=== PATIENT | female | born 1960 | race Caucasian/White ===

== ENCOUNTER 2024-09-14 18:49 | Inpatient (IN) ==
--- NOTE | 2024-09-14 19:40 | XRay Report ---
Exam(s): XR CXR 2 VIEWS EXAM: XR Chest, 2 Views CLINICAL HISTORY: Reason for exam: Chest pain, nonspecific. TECHNIQUE: Frontal and lateral views of the chest. COMPARISON: No relevant prior studies available. FINDINGS: Lungs: Unremarkable. No consolidation. Pleural space: Unremarkable. No pleural effusion or pneumothorax. Heart: Unremarkable. No cardiomegaly or pulmonary vascular congestion. Bones/joints: No acute fracture. No dislocation. IMPRESSION: No evidence of acute cardiopulmonary disease. Electronically signed by: Mike Boone M.D. 09/14/24 19:39 PM
[2024-09-14 19:44] LABS: Basophils # (auto) 0.03 K/uL (0.00-0.20); Basophils % (auto) 0.4 %; Eosinophils # (auto) 0.18 K/uL (0.00-0.50); Eosinophils % (auto) 2.1 %; Hematocrit (blood only) 43.1 % (37.0-47.0); Hemoglobin 14.4 g/dl (12.0-16.0); Immature Granulocytes # (auto) 0.02 K/uL (0.01-0.20); Immature Granulocytes % (auto) 0.2 %; Lymphocytes # (auto) 1.55 K/uL (1.20-3.40); Lymphocytes % (auto) 18.3 %; Mean Corpuscular Hemoglobin 29.3 pg (25.0-34.0); Mean Corpuscular Hgb Conc 33.4 g/dL (32.0-36.0); Mean Corpuscular Volume 87.8 fL (80.0-100.0); Mean Platelet Volume 9.6 fL (9.4-12.4); Monocytes # (auto) 0.61 K/uL (0.11-0.59); Monocytes % (auto) 7.2 %; Neutrophils % (auto) 71.8 %; Platelet Count 206 K/uL (130-400); RDW Coefficient of Variation 12.1 % (11.5-14.5); Red Blood Count 4.91 M/uL (4.20-5.40); White Blood Count 8.49 K/ul (4.8-10.8)
[2024-09-14 20:02] LABS: Albumin Globulin Ratio 1.7 (0.9-2); Albumin Level 4.2 gm/dl (3.4-5.0); BUN Creatinine Ratio 14.6 (10-20); Bilirubin,Total 0.3 mg/dl (0.2-1.0); Calcium 9.7 mg/dl (8.6-10.3); Creatinine Clr Calc Pharmacy 41.5 ml/min; Globulin 2.5 gm/dl (2.5-4.0); Potassium 4.1 mmol/L (3.5-5.1); Total Protein 6.7 gm/dl (6.0-8.3)
[2024-09-14 20:08] LABS: Troponin I High Sensitivity 11.2 pg/ml (0-14)
[2024-09-14 20:13] LABS: Partial Thromboplastin Ratio 0.9; Partial Thromboplastin Time 24 Seconds (21-31); Prothrombin Time 10.5 Seconds (9.0-12.0)
--- NOTE | 2024-09-14 21:41 | Emergency Department Note ---
Impression & Plan Pulmonary embolism, Bladder cancer ED Provider Note NAME: LISA LORENZ AGE: 63 SEX: F : 1960 ARRIVES VIA: Walk-In INFORMANT: Patient ED PROVIDER(S): Rachid Husain MD CHIEF COMPLAINT: Abnormal CT scan, pulmonary embolism, referred. PLAN: Disposition: Admit MEDICAL DECISION MAKING: The patient is a pleasant 63-year-old woman with a past medical history of hypothyroidism, hypertension, bladder cancer who presents to the emergency department via walk-in accompanied by her for evaluation of pulmonary embolism on CT of her chest performed today which was done as surveillance for her bladder cancer prior to her upcoming surgery this Saturday. The patient reports she is on a baby aspirin but stopped this 2 weeks ago for her surgery. She denies being on a blood thinner. Patient reports she has not had any chest pain or shortness of breath. She was surprised that she was called about these results today. We were able to obtain the patient's CT report from [facility] and are in the process of attempting to obtain the images through [facility] for review. However the patient's CT report is convincing where "multiple filling defects are visualized in the right upper, middle and lower lobar/segmental branches, consistent with acute pulmonary embolism. Small PE in the left lower lobe segmental branch. No evidence of right heart strain. " The caveat is noted that the study "was not optimized to evaluate for pulmonary embolism." This was a CT chest with contrast study. Of note, the patient did arrive to emergency department during time of high volume, acuity and prolonged emergency department waiting times. Critical pathways initiated from triage. On evaluation the patient is no distress, afebrile with stable vital signs. O2 saturation is 96% on room air. EKG without overt acute ischemia. CXR negative for acute cardiopulmonary process per my personal preliminary review/interpretation. WBC, H/H and platelets within normal limits. Chemistry without metabolic acidosis. Creatinine 1.4 without prior for comparison. LFTs unremarkable. HS troponin 11.2, within normal limits. Case was discussed with Dr. Reaves, [facility] hospitalist who will evaluate the patient for admission. Further management per admitting team including initiation of anticoagulation. Triage Nursing notes reviewed and agree them. Prior/external medical records reviewed Vital Signs: reviewed Differential diagnosis: Reactive airway disease, pneumonia, pneumothorax, COPD, CHF, infections, cardiac ischemia, pulmonary embolism, musculoskeletal, gastrointestinal, as well as other pathologies. ER treatment provided: See below. Diagnostics interpreted by me: ECG: Normal sinus rhythm, 67 bpm, no ectopy, no overt ST ovation or depression, QTc 416, QRS 70 Cardiac Monitoring: An order for continuous cardiac monitoring was placed and demonstrated Normal sinus rhythm, 67 bpm, no ectopy Laboratory studies: See below Imaging studies: See below Consultation(s): Case was discussed with Dr. Reaves, [facility] hospitalist who will evaluate the patient for admission. HPI: The patient is a pleasant 63-year-old woman with a past medical history of hypothyroidism, hypertension, bladder cancer who presents to the emergency department via walk-in accompanied by her for evaluation of pulmonary embolism on CT of her chest performed today which was done as surveillance for her bladder cancer prior to her upcoming surgery this Saturday. The patient reports she is on a baby aspirin but stopped this 2 weeks ago for her surgery. She denies being on a blood thinner. Patient reports she has not had any chest pain or shortness of breath. She was surprised that she was called about these results today. ROS: See above HPI for pertinent positives & negatives. A total of 10 systems reviewed and were otherwise negative. VITALS:See Below PHYSICAL EXAMINATION: GENERAL: Awake, alert, well-appearing, in no distress HENT: Normocephalic, atraumatic. Oropharynx unremarkable. EYES: Normal conjunctiva. Sclera non-icteric. NECK: Supple. No nuchal rigidity. FROM. No JVD. RESPIRATORY: Clear to auscultation. CARDIAC: Regular rate, normal rhythm. Extremities warm and well perfused. Pulses equal. ABDOMEN: Soft, non-distended. No tenderness to palpation. No rebound or guarding. No masses. RECTAL: Deferred. MUSCULOSKELETAL: Chest examination reveals no tenderness. The back is symmetrical on inspection without obvious abnormality. There is no CVA tenderness to palpation. No joint edema. LOWER EXTREMITIES: Calves are equal size bilaterally and non-tender. No edema. No discoloration. NEURO: Normal sensorium. No sensory or motor deficits noted. SKIN: No rash or jaundice noted. 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: No Beliefs That Will Affect Care: None Current Living Situation: Spouse Other Information That Helps Us Care for You: Yes Feels Safe at Home: Yes Safety Concerns: Feels Safe At This Time Assistive Devices: None Allergies Allergies Allergy/AdvReac Type Severity Reaction Status Date / Time latex Allergy Unknown RASH AND Verified 06/17/13 16:18 HIVES Home Meds Home Medications Medication Instructions Recorded Confirmed MULTIPLE VITAMINS W/ MINERALS 1 tab PO DAILY ##0 06/08/13 09/14/24 (WOMENS MULTI) LOSARTAN POTASSIUM (COZAAR) 100 mg PO DAILY #0 tabs 06/17/13 09/14/24 ACETAMINOPHEN (TYLENOL) 500 mg PO prn PRN Pain #0 tabs 06/30/13 09/14/24 levothyroxine 200 mcg tablet 200 mcg PO QAM 09/14/24 09/14/24 (Synthroid) sertraline 50 mg tablet 50 mg PO QAM 09/14/24 09/14/24 Results & Data (ED) Vital Signs Vital Signs - 24 hr 09/14/24 18:55 09/14/24 19:37 09/14/24 20:00 Temperature 36.8 C Temperature Source Temporal Artery Scan Pulse Rate 84 63 Pulse Rate [Apical] 61 Pulse Rhythm Regular Pulse Strength Normal Respiratory Rate 20 16 Respiratory Effort / Characteristics Non-Labored Spontaneous Non-Labored Spontaneous Respiratory Depth Normal Blood Pressure 163/102 H Blood Pressure [Right Arm] 113/73 Blood Pressure Mean 122 Blood Pressure Mean [Right Arm] 86 Blood Pressure Position [Right Arm] Lying Pulse Oximetry 97 96 Oxygen Delivery Method Room Air Room Air Sepsis Recent Fever Within 48 Hours No Sepsis New/Unexplained Change in Mental Status N/A Sepsis Action Taken by Nursing No Action Required 09/14/24 20:00 09/14/24 20:00 09/14/24 22:00 Temperature Temperature Source Pulse Rate 61 Pulse Rate [Apical] 62 Pulse Rhythm Pulse Strength Respiratory Rate 16 18 Respiratory Effort / Characteristics Non-Labored Spontaneous Respiratory Depth Blood Pressure Blood Pressure [Right Arm] 149/107 H Blood Pressure Mean Blood Pressure Mean [Right Arm] 121 Blood Pressure Position [Right Arm] Lying Pulse Oximetry 96 96 93 Oxygen Delivery Method Room Air Room Air Room Air Sepsis Recent Fever Within 48 Hours Sepsis New/Unexplained Change in Mental Status Sepsis Action Taken by Nursing Laboratory Data Attestation: I reviewed the patient's lab results. 09/15/24 06:03 09/15/24 06:03 Lab Results 09/14/24 Range/Units 19:29 WBC 8.49 (4.8-10.8) K/ul RBC 4.91 (4.20-5.40) M/uL Hgb 14.4 (12.0-16.0) g/dl Hct 43.1 (37.0-47.0) % MCV 87.8 (80.0-100.0) fL MCH 29.3 (25.0-34.0) pg MCHC 33.4 (32.0-36.0) g/dL RDW Std Deviation 39.0 (36.4-46.3) fL RDW Coeff of Louise 12.1 (11.5-14.5) % Plt Count 206 (130-400) K/uL MPV 9.6 (9.4-12.4) fL Immature Gran % (Auto) 0.2 % Neut % (Auto) 71.8 % Lymph % (Auto) 18.3 % [place]imble % (Auto) 7.2 % Eos % (Auto) 2.1 % Baso % (Auto) 0.4 % Neut # (Auto) 6.10 (1.40-6.50) K/uL Lymph # (Auto) 1.55 (1.20-3.40) K/uL [place]ble # (Auto) 0.61 H (0.11-0.59) K/uL Eos # (Auto) 0.18 (0.00-0.50) K/uL Baso # (Auto) 0.03 (0.00-0.20) K/uL Immature Gran # (Auto) 0.02 (0.01-0.20) K/uL PT 10.5 (9.0-12.0) Seconds INR 1.0 (0.9-1.1) APTT 24 (21-31) Seconds PTT Ratio 0.9 Sodium 138 (136-145) mmol/L Potassium 4.1 (3.5-5.1) mmol/L Chloride 105 (98-107) mmol/L Carbon Dioxide 26 (21-32) mmol/L Anion Gap 7 (3-11) BUN 21 (6-23) mg/dl Creatinine 1.44 H (0.6-1.2) mg/dl Est Cr Clr Drug Dosing 41.5 ml/min eGFR 41.12 BUN/Creatinine Ratio 14.6 (10-20) Glucose 103 H (70-99(Fasting)) mg/dl Calcium 9.7 (8.6-10.3) mg/dl Magnesium 2.0 (1.7-2.4) mg/dl Total Bilirubin 0.3 (0.2-1.0) mg/dl AST 16 (13-39) U/L ALT 8 (7-52) U/L Alkaline Phosphatase 63 (34-104) U/L Troponin I High Sens 11.2 (0-14) pg/ml Total Protein 6.7 (6.0-8.3) gm/dl Albumin 4.2 (3.4-5.0) gm/dl Globulin 2.5 (2.5-4.0) gm/dl Albumin/Globulin Ratio 1.7 (0.9-2) TSH 0.484 (0.300-4.500) uIu/ml Administered Medications Sodium Chloride (Nss) 1,000 mls @ 80 mls/hr IV .[id number] STA Stop: 09/15/24 10:28 Last Admin: 09/14/24 23:57 Dose: 80 mls/hr Documented By: EMB Heparin Sodium/Dextrose (Heparin Sodium/Dextrose) 25,000 units in 500 mls @ 23 mls/hr IV .[id number] [facility]; Protocol Stop: 10/14/24 23:14 Last Admin: 09/14/24 23:56 Dose: 1,150 units/hr, 23 mls/hr Documented By: EMB Co-signed By: LARISA Lorazepam (Lorazepam 0.5 Mg Tab) 0.5 mg PO TID PRN PRN Reason: Anxiety Stop: 10/14/24 22:55 Last Admin: 09/15/24 00:48 Dose: 0.5 mg Documented By: EMB Imaging Data Radiologist's Impression: Chest X-Ray 09/14/24 19:01 Exam(s): XR CXR 2 VIEWS EXAM: XR Chest, 2 Views CLINICAL HISTORY: Reason for exam: Chest pain, nonspecific. TECHNIQUE: Frontal and lateral views of the chest. COMPARISON: No relevant prior studies available. FINDINGS: Lungs: Unremarkable. No consolidation. Pleural space: Unremarkable. No pleural effusion or pneumothorax. Heart: Unremarkable. No cardiomegaly or pulmonary vascular congestion. Bones/joints: No acute fracture. No dislocation. IMPRESSION: No evidence of acute cardiopulmonary disease. Electronically signed by: Mike Boone M.D. 09/14/24 19:39 PM Discharge Plan Visit Data Chief Complaint: Abnormal Labs/Diagnostic Testing Stated Complaint: ABN SCAN ED Provider: Rachid Husain Discharge Problem: Pulmonary embolism, Bladder cancer Patient Disposition: Admitted As Inpatient Discharge Instructions Interventions: ED Discharge Assessment Last Done: 09/15/24 00:54 Discharge Problem: Pulmonary embolism Qualifiers: Pulmonary embolism type: unspecified Chronicity: acute Acute cor pulmonale presence: without acute cor pulmonale Qualified Code(s): I26.99 - Other pulmonary embolism without acute cor pulmonale Bladder cancer Qualifiers: Bladder location: unspecified site Qualified Code(s): C67.9 - Malignant neoplasm of bladder, unspecified
--- NOTE | 2024-09-14 22:32 | History & Physical Report ---
Date of Service September 14, 2024 Assessment & Plan (1) Pulmonary embolism: Plan: History of bladder cancer History RLE DVT in the setting of breast cancer surgery 2012 Rule out lower extremity clot as source hypertension, stable hyperlipidemia, on statin Rx hx TIA CRI, creatinine at baseline left breast cancer status post surgery/radiation status post tamoxifen Rx cervical cancer status post surgery/chemoradiation thyroid cancer status post ablation hypothyroidism, euthyroid as of today's TSH anxiety/mood disorder, patient slightly anxious and tearful during exam due to possible cancellation of contemplated elective cancer surgery at [facility] on 09/16 with discovery of blood clot past tobacco abuse Admit to medical telemetry IV heparin LE venous Dopplers rule out DVT Will request a.m. provider to contact patient's urologist (Dr. Guerrero) in a.m. to inquire about possibility of transferring patient to [facility] to facilitate surgery 09/16 with perioperative anticoagulation. Patient and have intense desire to proceed with contemplated procedure despite new blood clot diagnosis. DVT prophylaxis. IV heparin Full code Text document was generated using [employer] voice recognition software. It may contain grammatical or spelling errors. Kindly contact undersigned for clarification of any documentation item in question. History of Present Illness Chief Complaint: Abnormal CAT scan Primary Care Provider: Allyson Vickers DO History obtained from patient and records. Medical history significant for hypertension, hyperlipidemia, TIA, CRI (baseline creatinine 1.4), bladder cancer, left breast cancer status post surgery/radiation, status post tamoxifen Rx, cervical cancer status post surgery/chemoradiation, thyroid cancer status post ablation, postop DVT status post anticoagulation, hypothyroidism, anxiety/mood disorder, past tobacco abuse. Last confinement 2010 for TIA symptoms. Patient diagnosed to have bladder cancer last month presenting as hematuria symptoms. Robot-assisted laparoscopic partial cystectomy with possible pelvic lymph node dissection contemplated by urologist at [facility] contemplated September 16, 2024. Outpatient PET scan and CT chest abdomen pelvis to rule out occult mets requested by specialist following office visit last week. Outpatient CT chest abdomen pelvis done at [facility] facility done today with results noted below. A 1.8 x 1.2 cm hypoattenuating collection/structure at the urachal remanent near the anterior bladder dome, grossly unchanged from prior CT. Findings suspicious for residual tumor rather than a postoperative collection. Recent PET-CT would be limited to detect uptake given mucinous subtype. No evidence of metastatic disease. Please note that this study was not optimized to evaluate for pulmonary embolism. However, multiple filling defects are visualized in the right upper, middle and lower lobar/segmental branches, consistent with acute pulmonary embolism. Small PE in the left lower lobe segmental branch. No evidence of right heart strain. Patient denies chest pain, SOB, leg swelling, hematuria symptoms. History RLE DVT in 2012 during confinement for breast surgery. Patient directed to ER by urologist office for further evaluation. 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 Allergies Allergy/AdvReac Type Severity Reaction Status Date / Time latex Allergy Unknown RASH AND Verified 06/17/13 16:18 HIVES Home Medications Medication Instructions Recorded Confirmed Type MULTIPLE VITAMINS W/ MINERALS 1 tab PO DAILY ##0 06/08/13 09/14/24 History (WOMENS MULTI) LOSARTAN POTASSIUM (COZAAR) 100 mg PO DAILY #0 tabs 06/17/13 09/14/24 History ACETAMINOPHEN (TYLENOL) 500 mg PO prn PRN Pain #0 tabs 06/30/13 09/14/24 History levothyroxine 200 mcg tablet 200 mcg PO QAM 09/14/24 09/14/24 History (Synthroid) sertraline 50 mg tablet 50 mg PO QAM 09/14/24 09/14/24 History Past Med/Surg History Problem List (Updated 09/15/24 @ 06:54 by Rachid Husain MD) Bladder cancer (Acute) Pulmonary embolism (Acute) Social History Smoking Status: Never smoker Hx Alcohol Use: Yes Alcohol type: beer, wine and hard liquor Hx Substance Use: No (Has medical marijuana card, has not used in 3-4 months) Preferred Language: German Communication Ability: Effective 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 Costume 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 Required: No Beliefs That Will Affect Care: None Current Living Situation: Spouse Other Information That Helps Us Care for You: Yes Feels Safe at Home: Yes Safety Concerns: Feels Safe At This Time Assistive Devices: None Review of Systems Review of Systems: As per HPI, all other systems reviewed and negative Physical Exam Physical Exam: GENERAL: Comfortable, pleasant, tearful, no respiratory distress SKIN: Normal color, warm HEENT: Morea palpebral conjunctivae, no ptosis, dry buccal mucosa NECK : Supple, no tenderness CHEST : CTA, no tenderness HEART : RRR, no obvious murmurs ABDOMEN: Some distention, nontender EXTREMITIES : Minimal LE swelling without tenderness, no other conspicuous deformities noted NEUROLOGIC : Coherent, no facial asymmetry, no other gross focality Results & Data Results & Data Vital Signs (Past 12 Hours) Vital Signs Temp Pulse Pulse Resp BP BP Pulse Ox 09/14/24 20:00 61 16 96 09/14/24 20:00 96 09/14/24 20:00 61 16 113/73 96 09/14/24 19:37 63 09/14/24 18:55 36.8 C 84 20 163/102 H 97 O2 Del Method 09/14/24 20:00 Room Air 09/14/24 20:00 Room Air 09/14/24 20:00 Room Air 09/14/24 19:37 09/14/24 18:55 Room Air Laboratory Results Laboratory Results WBC 8.49 K/ul (4.8-10.8) 09/14/24 19: RBC 4.91 M/uL (4.20-5.40) 09/14/24 19:29 Hgb 14.4 g/dl (12.0-16.0) 09/14/24 19: Hct 43.1 % (37.0-47.0) 09/14/24 19: MCV 87.8 fL (80.0-100.0) 09/14/24 19: MCH 29.3 pg (25.0-34.0) 09/14/24 19: MCHC 33.4 g/dL (32.0-36.0) 09/14/24 19:29 RDW Std Deviation 39.0 fL (36.4-46.3) 09/14/24: RDW Coeff of Louise 12.1 % (11.5-14.5) 09/14/24 19: Plt Count 206 K/uL (130-400) 09/14/24 19: MPV 9.6 fL (9.4-12.4) 09/14/24 19: Immature Gran % (Auto) 0.2 % 09/14/24: Neut % (Auto) 71.8 % 09/14/24 19: Lymph % (Auto) 18.3 % 09/14/24 19: [place]rentiss % (Auto) 7.2 % 09/14/24 19: Eos % (Auto) 2.1 % 09/14/24 19: Baso % (Auto) 0.4 % 09/14/24: Neut # (Auto) 6.10 K/uL (1.40-6.50) 09/14/24: Lymph # (Auto) 1.55 K/uL (1.20-3.40) 09/14/24 19: [place]rentiss # (Auto) 0.61 K/uL (0.11-0.59) H 09/14/24: Eos # (Auto) 0.18 K/uL (0.00-0.50) 09/14/24: Baso # (Auto) 0.03 K/uL (0.00-0.20) 09/14/24: Immature Gran # (Auto) 0.02 K/uL (0.01-0.20) 09/14/24: PT 10.5 Seconds (9.0-12.0) 09/14/24: INR 1.0 (0.9-1.1) 09/14/24: APTT 24 Seconds (21-31) 09/14/24: PTT Ratio 0.9 09/14/24: Sodium 138 mmol/L (136-145) 09/14/24: Potassium 4.1 mmol/L (3.5-5.1) 09/14/24: Chloride 105 mmol/L (98-107) 09/14/24: Carbon Dioxide 26 mmol/L (21-32) 09/14/24:29 Anion Gap 7 (3-11) 09/14/24:29 BUN 21 mg/dl (6-23) 09/14/24: Creatinine 1.44 mg/dl (0.6-1.2) H 09/14/24: Est Cr Clr Drug Dosing 41.5 ml/min 09/14/24:29 eGFR 41.12 09/14/24:29 BUN/Creatinine Ratio 14.6 (10-20) 09/14/24 19:29 Glucose 103 mg/dl (70-99(Fasting)) H 09/14/24 19:29 Calcium 9.7 mg/dl (8.6-10.3) 09/14/24 19:29 Magnesium 2.0 mg/dl (1.7-2.4) 09/14/24 19:29 Total Bilirubin 0.3 mg/dl (0.2-1.0) 09/14/24 19:29 AST 16 U/L (13-39) 09/14/24 19:29 ALT 8 U/L (7-52) 09/14/24 19:29 Alkaline Phosphatase 63 U/L (34-104) 09/14/24 19:29 Troponin I High Sens 11.2 pg/ml (0-14) 09/14/24 19:29 Total Protein 6.7 gm/dl (6.0-8.3) 09/14/24 19:29 Albumin 4.2 gm/dl (3.4-5.0) 09/14/24 19:29 Globulin 2.5 gm/dl (2.5-4.0) 09/14/24 19:29 Albumin/Globulin Ratio 1.7 (0.9-2) 09/14/24 19:29 Impressions Chest X-Ray 09/14/24 19:01 Exam(s): XR CXR 2 VIEWS EXAM: XR Chest, 2 Views CLINICAL HISTORY: Reason for exam: Chest pain, nonspecific. TECHNIQUE: Frontal and lateral views of the chest. COMPARISON: No relevant prior studies available. FINDINGS: Lungs: Unremarkable. No consolidation. Pleural space: Unremarkable. No pleural effusion or pneumothorax. Heart: Unremarkable. No cardiomegaly or pulmonary vascular congestion. Bones/joints: No acute fracture. No dislocation. IMPRESSION: No evidence of acute cardiopulmonary disease. Electronically signed by: Mike Boone M.D. 09/14/24 19:39 PM Diagnostic Findings EKG as per my interpretation : Rate 65, NSR, LAD, LAFB, T wave abnormalities septal leads
[2024-09-14] MEDS ORDERED: ACETAMINOPHEN 325 MG TAB PO PRN (22:56)
[2024-09-14] MEDS ORDERED: Heparin IV Adult Wt-Based Standard *NO* INITIAL Bolus Protocol IV STA (22:56)
[2024-09-14] MEDS ORDERED: oxyCODONE HCL IR 5 MG TAB (IMMEDIATE RELEASE) PO PRN (22:56)
[2024-09-14] MEDS ORDERED: PROMETHAZINE 6.25 MG/50.25 ML BAG IV PRN (22:56)
[2024-09-14] MEDS: HEPARIN SODIUM/DEXTROSE 25,000 UNITS/500 ML BAG IV SCH (23:56)
[2024-09-14] MEDS: SODIUM CHLORIDE 0.9% 1,000 ML IV STA (23:57)
[2024-09-15] MEDS: LORazepam 0.5 MG TAB PO PRN (00:48)
[2024-09-15 02:43] LABS: Thyroid Stimulating Hormone 0.484 uIu/ml (0.300-4.500)
--- NOTE | 2024-09-15 03:55 | Ultrasound Report ---
EXAM: US venous doppler LE BI CLINICAL HISTORY: PE, R/o DVT RLE: 1 of 2 fouzia v noncompressible w/no flow. all other vessels appear patent LLE: no definite DVT detected TECHNIQUE: Bilateral lower extremity venous Doppler was performed. One or more of the following were performed- spectral analysis, resistive index, waveform analysis, and pulsed Doppler. COMPARISON: None. FINDINGS: The bilateral lower limb venous system was examined. Right lower extremity: The veins scanned included the following: Common femoral, superficial femoral, popliteal, peroneal, and tibial veins. Right peroneal vein is noncompressible and shows no flow, raising the possibility of thrombosis. On the B mode examination, the rest of the veins are compressible. On the color and spectral Doppler mode, there is phasic and spontaneous flow in the remaining vessels. Left lower extremity: The veins scanned included the following: Common femoral, superficial femoral, popliteal, peroneal, and tibial veins. On the B mode examination, the veins are compressible. No evidence of an intraluminal thrombus. On the color and spectral Doppler mode, there is phasic and spontaneous flow in the vessels. IMPRESSION: 1. Right peroneal vein is noncompressible and shows no flow, consistent with thrombosis. Follow up is recommended. 2. No evidence of deep vein thrombosis in left lower extremity. RECOMMENDATIONS: Clinical correlation with symptoms and further evaluation as indicated. Follow-up imaging may be recommended based on clinical scenario or if significant abnormalities are identified. DISCLAIMER:DVT could be missed early in the disease when clot burden is minimal. For patients with moderate and high pretest probability of DVT and negative ultrasound, the [employer] clinical guidelines recommend testing with a D-dimer assay or repeat ultrasound in 5-7 days. If symptoms worsen, the Society of radiologists in ultrasound recommends repeating ultrasound even earlier. Electronically signed by Sav Pulido 09-15-2024 03:55 AM
[2024-09-15 06:26] LABS: Basophils # (auto) 0.02 K/uL (0.00-0.20); Basophils % (auto) 0.4 %; Eosinophils # (auto) 0.27 K/uL (0.00-0.50); Eosinophils % (auto) 4.9 %; Hematocrit (blood only) 40.8 % (37.0-47.0); Hemoglobin 13.5 g/dl (12.0-16.0); Immature Granulocytes # (auto) 0.01 K/uL (0.01-0.20); Immature Granulocytes % (auto) 0.2 %; Lymphocytes # (auto) 1.46 K/uL (1.20-3.40); Lymphocytes % (auto) 26.6 %; Mean Corpuscular Hgb Conc 33.1 g/dL (32.0-36.0); Mean Corpuscular Volume 87.7 fL (80.0-100.0); Mean Platelet Volume 9.7 fL (9.4-12.4); Monocytes # (auto) 0.56 K/uL (0.11-0.59); Monocytes % (auto) 10.2 %; Neutrophils # (auto) 3.16 K/uL (1.40-6.50); Neutrophils % (auto) 57.7 %; Platelet Count 182 K/uL (130-400); RDW Coefficient of Variation 12.2 % (11.5-14.5); RDW Standard Deviation 39.5 fL (36.4-46.3); Red Blood Count 4.65 M/uL (4.20-5.40); White Blood Count 5.48 K/ul (4.8-10.8)
[2024-09-15 06:36] LABS: BUN Creatinine Ratio 19.5 (10-20); Calcium 8.8 mg/dl (8.6-10.3); Creatinine Clr Calc Pharmacy 52.9 ml/min; Potassium 3.9 mmol/L (3.5-5.1)
[2024-09-15 07:07] LABS: ANTI-Xa, UFH(UnfractionatedHep 0.61 IU/ml (0.3-0.7)
--- NOTE | 2024-09-15 07:56 | Hospitalist Progress Note ---
Date of Service September 15, 2024 Assessment & Plan (1) Pulmonary embolism: Plan: Ms. Tobar is a 64 year old woman with medical history significant for hypertension, hyperlipidemia, TIA, CRI (baseline creatinine 1.4), bladder cancer, left breast cancer status post surgery/radiation, status post tamoxifen Rx, cervical cancer status post surgery/chemoradiation, thyroid cancer status post ablation, postop DVT status post anticoagulation, hypothyroidism, anxiet y/mood disorder, past tobacco abuse who was admitted for acute pulmonary emboli noted on CTA as an OP. Repeat CT chest revealed large amount of pulmonary emboli ECHO without right heart strain. Patient on room air and asymptomatic # Pulmonary Embolism, likely provoked Pt presents with asymptomatic and hemodynamically stable PE without biomarker or imaging findings of right ventricular strain. Patient with bladder cancer pending removal as likely precipitant - Anticoagulation: heparin drip for now, will maintain for 48 hours - continue to monitor on tele - Trop negative - ECHO 60-65%, no PHTN no strain noted Plan to send TappIn to pharmacy for co pay #Urachal malignancy, mucinous adenocarcinoma #History of gross hematuria scheduled robot assisted laparoscopic partial cystectomy, possible pelvic lymph node dissection planned for 09/16, now cancelled 2/[address] Guerrero--patient will keep original post op appt 09/21 to discuss next steps No hematuria at this time, though significant risk for return Patient with rojas initially for upcoming procedure; however, Dr. Guerrero notes can be removed given no sign of hematuria at this time Low threshold to replace if hematuria returns #hypertension, stable continue home losartan monitor hemodynamics #hyperlipidemia, continue on statin Rx #CRI, creatinine at baseline will continue IVF iso multiple contrast loads #left breast cancer status post surgery/radiation status post tamoxifen Rx #cervical cancer status post surgery/chemoradiation seemingly followed Dr Ferrer and will need to resestablish iso above #hypothyroidism #thyroid cancer status post ablation continue synthroid #anxiety/mood disorder, patient slightly anxious and tearful during exam due to possible cancellation of contemplated elective cancer surgery at [facility] on 09/16 with discovery of blood clot -Ativan prn -sertraline qam Full code DVT heparin ggt Admission and Anticipated Discharge Date Admission Date: September 14, 2024 Subjective evaluated at bedside, reports feeling upset over procedure tomorrow discussed in depth that based on acuity and location that the procedure presents a huge risk that may outweigh outcome Patient verbalized understanding, though still understandably upset over change in plan She denies any shortness of breath or TOURE at this time, no chest pain or other concerns Rojas without hematuria Physical Exam Constitutional: WD/WN, vitals as above Respiratory: normal respiratory effort, lungs clear to auscultation Cardiovascular: RRR, no murmur, no edema Gastrointestinal (Abdomen): normal bowel sounds, soft, nontender, no hepatosplenomegaly Results & Data Results & Data Vital Signs (Past 12 Hours) Vital Signs Temp Pulse Pulse Resp BP BP BP 09/15/24 06:41 52 L 12 133/87 09/15/24 04:42 52 L 12 124/79 09/15/24 02:26 09/15/24 01:42 53 L 14 132/57 L 09/15/24 01:29 36.8 C 52 L 16 132/57 L 09/15/24 00:55 53 L 16 123/82 09/15/24 00:55 09/15/24 00:06 52 L 16 114/76 09/14/24 23:28 60 09/14/24 23:00 61 15 126/86 09/14/24 22:00 62 18 149/107 H 09/14/24 20:00 61 16 09/14/24 20:00 09/14/24 20:00 61 16 113/73 Pulse Ox Pulse Ox O2 Del Method O2 Del Method O2 Flow Rate 09/15/24 06:41 95 Nasal Cannula 2 09/15/24 04:42 95 Nasal Cannula 3 09/15/24 02:26 88 L Room Air 0 09/15/24 01:42 95 Room Air 09/15/24 01:29 96 Room Air 09/15/24 00:55 96 Room Air 09/15/24 00:55 96 Room Air 09/15/24 00:06 94 Room Air 09/14/24 23:28 09/14/24 23:00 95 09/14/24 22:00 93 Room Air 09/14/24 20:00 96 Room Air 09/14/24 20:00 96 Room Air 09/14/24 20:00 96 Room Air Laboratory Results Short CBC 09/14/24 09/15/24 Range/Units 19:29 06:03 WBC 8.49 5.48 (4.8-10.8) K/ul Hgb 14.4 13.5 (12.0-16.0) g/dl Hct 43.1 40.8 (37.0-47.0) % Plt Count 206 182 (130-400) K/uL BMP 09/14/24 09/15/24 19:29 06:03 Sodium 138 142 Potassium 4.1 3.9 Chloride 105 112 H Carbon Dioxide 26 23 BUN 21 22 Creatinine 1.44 H 1.13 D Glucose 103 H 102 H Calcium 9.7 8.8 Liver Function 09/14/24 Range/Units 19:29 Total Bilirubin 0.3 (0.2-1.0) mg/dl AST 16 (13-39) U/L ALT 8 (7-52) U/L Alkaline Phosphatase 63 (34-104) U/L Albumin 4.2 (3.4-5.0) gm/dl Diagnostic Findings Venous Doppler Study 09/15/24 00:00 EXAM: US venous doppler LE BI CLINICAL HISTORY: PE, R/o DVT RLE: 1 of 2 fouzia v noncompressible w/no flow. all other vessels appear patent LLE: no definite DVT detected TECHNIQUE: Bilateral lower extremity venous Doppler was performed. One or more of the following were performed- spectral analysis, resistive index, waveform analysis, and pulsed Doppler. COMPARISON: None. FINDINGS: The bilateral lower limb venous system was examined. Right lower extremity: The veins scanned included the following: Common femoral, superficial femoral, popliteal, peroneal, and tibial veins. Right peroneal vein is noncompressible and shows no flow, raising the possibility of thrombosis. On the B mode examination, the rest of the veins are compressible. On the color and spectral Doppler mode, there is phasic and spontaneous flow in the remaining vessels. Left lower extremity: The veins scanned included the following: Common femoral, superficial femoral, popliteal, peroneal, and tibial veins. On the B mode examination, the veins are compressible. No evidence of an intraluminal thrombus. On the color and spectral Doppler mode, there is phasic and spontaneous flow in the vessels. IMPRESSION: 1. Right peroneal vein is noncompressible and shows no flow, consistent with thrombosis. Follow up is recommended. 2. No evidence of deep vein thrombosis in left lower extremity. RECOMMENDATIONS: Clinical correlation with symptoms and further evaluation as indicated. Follow-up imaging may be recommended based on clinical scenario or if significant abnormalities are identified. DISCLAIMER:DVT could be missed early in the disease when clot burden is minimal. For patients with moderate and high pretest probability of DVT and negative ultrasound, the [employer] clinical guidelines recommend testing with a D-dimer assay or repeat ultrasound in 5-7 days. If symptoms worsen, the Society of radiologists in ultrasound recommends repeating ultrasound even earlier. Electronically signed by Sav Pulido 09-15-2024 03:55 AM Chest CTA 09/15/24 07:59 CT angio chest PE protocol CT DOSE: 772.67 mGy.cm HISTORY: 63 years-old Female with imaging not optimized for PE as OP, confirm. Acute shortness of breath TECHNIQUE: Multiple CTA images of the chest were obtained after the intravenous administration of 112 ml Optiray. Coronal and sagittal MIPS were obtained from the axial data set and were submitted for review. All measurements were obtained according to NASCET criteria. A dose lowering technique was utilized adhering to the principles of ALARA. COMPARISON: Chest radiograph September 14, 2024 FINDINGS: CTA: Heart is mildly enlarged. No pericardial effusion. No thoracic aortic aneurysm. There is a large amount of pulmonary emboli noted within the distal right main pulmonary artery extending into the lobar, segmental and subsegmental branches of the right lung. Segmental and subsegmental pulmonary emboli also noted within the lingula and left lower lobe. There is mild straightening of the intraventricular septum. No saddle pulmonary emboli identified. CT CHEST: No thyroid nodule or pathologically enlarged lymph nodes. No pleural effusion, pneumothorax or large pulmonary infarct. Subsegmental bibasilar opacities suggest atelectasis. There are no suspicious pulmonary nodules or masses identified. Mild bronchial wall thickening with areas of bibasilar mucous plugging. Small hiatal hernia. No acute upper abdominal abnormality. Hyperdense material w ithin the gallbladder suggests vicarious excretion of contrast. Enteric contrast noted within the large bowel. No acute fracture. IMPRESSION: 1. Large amount of pulmonary emboli as above with evidence of right heart strain. No saddle pulmonary embolus identified. 2. No pleural effusion or airspace consolidation to suggest pneumonia or pulmonary infarct. 3. Mild subsegmental bibasilar atelectasis. 4. No lymphadenopathy. ACT 112: Negative or not required by law. The above report was generated using voice recognition software. It may contain grammatical, syntax or spelling errors. Electronically signed by: Rigoberto Carias M.D. 09/15/2024 8:45 AM Medications Administered Home Medications Medication Instructions Recorded Confirmed Last Taken MULTIPLE VITAMINS W/ MINERALS 1 tab PO DAILY ##0 06/08/13 09/14/24 Unknown (WOMENS MULTI) LOSARTAN POTASSIUM (COZAAR) 100 mg PO DAILY #0 tabs 06/17/13 09/14/24 Unknown ACETAMINOPHEN (TYLENOL) 500 mg PO prn PRN Pain #0 tabs 06/30/13 09/14/24 Unknown levothyroxine 200 mcg tablet 200 mcg PO QAM 09/14/24 09/14/24 Unknown (Synthroid) sertraline 50 mg tablet 50 mg PO QAM 09/14/24 09/14/24 Unknown Active Medications Generic Name Dose Route Start Last Admin Trade Name Freq PRN Reason Stop Dose Admin Heparin Sodium/Dextrose 25,000 units in 500 mls @ 23 mls/hr 09/14/24 23:15 09/15/24 09:18 Heparin Sodium/Dextrose IV 10/14/24 23:14 1,150 units/hr .[id number] BETTY 23 mls/hr Titration Protocol 1,150 UNITS/HR Levothyroxine Sodium 200 mcg 09/15/24 06:30 09/15/24 07:59 Levothyroxine Sodium 200 Mcg Tablet PO 10/15/24 06:29 200 mcg DAILYBB BETTY Administration Lorazepam 0.5 mg 09/14/24 22:56 09/15/24 00:48 Lorazepam 0.5 Mg Tab PO 10/14/24 22:55 0.5 mg TID PRN Administration Anxiety Losartan Potassium 100 mg 09/15/24 09:00 09/15/24 07:59 Losartan Potassium 50 Mg Tab PO 10/15/24 08:59 100 mg DAILY BETTY Administration Multivitamins/Minerals 1 tab 09/15/24 09:00 09/15/24 08:00 Cerovite Adv Formula Tab PO 10/15/24 08:59 Not Given DAILY BETTY Sertraline HCl 50 mg 09/15/24 09:00 09/15/24 07:59 Sertraline Hcl 50 Mg Tablet PO 10/15/24 08:59 50 mg QAM BETTY Administration (1) Pulmonary embolism Acute cor pulmonale presence: without acute cor pulmonale Chronicity: acute Pulmonary embolism type: unspecified Qualified Code(s): I26.99 - Other pulmonary embolism without acute cor pulmonale
[2024-09-15] MEDS: SERTRALINE HCL 50 MG TABLET PO SCH (07:59)
[2024-09-15] MEDS: LOSARTAN POTASSIUM 50 MG TAB PO SCH (07:59)
[2024-09-15] MEDS: LEVOTHYROXINE SODIUM 200 MCG TABLET PO SCH (07:59)
[2024-09-15] MEDS: CEROVITE ADV FORMULA TAB PO SCH (08:00)
[2024-09-15] MEDS: OPTIRAY 320 125ml IV ONE (08:35)
--- NOTE | 2024-09-15 08:47 | CT Scan Report ---
CT angio chest PE protocol CT DOSE: 772.67 mGy.cm HISTORY: 63 years-old Female with imaging not optimized for PE as OP, confirm. Acute shortness of b reath TECHNIQUE: Multiple CTA images of the chest were obtained after the intravenous administration of 112 ml Optiray. Coronal and sagittal MIPS were obtained from the axial data set and were submitted for review. All measurements were obtained according to NASCET criteria. A dose lowering technique was u tilized adhering to the principles of ALARA. COMPARISON: Chest radiograph September 14, 2024 FINDINGS: CTA: Heart is mildly enlarged. No pericardial effusion. No thoracic aortic aneurysm. There is a large amou nt of pulmonary emboli noted within the distal right main pulmonary artery extending into the lobar, segmental and subsegmental branches of the right lung. Segmental and subsegmental pulmonary emboli al so noted within the lingula and left lower lobe. There is mild straightening of the intraventricular septum. No saddle pulmonary emboli identified. CT CHEST: No thyroid nodule or pathologically enlarged lymph nodes. No pleural effusion, pneumothorax or large pulmonary infarct. Subsegmental bibasilar opacities suggest atelectasis. There are no suspicious pulm onary nodules or masses identified. Mild bronchial wall thickening with areas of bibasilar mucous plu gging. Small hiatal hernia. No acute upper abdominal abnormality. Hyperdense material within the gallbladder suggests vicarious excretion of contrast. Enteric contrast noted within the large bowel. No acute fr acture. IMPRESSION: 1. Large amount of pulmonary emboli as above with evidence of right heart strain. No saddle pulmonary embolus identified. 2. No pleural effusion or airspace consolidation to suggest pneumonia or pulmonary infarct. 3. Mild subsegmental bibasilar atelectasis. 4. No lymphadenopathy. ACT 112: Negative or not required by law. The above report was generated using voice recognition software. It may contain grammatical, syntax o r spelling errors. Electronically signed by: Rigoberto Carias M.D. 09/15/2024 8:45 AM
--- OUTSIDE RECORDS SUMMARY | 2024-09-15 08:47 | External Medical Summary | Summary of Care ---
Author Name Unknown Organization [facility] Address [address] [place] [address] Phone [phone] Care Team Providers Care Beekeeper Name Role Phone Sohail Vickersa Kit JULIO Primary Care Provider [phone] Reason for Visit * Reason Comments Outpatient Testing Encounter Details Date Type Department Care Team (Late st Contact Info) Description 09/09/2024 12:50 PM EST Laboratory Laboratory, [facility] [address] [place] [address] [facility], Lab [address] [place] [address] Pre-op testing; Malignant neoplasm of urachus (HCC) Allergies Active Allergy Reactions Criticality Noted Date Comments Latex Hives,Rash Medium 05/20/2014 documented as of this encounter (statuses as of 09/09/2024) Medications Medication Sig Dispensed Refills Start Date End Date Status ASPIRIN EC 81 MG PO TBECIndications:TIA (transient ischemic attack) Take by mouth daily. 04/03/2012 Active CYANOCOBALAMIN 1000 MCG PO TABS one daily Active Acetaminophen 500 MG Oral Tablet Take 1 Tablet by mouth every 6 hours as needed for Pain. Active Melatonin 3 MG Capsule Take 1 Capsule by mouth at bedtime. As needed Active multivitamin w/ minerals (CENTRUM, CERTA-BREANN,) liquid Take 5 mL by mouth in the morning. Active Albuterol Sulfate HFA 108 (90 Base) MCG/ACT Inhalation Aerosol Solution Inhale 2 Puffs by mouth every 6 hours as needed for Shortness of Breath or Wheezing. 18 g 2 04/13/2021 Active Additional Information Patient not taking.Reported on 09/03/2024 Turmeric 500 MG Oral Tablet Take by mouth daily. Active Zinc 220 (50 Zn) MG Oral Capsule Take by mouth . Active Vitamin D (Cholecalciferol) 25 MCG (1000 UT) Oral Tablet Take by mouth . Active Biotin 1000 MCG Oral Tablet Take 1 Tablet by mouth in the morning and 1 Tablet at noon and 1 Tablet before bedtime. Pt takes biotin 3000mcg once daily . Active Losartan Potassium 50 MG Oral Tablet (Cozaar)Indications: HTN, goal below 140/90 Take 1 Tablet by mouth in the morning. 90 Tablet 3 06/24/2024 Active Sertraline HCl 50 MG Oral Tablet (Zoloft)Indications: Recurrent major depressive disorder, in remission (HCC) Take 1 Tablet by mouth in the morning. 90 Tablet 3 06/24/2024 Active Synthroid 200 MCG Oral TabletIndications:Ac quired hypothyroidism (at least 30 min prior to breakfast or other meds)TAKE 1 TABLET BY MOUTH DAILY IN THE MORNING AT LEAST 30 MINS PRIOR TO BREAKFAST OR OTHER MEDS. TAKE 2 TABLETS ON SUNDAYS 96 Tablet 1 06/24/2024 Active Acetaminophen 325 MG Oral Tablet (Tylenol) Take 2 Tablets by mouth every 6 hours as needed for Pain, Breakthrough. 100 Tablet 3 07/16/2024 Active Sulfamethoxazole-Tri methoprim 800-160 MG Oral Tablet (Bactrim DS) Take 1 Tablet by mouth in the morning and 1 Tablet before bedtime. 6 Tablet 08/31/2024 Active traMADol HCl 50 MG Oral Tablet (Ultram) Take 1 Tablet by mouth every 6 hours as needed for Pain, Severe. 14 Tablet 08/31/2024 Active oxyBUTYnin Chloride ER 5 MG Oral Tablet Extended Release 24 Hour (Ditropan XL) Take 1 Tablet by mouth in the morning. For duration of ureteral stent. 20 Tablet 08/31/2024 Active Solifenacin Succinate 10 MG Oral Tablet (VESIcare) Take 1 Tablet by mouth in the morning. 30 Tablet 6 09/07/2024 Active documented as of this encounter (statuses as of 09/09/2024) Active Problems Problem Noted Date Diagnosed Date Malignant neoplasm of urachus 07/30/2024 Hematuria, gross 07/29/2024 Lesion of bladder 07/29/2024 Depression with anxiety 12/21/2022 Chronic kidney disease, stage 3a 03/14/2021 Overview: Per CKD protocol History of thyroid cancer 03/02/2018 History of cervical cancer 03/02/2018 Acquired hypothyroidism 06/04/2017 Dyslipidemia 08/14/2007 Overview: Per Lipid Taxonomy. HTN, goal below 130/80 documented as of this encounter (statuses as of 09/09/2024) Resolved Problems Problem Noted Date Diagnosed Date Resolved Date Recurrent major depressive d isorder, in remission 07/13/2020 12/21/2022 HTN, goal below 140/90 08/15/201512/21 Breast cancer, female 07/12/20152018 DVT of lower limb, acute 06/17/2013 Overview: right posterior tibial vein Invasive ductal carcinoma of breast 05/29/2013 07/12/2015 TIA (transient ischemic attack) 04/03/2012 12/21/2022 HTN, goal below 140/90 02/22/201006/22 Dyslipidemia, goal LDL below 100 10/11/2009 12/21/2022 Overview: Per Lipid Taxonomy. HTN, goal to be determined 04/05/2008 1 11/27/2008 Overview: Modified per HTN protocol #16. KIDNEY DZ,CHRONIC (GFR>30-59) STAGE III 01/06/2008 03/16/2021 Overview: Added per CKD clinical protocol 1 Varicose vein of leg 02/10/2007 023 POSTABLAT HYPOTHYR NEC 03/15/200312/21 Uterine leiomyoma 03/15/2003 12/21/2022 Major depressive disorder 03/15/2003 Overview: ICD-10 update of inactive term BACKACHE NOS 03/15/2003 06/22/2013 Organic sleep disorder 03/15/200312/21 GENERALIZED ANXIETY DIS 03/15/200312/05 CKD (chronic kidney disease) stage 3, GFR 30-59 ml/min 06/22/2013 Hyperlipidemia with target LDL less than 100 06/22/2013 Overview: ICD-10 update of inactive term BMI 32.0-32.9,adult 06/22/20 13 BMI 31.0-31.9,adult 10/15/20 19 documented as of this encounter (statuses as of 09/09/2024) Immunizations Name Administration Dates Next Due COVID-19 mRNA, LNP-s, No Pre serve, 2-Dose Series (Pfizer) 01/21/2021,12/31/2020 Influenza, Whole Virus 09/18/2000 Pneumococcal Polysaccharide PPV23 (Pneumovax) 02/14/2017 Seasonal Influenza Vac., MDV , IM, 0.5 mL (Fluzone) 08/04/2013,08/13/2012,07/30/2011,08/04,07/20/2009,08/17/2008,08/14/2007 ,08/08/2006,10/11/2003,09/02/2002 Seasonal Influenza, PF, 6 M & above, IM , (FluLaval or Fluzone) 07/13/2020,08/13/2019,08/22/2017 Seasonal Influenza, Quadriva lent, No Preserve, IM 08/20/2018,08/16/2016,08/15/2015 TD - Tetanus/Diptheria (ADULT) 07/05/2005 TDAP (age 10 and older)(Boostrix) 05/17/2021 TDAP, Age 7 and older, IM (Adacel) 06/27/2011 Zoster Vaccine Recombinant (Shingrix) 07/03/2022 ,04/17/2022 documented as of this encounter Social History Tobacco Use Types Packs/Day Years Used Date Smoking Tobacco: Never Smokeless Tobacco: Never Alcohol Use Standard Drinks/Week Comments Yes 0 (1 standard drink = 0.6 oz pur e alcohol) once or twice a year PHQ-2 Answer Date Recorded PHQ Adult Total Score 0 04/17/2022 Hunger Vital Sign Answer Date Recorded Worried About Running Out of Food in the Last Ye ar Never true 07/13/2020 Ran Out of Food in the Last Year Never true 07/13/2020 Sex and Gender Information Value Date Recorded Sex Assigned at Not on file Gender Identity Not on file Sexual Orientation Not on file Job Start Date Occupation Industry Not on file Not on file Not on file documented as of this encounter Miscellaneous Notes * Addendum Note - Wenceslao Matute TECH - 09/09/2024 1:06 PM ESTAddended by: WENCESLAO MATUTE on: 09/09/2024 01:06 PM Modules accepted: Orders documented in this encounter Plan of Treatment Upcoming Encounters Date Type Department Care Team (Latest Contact Info) Description 09/14/2024 1:30 PM EST Imaging Radiology [facility] [address] [facility] [place] [address] 09/16/2024 8:10 AM EST Hospital Encounter OR [facility], Operating Room, [facility] [address] [place] [phone] Poncho Guerrero MD [address] [place] [address] 09/16/2024 8:10 AM EST - 09/16/2024 12:24 PM EST Surgery OR [facility], Operating Room, [place] [facility] Floor [address] [place] [phone] Poncho Guerrero MD [address] [place] [address] ROBOTIC CYSTECTOMY PARTIAL SIMPLE 09/21/2024 3:30 PM EST Office Visit Urology, [facility] [address] [facility] [place] [address] Poncho Guerrero MD [address] [place] [address] 10/07/2024 5:40 PM EST Office Visit Family Practice [facility] [address] [facility] [place] [address] Allyson Vickers, DO [address] [place] [address] 12/18/2024 11:20 AM EST Office Visit Nephrology, [facility] [address] [place] [address] Delonte Kirby MD [address] [place] [address] 05/17/2025 1:30 PM EDT Imaging Radiology [address] [place] [address] Pending Results Name Type Priority Associated Diagnoses Date /Time ABO/RH Lab Routine Pre-op testing Malignant neoplasm of urachus (HCC) 09/09/2024 12:43 PM EST TYPE AND SCREEN Lab Routine Pre-op testing Malignant neoplasm of urachus (HCC) 09/09/2024 12:50 PM EST EXTRA TUBES Lab Routine 09/09/2024 12 :43 PM EST EXTRA LAVENDER TOP Lab Routine 2023 12:43 PM EST Scheduled Procedures Name Priority Associated Diagnoses Date/Ti pr ROBOTIC CYSTECTOMY PARTIAL SIMPLE Malignant neoplasm of urachus (HCC) 09/16/2024 8:10 AM EST COLONOSCOPY FLEXIBLE PROXIMAL DIAGNOSTIC Recall History of colonic polyps Health Maintenance Due Date Last Done Comments HPV/Co-Test 1991 Cologuard 2006 Fecal Occult Blood Test 2006 Sigmoidoscopy 2006 Depression Monitoring 04/17/2023 04/17/2022 Cervical Cancer Screening 04/12/2024 Pap Smear 04/12/2024 04/12/2021, 05/04, 03/04/2014 (Done elsewhere), Additional history exists COVID-19 Vaccine ( season) 2024 01/21/2021, 12/31/2020 Influenza Vaccine (FLU shot) (#1) 2024 07/13/2020, 08/13/2019, 08/20/2018, Additional history exists TSH 12/31/2024 12/31/2023, 08/04/2022, 04/10/2022, Additional history exists GFR 03/07/2025 09/07/2024, 07/06, 04/10/2024, Additional history exists Albumin/Creatinine Ratio 03/11/2025 024, 12/11/2016, 08/15/2015, Additional history exists CKD HGB USE SMARTSET 59908 04/10/202504/10, 04/10/2024, 04/04/2023, Additional history exists CKD PHOS USE SMARTSET 42661 04/10/2025 06/0 05/2024, 04/04/2023, 04/10/2022, Additional history exists Mammogram 05/11/2025 05/11/2024, 04/05, 04/27/2022, Additional history exists Lipid Panel 04/14/2026 04/14/2021, 07/05, 08/13/2019, Additional history exists Diabetes Screening 04/10/2027 04/10/2024, 0 04/04/2023, 07/03/2022, Additional history exists Colonoscopy 08/16/2028 08/16/2023, 08/04, 02/12/2018, Additional history exists Colorectal Cancer Screening 08/16/2028 DTap/Tdap Vaccines (3 - Td or Tdap) 05/17/2031 05/17/2021, 06/27/2011, 07/05/2005 Pneumococcal Vaccine: Pediatrics (0 to 5 Years) and At-Risk Patients (6 to 64 Years) Aged Out 02/14/2017 No longer eligible based on patient's age to complete this topic Zoster Vaccines Completed 07/03/2022, 04/17/2022 RETIRED - COLONOSCOPY-EVERY 5 YRS AGES 18-100 Discontinued 08/16/2023, 08/16/2023, 02/12/2018, Additional history exists HPV (Gardasil) Vaccine Aged Out No lo nger eligible based on patient's age to complete this topic Hepatitis B Vaccine Aged Out No longe r eligible based on patient's age to complete this topic MENINGOCOCCAL (MENACTRA/MENVEO) Aged Out No longer eligible based on patient's age to complete this topic documented as of this encounter Medical Devices Not on filedocumented as of this encounter Visit Diagnoses Diagnosis Malignant neoplasm of urachus (HCC)- Primary Malignant neoplasm of urachus Pre-op testing Preoperative examination, unspecified 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 Question Answer Comments Discussion of Advance Directives occurred with: Patient * Full Code Date Activated Date Inactivated Comments 08/31/2024 7:53 AM 08/31/2024 10:02 AM This orde r reflects the patients wishes and were consensually agreed upon. Question Answer Comments Discussion of Advance Directives occurred with: Patient Care Teams Beekeeper Relationship Specialty Start Date End Date Allyson Vickers DO [address] [facility] [place] [address] PCP - General Family Medicine 04/02/19 documented as of this encounter
--- OUTSIDE RECORDS SUMMARY | 2024-09-15 08:47 | External Medical Summary | Summary of Care ---
Author Name Unknown Organization [facility] Address [address] [place] [address] Phone [phone] Care Team Providers Care Laborer Syrup Machine Name Role Phone Allyson Vickers DO Primary Care Provider [phone] Encounter Details Date Type Department Care Team (Late st Contact Info) Description 09/09/2024 Telephone Urology, [facility] 132 [facility] [place] [address] Poncho Guerrero MD [address] [facility] [place] [address] Allergies Active Allergy Reactions Criticality Noted Date [...] No Pre serve, 2-Dose Series (Pfizer) 01/21/2021,12/31/2020 Pneumococcal Polysaccharide PPV23 (Pneumovax) 02/14/2017 Seasonal Influenza Vac., MDV , IM, 0.5 mL (Fluzone) 08/04/2013,08/13/2012,07/30/2011,08/04,07/20/2009,08/17/2008,08/14/2007 ,08/08/2006 Seasonal Influenza, PF, 6 M & above, [...] as of this encounter Miscellaneous Notes * Telephone Encounter - Claudette Dozier LPN - 09/09/2024 4:02 PM EST Left detailed message on cell * Telephone Encounter - Claudette Dozier LPN - 09/09/2024 4:02 PM EST ----- Message from Poncho Guerrero MD sent at 09/09/2024 3:26 PM EST ----- Okay to notify patient her PET scan is negative for any worrisome abnormalities or spread of the disease. Follow-up as scheduled. Thanks, HM documented in this encounter Plan of Treatment Upcoming Encounters Date Type Department Care Team (Latest Contact Info) Description 09/14/2024 1:30 PM EST Imaging Radiology [address] [place] [address] 09/16/2024 8:10 AM EST Hospital Encounter OR [facility], Operating Room, [facility] [address] [place] [address] [address] [place] [phone] Poncho Guerrero MD [address] [place] [address] 09/16/2024 8:10 AM EST - 09/16/2024 12:24 PM EST Surgery OR [facility], Operating Room, [facility] - [address] [place] [address] [address] [place] [phone] Poncho Guerrero MD [address] [place] [address] ROBOTIC CYSTECTOMY PARTIAL SIMPLE 09/21/2024 3:30 PM EST Office Visit Urology, [facility] [address] [place] [address] Poncho Guerrero MD [address] [place] [address] 10/07/2024 5:40 PM EST Office Visit Family Practice [facility] [address] [place] [address] Allyson Vickers DO [address] [place] [address] 12/18/2024 11:20 AM EST Office Visit Nephrology, [facility] [address] [place] [address] Delonte Kirby MD [address] [place] [address] 05/17/2025 1:30 PM EDT Imaging Radiology [address] [place] [address] Scheduled Procedures Name Priority Associated Diagnoses Date/Ti wy ROBOTIC CYSTECTOMY PARTIAL SIMPLE Malignant neoplasm of [...] 08/20/2018, Additional history exists TSH 12/31/2024 12/31/2023, 06/05, 04/10/2022, Additional history exists GFR 03/07/2025 09/07/2024, 07/06, 04/10/2024, Additional history exists Albumin/Creatinine Ratio 03/11/2025 024, 12/11/2016, 08/15/2015, Additional history exists CKD HGB USE SMARTSET 84112 04/10/202504/10, 04/10/2024, 04/04/2023, Additional history exists CKD PHOS USE SMARTSET 36423 04/10/2025 06/0 05/2024, 04/04/2023, 04/10/2022, Additional history [...] Not on filedocumented as of this encounter Advance Directives * Full Code [...] Advance Directives occurred with: Patient Care Teams Laborer Syrup Machine Relationship Specialty Start Date End Date Allyson Vickers DO [address] [place] [address] PCP - General Family Medicine 04/02/19 documented as of this encounter
--- OUTSIDE RECORDS SUMMARY | 2024-09-15 08:48 | External Medical Summary | Summary of Care ---
Author Name Unknown Organization [facility] [address] [facility] [address] Phone [phone] Care Team Providers Care Cook Helper Meat Name Role Phone Kirill Awad DO Primary Care Provider [phone] Reason for Visit * Reason Onset Date Comments H&P Surgery Research Study Patient 09/07/2024 Encounter Details Date Type Department Care Team (Late st Contact Info) Description 09/07/2024 1:45 PM EST Office Visit Urology, [facility] [address] [facility] [place] [address] Poncho Guerrero MD [address] [place] [address] Malignant neoplasm of urachus (HCC)* Allergies Active Allergy Reactions Criticality Noted Date Comments Latex Hives,Rash Medium 05/20/2014 documented as of this encounter (statuses as of 09/07/2024) Medications Medication Sig Dispensed Refills Start Date [...] as of this encounter (statuses as of 09/07/2024) Active Problems Problem Noted Date Diagnosed Date [...] as of this encounter (statuses as of 09/07/2024) Resolved Problems Problem Noted Date Diagnosed Date [...] as of this encounter (statuses as of 09/07/2024) Immunizations Name Administration Dates Next Due COVID-19 [...] on file documented as of this encounter Progress Notes * Poncho Guerrero MD - 09/07/2024 1:45 PM EST [id number] PCP: KIRILL AWAD [address] [facility] [place] [address] [phone] Marium Tobar is a 63 year old female, who 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 Copyof pathology provided to patient. Intraoperative imaging and findings reviewed. Patient notes typical catheter irritation but otherwise feels she is doing well. Patient's is present with her.She denies significant difficulties or complications since her surgery. Due to the availability of earlier OR time after cancellation, patient has moved up her partial cystectomy and canceled her consultation in [place]. Patient denies ongoing hematuria. Bladder cancer: Presented with gross hematuria. Presented to Urology July of 2024. Cystoscopy demonstrated atypical tumor at site of urachus. TURBT Aug 2024: Final Diagnosis A. 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 A mass in the bladder dome measuring approximately 1.2 x 1.6 cm with associated adjacent bladderwall thickening and adjacent bladder diverticulum. 2. No filling defects in the contrast opacified segments of bilateral upper renal collecting system. 3. No enlarged lymph nodes. Current Outpatient Medications Medication Sig Dispense Refill ASPIRIN EC 81 MG PO TBEC Take by mouth daily. CYANOCOBALAMIN 1000 MCG PO TABS one daily Acetaminophen 500 MG Oral Tablet Take 1 Tablet by mouth every 6 hours as needed for Pain. Melatonin 3 MG Capsule Take 1 Capsule by mouth at bedtime. As needed multivitamin w/ minerals (CENTRUM, CERTA-BREANN,) liquid Take 5 mL by mouth in the morning. Albuterol Sulfate HFA 108 (90 Base) MCG/ACT Inhalation Aerosol Solution Inhale 2 Puffs by mouth every 6 hours as needed for Shortness of Breath or Wheezing. (Patient not taking: Reported on 09/03/2024) 18 g 2 Turmeric 500 MG Oral Tablet Take by mouth daily. Zinc 220 (50 Zn) MG Oral Capsule Take by mouth . Vitamin D (Cholecalciferol) 25 MCG (1000 UT) Oral Tablet Take by mouth . Biotin 1000 MCG Oral Tablet Take 1 Tablet by mouth in the morning and 1 Tablet at noon and 1 Tabletbefore bedtime. Pt takes biotin 3000mcg once daily . Losartan Potassium 50 MG Oral Tablet (Cozaar) Take 1 Tablet by mouth in the morning. 90 Tablet 3 Sertraline HCl 50 MG Oral Tablet (Zoloft) Take 1 Tablet by mouth in the morning. 90 Tablet 3 Synthroid 200 MCG Oral Tablet (at least 30 min prior to breakfast or other meds)TAKE 1 TABLET BY MOUTH DAILY IN THE MORNING AT LEAST 30 MINS PRIOR TO BREAKFAST OR OTHER MEDS. TAKE 2 TABLETS ON SUNDAYS 96 Tablet 1 Acetaminophen 325 MG Oral Tablet (Tylenol) Take 2 Tablets by mouth every 6 hours as needed for Pain, Breakthrough. 100 Tablet 3 Sulfamethoxazole-Trimethoprim 800-160 MG Oral Tablet (Bactrim DS) Take 1 Tablet by mouth in the morning and 1 Tablet before bedtime. 6 Tablet 0 traMADol HCl 50 MG Oral Tablet (Ultram) Take 1 Tablet by mouth every 6 hours as needed for Pain, Severe. 14 Tablet 0 oxyBUTYnin Chloride ER 5 MG Oral Tablet Extended Release 24 Hour (Ditropan XL) Take 1 Tablet by mouth in the morning. For duration of ureteral stent. 20 Tablet 0 No current facility-administered medications for this visit. Review of patient's allergies indicates: Allergen Reactions Latex Hives and Rash Social History: Social History Tobacco Use Smoking status: Never Smokeless tobacco: Never Substance Use Topics Alcohol use: Yes Comment: once or twice a year Vaping/E-Cigarette Use Vaping/E-Cigarette Use Never User Vaping/E-Cigarette Substances Vaping/E-Cigarette Devices Family History Problem Relation Name Age of Onset Diabetes Mother Hypertension Mother Coronary Artery disease Mother 58 Coronary Artery disease Father 62 Hyperlipidemia Father Alzheimer's disease Father Dementia Father Breast Cancer No significant family history Past Surgical History: Procedure Laterality Date ARTHROCENT ASP &/OR INJ MAJOR JX/BURSA W/O US Left 05/20/2014 ARTHROCENTESIS OR INJECTION MAJOR JOINT performed by Zach Valdovinos DO at OR [facility] COLONOSCOPY, DIAGNOSTIC (RECTUM) 02/18/2013 COLONOSCOPY FLEXIBLE PROXIMAL DIAGNOSTIC performed by Kristina Bynum DO at ENDOSCOPY [facility] COLONOSCOPY, DIAGNOSTIC (RECTUM) 02/12/2018 normal, repeat 5 yrs/COLONOSCOPY FLEXIBLE PROXIMAL DIAGNOSTIC performed by nIdia Marcial MD at ENDOSCOPY [facility] COLONOSCOPY, DIAGNOSTIC (RECTUM) N/A 08/16/2023 diverticulosis/biopsies show adenomatous polyps/recall 5 years/Colonoscopy COLONOSCOPY, DIAGNOSTIC (RECTUM) 08/16/2023 COLONOSCOPY FLEXIBLE PROXIMAL DIAGNOSTIC performed by India Marcial MD at ENDOSCOPY [facility] CYSTOSCOPY/TREAT MED BLADDER TUMOR N/A 08/31/2024 CYSTOURETHROSCOPY WITH FULGURATION MEDIUM BLADDER TUMOR performed by Poncho Guerrero MD at OR [facility] HYSTEROSCOPY W/BIOPSY AND/OR POLYPECTOMY W/WO D&C Bilateral 07/16/2024 HYSTEROSCOPY WITH BIOPSY AND/OR POLYPECTOMY WITH OR WITHOUT D&C performed by Nando Garay MD at OR [facility] INFORMATION wisdom teeth extraction INFORMATION Left wrist fx - has hardware INJECT DX/THER SUBSTANCE INTERLAMINAR LUMBAR/SACRAL W IMAGE GUIDE 09/28/2019 INJECTION SPINE LUMBAR OR SACRAL performed by Juan Su DO at OR [facility] MASTECTOMY, PARTIAL Left 11/04/2012 PELVIC EXAM UNDER ANESTHESIA, NOT LOCAL Bilateral 07/16/2024 PELVIC EXAMINATION UNDER ANESTHESIA performed by Nando Garay MD at OR [facility] RADIATION THERAPY SACROILIAC JOINT INJECT W/GUIDANCE Left 05/20/2014 INJECTION SACROILIAC JOINT performed by Zach Valdovinos DO at OR [facility] SENTINEL LYMPH NODE BIOPSY PERFORMED 06/08/2013 Left Lumpectomy,left sentinel lymph node biopsy,injection of lymphazurin blue dye for sentinel nodeidentification Dr Lake [facility] 06/08/13 STRESS ECHO (EXERCISE) 10/2011 negative for inducible ischemia, LVEF 60% VASC DUPLEX VENOUS LE BILAT 06/17/2013 acute thrombus right posterior tibial vein Past Medical History: Diagnosis Date BMI 31.0-31.9,adult Breast cancer (HCC) 11/04/2012 Lumpectomy with radiation - LEFT 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 Carcinoma of breast (HCC) 06/08/[address] [place] CKD (chronic kidney disease) stage 3, GFR 30-59 ml/min (HCC) Depression with anxiety 12/21/2022 DVT of lower limb, acute (HCC) 06/17/2013 right posterior tibial vein HTN, goal below 130/80 Hyperlipidemia LDL goal < 100 Hyperthyroidism treated with radioactive iodine Malignant neoplasm of urachus (HCC) Motion sickness Patient Active Problem List Diagnosis Dyslipidemia HTN, goal below 130/80 Acquired hypothyroidism History of thyroid cancer History of cervical cancer Chronic kidney disease, stage 3a (HCC) Depression with anxiety Hematuria, gross Lesion of bladder Malignant neoplasm of urachus (HCC) Constitutional: (-) fever and (-) chills Abdominal/GI: (+) abdominal pain and (+) constipation or change in bowel pattern Female : (+) see HPI Neurology: (-) negative: no focal neurologic defect Psychiatry: (+) anxiousness Physical Exam Nursing note reviewed. Constitutional: General: She is not in acute distress. Appearance: Normal appearance. She is not ill-appearing or toxic-appearing. HENT: Head: Normocephalic and atraumatic. Right Ear: External ear normal. Left Ear: External ear normal. Nose: Nose normal. Mouth/Throat: Mouth: Mucous membranes are moist. Eyes: Extraocular Movements: Extraocular movements intact. Cardiovascular: Pulses: Normal pulses. Pulmonary: Effort: Pulmonary effort is normal. No respiratory distress. Abdominal: Palpations: Abdomen is soft. Musculoskeletal: General: No deformity or signs of injury. Cervical back: Normal range of motion and neck supple. Skin: General: Skin is warm. Coloration: Skin is not pale. Neurological: General: No focal deficit present. Mental Status: She is alert and oriented to person, place, and time. Psychiatric: Mood and Affect: Mood normal. Behavior: Behavior normal. 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 Findings reviewed with the patient. Will proceed with robot assisted laparoscopic partial cystectomy, possible pelvic lymph node dissection as planned. Will attempt to obtain a PET scan prior to intervention to rule out any occult metastases not appreciated on previous imaging, with the presence ofgrade 2 carcinoma is encouraging. No clear residual disease was present although the urachal cavityremained intact. Surgical plan is reviewed. Will consider lymph node sampling depending on imagingfindings and intraoperative anatomy. Expected convalescence is noted as well as the presence of a postoperative Mcneil catheter. Informed consent obtained, will see at the time of surgical intervention as scheduled. Questions answered. Above content is personally reviewed. Patient vocalizes good understanding of the treatment plan. Poncho Guerrero MD 10:09 AM 09/07/2024 documented in this encounter Nursing Notes * Marla Felipe LPN - 09/07/2024 3:06 PM EST Patient is scheduled for a partial cystectomy at [facility] on 09/16/24 Patient has been instructed to schedule pre-operative testing 2-4 weeks before surgery Patient has been instructed to hold the following blood thinners 7 days before surgery n/a. Patient has been instructed to refrain from drinking any alcoholic beverages 48 hrs before surgery. Patient has been instructed to start a clear liquid diet the day before surgery. Patient has been instructed to do a fleets enema the evening before surgery. Patient has been instructed to drink 1/2 bottle of magnesium citrate in the morning the day before surgery and the remaining half the evening before surgery. Patient has been instructed to having nothing to eat or drink after midnight the night before surgery. Patient has been instructed to use Chlorhexidine soap the night before surgery and the morning of surgery. * Claudette Dozier LPN - 09/07/2024 1:43 PM EST H&P for partial cystectomy 09/16 documented in this encounter Plan of Treatment Upcoming Encounters Date Type Department Care Team (Latest Contact Info) Description 09/07/2024 4:10 PM EST [facility] [address] [place] [id number] [address] [place] [address] Lesion of bladder; Malignant neoplasm of urachus (HCC) 09/09/2024 10:45 AM EST Imaging Radiology, [facility] [place] [address] 09/14/2024 1:30 PM EST Imaging Radiology [facility] 1st [facility] [address] [place] [address] 09/16/2024 8:10 AM EST Hospital Encounter OR [facility], Operating Room, [facility] - 4th Floor [address] [place] [address] Poncho Guerrero MD [address] [place] [address] 09/16/2024 8:10 AM EST - 09/16/2024 12:24 PM EST Surgery OR [facility], Operating Room, [facility] - 4th Floor [address] [phone] Poncho Guerrero MD [address] [place] [address] ROBOTIC CYSTECTOMY PARTIAL SIMPLE 09/21/2024 3:30 PM EST Office Visit Urology, [facility] [address] [place] [address] Poncho Guerrero MD [address] [place] [address] 10/07/2024 5:40 PM EST Office Visit Family Practice [facility] [address] [place] [address] Kirill Awad DO [address] [place] [address] 12/18/2024 11:20 AM EST Office Visit Nephrology, [facility] [address] [place] [address] Delonte Kirby MD [address] [place] [address] 05/17/2025 1:30 PM EDT Imaging Radiology [address] [place] [address] Pending Results Name Type Priority Associated Diagnoses Date /Time BUN Lab STAT Malignant neoplasm of urachus (HCC) 09/07/2024 3:29 PM EST CREATININE Lab STAT Malignant neoplasm of urachus (HCC) 09/07/2024 3:29 PM EST Scheduled Orders Name Type Priority Associated Diagnoses Orde r Schedule PET SKULL BASE TO MID-THIGH FDG Medical Imaging STAT Malignant neoplasm of urachus (HCC) Expected: 09/07/2024, Expires: 09/07/2025 CT ABD/PELVIS W IV AND W ORAL CONTRAST Medical Imaging STAT Malignant neoplasm of urachus (HCC) Expected: 09/07/2024, Expires: 09/07/2025 CT CHEST W CONTRAST Medical Imaging STAT Malignant neoplasm of urachus (HCC) Expected: 09/07/2024, Expires: 09/07/2025 BUN Lab STAT Malignant neoplasm of urachus (HCC) Expected: 09/07/2024, Expires: 09/07/2025 CREATININE Lab STAT Malignant neoplasm of urachus (HCC) Expected: 09/07/2024, Expires: 09/07/2025 Scheduled Procedures Name Priority Associated Diagnoses Date/Ti me ROBOTIC CYSTECTOMY PARTIAL SIMPLE Malignant neoplasm of [...] 12/31/2023, 08/04/2022, 04/10/2022, Additional history exists GFR 01/28/2025 07/31/2024, 0 05/2024, 04/04/2023, Additional history exists Albumin/Creatinine Ratio 03/11/2025 024, 12/11/2016, 08/15/2015, Additional history exists CKD HGB USE SMARTSET 10653 04/10/202504/10, 04/10/2024, 04/04/2023, Additional history exists CKD PHOS USE SMARTSET 30291 04/10/2025 060 05/2024, 04/04/2023, 04/10/2022, Additional history exists Mammogram [...] urachus (HCC)- Primary Malignant neoplasm of urachus Malignant neoplasm of urachus (HCC)- Primary Malignant neoplasm of urachus Lesion of bladder Unspecified disorder of bladder Malignant neoplasm of urachus (HCC) Malignant neoplasm [...] Advance Directives occurred with: Patient Care Teams Cook Helper Meat Relationship Specialty Start Date End Date Kirill Awad DO [address] [place] [address] PCP - General Family Medicine 04/02/19 documented as of this encounter
--- OUTSIDE RECORDS SUMMARY | 2024-09-15 08:48 | External Medical Summary ---
Author Name Unknown Address Unknown Organization K1F:[facility] - [address] [place] [address] Laboratory Report Ordering Provider Test Date Status CIARAVERNA 09/09/2024 12:43:30 Final Observation Date Value Abnormality Reference (Units ) Status ABO 09/09/2024 12:43:30 A Final RH 09/09/2024 12:43:30 Positive Final Performing Location [facility] - [address] [place] [address]
--- OUTSIDE RECORDS SUMMARY | 2024-09-15 08:48 | External Medical Summary | Summary of Care ---
Author Name Unknown Organization [facility] Address [address] [facility] [place] [address] Phone [phone] Care Team Providers Care Video Engineer Name Role Phone Allyson Vickers DO Primary Care Provider [phone] Encounter Details Date Type Department Care Team (Late st Contact Info) Description 09/09/2024 Telephone Urology [place] [address] [place] [address] Maday Avalos PA-C [address] [place] [address] Allergies Active Allergy Reactions Criticality Noted Date [...] encounter Miscellaneous Notes * Telephone Encounter - Blase, Maday, PA-C - 09/09/2024 9:24 AM EST Patient should complete type and screen labs prior to upcoming surgery. Please call patient to go sometime this week. Thanks! documented in this encounter Plan of Treatment Upcoming Encounters Date Type Department Care Team (Latest Contact Info) Description 09/09/2024 10:45 AM EST Imaging Radiology, [facility] [address] [place] [address] 09/14/2024 1:30 PM EST Imaging Radiology [facility] 1st [facility] [address] [facility] [place] [address] 09/16/2024 8:10 AM EST Hospital Encounter OR [facility], Operating Room, [facility] Floor [address] [place] [phone] Poncho Guerrero MD [address] [place] [address] 09/16/2024 8:10 AM EST - 09/16/2024 12:24 PM EST Surgery OR [facility], Operating Room, [facility] Floor [address] [place] [address] Poncho Guerrero MD [address] [place] [address] ROBOTIC CYSTECTOMY PARTIAL SIMPLE 09/21/2024 3:30 PM EST Office Visit Urology, [facility] [address] [facility] [place] [address] Poncho Guerrero MD [address] [place] [address] 10/07/2024 5:40 PM EST Office Visit Family Practice [facility] [address] [facility] [place] [address] Allyson Vickers, DO [address] [place] [address] 12/18/2024 11:20 AM EST Office Visit Nephrology, [facility] [address] [place] [address] Delonte Kirby MD [address] [place] [address] 05/17/2025 1:30 PM EDT Imaging Radiology [address] [place] [address] Scheduled Orders Name Type Priority Associated Diagnoses Orde r Schedule TYPE AND SCREEN Lab Routine Pre-op testing Malignant neoplasm of urachus (HCC) Expected: 09/09/2024 (Approximate), Expires: 10/09/2025 ABO/RH Lab Routine Pre-op testing Malignant neoplasm of urachus (HCC) Expected: 09/09/2024, Expires: 10/09/2025 Scheduled Procedures Name Priority Associated Diagnoses Date/Ti [...] Additional history exists CKD HGB USE SMARTSET 16905 04/10/202504/10, 04/10/2024, 04/04/2023, Additional history exists CKD PHOS USE SMARTSET 07851 04/10/2025 06/05/2024, 04/04/2023, 04/10/2022, Additional history exists Mammogram 05/11/2025 [...] (HCC)- Primary Malignant neoplasm of urachus Pre-op testing- Primary Preoperative examination, unspecified Malignant neoplasm of urachus [...] Advance Directives occurred with: Patient Care Teams Video Engineer Relationship Specialty Start Date End Date Allyson Vickers DO [address] [facility] [place] [address] PCP - General Family Medicine 04/02/19 documented as of this encounter
--- OUTSIDE RECORDS SUMMARY | 2024-09-15 08:48 | External Medical Summary ---
Author Name Unknown Address Unknown Organization K1F:[facility] - [address] [place] [address] Laboratory Report Ordering Provider Test Date Status JULIETA URBINA 09/09/2024 12:50:42 Final Observation Date Value Abnormality Reference (Units ) Status ABO 09/09/2024 12:50:42 A Final RH 09/09/2024 12:50:42 Positive Final RED BLOOD CELL ANTIBODY SCREEN 09/09/2024 12:50:42 Negative Final SPECIMEN EXPIRATION DATE 09/09/2024 12:50:42 09/12/2024 23:59 Final Performing Location [facility] - [address] [place] [address]
--- OUTSIDE RECORDS SUMMARY | 2024-09-15 08:48 | External Medical Summary | Summary of Care ---
Author Name Unknown Organization [facility] Address [address] [facility] [place] [address] Phone [phone] Care Team Providers Care Order Packer Or Packager Name Role Phone Allyson Vickers DO Primary Care Provider [phone] Encounter Details Date Type Department Care Team (Late st Contact Info) Description 09/09/2024 Telephone Urology [place] [address] [place] [address] Maday Avalos PA-C [address] [place] [address] Allergies Active Allergy Reactions Criticality Noted Date [...] Encounter - Claudette Dozier LPN - 09/09/2024 10:13 AM EST Patient aware and will have completed today. Thanks * Telephone Encounter - Maday Avalos PA-C - 09/09/2024 9:24 AM EST Patient should complete type and screen labs prior to upcoming surgery. Please call patient to go sometime this week. Thanks! documented in this encounter Plan of Treatment Upcoming Encounters Date Type Department Care Team (Latest Contact Info) Description 09/09/2024 10:45 AM EST Imaging RadiologyHedy [address] [place] [address] Malignant neoplasm of urachus (HCC) 09/09/2024 12:00 PM EST Imaging RadiologyHedy [address] [place] [address] Arrived 09/14/2024 1:30 PM EST Imaging Radiology [facility] [address] [place] [address] 09/16/2024 8:10 AM EST Hospital Encounter OR [facility], Operating Room, [facility] - 4th Floor [address] [place] [address] Poncho Guerrero MD [address] [place] [address] 09/16/2024 8:10 AM EST - 09/16/2024 12:24 PM EST Surgery OR [facility], Operating Room, [facility] - 4th Floor [address] [place] [address] Poncho Guerrero MD [address] [place] [address] ROBOTIC CYSTECTOMY PARTIAL SIMPLE 09/21/2024 3:30 PM EST Office Visit Urology, [facility] [address] [place] [address] Poncho Guerrero MD [address] [place] [address] 10/07/2024 5:40 PM EST Office Visit Family Practice [facility] [address] [place] [address] Allyson Vickers DO [address] [place] [address] 12/18/2024 11:20 AM EST Office Visit Nephrology, [facility] [place] [address] Delonte Kirby MD [address] [place] [address] 05/17/2025 1:30 PM EDT Imaging Radiology [address] [place] [address] Scheduled Orders Name Type Priority Associated Diagnoses [...] Additional history exists CKD HGB USE SMARTSET 97656 04/10/202504/10, 04/10/2024, 04/04/2023, Additional history exists CKD PHOS USE SMARTSET 81112 04/10/2025 06/0 05/2024, 04/04/2023, 04/10/2022, Additional history [...] of urachus (HCC) Malignant neoplasm of urachus Pre-op testing- Primary [...] Advance Directives occurred with: Patient Care Teams Order Packer Or Packager Relationship Specialty Start Date End Date Allyson Vickers DO [address] [place] [address] [place] [address] PCP - General Family Medicine 04/02/19 documented as of this encounter
--- OUTSIDE RECORDS SUMMARY | 2024-09-15 08:48 | External Medical Summary | Summary of Care ---
Author Name Unknown Organization [facility] Address [address] [place] [address] Phone [phone] Care Team Providers Care Production Illustrator Name Role Phone Sohail Vickersa Kit JULIO Primary Care Provider [phone] Reason for Visit * Reason Comments Outpatient Testing Encounter Details Date Type Department Care Team (Late st Contact Info) Description 09/09/2024 12:50 PM EST Laboratory Laboratory, [facility] [address] [place] [address] [facility], Lab [address] [place] [address] Pre-op testing; Malignant neoplasm of [...] Description 09/14/2024 1:30 PM EST Imaging Radiology [facility] [address] [facility] 132 [facility] [place] [address] 09/16/2024 8:10 AM EST Hospital Encounter OR [facility], Operating Room, [facility] Floor [address] [place] [address] Poncho Guerrero MD 27 [place] [address] 09/16/2024 8:10 AM EST - 09/16/2024 12:24 PM EST Surgery OR [facility], Operating Room, [facility] Floor [address] [place] [address] Poncho Guerrero MD 27 [place] [address] ROBOTIC CYSTECTOMY PARTIAL SIMPLE 09/21/2024 3:30 PM EST Office Visit Urology, [facility] 132 [facility] [place] [address] Pnocho Guerrero MD 27 [place] [address] 10/07/2024 5:40 PM EST Office Visit Family Practice [facility] 132 [facility] [place] [address] Allyson Vickers, DO [address] [place] [address] 12/18/2024 11:20 AM EST Office Visit Nephrology, [facility] [address] [place] [address] Delonte Kirby MD [address] [place] [address] 05/17/2025 1:30 PM EDT Imaging Radiology [address] [place] [address] Pending Results Name Type Priority Associated Diagnoses Date /Time ABO/RH Lab Routine Pre-op testing Malignant neoplasm of urachus (HCC) 09/09/2024 12:43 PM EST TYPE AND SCREEN Lab Routine Pre-op testing Malignant neoplasm of urachus (HCC) 09/09/2024 12:50 PM EST Scheduled Orders Name Type Priority Associated Diagnoses Orde r Schedule EXTRA TUBES Lab Routine Ordered: 04/2024 EXTRA LAVENDER TOP Lab Routine Ordere d: 09/09/2024 Scheduled Procedures Name Priority Associated Diagnoses Date/Ti [...] Additional history exists CKD HGB USE SMARTSET 65241 04/10/202504/10, 04/10/2024, 04/04/2023, Additional history exists CKD PHOS USE SMARTSET 53067 04/10/2025 06/0 05/2024, 04/04/2023, 04/10/2022, Additional history [...] Advance Directives occurred with: Patient Care Teams Production Illustrator Relationship Specialty Start Date End Date Allyson Vickers DO 132 [facility] [place] [address] PCP - General Family Medicine 04/02/19 documented as of this encounter
--- OUTSIDE RECORDS SUMMARY | 2024-09-15 08:49 | External Medical Summary | Summary of Care ---
Author Name Unknown Organization [facility] Address [address] [facility] [address] Phone [phone] Care Team Providers Care Vacuum Drum Drier Operator Name Role Phone Allyson Vickers DO Primary Care Provider [phone] Reason for Visit * Reason Comments Outpatient Testing Encounter Details Date Type Department Care Team (Late st Contact Info) Description 09/07/2024 4:10 PM EST Laboratory Laboratory, [facility] [address] [facility] 132 [place] [address] Lesion of bladder; Malignant neoplasm of urachus (HCC) Allergies Active [...] on file documented as of this encounter Plan of Treatment Upcoming Encounters Date Type Department Care Team (Latest Contact Info) Description 09/09/2024 10:45 AM EST Imaging Radiology, [facility] [address] [place] [address] 09/14/2024 1:30 PM EST Imaging Radiology [facility] 1st [facility] [place] 132 [facility] [place] [address] 09/16/2024 8:10 AM EST Hospital Encounter OR [facility], Operating Room, [facility] - 4th Floor [address] [place] [address] Poncho Guerrero MD 27 [place] [address] 09/16/2024 8:10 AM EST - 09/16/2024 12:24 PM EST Surgery OR [facility], Operating Room, [facility] - 4th Floor [address] [place] [address] Poncho Guerrero MD 27 [place] [address] ROBOTIC CYSTECTOMY PARTIAL SIMPLE 09/21/2024 3:30 PM EST Office Visit Urology, [facility] 132 [place] [address] Poncho Guerrero MD 27 [place] [address] 10/07/2024 5:40 PM EST Office Visit Family Practice [facility] 132 [place] [address] Allyson Vickers DO 132 [place] [address] 12/18/2024 11:20 AM EST Office Visit [address]phrology, [address] [address] Delonte Kirby MD [address] [place] [address] 05/17/2025 1:30 PM EDT Imaging Radiology [address] [place] [address] Pending Results Name Type Priority Associated Diagnoses Date /Time CULTURE, URINE, QUANTITATIVE Lab Routine Lesion of bladder Malignant neoplasm of urachus (HCC) 09/07/2024 3:29 PM EST BUN Lab STAT Malignant neoplasm of urachus (HCC) 09/07/2024 3:29 PM EST CREATININE Lab STAT Malignant neoplasm of urachus (HCC) 09/07/2024 3:29 PM EST Scheduled Procedures Name Priority Associated Diagnoses Date/Ti ma ROBOTIC CYSTECTOMY PARTIAL SIMPLE Malignant neoplasm of [...] 08/20/2018, Additional history exists TSH 12/31/2024 12/31/2023, 08/2 04/2022, 04/10/2022, Additional history exists GFR 01/28/2025 07/31/2024, 0605/2024, 04/04/2023, Additional history exists Albumin/Creatinine Ratio 03/11/2025 05 024, 12/11/2016, 08/15/2015, Additional history exists CKD HGB USE SMARTSET 88614 04/10/202504/10, 04/10/2024, 04/04/2023, Additional history exists CKD PHOS USE SMARTSET 49199 04/10/2025 06/0 05/2024, 04/04/2023, 04/10/2022, Additional history [...] Advance Directives occurred with: Patient Care Teams Vacuum Drum Drier Operator Relationship Specialty Start Date End Date Allyson Vickers DO 132 [place] [address] PCP - General Family Medicine 04/02/19 documented as of this encounter
--- OUTSIDE RECORDS SUMMARY | 2024-09-15 08:49 | External Medical Summary | Summary of Care ---
Author Name Unknown Organization [facility] Address [address] [place] [address] Phone [phone] Care Team Providers Care Disability Representative Name Role Phone Allyson Vickers DO Primary Care Provider [phone] Encounter Details Date Type Department Care Team (Late st Contact Info) Description 09/03/2024 Telephone Urology, [facility] 132 [facility] [place] [address] Poncho Guerrero MD 27 [facility] [place] [address] Allergies Active Allergy Reactions Criticality Noted Date Comments Latex Hives,Rash Medium 05/20/2014 documented as of this encounter (statuses as of 09/03/2024) Medications Medication Sig Dispensed Refills Start Date [...] of ureteral stent. 20 Tablet 08/31/2024 Active documented as of this encounter (statuses as of 09/03/2024) Active Problems Problem Noted Date Diagnosed Date [...] as of this encounter (statuses as of 09/03/2024) Resolved Problems Problem Noted Date Diagnosed Date [...] as of this encounter (statuses as of 09/03/2024) Immunizations Name Administration Dates Next Due COVID-19 [...] encounter Miscellaneous Notes * Telephone Encounter - Marla Felipe LPN - 09/03/2024 4:20 PM EDT Spoke with pt, aware of below. Aware that we will get urine sample on Saturday at office visit. Thank you Emelina * Telephone Encounter - Poncho Guerrero MD - 09/03/2024 3:10 PM EDT We will recheck a urine culture one-week prior to surgery. However, more antibiotic should not be needed. Thanks, HM * Telephone Encounter - Marla Felipe LPN - 09/03/2024 1:[address] Guerrero Spoke with pt. Asking if she needs another round of antibiotics since her catheter is staying in until 09/16 surgery. Please advise. Has H&P / teaching appointment scheduled on 09/07 Thank you Emelina * Telephone Encounter - Rani Peres OSA - 09/03/2024 10:21 AM EDT Pt calling with questions for nursing. No nurse available at time of call.Please call patient back. Thank you! documented in this encounter Plan of Treatment Upcoming Encounters Date Type Department Care Team (Latest Contact Info) Description 09/07/2024 1:45 PM EST Office Visit Urology, [facility] 132 [facility] [place] [address] Poncho Guerrero MD [address] [place] [address] 09/16/2024 8:10 AM EST Hospital Encounter OR [facility], Operating Room, [facility] - 4th Floor [address] [place] [address] Poncho Guerrero MD 27 [place] [address] 09/16/2024 8:10 AM EST - 09/16/2024 12:24 PM EST Surgery OR [facility], Operating Room, [facility] - 4th Floor 400 [facility] [place] [address] Poncho Guerrero MD 27 [place] [address] ROBOTIC CYSTECTOMY PARTIAL SIMPLE 09/21/2024 3:30 PM EST Office Visit Urology, [facility] 132 [facility] [place] [address] Poncho Guerrero MD 27 [place] [address] 10/07/2024 5:40 PM EST Office Visit Family Practice [facility] 132 [facility] [place] [address] Allyson Vickers DO 132 [facility] [place] [address] 12/18/2024 11:20 AM EST Office Visit Nephrology, [facility] [address] [place] [address] Delonte Kirby MD [address] [place] [address] 05/17/2025 1:30 PM EDT Imaging Radiology [address] [place] [address] Scheduled Procedures Name Priority Associated Diagnoses Date/Ti fl ROBOTIC CYSTECTOMY PARTIAL SIMPLE Malignant neoplasm of [...] 12/31/2023, 06/05, 04/10/2022, Additional history exists GFR 01/28/2025 07/31/2024, 05/2024, 04/04/2023, Additional history exists Albumin/Creatinine Ratio 03/11/2025 024, 12/11/2016, 08/15/2015, Additional history exists CKD HGB USE SMARTSET 60850 04/10/202504/10, 04/10/2024, 04/04/2023, Additional history exists CKD PHOS USE SMARTSET 10770 04/10/2025 060 05/2024, 04/04/2023, 04/10/2022, Additional history [...] Advance Directives occurred with: Patient Care Teams Disability Representative Relationship Specialty Start Date End Date Allyson Vickers DO [address] [place] [address] PCP - General Family Medicine 04/02/19 documented as of this encounter
--- OUTSIDE RECORDS SUMMARY | 2024-09-15 08:49 | External Medical Summary ---
Author Name Unknown Address Unknown Organization [id number]:LAB[facility]ATORY [facility] - [address] [place] [id number] Laboratory Report Ordering Provider Test Date Status GALDINO CAMARA 09/07/2024 15:29:06 Final Observation Date Value Abnormality Reference (Units) Status Bacteria identified in Specimen by Culture 09/07/2024 15:29:06 No significant growth Final Test: Culture, Urine, Quant itative
Specimen Source: Urine, Clean Catch
Specimen Type: Urine
Specimen Date: 09/07/2024 152
Result Date: 09/08/20241940
Result Status: Final result
Resulting Lab: [facility]
[address]
[place] [address]

CULTURE

No significant growth

null Performing Location LABORATORY [facility] - [address] [facility] [address]
--- OUTSIDE RECORDS SUMMARY | 2024-09-15 08:49 | External Medical Summary ---
Author Name Unknown Address Unknown Organization K0G:[facility] - [address] [place] [address] Laboratory Report Ordering Provider Test Date Status GALDINO CAMARA 09/07/2024 15:29:06 Final Observation Date Value Abnormality Reference (Units ) Status BUN 09/07/2024 15:29:06 18 6-20 (mg/d L) Final Performing Location LAB[facility]ATORY [facility] 0 - [address] [place] [address]
--- OUTSIDE RECORDS SUMMARY | 2024-09-15 08:49 | External Medical Summary ---
Author Name Unknown Address Unknown Organization K0G:LABORATORY [facility] [place] [address] - [address] [place] [address] Laboratory Report Ordering Provider Test Date Status GALDINO CAMRAA 09/07/2024 15:29:06 Final Observation Date Value Abnormality Reference (Units ) Status Creatinine 09/07/2024 15:29:06 1.1 Above high normal 0.5-1.0 (mg/dL) Final Glomerular filtration rate/1.73 sq M.predicted [Volume Rate/Area] in Serum, Plasma or Blood by Creatinine-based formula (CKD-EPI) 09/07/2024 15:29:06 56 Below low normal >=60 (mL/min) Final eGFR is calculated based on the CKD-EPI 2020 equation. Performing Location LABORATORY [facility] [place] [address] 0 - [address] [place] [address]
--- OUTSIDE RECORDS SUMMARY | 2024-09-15 08:49 | External Medical Summary | Summary of Care ---
Author Name Unknown Organization [facility] Address [address] [facility] [address] Phone [phone] Care Team Providers Care Railroad Dining Car Steward/Stewardess Name Role Phone Allyson Vickers DO Primary Care Provider [phone] Reason for Visit * Reason Onset Date Comments Surgery 09/01/2024 Cystectomy Encounter Details Date Type Department Care Team (Late st Contact Info) Description 09/01/2024 Telephone Urology [facility] [address] [place] [address] Poncho Guerrero MD 27 [place] [address] Surgery (Cystectomy ) Allergies Active Allergy Reactions Criticality Noted Date Comments Latex Hives,Rash Medium 05/20/2014 documented as of this encounter (statuses as of 09/01/2024) Medications Medication Sig Dispensed Refills Start Date [...] or Wheezing. 18 g 2 04/13/2021 Active Turmeric 500 MG Oral Tablet Take by [...] Active Losartan Potassium 50 MG Oral Tablet (Cozaar)Indications:H TN, goal below 140/90 Take 1 Tablet by mouth in the morning. 90 Tablet 3 06/24/2024 Active Sertraline HCl 50 MG Oral Tablet (Zoloft)Indications:R ecurrent major depressive disorder, in remission (HCC) Take 1 Tablet by mouth in the morning. 90 Tablet 3 06/24/2024 Active Synthroid 200 MCG Oral TabletIndications:Acq uired hypothyroidism (at least 30 min prior to breakfast or other meds)TAKE 1 TABLET BY MOUTH DAILY IN THE MORNING AT LEAST 30 MINS PRIOR TO BREAKFAST OR OTHER MEDS. TAKE 2 TABLETS ON SUNDAYS 96 Tablet 1 06/24/2024 Active Acetaminophen 325 MG Oral Tablet (Tylenol) Take 2 Tablets by mouth every 6 hours as needed for Pain, Breakthrough. 100 Tablet 3 07/16/2024 Active Sulfamethoxazole-Trim ethoprim 800-160 MG Oral Tablet (Bactrim DS) Take [...] as of this encounter (statuses as of 09/01/2024) Active Problems Problem Noted Date Diagnosed Date [...] as of this encounter (statuses as of 09/01/2024) Resolved Problems Problem Noted Date Diagnosed Date [...] as of this encounter (statuses as of 09/01/2024) Immunizations Name Administration Dates Next Due COVID-19 [...] encounter Miscellaneous Notes * Telephone Encounter - Sanchez, Sofía M, MINE CAPTAIN - 09/01/2024 11:19 AM EDT Patient returned call and accepted 09/16 surgery date. Colleen please schedule with the OR. She is unable to be seen in [place] so she was scheduled on Friday 09/07 at 1:[address] [facility]. Advised that all preop info will be reviewed at that time. Second opinion with Dr Love has been canceled. * Telephone Encounter - Sofía Sanchez LPN - 09/01/2024 9:01 AM EDT Patient is scheduled for cystectomy with Dr Guerrero on 11/26/24 at [facility]. Patient had TURBT at [facility] yesterday and Dr Guerrero was asking if surgery could be moved up. We are able to schedule surgeryat [facility] on 09/16. Dr Guerrero recommends that patient keep the rojas catheter until surgery, will needappt for updated H&P before proposed 09/16 surgery date. Patient was scheduled for second opinion with Dr Pelayo at [facility] unsure if able to be seen sooner. Called [facility] and they are unable to see patient before proposed 09/16 surgery date. Left message for patient to return call to discuss above options. If patient accepted proposed 09/16 surgery date at [facility] will need to be seen for follow up office visit to update H[facility]P, [facility] and second opinion at [facility] will need to be canceled. If patient chooses to keep surgery as scheduled in November, Updated H&P will need to be rescheduled within 30 days of that surgery date, and TOV will need to be rescheduled on 09/14., Please transfer patient to office when returns call. documented in this encounter Plan of Treatment Upcoming Encounters Date Type Department Care Team (Latest Contact Info) Description 09/07/2024 1:45 PM EST Office Visit Urology, [facility] 132 [place] [address] Poncho Guerrero MD 27 [place] [address] 09/14/2024 11:00 AM EST Nurse Only Urology, [facility] 132 [place] [address] [facility], Nurse Urology [facility] 132 [facility] [place] [address] 09/21/2024 3:30 PM EST Office Visit Urology, [facility] 132 [place] [address] Poncho Guerrero MD 27 [place] [address] 10/07/2024 5:40 PM EST Office Visit Family Practice [facility] 132 [place] [address] Allyson Vickers DO [address] [facility] [place] [address] 10/13/2024 2:45 PM EST Office Visit Urology, [place] [address] [place] [address] Peter Pelayo MD [address] [place] [address] 11/26/2024 7:30 AM EST Hospital Encounter OR [facility], Operating Room, [facility] - 4th Floor [address] [place] [address] Poncho Guerrero MD 27 [place] [address] 11/26/2024 7:30 AM EST - 11/26/2024 10:38 AM EST Surgery OR [facility], Operating Room, [facility] - 4th Floor [address] [place] [phone] Poncho Guerrero MD [address] [place] [address] CYSTECTOMY PARTIAL COMPLICATED 12/18/2024 11:20 AM EST Office Visit Nephrology, [facility] [address] [place] [address] Delonte Kirby MD [address] [place] [address] 05/17/2025 1:30 PM EDT Imaging Radiology [address] [place] [address] Scheduled Procedures Name Priority Associated Diagnoses Date/Ti me CYSTECTOMY PARTIAL COMPLICATED Malignant neoplasm of urachus (HCC) 11/26/2024 7:30 AM EST COLONOSCOPY FLEXIBLE PROXIMAL DIAGNOSTIC Recall [...] 04/10/2022, Additional history exists GFR 01/28/2025 07/31/2024, 060 05/2024, 04/04/2023, Additional history exists Albumin/Creatinine Ratio 03/11/2025 024, 12/11/2016, 08/15/2015, Additional history exists CKD HGB USE SMARTSET 15191 04/10/202504/10, 04/10/2024, 04/04/2023, Additional history exists CKD PHOS USE SMARTSET 40593 04/10/2025 06/0 05/2024, 04/04/2023, 04/10/2022, Additional history [...] Advance Directives occurred with: Patient Care Teams Railroad Dining Car Steward/Stewardess Relationship Specialty Start Date End Date Allyson Vickers DO 132 [facility] [place] [address] PCP - General Family Medicine 04/02/19 documented as of this encounter
--- OUTSIDE RECORDS SUMMARY | 2024-09-15 08:50 | External Medical Summary | Summary of Care ---
Author Name Unknown Organization [facility] Address [address] [place] [address] Phone [phone] Care Team Providers Care Indirect Fire Infantryman Name Role Phone Allyson Vickers DO Primary Care Provider [phone] Encounter Details Date Type Department Care Team (Late st Contact Info) Description 08/31/2024 Telephone Urology, [facility] 132 [facility] [place] [address] Poncho Guerrero MD [address] [facility] [place] [address] Allergies Active Allergy Reactions Criticality Noted Date Comments Latex Hives,Rash Medium 05/20/2014 documented as of this encounter (statuses as of 08/31/2024) Medications Medication Sig Dispensed Refills Start Date [...] as of this encounter (statuses as of 08/31/2024) Active Problems Problem Noted Date Diagnosed Date [...] as of this encounter (statuses as of 08/31/2024) Resolved Problems Problem Noted Date Diagnosed Date [...] as of this encounter (statuses as of 08/31/2024) Immunizations Name Administration Dates Next Due COVID-19 [...] encounter Miscellaneous Notes * Telephone Encounter - Rani Peres OSA - 08/31/2024 12:54 PM EDT Patient's nurse visit is rescheduled for 11/11. Patient is aware. * Telephone Encounter - Poncho Guerrero MD - 08/31/2024 9:59 AM EDT Please push patient's trial of void back to the Sep, 2 weeks postop. Thanks, HM documented in this encounter Plan of Treatment Upcoming Encounters Date Type Department Care Team (Latest Contact Info) Description 09/14/2024 11:00 AM EST Nurse Only Urology, [facility] 132 [facility] [place] [address] [place], Nurse Urology [facility] 132 [facility] [place] [address] 09/21/2024 3:30 PM EST Office Visit Urology, [facility] 132 [facility] [place] [address] Poncho Guerrero MD [address] [place] [address] [place] [address] 10/07/2024 5:40 PM EST Office Visit Family Practice [facility] 132 [facility] [place] [address] Allyson Vickers DO 132 [facility] [address] 10/13/2024 2:45 PM EST Office Visit Urology, [place] [address] [place] [address] Peter Pelayo MD [address] [place] [address] 11/26/2024 7:30 AM EST Hospital Encounter OR [facility], Operating Room, [facility] - 4th Floor [address] [place] [address] Poncho Guerrero MD 27 [place] [address] 11/26/2024 7:30 AM EST - 11/26/2024 10:38 AM EST Surgery OR [facility], Operating Room, [facility] - 4th Floor [address] [place] [address] Poncho Guerrero MD 27 [place] [address] CYSTECTOMY PARTIAL COMPLICATED 12/18/2024 11:20 AM EST Office Visit Nephrology, [facility] [address] [place] [address] Delonte Kirby MD [address] [place] [address] 05/17/2025 1:30 PM EDT Imaging Radiology [address] [place] [address] Scheduled Procedures Name Priority Associated Diagnoses Date/Ti al CYSTOURETHROSCOPY WITH FULGURATION MEDIUM BLADDER TUMOR Hematuria, gross Lesion of bladder 08/31/2024 9:05 AM EDT CYSTECTOMY PARTIAL COMPLICATED Malignant neoplasm of urachus (HCC) 11/26/2024 7:30 AM EST COLONOSCOPY FLEXIBLE PROXIMA L DIAGNOSTIC Recall History of colonic polyps Health [...] Additional history exists CKD HGB USE SMARTSET 49015 04/10/202504/10, 04/10/2024, 04/04/2023, Additional history exists CKD PHOS USE SMARTSET 18754 04/10/2025 060 05/2024, 04/04/2023, 04/10/2022, Additional history [...] Activated Date Inactivated Comments 08/31/2024 10:02 AM This order r eflects the patients wishes and were consensually agreed upon. Question Answer Comments Discussion of Advance Directives occurred with: Patient * Full Code Date Activated Date Inactivated Comments 08/31/2024 7:53 AM 08/31/2024 10:02 AM This orde r reflects the patients wishes and were consensually agreed upon. Question Answer Comments Discussion of Advance Directives occurred with: Patient Care Teams Indirect Fire Infantryman Relationship Specialty Start Date End Date Allyson Vickers DO [address] [place] [address] PCP - General Family Medicine 04/02/19 documented as of this encounter
--- OUTSIDE RECORDS SUMMARY | 2024-09-15 08:50 | External Medical Summary | Summary of Care ---
Author Name Unknown Organization [facility] [address] [facility] [address] Phone [phone] Care Team Providers Care Alarm Technician Name Role Phone Kirill Vickers DO Primary Care Provider [phone] Reason for Visit * Auth/Cert Specialty Diagnoses / Procedures Referred By Home t Referred To Contact Diagnoses Hematuria, gross Lesion of bladder Hematuria, gross [R31.0] Lesion of bladder [N32.9] Procedures CYSTOSCOPY/TREAT MED BLADDER TUMOR CYSTOURETHROSCOPY WITH FULGURATION MEDIUM BLADDER TUMOR Poncho Guerrero MD [address] [place] [address] [address] [place] [address] Referral ID Status Reason Start Date Expiration Date Visits Re quested Visits Authorized [id number] Encounter Details Date Type Department Care Team (Latest Contact Info) Description 08/31/2024 7:51 AM EDT - 08/31/2024 11:52 AM EDT Hospital Encounter OR [facility], Operating Room [facility] [address] [place] [address] Poncho Guerrero MD [address] [place] [address] Discharge Disposition: Home - Self Care Allergies Active Allergy Reactions Criticality Noted Date [...] on file documented as of this encounter Last Filed Vital Signs Vital Sign Reading Time Taken Comments Blood Pressure 126/71 08/31/2024 11:30 AM EDT Pulse 72 08/31/2024 11:30 AM EDT Temperature 36.1 C (97 F) 08/31/2024 10:07 AM EDT Respiratory Rate 18 08/31/2024 11:30 AM EDT Oxygen Saturation 99% 08/31/2024 11:30 AM EDT Inhaled Oxygen Concentration - - Weight 79.8 kg (176 lb) 08/31/2024 8:12 AM EDT Height 165.1 cm (5' 5") 08/31/2024 8:12 AM EDT Body Mass Index 29.29 08/31/2024 8:12 AM EDT documented in this encounter Discharge Instructions * Discharge Instr - AVS* Poncho Guerrero MD - 08/31/2024 9:36 AM EDT Catheter to gravity drainage as instructed. Blood in and around the catheter is expected including the passage of small clots. A burning sensation is not unusual. Follow-up in the office as planned for removal of the catheter. Complete antibiotics as prescribed. Use pain medication as needed. No heavy lifting for 1-2 weeks to avoid bleeding. Contact our office or proceed to ER with any fevers, chills, nausea, vomiting or other worrisome symptoms. Proceed to ER if catheter stops draining or blood clots block catheter. No driving within 24 hours of anesthesia or while taking pain medication. OK to shower with catheter in place starting tomorrow, no tub baths. Restart aspirin in 5 days if urine is clear. 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 After examination of this patient, I have determined she is ready for discharge to home when the patient meets criteria. Discharge instructions were given to the patient. documented in this encounter H&P Notes * Poncho Guerrero MD - 08/31/2024 7:46 AM EDT GENERAL HISTORY & PHYSICAL EXAMINATION - Urology Service [facility] SURGERY [facility] ENDOSCOPY [facility] [address] [place] [address] Name: Marium Tobar Location: Room/bed info not found Date: 08/31/2024 Time: 7:46 AM Date of H&P Aug 31, 2024 [id number] PCP: KIRILL VICKERS [address] [place] [address] [place] [address] [phone] Marium Tobar is a 63 year old female, who presents for TURBT for tissue diagnosis of 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 This is confirmed on office cystoscopy Jul 2024. Patient notes rare episodes of blood when wiping. She denies passage of clots. She is quite anxious regarding today's intervention. She denies other significant changes in her health since her last visit. Bladder tumor: Presented with gross hematuria. Presented to Urology July of 2024. Cystoscopy demonstrated atypical tumor at site of urachus. CT urography: IMPRESSION 1. A mass in the bladder dome measuring approximately 1.2 x 1.6 cm with associated adjacent bladderwall thickening and adjacent bladder diverticulum. 2. No filling defects in the contrast opacified segments of bilateral upper renal collecting system. 3. No enlarged lymph nodes. @actMED@ Review of patient's allergies indicates: Allergen Reactions [...] performed by Zach Valdovinos DO at OR [facility] COLONOSCOPY, DIAGNOSTIC (RECTUM) 02/18/2013 COLONOSCOPY FLEXIBLE PROXIMAL DIAGNOSTIC performed by Kristina Bynum DO at ENDOSCOPY [facility] COLONOSCOPY, DIAGNOSTIC (RECTUM) 02/12/2018 normal, repeat 5 yrs/COLONOSCOPY FLEXIBLE PROXIMAL DIAGNOSTIC performed by India Marcial MD at ENDOSCOPY [facility] COLONOSCOPY, DIAGNOSTIC (RECTUM) N/A 08/16/2023 diverticulosis/biopsies show adenomatous polyps/recall 5 years/Colonoscopy COLONOSCOPY, DIAGNOSTIC (RECTUM) 08/16/2023 COLONOSCOPY FLEXIBLE PROXIMAL DIAGNOSTIC performed by India Marcial MD at ENDOSCOPY [facility] HYSTEROSCOPY W/BIOPSY AND/OR POLYPECTOMY W/WO D&C Bilateral 07/16/2024 HYSTEROSCOPY WITH BIOPSY AND/OR POLYPECTOMY WITH OR WITHOUT D&C performed by Nando Garay MD at [facility] INFORMATION wisdom teeth extraction INJECT DX/THER SUBSTANCE INTERLAMINAR LUMBAR/SACRAL W IMAGE GUIDE 09/28/2019 INJECTION SPINE LUMBAR OR SACRAL performed by Juan Su DO at [facility] MASTECTOMY, PARTIAL Left 11/04/2012 PELVIC EXAM UNDER ANESTHESIA, NOT LOCAL Bilateral 07/16/2024 PELVIC EXAMINATION UNDER ANESTHESIA performed by Nando Garay MD at [facility] RADIATION THERAPY SACROILIAC JOINT INJECT W/GUIDANCE Left 05/20/2014 INJECTION SACROILIAC JOINT performed by Zach Valdovinos DO at OR [facility] SENTINEL LYMPH NODE BIOPSY PERFORMED 06/08/2013 Left Lumpectomy,left sentinel lymph node biopsy,injection of lymphazurin blue dye for sentinel nodeidentification Dr Lake [facility] 06/08/13 STRESS ECHO (EXERCISE) 10/2011 negative for inducible ischemia, LVEF 60% VASC DUPLEX VENOUS LE BILAT 06/17/2013 acute thrombus right posterior tibial vein Past Medical History: Diagnosis Date BMI 31.0-31.9,adult Breast cancer (HCC) 11/04/2012 Lumpectomy with radiation - LEFT 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 Carcinoma of breast (HCC) 06/08/[address] [place] CKD (chronic kidney disease) stage 3, GFR 30-59 ml/min (HCC) Depression with anxiety 12/21/2022 DVT of lower limb, acute (HCC) 06/17/13 right posterior tibial vein HTN, goal below 130/80 Hyperlipidemia LDL goal < 100 Hyperthyroidism treated with radioactive iodine Patient Active Problem List Diagnosis Dyslipidemia HTN, goal below 130/80 Acquired hypothyroidism History of thyroid cancer History of cervical cancer Chronic kidney disease, stage 3a (HCC) Depression with anxiety Hematuria, gross Lesion of bladder Malignant neoplasm of urachus (HCC) Constitutional: (-) fever and (-) chills ENT: (-) stridor Cardiovascular: (-) chest pain Female : (+) see HPI Neurology: (-) negative: no focal neurologic defect Psychiatry: (+) anxiousness Physical Exam Nursing note reviewed. Constitutional: General: She is not in acute distress. Appearance: Normal appearance. She is obese. She is not ill-appearing or toxic-appearing. HENT: Head: Normocephalic and atraumatic. Right Ear: External ear normal. Left Ear: External ear normal. Nose: Nose normal. Mouth/Throat: Mouth: Mucous membranes are moist. Eyes: Extraocular Movements: Extraocular movements intact. Cardiovascular: Pulses: Normal pulses. Heart sounds: Normal heart sounds. Pulmonary: Effort: Pulmonary effort is normal. No respiratory distress. Breath sounds: Normal breath sounds. Abdominal: Palpations: Abdomen is soft. Musculoskeletal: General: No deformity or signs of injury. Cervical back: Normal range of motion and neck supple. Skin: General: Skin is warm. Coloration: Skin is not pale. Neurological: General: No focal deficit present. Mental Status: She is alert and oriented to person, place, and time. Motor: No weakness. Gait: Gait normal. Psychiatric: Mood and Affect: Mood normal. Behavior: Behavior normal. Impression/Plan: 63-year-old female with a urachal tumor. Findings reviewed with the patient and . Informed consent was present in the chart. Will proceed with Transurethral resection of bladder tumor as previously planned. If pathology is consistentwith urachal carcinoma, patient is tentatively scheduled for robot assisted laparoscopic partial cystectomy in the future for disease control. IV Ancef on-call for antibiotic coverage, SCDs for DVT prophylaxis. No new questions, wishes to proceed. Patient vocalizes good understanding of the treatment plan. Poncho Guerrero MD 7:47 AM 08/31/2024 documented in this encounter Nursing Notes * Tiki Zhou RN - 08/31/2024 11:49 AM EDT Patient is alert, pain free, rojas patent and draining clear yellow urine and tolerating po fluids prior to discharge. Patient has received and demonstrates understanding of discharge instructions. Patient is transported via w/c to private auto accompanied by and staff. * Tiki Zhou RN - 08/31/2024 11:15 AM EDT at bedside, post op catheter care reviewed with pt and , both verbalized understanding. Rojas remains patent and draining clear yellow urine. * Tiki Zhou RN - 08/31/2024 10:45 AM EDT Pt received PACU II awake, denies pain, rojas patent and draining clear yellow urine. * Eduarda Serra RN - 08/31/2024 10:43 AM EDT Pt meets d'c criteria for PACU 1 * Eduarda Serra RN - 08/31/2024 10:33 AM EDT Pt sitting up taking po ice chips and aaron well. VSS. Pt denies c/o pain and nausea. * Eduarda Serra RN - 08/31/2024 10:07 AM EDT Patient received to pacu 1 status post cysto. Patient sleeping but able to rouse. no pain. no nausea. Respirations are even and unlabored on 6l/min mask. NSR on monitor. Rojas cath intact and draining clear yellow urine Vital signs stable. * Catrina Bustos RN - 08/31/2024 8:18 AM EDT Surgical consent verified with patient. Patient agrees with listed procedure and verified signature. documented in this encounter OR Notes * OR Surgeon - Poncho Guerrero MD - 08/31/2024 10:25 AM EDT [facility] [address] [address] OPERATIVE REPORT Name: Marium Tobar Date: 08/31/2024 Time: 10:25 AM Location: OR [facility] Service: Urology Date of Operation: 08/31/2024 Pre-op Diagnosis: 2 cm bladder tumor at dome, suspected urachal carcinoma. Post-op Diagnosis: Same. Surgeon: Poncho Guerrero MD Assistants: None. Anesthesia: General anesthesia with laryngeal mask. Operation: Transurethral resection of 2 cm bladder tumor. Findings: Atypical appearing bladder tumor of the dome which appears to arise from a urachal remnant. Case Acuity: Elective Wound Class: Clean Specimen and Disposition: Bladder tumor, dome to pathology Estimated Blood Loss: Less than 5 mL Fluids: Less than 1000 mL Urine Output: Not measured Drains/Implants: 20 Serbian silicone Rojas catheter with 10 mL of sterile water in the balloon. Complications: None. Postoperative Condition: Stable. Indications and History: Patient is a pleasant 63-year-old female found to have bladder tumor on evaluation for gross hematuria. After discussion of risks and benefits of various forms of management patient has decided upon Transurethral resection with possible partial cystectomy depending on pathology results. Risks and be nefits are reviewed for TURBT today. Informed consent present in the chart. IV Ancef provided for antibiotic coverage, IV Tylenol for additional perioperative analgesia. SCDs used for DVT prophylaxis. No new questions, wishes to proceed. Description of Operation: Patient was properly identified and brought into the operative suite after identification of appropriate consent in the chart. General anesthesia with laryngeal mask was initiated and patient was prepped and draped in the standard fashion for this procedure. real time analyst-out procedure was followed. Twenty-six Serbian rigid resectoscope was introduced into the bladder under direct visualization using a visual obturator. Bladder was surveyed in its entirety demonstrating normal ureteral orifices, minimal pelvic floor relaxation with grade 1-2 trabeculation of the bladder. A somewhat sessile appearing bladder lesion was present in the dome of the bladder consistent with previous office cystoscopy findings. A narrow base to the patient's lesion was noted. Bipolar loop was used to resect the tumordown to the base. Minimal bleeding from the tumor was appreciated. At the base of the tumor defect consistent with urachal remnant was appreciated. Deep resection of the tumor into the detrusor was not attempted seen suspected pathology. Judicious cautery was used with the bipolar button to ensure durable hemostasis. Tissue fragments were irrigated free from the bladder using an Ellik dimethylaniline sulfator operator and sent for pathologic analysis as bladder tumor, dome. After this was complete bladder was reinspected with some edematous mucosa fungating from the area of the suspected urachal remnant consistent with a urachal origin of the patient's lesion. No tissue fragments were identified within the bladder. No clear areas of viable residual tumor were noted. Bladder was partially distended and resectoscope was removed. Twenty Serbian silicone Rojas catheter was placed with return of clear irrigant. 10 mL of sterile water were placed in the balloon catheter was placed to gravity drainage. Anesthesia was reversed and patient was transferred to the recovery room in stable condition. Follow-up care: Patient will be discharged home with Rojas catheter in place. Will push back trial of void in 2 weeks seen defect leading into the patient's urachal remnant to allow for further healing. Prescription provided for Bactrim, tramadol for pain and oxybutynin for bladder spasticity. Intraoperative findings reviewed with the patient's present here today. Outpatient appointments are confirmed. Patient is instructed to contact our service should she note any fevers, chills, nausea, vomiting or other difficulties in the postoperative period. documented in this encounter Plan of Treatment Upcoming Encounters Date Type Department Care Team (Latest Contact Info) Description 09/14/2024 11:00 AM EST Nurse Only Urology, [address] [place] [address] [facility] [place] [address] 09/21/2024 3:30 PM EST Office Visit [facility] [address] [facility] [place] [address] Poncho Guerrero MD [address] [place] [address] 10/07/2024 5:40 PM EST Office Visit Family Practice [facility] [address] [facility] [place] [address] Kirill Vickers DO [address] [place] [address] 10/13/2024 2:45 PM EST Office Visit Urology, [place] [address] [place] [address] Peter Pelayo MD [address] [place] [address] 11/26/2024 7:30 AM EST Hospital Encounter OR [facility], Operating Room, [facility] - 4th Floor [address] [place] [address] Poncho Guerrero MD [address] [place] [address] 11/26/2024 7:30 AM EST - 11/26/2024 10:38 AM EST Surgery OR [facility], Operating Room, [facility] - 4th Floor [address] [place] [address] Poncho Guerrero MD [address] [place] [address] CYSTECTOMY PARTIAL COMPLICATED 12/18/2024 11:20 AM EST Office Visit Nephrology, [facility] [address] [place] [address] Delonte Kirby MD [address] [place] [address] 05/17/2025 1:30 PM EDT Imaging Radiology [address] [place] [address] Pending Results Name Type Priority Associated Diagnoses Date /Time SURGICAL PATHOLOGY Pathology Routine Hematuria, gross Lesion of bladder 08/31/2024 9:52 AM EDT Scheduled Orders Name Type Priority Associated Diagnoses Orde r Schedule SURGICAL PATHOLOGY Pathology Routine Hematuria, gross Lesion of bladder Release Upon Ordering for 1 Occurrences starting 08/31/2024, 1 completed Scheduled Procedures Name Priority Associated Diagnoses Date/Ti me CYSTOURETHROSCOPY WITH FULGURATION MEDIUM BLADDER TUMOR Hematuria, [...] Additional history exists CKD HGB USE SMARTSET 91196 04/10/202504/10, 04/10/2024, 04/04/2023, Additional history exists CKD PHOS USE SMARTSET 22765 04/10/2025 060 05/2024, 04/04/2023, 04/10/2022, Additional history [...] urachus (HCC)- Primary Malignant neoplasm of urachus Hematuria, gross Gross hematuria Lesion of bladder Unspecified disorder of bladder Malignant neoplasm of urachus (HCC)- Primary Malignant neoplasm of urachus Malignant neoplasm of urachus (HCC) Malignant neoplasm of urachus Screening mammogram for breast cancer documented in this encounter Administered Medications Inactive Administered Medications - up to 3 most recent administrations Medication Order MAR Action Action Date Dose Rate Site Acetaminophen (Tylenol) tab 650 mg 650 mg, Oral, PRN Pain, Mild, Starting on Sat08/31/24 at 1050, Until Sat08/31/24 at 1552, For 1 dose, Maximum of 4 grams (4000 mg) per day., Post-op ceFAZolin in dextrose (Ancef) ivpb 2 g 2 g, IV Piggyback, PREOP, 1 dose, First dose on Sat08/31/24 at 0830, Administer 60 minutes prior to skin incision, Pre-Op New Bag 08/31/2024 9:15 AM EDT 2 g 100 mL/hr dexAMETHasone Sodium Phosphate (Decadron) 4 MG/ML inj 4 mg 4 mg, IV Push, PRN Nausea, Starting on Sat08/31/24 at 1010, Until Sat08/31/24 at 1552, For 1 dose, PROTECT FROM LIGHT, PACU fentaNYL (PF) inj 25 mcg 25 mcg, IV Push, PRN Pain, Severe, Starting on Sat08/31/24 at 1010, Until Sat08/31/24 at 1552, For 6 doses, When given IV Push its recommended that the dose be given over 3 to 5 minutes., PACU isolyte-S pH 7.4 infusion Intravenous, at 50 mL/hr, Plasma-LYTE 148, isolyte-S, and isolyte-S pH 7.4 are considered equivalent - including for MAR barcode scanning., CONTINUOUS, Starting on Sat08/31/24 at 0830, Until Sat08/31/24 at 1552, Pre-Op Continue from Pre-Op 08/31/2024 9:23 AM EDT 50 mL/hr New Bag 08/31/2024 8:28 AM EDT 50 mL/hr ondansetron (Zofran) inj 4 mg 4 mg, IV Push, PRN Nausea, Starting on Sat08/31/24 at 1010, Until Sat08/31/24 at 1552, For 1 dose, PACU documented in this encounter Active and Recently Administered Medications Times are shown in EDT. Scheduled Medication Order 08/29/2024 08/30/2024 08/31/2024 Acetaminophen (Ofirmev) inj 1,000 mg (COMPLETED) 1,000 mg, Intravenous, PREOP, 1 dose, First dose on Sat08/31/24 at 0830, Administer over 15 Minutes, Administer undiluted over 15 minutes! NOTE: Maximum of 4000 mg per 24 hours of acetaminophen from all acetaminophen containing products., Pre-Op, Indication: Patient is strictly NPO 0936 (Given - Provid er: Ankush Riggins CRNA) ceFAZolin in dextrose (Ancef) ivpb 2 g (COMPLETED) 2 g, IV Piggyback, PREOP, 1 dose, First dose on Sat08/31/24 at 0830, Administer 60 minutes prior to skin incision, Pre-Op 0915 (New Bag - Prov ider: Catrina Bustos RN) influenza virus vaccine, trivalent (Fluzone trivalent) inj 0.5 mL Intramuscular, 0.5 mL (1 Syringe), Add Lot# and [place] Operator in Immunization Info section of MAR ! Store in Refrigerator SHAKE WELL PRIOR TO ADMINISTRATION RX WASTE CODE- BKC, ONCE, 1 dose, On Sat08/31/24 at 1045, Post-op 1045 (Due) Continuous Medication Order 08/29/2024 08/30/2024 08/31/2024 isolyte-S pH 7.4 infusion Intravenous, at 50 mL/hr, Plasma-LYTE 148, isolyte-S, and isolyte-S pH 7.4 are considered equivalent - including for [facility] barcode scanning., CONTINUOUS, Starting on Sat08/31/24 at 0830, Until Sat08/31/24 at 1552, Pre-Op 0828 (New Bag - Prov ider: Catrina Bustos RN)0923 (Continue from Pre-Op - Provider: Ankush Riggins CRNA)0959 (Anes Intra-Op Fluid - Provider: Rick Diaz CRNA) isolyte-S pH 7.4 infusion Intravenous, at 50 mL/hr, Plasma-LYTE 148, isolyte-S, and isolyte-S pH 7.4 are considered equivalent - including for [facility] barcode scanning., CONTINUOUS, Starting on Sat08/31/24 at 1045, Until Sat08/31/24 at 1552, Post-op 1045 (Due) PRN Medication Order 08/29/2024 08/30/2024 08/31/2024 Acetaminophen (Tylenol) tab 650 mg 650 mg, Oral, PRN Pain, Mild, Starting on Sat08/31/24 at 1050, Until Sat08/31/24 at 1552, For 1 dose, Maximum of 4 grams (4000 mg) per day., Post-op dexAMETHasone Sodium Phosphate (Decadron) 4 MG/ML inj 4 mg 4 mg, IV Push, PRN Nausea, Starting on Sat08/31/24 at 1010, Until Sat08/31/24 at 1552, For 1 dose, PROTECT FROM LIGHT, PACU fentaNYL (PF) inj 25 mcg 25 mcg, IV Push, PRN Pain, Severe, Starting on Sat08/31/24 at 1010, Until Sat08/31/24 at 1552, For 6 doses, When given IV Push its recommended that the dose be given over 3 to 5 minutes., PACU HYDROmorphone (Dilaudid) inj 1 mg 1 mg, IV Push, Q3H PRN Pain, Severe, Starting on Sat08/31/24 at 1000, Until Sat08/31/24 at 1552, For 6 hours, Post-op ondansetron (Zofran) inj 4 mg 4 mg, IV Push, PRN Nausea, Starting on Sat08/31/24 at 1010, Until Sat08/31/24 at 1552, For 1 dose, PACU oxyCODONE (Oxy IR) tab 5 mg 5 mg, Oral, Q4H PRN Pain, Moderate, Starting on Sat08/31/24 at 1000, Until Sat08/31/24 at 1552, For 6 hours, Post-op sodium chloride IR 0.9 % irrigation (CANCELED) ONCE PRN INTRA PROCEDURE, Starting on Sat08/31/24 at 0944, Until Sat08/31/24 at 0955, Intra-Op 0944 (Given - Provid er: Poncho Guerrero MD - Comment: qs)0947 (Given - Provider: Poncho Guerrero MD - Comment: alcides) documented in this encounter Advance Directives * [...] Advance Directives occurred with: Patient Care Teams Alarm Technician Relationship Specialty Start Date End Date Kirill Vickers DO [address] [place] [address] PCP - General Family Medicine 04/02/19 documented as of this encounter
--- OUTSIDE RECORDS SUMMARY | 2024-09-15 08:50 | External Medical Summary | Summary of Care ---
Author Name Unknown Organization [facility] Address [address] [facility] [address] Phone [phone] Care Team Providers Care Financial Analyst Intern Name Role Phone Rancho Allyson Kit JULIO Primary Care Provider [phone] Reason for Visit * Reason Onset Date Comments Medication Question 08/24/2024 Encounter Details Date Type Department Care Team (Late st Contact Info) Description 08/24/2024 Telephone Urology, [facility] 132 [facility] [place] [address] Poncho Guerrero MD 27 [place] [id number] Medication Question Allergies Active Allergy Reactions Criticality Noted Date Comments Latex Hives,Rash Medium 05/20/2014 documented as of this encounter (statuses as of 08/24/2024) Medications Medication Sig Dispensed Refills Start Date [...] Pain, Breakthrough. 100 Tablet 3 07/16/2024 Active documented as of this encounter (statuses as of 08/24/2024) Active Problems Problem Noted Date Diagnosed Date [...] as of this encounter (statuses as of 08/24/2024) Resolved Problems Problem Noted Date Diagnosed Date [...] as of this encounter (statuses as of 08/24/2024) Immunizations Name Administration Dates Next Due COVID-19 [...] encounter Miscellaneous Notes * Telephone Encounter - Theresa Rust [facility] - 08/24/2024 3:08 PM EDT Greetings, Reminder that the [facility] department will need a signed and held order for Mitomycin for the [facility]) OR appt scheduled for 08/31/2024 if that is still going to be a possible option that day. We will need to compound prior to the appt and deliver to the surgical center. Thank you. Theresa Rust PharmD, [facility] Coordinator, Acute Pharmacy Services Hematology/Oncology [phone] 08/24/2024, 3:10 PM documented in this encounter Plan of Treatment Upcoming Encounters Date Type Department Care Team (Latest Contact Info) Description 08/31/2024 12:00 PM EDT Hospital Encounter OR [facility], Operating Room [facility] [address] [place] [phone] Poncho Guerrero MD 27 [place] [address] 08/31/2024 12:00 PM EDT - 08/31/2024 1:08 PM EDT Surgery OR [facility], Operating Room [facility] [address] [place] [address] Poncho Guerrero MD 27 [place] [address] CYSTOURETHROSCOPY WITH FULGURATION MEDIUM BLADDER TUMOR 09/07/2024 11:00 AM EST Nurse Only Urology, [facility] [address] [place] [address] Saenz Nurse Urology [email or web address] [address] [place] [address] 09/21/2024 3:30 PM EST Office Visit Urology, [facility] [address] [place] [address] Poncho Guerrero MD 27 [place] [address] 10/07/2024 5:40 PM EST Office Visit Family Practice [facility] [address] [place] [address] Allyson Vickers DO [address] [place] [address] 10/13/2024 2:45 PM EST Office Visit Urology, [place] [address] [place] [address] Peter Pelayo MD [address] [place] [address] 11/26/2024 7:30 AM EST Hospital Encounter OR [facility], Operating Room, [facility] - 4th Floor [address] [place] [address] Poncho Guerrero MD 27 [place] [address] 11/26/2024 7:30 AM EST - 11/26/2024 10:38 AM EST Surgery OR [facility], Operating Room, [facility] - 4th [facility] [address] [facility] [address] Poncho Guerrero MD [address] [place] [address] CYSTECTOMY PARTIAL COMPLICATED 12/18/2024 11:20 AM EST Office Visit Nephrology, Adri Kaufman [address] [place] [address] Delonte Kirby MD [address] [place] [address] 05/17/2025 1:30 PM EDT Imaging Radiology [address] [place] [address] Scheduled Procedures Name Priority Associated Diagnoses Date/Ti tn CYSTOURETHROSCOPY WITH FULGURATION MEDIUM BLADDER TUMOR Hematuria, gross Lesion of bladder 08/31/2024 12:00 PM EDT CYSTECTOMY PARTIAL COMPLICATED Malignant neoplasm of [...] Additional history exists CKD HGB USE SMARTSET 87887 04/10/202504/10, 04/10/2024, 04/04/2023, Additional history exists CKD PHOS USE SMARTSET 59130 04/10/2025 06/0 05/2024, 04/04/2023, 04/10/2022, Additional history [...] Not on filedocumented as of this encounter Care Teams Financial Analyst Intern Relationship Specialty Start Date End Date Allyson Vickers DO 132 [place] [address] PCP - General Family Medicine 04/02/19 documented as of this encounter
--- OUTSIDE RECORDS SUMMARY | 2024-09-15 08:50 | External Medical Summary | Summary of Care ---
Author Name Unknown Organization [facility] Address [address] [facility] [address] Phone [phone] Care Team Providers Care Utility Pipe Layer Name Role Phone Allyson Vickers DO Primary Care Provider [phone] Reason for Visit * Reason Onset Date Comments Surgery 09/01/2024 Cystectomy Encounter Details Date Type Department Care Team (Late st Contact Info) Description 09/01/2024 Telephone Urology [facility] [address] [place] [address] Poncho Guerrero MD 27 [place] [address] Surgery (Cystectomy ) Allergies Active Allergy Reactions [...] encounter Miscellaneous Notes * Telephone Encounter - Sofía Sanchez LPN - 09/01/2024 9:01 AM EDT Patient is scheduled for cystectomy with Dr Guerrero on 11/26/24 at [facility]. Patient had TURBT at [facility] yesterday and Dr Guerrero was asking if surgery could be moved up. We are able to schedule surgeryat [facility] on 09/16. Dr Guerrero recommends that patient keep the rojas catheter until surgery, will needappt for updated H&P before proposed 09/16 surgery date. Patient was scheduled for second opinion with Dr Pelayo at [facility] unsure if able to be seen sooner. Called [facility] and they are unable to see patient before proposed 09/16 surgery date. Left message for patient to return call to discuss above options. If patient accepted proposed 09/16 surgery date at [facility] will need to be seen for follow up office visit to update H&P, which was scheduled at [facility] on 09/04 at 3:30 and second opinion at [facility] will need to be canceled. If patient [...] Department Care Team (Latest Contact Info) Description 09/04/2024 3:30 PM EDT Office Visit Urology [facility] [address] [facility] 270 [place] [address] Poncho Guerrero MD 27 [place] [address] 09/14/2024 11:00 AM EST Nurse Only Urology, [facility] 132 [place] [address] Dany Nurse Urology Kevin [address] [place] [address] 09/21/2024 3:30 PM EST Office Visit Urology, [facility] [address] [facility] [address] Poncho Guerrero MD 27 [place] [address] 10/07/2024 5:40 PM EST Office Visit Family Practice [facility] [address] [facility] [place] [address] Allyson Vickers DO [address] [place] [address] 10/13/2024 2:45 PM EST Office Visit Urology, [place] [address] [place] [address] Peter Pelayo MD [address] [place] [address] 11/26/2024 7:30 AM EST Hospital Encounter OR [facility], Operating Room, [facility] - 4th Floor 400 [facility] [place] [phone] Poncho Guerrero MD 27 [place] [address] 11/26/2024 7:30 AM EST - 11/26/2024 10:38 AM EST Surgery OR [facility], Operating Room, [facility] - 4th Floor 400 [facility] [place] [phone] Poncho Guerrero MD 27 [place] [address] CYSTECTOMY PARTIAL COMPLICATED 12/18/2024 11:20 AM EST Office Visit Nephrology, [facility] [address] [place] [address] Delonte Kirby MD [address] [place] [address] 05/17/2025 1:30 PM EDT Imaging Radiology [address] [place] [address] Scheduled Procedures Name Priority Associated Diagnoses Date/Ti [...] Additional history exists CKD HGB USE SMARTSET 29442 04/10/202504/10, 04/10/2024, 04/04/2023, Additional history exists CKD PHOS USE SMARTSET 12004 04/10/202505/2024, 04/04/2023, 04/10/2022, Additional history exists Mammogram 05/11/2025 [...] Advance Directives occurred with: Patient Care Teams Utility Pipe Layer Relationship Specialty Start Date End Date Allyson Vickers DO 132 [place] [address] PCP - General Family Medicine 04/02/19 documented as of this encounter
--- OUTSIDE RECORDS SUMMARY | 2024-09-15 08:50 | External Medical Summary | Summary of Care ---
Author Name Unknown Organization [facility] Address [address] [facility] [place] [address] Phone [phone] Care Team Providers Care Printing Press Machinist Name Role Phone Allyson Vickers DO Primary Care Provider [phone] Reason for Visit * Reason Onset Date Comments Pre Op Discussion 08/28/2024 Arrival time Encounter Details Date Type Department Care Team (Late st Contact Info) Description 08/28/2024 Telephone OR [facility], Operating Room [facility] 132 [facility] [place] [phone] Joaquina Rojas, SCHUYLER Pre Op Discussion (Arrival time) Allergies Active Allergy Reactions Criticality Noted Date Comments Latex Hives,Rash Medium 05/20/2014 documented as of this encounter (statuses as of 08/28/2024) Medications Medication Sig Dispensed Refills Start Date [...] as of this encounter (statuses as of 08/28/2024) Active Problems Problem Noted Date Diagnosed Date [...] as of this encounter (statuses as of 08/28/2024) Resolved Problems Problem Noted Date Diagnosed Date [...] as of this encounter (statuses as of 08/28/2024) Immunizations Name Administration Dates Next Due COVID-19 [...] encounter Miscellaneous Notes * Telephone Encounter - Joaquina Rojas RN - 08/28/2024 4:01 PM EDT Called patient with arrival time for procedure on Friday 08/31. Detailed message left for patient with 0745 arrival time on Friday 08/31 and NPO after midnight Thursday 08/30. documented in this encounter Plan of Treatment Upcoming Encounters Date Type Department Care Team (Latest Contact Info) Description 08/31/2024 8:56 AM EDT Hospital Encounter OR [facility], Operating Room [facility] 132 [facility] [place] [phone] Poncho Guerrero MD 27 [place] [address] 08/31/2024 8:56 AM EDT - 08/31/2024 10:04 AM EDT Surgery OR [facility], Operating Room [facility] [address] [place] [phone] Poncho Guerrero MD 27 [place] [address] CYSTOURETHROSCOPY WITH FULGURATION MEDIUM BLADDER TUMOR 09/07/2024 11:00 AM EST Nurse Only Urology, [facility] [address] [facility], Nurse Urology [facility] [address] [place] [address] 09/21/2024 3:30 PM EST Office Visit Urology, [facility] [address] [place] [address] Poncho Guerrero MD 27 [place] [address] 10/07/2024 5:40 PM EST Office Visit Family Practice [facility] [address] [place] [address] Allyson Vickers DO [address] [place] [address] 10/13/2024 2:45 PM EST Office Visit Urology, [place] [address] [place] [address] Peter Pelayo MD [address] [place] [address] 11/26/2024 7:30 AM EST Hospital Encounter OR [facility], Operating Room, [facility] - 4th Floor [address] [place] [phone] Poncho Guerrero MD 27 [place] [address] 11/26/2024 7:30 AM EST - 11/26/2024 10:38 AM EST Surgery OR [facility], Operating Room, [facility] - 4th Floor [address] [place] [address] Poncho Guerrero MD 27 [place] [address] CYSTECTOMY PARTIAL COMPLICATED 12/18/2024 11:20 AM EST Office Visit Nephrology, [facility] [address] [place] [address] Delonte Kirby MD [address] [place] [address] 05/17/2025 1:30 PM EDT Imaging Radiology [address] [place] [address] Scheduled Procedures Name Priority Associated Diagnoses Date/Ti wv CYSTOURETHROSCOPY WITH FULGURATION MEDIUM BLADDER TUMOR Hematuria, gross Lesion of bladder 08/31/2024 8:56 AM EDT CYSTECTOMY PARTIAL COMPLICATED Malignant neoplasm [...] Additional history exists CKD HGB USE SMARTSET 04715 04/10/202504/10, 04/10/2024, 04/04/2023, Additional history exists CKD PHOS USE SMARTSET 92166 04/10/20250 05/2024, 04/04/2023, 04/10/2022, Additional history exists Mammogram [...] filedocumented as of this encounter Care Teams Printing Press Machinist Relationship Specialty Start Date End Date Allyson Vickers DO [address] [place] [address] PCP - General Family Medicine 04/02/19 documented as of this encounter
--- OUTSIDE RECORDS SUMMARY | 2024-09-15 08:51 | External Medical Summary | Summary of Care ---
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 Encounter Details Date Type Department Care Team (Late st Contact Info) Description 08/03/2024 9:30 AM EDT Office Visit Gynecology/Obstetric s Gely Saenz [address] [place] [address] Nando Garay MD [address] [place] [address] Postoperative state* Allergies Active Allergy Reactions Criticality Noted Date Comments Latex Hives,Rash Medium 05/20/2014 documented as of this encounter (statuses as of 08/03/2024) Medications Medication Sig Dispensed Refills Start Date [...] as of this encounter (statuses as of 08/03/2024) Active Problems Problem Noted Date Diagnosed Date [...] as of this encounter (statuses as of 08/03/2024) Resolved Problems Problem Noted Date Diagnosed Date [...] as of this encounter (statuses as of 08/03/2024) Immunizations Name Administration Dates Next Due COVID-19 mRNA, LNP-s, No Pre serve, 2-Dose Series (Pfizer) 01/21/2021,12/31/2020 Pneumococcal Polysaccharide PPV23 (Pneumovax) 02/14/2017 Seasonal Influenza, PF, 6 M & above, IM , (FluLaval or Fluzone) 07/13/2020,08/13/2019,08/22/2017 Seasonal Influenza, Quadriva lent, No Preserve, IM 08/20/2018,08/16/2016,08/15/2015 Seasonal Influenza, Trivalen t, (IIV3), with Preserv, (Fluzone) 08/04/2013,08/13/2012,07/30/2011,08/04,07/20/2009,08/17/2008,08/14/2007 ,08/08/2006 TD - Tetanus/Diptheria (ADULT) 07/05/2005 TDAP (age [...] Sign Reading Time Taken Comments Blood Pressure 110/68 08/03/2024 9:18 AM EDT Pulse - - Temperature - - Respiratory Rate - - Oxygen Saturation - - Inhaled Oxygen Concentration - - Weight 79.8 kg (176 lb) 08/03/2024 9:18 AM EDT Height 165.1 cm (5' 5") 08/03/2024 9:18 AM EDT Body Mass Index 29.29 08/03/2024 9:18 AM EDT documented in this encounter Progress Notes * Nando Garay MD - 08/03/2024 9:36 AM EDT Patient is s/p D&C with hysteroscopy and doing well No SOB,chills,dysuria frequency or fever. Tolerating food well. +ve BM Reviewed pah report with pt Pt was just dx with bladder cancer Pt is recommended to continue with post op instructions and care. documented in this encounter Nursing Notes * Lucía Martínez LPN - 08/03/2024 9:10 AM EDT Pt is here for f/u from D&C hysteroscopy documented in this encounter Plan of Treatment Upcoming Encounters Date Type Department Care Team (Latest Contact Info) Description 08/03/2024 4:00 PM EDT Imaging Radiology [address] [place] [address] 08/31/2024 11:00 AM EDT Hospital Encounter OR [facility], Operating Room [facility] [address] [place] [phone] Poncho Guerrero MD 27 [place] [address] 08/31/2024 11:00 AM EDT - 08/31/2024 12:08 PM EDT Surgery OR [facility], Operating Room [facility] [address] [place] [address] Poncho Guerrero MD 27 [place] [address] CYSTOURETHROSCOPY WITH FULGURATION MEDIUM BLADDER TUMOR 09/07/2024 11:00 AM EST Nurse Only Urology, [facility] [address] [place] [address] [facility] Nurse Urology [place] [address] [place] [address] 09/21/2024 3:30 PM EST Office Visit Urology, [facility] [address] [place] [address] Poncho Guerrero MD 27 [place] [address] 10/07/2024 5:40 PM EST Office Visit Family Practice [facility] [address] [place] [address] Allyson Vickers DO [address] [place] [address] 11/26/2024 Hospital Encounter OR [facility], Operating Room, [facility] - 4th Floor 400 [facility] [place] [address] Poncho Guerrero MD 27 [place] [address] 12/18/2024 11:20 AM EST Office Visit Nephrology, [facility] [address] [place] [address] Delonte Kirby MD [address] [place] [address] 05/17/2025 1:30 PM EDT Imaging Radiology [address] [place] [address] Scheduled Procedures Name Priority Associated Diagnoses Date/Ti tn CYSTOURETHROSCOPY WITH FULGURATION MEDIUM BLADDER TUMOR Hematuria, gross Lesion of bladder 08/31/2024 11:00 AM EDT CYSTECTOMY PARTIAL COMPLICATED Malignant neoplasm of urachus (HCC) COLONOSCOPY FLEXIBLE PROXIMA L DIAGNOSTIC Recall History [...] 04/10/2022, Additional history exists GFR 01/28/2025 07/31/2024, 06/0 05/2024, 04/04/2023, Additional history exists Albumin/Creatinine Ratio 03/11/2025 024, 12/11/2016, 08/15/2015, Additional history exists CKD HGB USE SMARTSET 06449 04/10/202504/10, 04/10/2024, 04/04/2023, Additional history exists CKD PHOS USE SMARTSET 28596 04/10/2025 06/0 05/2024, 04/04/2023, 04/10/2022, Additional history [...] as of this encounter Visit Diagnoses Diagnosis Hematuria, gross Gross hematuria Lesion of bladder Unspecified disorder of bladder Malignant neoplasm of urachus (HCC)- Primary Malignant neoplasm of urachus Postoperative state- Primary Other postprocedural status Hematuria, gross Gross hematuria Lesion of bladder Unspecified disorder of bladder Screening mammogram for breast cancer documented in this encounter Care Teams Operating Room Rn Relationship Specialty Start Date End Date Allyson Vickers DO 132 [facility] [place] [address] PCP - General Family Medicine 04/02/19 documented as of this encounter
--- OUTSIDE RECORDS SUMMARY | 2024-09-15 08:51 | External Medical Summary | Summary of Care ---
Author Name Unknown Organization [facility] Address [address] [place] [address] Phone [phone] Care Team Providers Care Clinic Nurse Name Role Phone Allyson Vickers DO Primary Care Provider [phone] Encounter Details Date Type Department Care Team (Late st Contact Info) Description 07/29/2024 Telephone Urology, [facility] 132 [facility] [place] [address] Poncho Guerrero MD 27 [facility] [place] [address] Allergies Active Allergy Reactions Criticality Noted Date Comments Latex Hives,Rash Medium 05/20/2014 documented as of this encounter (statuses as of 08/04/2024) Medications Medication Sig Dispensed Refills Start Date [...] as of this encounter (statuses as of 08/04/2024) Active Problems Problem Noted Date Diagnosed Date [...] as of this encounter (statuses as of 08/04/2024) Resolved Problems Problem Noted Date Diagnosed Date [...] Lipid Taxonomy. HTN, goal to be determined 04/05/200811/27/2008 Overview: Modified per HTN protocol #16. KIDNEY [...] as of this encounter (statuses as of 08/04/2024) Immunizations Name Administration Dates Next Due COVID-19 mRNA, LNP-s, No Pre serve, 2-Dose Series ([place]) 01/21/2021,12/31/2020 Influenza, Whole Virus 09/18/2000 Pneumococcal Polysaccharide PPV23 (Pneumovax) 02/14/2017 Seasonal Influenza, PF, 6 M & above, IM , (FluLaval or Fluzone) 07/13/2020,08/13/2019,08/22/2017 Seasonal Influenza, Quadriva lent, No Preserve, IM 08/20/2018,08/16/2016,08/15/2015 Seasonal Influenza, Trivalen t, (IIV3), with Preserv, (Fluzone) 08/04/2013,08/13/2012,07/30/2011,08/04,07/20/2009,08/17/2008,08/14/2007 ,08/08/2006,10/11/2003,09/02/2002 TD - Tetanus/Diptheria (ADULT) 07/05/2005 TDAP (age [...] Telephone Encounter - Marla Felipe LPN - 08/03/2024 10:26 AM EDT Patient at [facility] for preop teaching. All questions answered, patient given verbal and written instructions. Patient is aware to expect a phone call from [facility] to schedule appointment approx 1 month after TURBT. * Addendum Note - Marla Felipe LPN - 08/03/2024 9:45 AM EDTAddended by: MARLA FELIPE on: 08/03/2024 09:45 AM Modules accepted: Orders * Telephone Encounter - Rani Peres OSA - 07/30/2024 11:23 AM EDT Please assist in scheduled late September to discuss CYSTECTOMY Thank you! * Telephone Encounter - Marla Felipe LPN - 07/30/2024 11:21 AM EDT Spoke with pt. Offered 08/03 or 08/31 for TURBT. Patient opted for 08/31. Aware of postop appts. Patient will stop by office on 08/03 for preop teaching with nurses. Thank you Emelina * Telephone Encounter - Colleen Alarcon OSA - 07/30/2024 10:03 AM EDT November will be saved for patient for possible cystectomy. * Telephone Encounter - Poncho Guerrero MD - 07/30/2024 9:57 AM EDT TURBT SatAug 31 is chivo gamboa, MARGIE * Telephone Encounter - Sofía Sanchez LPN - 07/30/2024 9:52 AM EDT Colleen- can you save a spot for robotic time in November please * Telephone Encounter - Marla Felipe LPN - 07/30/2024 9:[address] Guerrero Next available at [facility] for TURBT is 08/31. Next available at [facility] is 10/09. Please advise if this isok. Thank you Emelina * Telephone Encounter - Diana Doe OSA - 07/30/2024 8:48 AM EDT Scheduled at on 08/31/24. TOV is scheduled on 09/07/2024 PO is scheduled on 09/21/2024 * Telephone Encounter - Marla Felipe LPN - 07/29/2024 4:30 PM EDT Patient needs: TURBT booked at whichever location is soonest. Patient will need nurse visit at [facility] to discuss preop instructions / testing. TOV [address] Guerrero 3 weeks postop Referral to [facility]. Appt should be scheduled approx 1 month after TURBT to discuss possible cystectomy. Next available robotic slot with Dr Guerrero for partial cystectomy held. Thank you Emelina * Telephone Encounter - Poncho Guerrero MD - 07/29/2024 4:17 PM EDT Can we check the schedule/hold a date for a robotic partial cystectomy at [facility] for this patient? Let me know what time frame we are looking at. Thanks, HM documented in this encounter Plan of Treatment Upcoming Encounters Date Type Department Care Team (Latest Contact Info) Description 08/31/2024 11:00 AM EDT Hospital Encounter OR [facility], Operating Room [facility] [address] [place] [address] Poncho Guerrero MD 27 [place] [address] 08/31/2024 11:00 AM EDT - 08/31/2024 12:08 PM EDT Surgery OR [facility], Operating Room [facility] [address] [place] [phone] Poncho Guerrero MD 27 [place] [address] CYSTOURETHROSCOPY WITH FULGURATION MEDIUM BLADDER TUMOR 09/07/2024 11:00 AM EST Nurse Only Urology, [facility] [address] [place] [address] [facility], Nurse Urology [facility] [address] [place] [address] 09/21/2024 3:30 PM EST Office Visit Urology, [facility] [address] [place] [address] Poncho Guerrero MD 27 [place] [address] 10/07/2024 5:40 PM EST Office Visit Family Practice [facility] [address] [place] [address] Allyson Vickers DO [address] [place] [address] 11/26/2024 Hospital Encounter OR [facility], Operating Room, [facility] - 4th Floor [address] [facility] [place] [address] Poncho Guerrero MD 27 [place] [address] 12/18/2024 11:20 AM EST Office Visit Nephrology, Adri Kaufman [address] [place] [address] Delonte Kirby MD [address] [place] [address] 05/17/2025 1:30 PM EDT Imaging Radiology [address] [place] [address] Scheduled Orders Name Type Priority Associated Diagnoses Orde r Schedule CULTURE, URINE, QUANTITATIVE Lab Routine Lesion of bladder Malignant neoplasm of urachus (HCC) Expected: 08/24/2024, Expires: 08/03/2025 Scheduled Procedures Name Priority Associated Diagnoses Date/Ti nm CYSTOURETHROSCOPY WITH FULGURATION MEDIUM BLADDER TUMOR Hematuria, [...] Additional history exists CKD HGB USE SMARTSET 70683 04/10/202504/10, 04/10/2024, 04/04/2023, Additional history exists CKD PHOS USE SMARTSET 04828 04/10/2025 06/0 05/2024, 04/04/2023, 04/10/2022, Additional history [...] Not on filedocumented as of this encounter Procedures Procedure Name Priority Date/Time Associated Diagnosis Comments XR CHEST 2 VIEWS Routine 08/03/2024 10:2 3 AM EDT Lesion of bladder Malignant neoplasm of urachus (HCC) documented in this encounter Results * XR CHEST 2 VIEWS (08/03/2024 10:23 AM EDT) Anatomical Region Laterality Modality Chest Computed Radiogr aphy 08/03/2024 1:52 PM EDT Impressions 08/03/2024 1:50 PM EDT IMPRESSION No evidence of acute cardiopulmonary disease. Narrative 08/03/2024 1:50 PM EDT EXAM XR CHEST 2 VIEWS-08/03/2024 10:23 am HISTORY Preop COMPARISON Chest radiograph 04/14/2021. TECHNIQUE PA and lateral views of the chest are examined. FINDINGS Similar minimal right hilar scarring. No focal airspace consolidation. There is no pleural effusion. The pulmonary vasculature and cardiomediastinal silhouette are within normal limits. No acute osseous finding. Procedure Note Omer Miramontes MD - 08/03/2024 EXAM XR CHEST 2 VIEWS-08/03/2024 10:23 am HISTORY Preop COMPARISON Chest radiograph 04/14/2021. TECHNIQUE PA and lateral views of the chest are examined. FINDINGS Similar minimal right hilar scarring. No focal airspace consolidation.There is no pleural effusion. The pulmonary vasculature andcardiomediastinal silhouette are within normal limits. No acute osseousfinding. IMPRESSION IMPRESSION No evidence of acute cardiopulmonary disease. Poncho Guerrero MD RADIOLOGY (RAD G ENERAL) * EKG (08/03/2024 10:06 AM EDT) 08/03/2024 10:0 6 AM EDT Narrative Procedure Note Boris Gibson DO - 08/03/2024 10:06 AM EDT REASON FOR STUDY: preop;preop CONCLUSIONS: Sinus bradycardia Low voltage QRS, consider pulmonary disease, pericardial effusion, ornormal variant Borderline ECG Ventricular Rate: 50 Atrial Rate: 50 AL Interval: 168 QRS Duration: 86 QT/QTc: 440/401 ms P-R-T [place]: 66 : 20 : 85 degrees Poncho Guerrero MD EKG [facility] documented in this encounter Visit Diagnoses Diagnosis Hematuria, gross Gross hematuria Lesion of bladder Unspecified disorder of bladder Lesion of bladder- Primary Unspecified disorder of bladder Malignant neoplasm of urachus (HCC) Malignant neoplasm of urachus Malignant neoplasm of urachus (HCC)- Primary Malignant neoplasm of urachus Lesion of bladder Unspecified disorder of bladder Malignant neoplasm of urachus (HCC) Malignant neoplasm of urachus Hematuria, gross Gross hematuria Lesion of bladder Unspecified disorder of bladder Screening mammogram for breast cancer documented in this encounter Care Teams Clinic Nurse Relationship Specialty Start Date End Date Allyson Vickers DO 132 [facility] [place] [address] PCP - General Family Medicine 04/02/19 documented as of this encounter
--- OUTSIDE RECORDS SUMMARY | 2024-09-15 08:51 | External Medical Summary | Summary of Care ---
Author Name Unknown Organization [facility] Address [address] [facility] [address] Phone [phone] Care Team Providers Care Funeral Director And Embalmer Name Role Phone Sohail Vickersa Kit DO Primary Care Provider [phone] Reason for Visit * Reason Comments Nurse Documentation Encounter Details Date Type Department Care Team (Late st Contact Info) Description 08/03/2024 9:30 AM EDT [facility] [address] [facility] [place] [address] Nurse Dany Urology [facility] [address] [place] [address] Nurse Documentation Allergies Active Allergy Reactions Criticality Noted Date [...] on file documented as of this encounter Nursing Notes * Marla Felipe LPN - 08/03/2024 10:17 AM EDT Patient scheduled at [facility] for TURBT with Dr Poncho Guerrero. Date of Surgery: 08/31/2024 Medications reviewed. Patient aware to stop asprin and multivitamin 7 days prior. EKG: obtained CXR: ordered, to be done today Labs: on file UAC&S: ordered, to be done 1 week prior to surgery Post op appts needed: TOV and postop, both scheduled Permit signed at last office visit. Patient verbalizes understanding of pre- and post op instructions. Written instructions given for review at later date. Marla Felipe LPN 08/03/2024 documented in this encounter Plan of Treatment Upcoming Encounters Date Type Department Care Team (Latest Contact Info) Description 08/03/2024 4:00 PM EDT Imaging Radiology [facility] [address] [place] [address] 08/31/2024 11:00 AM EDT Hospital Encounter OR [facility], Operating Room [facility] [address] [place] [address] Poncho Guerrero MD 27 [place] [address] 08/31/2024 11:00 AM EDT - 08/31/2024 12:08 PM EDT Surgery OR [facility], Operating Room [facility] [address] [place] [address] Poncho Guerrero MD 27 [place] [address] CYSTOURETHROSCOPY WITH FULGURATION MEDIUM BLADDER TUMOR 09/07/2024 11:00 AM EST Nurse Only Urology, [facility] 132 [facility] [place] [address] [facility] Nurse Urology [facility] [address] [place] [address] 09/21/2024 3:30 PM EST Office Visit Urology, [facility] [address] [place] [address] Poncho Guerrero MD 27 [place] [address] 10/07/2024 5:40 PM EST Office Visit Family Practice [facility] [address] [place] [address] Allyson Vickers DO [address] [place] [address] 11/26/2024 Hospital Encounter OR [facility], Operating Room, [facility] - 4th Floor [address] [place] [phone] Poncho Guerrero MD [address] [place] [address] 12/18/2024 11:20 AM EST Office Visit Nephrology, [facility] [address] [place] [address] Delonte Kirby MD [address] [place] [address] 05/17/2025 1:30 PM EDT Imaging Radiology [address] [place] [address] Scheduled Procedures Name Priority Associated Diagnoses Date/Ti [...] Additional history exists CKD HGB USE SMARTSET 11155 04/10/202504/10, 04/10/2024, 04/04/2023, Additional history exists CKD PHOS USE SMARTSET 97807 04/10/2025 060 05/2024, 04/04/2023, 04/10/2022, Additional history [...] filedocumented as of this encounter Care Teams Funeral Director And Embalmer Relationship Specialty Start Date End Date Allyson Vickers DO [address] [place] [address] PCP - General Family Medicine 04/02/19 documented as of this encounter
--- OUTSIDE RECORDS SUMMARY | 2024-09-15 08:51 | External Medical Summary | Summary of Care ---
Author Name Unknown Organization [facility] Address [address] [place] [address] Phone [phone] Care Team Providers Care Waste Machine Tender Name Role Phone Allyson Vickers DO Primary Care Provider [phone] Encounter Details Date Type Department Care Team (Late st Contact Info) Description 07/29/2024 Telephone Urology, [facility] 132 [facility] [place] [address] Poncho Guerrero MD 27 [facility] [place] [address] Allergies Active Allergy Reactions Criticality Noted Date Comments Latex Hives,Rash Medium 05/20/2014 documented as of this encounter (statuses as of 08/05/2024) Medications Medication Sig Dispensed Refills Start Date [...] as of this encounter (statuses as of 08/05/2024) Active Problems Problem Noted Date Diagnosed Date [...] as of this encounter (statuses as of 08/05/2024) Resolved Problems Problem Noted Date Diagnosed Date [...] as of this encounter (statuses as of 08/05/2024) Immunizations Name Administration Dates Next Due COVID-19 [...] Telephone Encounter - Marla Felipe LPN - 08/05/2024 8:10 AM EDT Patient has appt with Dr Pelayo on 10/13 * Telephone Encounter - Marla Felipe LPN - 08/03/2024 10:26 AM EDT Patient at [facility] for preop teaching. All questions answered, patient given verbal and written instructions. Patient is aware to expect a phone call from [facility] to schedule appointment approx 1 month after [...] 9:57 AM EDT TURBT SatAug 31 is bee, isabelax, HM * Telephone Encounter - Sofía Sanchez LPN - 07/30/2024 9:52 AM EDT Colleen- can you save a spot for robotic time in November please * Telephone Encounter - Marla Felipe LPN - 07/30/2024 9:[address] Guerrero Next available at [facility] for TURBT is 08/31. Next available at [facility] is 10/09. Please advise if this [...] soonest. Patient will need nurse visit at [facility] to discuss preop instructions / testing. TOV [address] Guerrero 3 weeks postop Referral to [facility]. Appt should be scheduled approx 1 month after TURBT to discuss possible cystectomy. Next available robotic slot with Dr Guerrero for partial cystectomy held. Thank you Emelina * Telephone Encounter - Poncho Guerrero MD - 07/29/2024 4:17 PM EDT Can we check the schedule/hold a date for a robotic partial cystectomy at [facility] for this patient? Let me know what time frame we are looking at. Thanks, HM documented in this encounter Plan of Treatment Upcoming Encounters Date Type Department Care Team (Latest Contact Info) Description 08/31/2024 11:00 AM EDT Hospital Encounter OR [facility], Operating Room [facility] [address] [place] [address] Poncho Guerrero MD 27 [place] [address] 08/31/2024 11:00 AM EDT - 08/31/2024 12:08 PM EDT Surgery OR [facility], Operating Room [facility] [address] [place] [address] Poncho Guerrero MD 27 [place] [address] CYSTOURETHROSCOPY WITH FULGURATION MEDIUM BLADDER TUMOR 09/07/2024 11:00 AM EST Nurse Only Urology, [facility] [address] [place] [address] [facility], Nurse Urology [facility] [address] [place] [address] 09/21/2024 3:30 PM EST Office Visit Urology, [facility] [address] [place] [address] Poncho Guerrero MD 27 [place] [address] 10/07/2024 5:40 PM EST Office Visit Family Practice [facility] [address] [place] [address] Allyson Vickers DO [address] [place] [address] 10/13/2024 2:45 PM EST Office Visit Urology, [facility] [address] [place] [address] Peter Pelayo MD [address] [facility] [place] [address] 11/26/2024 Hospital Encounter OR [facility], Operating Room, [facility] - 4th Floor [address] [place] [address] Poncho Guerrero MD 27 [facility] [place] [address] 12/18/2024 11:20 AM EST Office Visit Nephrology, [facility] [address] [place] [address] Delonte Kirby MD [address] [place] [address] 05/17/2025 1:30 PM EDT Imaging Radiology [address] [place] [address] Scheduled Orders Name Type Priority Associated Diagnoses Orde r Schedule CULTURE, URINE, QUANTITATIVE Lab Routine Lesion of bladder Malignant neoplasm of urachus (HCC) Expected: 08/24/2024, Expires: 08/03/2025 Scheduled Procedures Name Priority Associated Diagnoses Date/Ti or CYSTOURETHROSCOPY WITH FULGURATION MEDIUM BLADDER TUMOR Hematuria, [...] Additional history exists CKD HGB USE SMARTSET 04832 04/10/202504/10, 04/10/2024, 04/04/2023, Additional history exists CKD PHOS USE SMARTSET 01551 04/10/2025 06/0 05/2024, 04/04/2023, 04/10/2022, Additional history [...] 10:0 6 AM EDT Narrative Procedure Note Kopinski, Boris O, DO - 08/03/2024 10:06 AM EDT REASON FOR STUDY: preop;preop CONCLUSIONS: Sinus bradycardia Low voltage QRS, consider pulmonary disease, pericardial effusion, ornormal variant Borderline ECG Ventricular Rate: 50 Atrial Rate: 50 [place] Interval: 168 QRS Duration: 86 QT/QTc: 440/401 ms P-R-T [place]: 66 : 20 : 85 degrees Poncho Guerrero MD EKG [facility] documented in this encounter Visit Diagnoses Diagnosis [...] cancer documented in this encounter Care Teams Waste Machine Tender Relationship Specialty Start Date End Date Allyson Vickers DO 132 [facility] [place] [address] PCP - General Family Medicine 04/02/19 documented as of this encounter
--- OUTSIDE RECORDS SUMMARY | 2024-09-15 08:51 | External Medical Summary | Summary of Care ---
Author Name Unknown Organization [facility] Address [address] [place] [address] Phone [phone] Care Team Providers Care Sample Checker Name Role Phone Allyson Vickers DO Primary Care Provider [phone] Reason for Visit * Reason Comments Outpatient Testing Encounter Details Date Type Department Care Team (Late st Contact Info) Description 07/31/2024 11:00 AM EDT [facility] [address] [facility] 132 [place] [address] Malignant neoplasm of urachus (HCC) Allergies Active Allergy Reactions Criticality Noted Date Comments Latex Hives,Rash Medium 05/20/2014 documented as of this encounter (statuses as of 07/31/2024) Medications Medication Sig Dispensed Refills Start Date [...] as of this encounter (statuses as of 07/31/2024) Active Problems Problem Noted Date Diagnosed Date [...] as of this encounter (statuses as of 07/31/2024) Resolved Problems Problem Noted Date Diagnosed Date [...] as of this encounter (statuses as of 07/31/2024) Immunizations Name Administration Dates Next Due COVID-19 [...] Care Team (Latest Contact Info) Description 08/03/2024 9:30 AM EDT Office Visit Gynecology/Obstetr ics [place] [address] [place] [address] Nando Garay MD 132 [place] [address] 08/03/2024 4:00 PM EDT Imaging Radiology [place] 1st [facility] [address] [place] [address] 08/31/2024 8:37 AM EDT Hospital Encounter OR [facility], Operating Room [facility] [address] [place] [phone] oPncho Guerrero MD 27 [place] [address] 08/31/2024 8:37 AM EDT - 08/31/2024 9:45 AM EDT Surgery OR [facility], Operating Room [facility] [address] [place] [address] Poncho Guerrero MD 27 [place] [address] CYSTOURETHROSCOPY WITH FULGURATION MEDIUM BLADDER TUMOR 09/07/2024 11:00 AM EST Nurse Only Urology, [facility] [address] [place] [address] [facility], Nurse Urology [facility] [address] [place] [address] 09/21/2024 3:30 PM EST Office Visit Urology, [facility] [address] [place] [address] Poncho Guerrero MD 27 [place] [address] 10/07/2024 5:40 PM EST Office Visit Family Practice [facility] [address] [place] [address] Allyson Vickers DO [address] [place] [address] 11/26/2024 Hospital Encounter OR [facility], Operating Room, [facility] - 4th Floor [address] [place] [address] [place] [address] Poncho Guerrero MD [address] [place] [address] 12/18/2024 11:20 AM EST Office Visit Nephrology, [facility] 200 [facility] [place] [address] Delonte Kirby MD 200 [facility] [place] [address] 05/17/2025 1:30 PM EDT Imaging Radiology [address] [place] [address] Pending Results Name Type Priority Associated Diagnoses Date /Time CREATININE Lab Routine Malignant neoplasm of urachus (HCC) 07/31/2024 10:46 AM EDT Scheduled Procedures Name Priority Associated Diagnoses Date/Ti me CYSTOURETHROSCOPY WITH FULGURATION MEDIUM BLADDER TUMOR Hematuria, gross Lesion of bladder 08/31/2024 8:37 AM EDT CYSTECTOMY PARTIAL COMPLICATED Malignant neoplasm [...] 2024 07/13/2020, 08/13/2019, 08/20/2018, Additional history exists GFR 10/10/2024 04/10/2024, 06/0 11/2022, 07/03/2022, Additional history exists TSH 12/31/2024 12/31/2023, 082 04/2022, 04/10/2022, Additional history exists Albumin/Creatinine Ratio 03/11/2025 024, 12/11/2016, 08/15/2015, Additional history exists CKD HGB USE SMARTSET 76287 04/10/202504/10, 04/10/2024, 04/04/2023, Additional history exists CKD PHOS USE SMARTSET 74195 04/10/2025 06/0 05/2024, 04/04/2023, 04/10/2022, Additional history [...] cancer documented in this encounter Care Teams Sample Checker Relationship Specialty Start Date End Date Allyson Vickers DO [address] [place] [address] PCP - General Family Medicine 04/02/19 documented as of this encounter
--- OUTSIDE RECORDS SUMMARY | 2024-09-15 08:51 | External Medical Summary | Summary of Care ---
Author Name Unknown Organization [facility] Address [address] [place] [address] Phone [phone] Care Team Providers Care Color Strainer Name Role Phone Allyson Vickers DO Primary Care Provider [phone] Encounter Details Date Type Department Care Team (Late st Contact Info) Description 07/29/2024 Telephone Urology, [facility] 132 [facility] [place] [address] Poncho Guerrero MD 27 [facility] [place] [address] Allergies Active Allergy Reactions Criticality Noted Date [...] mRNA, LNP-s, No Pre serve, 2-Dose Series ([employer]) 01/21/2021,12/31/2020 Influenza, Whole Virus 09/18/2000 Pneumococcal Polysaccharide [...] encounter Miscellaneous Notes * Addendum Note - Marla Felipe LPN [...] MD - 07/30/2024 9:57 AM EDT TURBT Mon Aug 31 is chivo gamboa, MARGIE * Telephone Encounter - Sofía Sanchez LPN - 07/30/2024 9:52 AM EDT Colleen- can you save a spot for robotic time in November please * Telephone Encounter - Marla Felipe LPN - 07/30/2024 9:[address] Guerrero Next available at [facility] for TURBT is 08/31. Next available at [facility] is 10/09. Please advise if this isok. Thank you Emelina * Telephone Encounter - Diana Doe OSA - 07/30/2024 8:48 AM EDT Scheduled at on 08/31/24. TOV is scheduled on 09/07/2024 PO is scheduled on 09/21/2024 * Telephone Encounter - Marla Felipe LPN - 07/29/2024 4:30 PM EDT Patient needs: TURBT booked at whichever location is soonest. Patient will need nurse visit at [facility] to discuss preop instructions / testing. TOV [address] Guerrero 3 weeks postop Referral to [facility]. Appt should be scheduled approx 1 month after TURBT to discuss possible cystectomy. Next available robotic slot with Dr Guerrero for partial cystectomy held. Thank you Emelina * Telephone Encounter - Poncho Guerrero MD - 07/29/2024 4:17 PM EDT Can we check the schedule/hold a date for a robotic partial cystectomy at [facility] for this patient? Let me know what time frame we are looking at. Thanks, HM documented in this encounter Plan of Treatment Upcoming Encounters Date Type Department Care Team (Latest Contact Info) Description 08/03/2024 4:00 PM EDT Imaging Radiology [facility] 1st [facility] [address] [place] [address] 08/31/2024 11:00 AM EDT Hospital Encounter OR [facility], Operating Room [facility] [address] [place] [phone] Poncho Guerrero MD 27 [place] [address] 08/31/2024 11:00 AM EDT - 08/31/2024 12:08 PM EDT Surgery OR [facility], Operating Room [facility] [address] [place] [address] Poncho Guerrero MD 27 [place] [address] CYSTOURETHROSCOPY WITH FULGURATION MEDIUM BLADDER TUMOR 09/07/2024 11:00 AM EST Nurse Only Urology, [facility] [address] [place] [address] [facility] Nurse Urology [facility] [address] [place] [address] 09/21/2024 3:30 PM EST Office Visit Urology, [facility] [address] [place] [address] Poncho Guerrero MD 27 [place] [address] 10/07/2024 5:40 PM EST Office Visit Family Practice [facility] [address] [place] [address] Allyson Vickers DO [address] [place] [address] 11/26/2024 Hospital Encounter OR GL, Operating Room, [facility] - 4th Floor 400 [facility] [place] [address] Poncho Guerrero MD 27 [place] [address] 12/18/2024 11:20 AM EST Office Visit Nephrology, [facility] [address] [place] [address] Delonte Kirby MD [address] [place] [address] 05/17/2025 1:30 PM EDT Imaging Radiology [address] [place] [address] Scheduled Orders Name Type Priority Associated Diagnoses Orde r Schedule CULTURE, URINE, QUANTITATIVE Lab Routine Lesion of bladder Malignant neoplasm of urachus (HCC) Expected: 08/24/2024, Expires: 08/03/2025 EKG EKG Routine Lesion of bladder Malignant neoplasm of urachus (HCC) Expected: 08/03/2024 (Approximate), Expires: 09/02/2025 XR CHEST 2 VIEWS Medical Imaging Routine Lesion of bladder Malignant neoplasm of urachus (HCC) Ordered: 08/03/2024 Scheduled Procedures Name Priority Associated Diagnoses Date/Ti pr CYSTOURETHROSCOPY WITH FULGURATION MEDIUM BLADDER TUMOR Hematuria, [...] Additional history exists CKD HGB USE SMARTSET 57660 04/10/202504/10, 04/10/2024, 04/04/2023, Additional history exists CKD PHOS USE SMARTSET 74232 04/10/2025 06/0 05/2024, 04/04/2023, 04/10/2022, Additional history [...] cancer documented in this encounter Care Teams Color Strainer Relationship Specialty Start Date End Date Allyson Vickers DO 132 [place] [address] PCP - General Family Medicine 04/02/19 documented as of this encounter
--- OUTSIDE RECORDS SUMMARY | 2024-09-15 08:51 | External Medical Summary | Summary of Care ---
Author Name Unknown Organization [facility] Address [address] [place] [address] Phone [phone] Care Team Providers Care Aboriginal Education Teacher Name Role Phone Allyson Vickers DO Primary Care Provider [phone] Encounter Details Date Type Department Care Team (Late st Contact Info) Description 07/29/2024 Telephone Urology, [facility] 132 [facility] [place] [address] Poncho Guerrero MD 27 [facility] [place] [address] Allergies Active Allergy Reactions Criticality Noted Date [...] mRNA, LNP-s, No Pre serve, 2-Dose Series ([employer]) 01/21/2021,12/31/2020 Influenza, Whole Virus 09/18/2000 Pneumococcal Polysaccharide [...] - 08/03/2024 10:26 AM EDT Patient at [facility] for preop teaching. All questions answered, patient given verbal and written instructions. Patient is aware to expect a phone call from [place] to schedule appointment approx 1 month after [...] AM EDT Dr Guerrero Next available at [facility] for TURBT is 08/31. Next available at [facility] is 10/09. Please advise if this [...] soonest. Patient will need nurse visit at [facility] to discuss preop instructions / testing. TOV [address] Guerrero 3 weeks postop Referral to [place] [facility]. Appt should be scheduled approx 1 month after TURBT to discuss possible cystectomy. Next available robotic slot with Dr Gurerero for partial cystectomy held. Thank you Emelina * Telephone Encounter - Poncho Guerrero MD - 07/29/2024 4:17 PM EDT Can we check the schedule/hold a date for a robotic partial cystectomy at [facility] for this patient? Let me know what time frame we are looking at. Thanks, HM documented in this encounter Plan of Treatment Upcoming Encounters Date Type Department Care Team (Latest Contact Info) Description 08/03/2024 4:00 PM EDT Imaging Radiology [facility] 1st [facility] [address] [place] [address] 08/31/2024 11:00 AM EDT Hospital Encounter OR [facility], Operating Room [facility] [address] [place] [phone] Poncho Guerrero MD 27 [place] [address] 08/31/2024 11:00 AM EDT - 08/31/2024 12:08 PM EDT Surgery OR [facility], Operating Room [facility] [address] [place] [address] Poncho Guerrero MD 27 [place] [address] CYSTOURETHROSCOPY WITH FULGURATION MEDIUM BLADDER TUMOR 09/07/2024 11:00 AM EST Nurse Only Urology, [facility] [address] [place] [address] [facility], Nurse Urology [facility] [address] [place] [address] 09/21/2024 3:30 PM EST Office Visit Urology, [facility] [address] [place] [address] Poncho Guerrero MD 27 [place] [address] 10/07/2024 5:40 PM EST Office Visit Family Practice [facility] [address] [place] [address] Allyson Vickers DO [address] [place] [address] 11/26/2024 Hospital Encounter OR [facility], Operating Room, [facility] - 4th Floor [address] [place] [address] Poncho Guerrero MD 27 [place] [address] 12/18/2024 11:20 AM EST Office Visit Nephrology, [facility] [address] [place] [address] Delonte Kirby MD [address] [place] [address] 05/17/2025 1:30 PM EDT Imaging Radiology [address] [place] [address] Pending Results Name Type Priority Associated Diagnoses Date /Time XR CHEST 2 VIEWS Medical Imaging Routine Lesion of bladder Malignant neoplasm of urachus (HCC) 08/03/2024 10:23 AM EDT Scheduled Orders Name Type Priority Associated Diagnoses Orde r Schedule CULTURE, URINE, QUANTITATIVE Lab Routine Lesion of bladder Malignant neoplasm of urachus (HCC) Expected: 08/24/2024, Expires: 08/03/2025 EKG EKG Routine Lesion of bladder Malignant neoplasm of urachus (HCC) Expected: 08/03/2024 (Approximate), Expires: 09/02/2025 Scheduled Procedures Name Priority Associated Diagnoses Date/Ti [...] Additional history exists CKD HGB USE SMARTSET 90503 04/10/202504/10, 04/10/2024, 04/04/2023, Additional history exists CKD PHOS USE SMARTSET 98122 04/10/2025 060 05/2024, 04/04/2023, 04/10/2022, Additional history [...] cancer documented in this encounter Care Teams Aboriginal Education Teacher Relationship Specialty Start Date End Date Allyson Vickers DO 132 [facility] [place] [address] PCP - General Family Medicine 04/02/19 documented as of this encounter
--- OUTSIDE RECORDS SUMMARY | 2024-09-15 08:52 | External Medical Summary | Summary of Care ---
Author Name Unknown Organization [facility] Address [address] [place] [address] Phone [phone] Care Team Providers Care Commissary Clerk Name Role Phone Allyson Vickers DO Primary Care Provider [phone] Encounter Details Date Type Department Care Team (Late st Contact Info) Description 07/29/2024 Telephone Urology, [facility] 132 [facility] [place] [address] Poncho Guerrero MD 27 [facility] [place] [address] Allergies Active Allergy Reactions Criticality Noted Date Comments Latex Hives,Rash Medium 05/20/2014 documented as of this encounter (statuses as of 07/30/2024) Medications Medication Sig Dispensed Refills Start Date [...] as of this encounter (statuses as of 07/30/2024) Active Problems Problem Noted Date Diagnosed Date Hematuria, gross 07/29/2024 Lesion of bladder 07/29/2024 Depression with anxiety 12/21/2022 Chronic kidney disease, stage 3a 03/14/2021 Overview: Per CKD protocol History of thyroid cancer 03/02/2018 History of cervical cancer 03/02/2018 Acquired hypothyroidism 06/04/2017 Dyslipidemia 08/14/2007 Overview: Per Lipid [employer]. HTN, goal below 130/80 documented as of this encounter (statuses as of 07/30/2024) Resolved Problems Problem Noted Date Diagnosed Date [...] as of this encounter (statuses as of 07/30/2024) Immunizations Name Administration Dates Next Due COVID-19 mRNA, LNP-s, No Pre serve, 2-Dose Series ([employer]) 01/21/2021,12/31/2020 Influenza, Whole Virus 09/18/2000 Pneumococcal Polysaccharide [...] AM EDT Dr Guerrero Next available at [facility] for TURBT is 08/31. Next available at [facility] is 10/09. Please advise if this [...] soonest. Patient will need nurse visit at [facility] to discuss preop instructions / testing. TOV [address] Guerrero 3 weeks postop Referral to [facility]. Appt should be scheduled approx 1 month after TURBT to discuss possible cystectomy. Next available robotic slot with Dr Guerrero for partial cystectomy held. Thank you Emelina * Telephone Encounter - Poncho Guerrero MD - 07/29/2024 4:17 PM EDT Can we check the schedule/hold a date for a robotic partial cystectomy at [facility] for this patient? Let me know what time frame we are looking at. Thanks, HM documented in this encounter Plan of Treatment Upcoming Encounters Date Type Department Care Team (Latest Contact Info) Description 07/31/2024 11:00 AM EDT Laboratory Laboratory, [facility] [email or web address] [place] [phone] [facility] [address] [place] [address] 08/03/2024 9:30 AM EDT Office Visit Gynecology/Obstet rics [facility] [address] [place] [address] Nando Garay MD [address] [place] [address] 08/03/2024 4:00 PM EDT Imaging Radiology [facility] 1st [facility] [address] [place] [address] 08/31/2024 8:37 AM EDT Hospital Encounter OR [facility], Operating Room [facility] [address] [place] [phone] Poncho Guerrero MD 27 [place] [address] 08/31/2024 8:37 AM EDT - 08/31/2024 9:45 AM EDT Surgery OR [facility], Operating Room [facility] [address] [place] [address] Poncho Guerrero MD 27 [place] [address] CYSTOURETHROSCOPY WITH FULGURATION MEDIUM BLADDER TUMOR 09/07/2024 11:00 AM EST Nurse Only Urology, [facility] [address] [place] [address] [facility], Nurse Urology [facility] [address] [place] [address] 09/21/2024 3:30 PM EST Office Visit Urology, [facility] [address] [place] [address] Poncho Guerrero MD 27 [place] [address] 10/07/2024 5:40 PM EST Office Visit Family Practice [facility] [address] [place] [address] Allyson Vickers DO [address] [place] [address] 12/18/2024 11:20 AM EST Office Visit Nephrology, [facility] [address] [place] [address] Delonte Kirby MD [address] [place] [address] 05/17/2025 1:30 PM EDT Imaging Radiology [address] [place] [address] Scheduled Procedures Name Priority Associated Diagnoses Date/Ti ky CYSTOURETHROSCOPY WITH FULGURATION MEDIUM BLADDER TUMOR Hematuria, gross Lesion of bladder 08/31/2024 8:37 AM EDT COLONOSCOPY FLEXIBLE PROXIMA L DIAGNOSTIC Recall History [...] 08/20/2018, Additional history exists GFR 10/10/2024 04/10/2024, 0611/2022, 07/03/2022, Additional history exists TSH 12/31/2024 12/31/2023, 06/05, 04/10/2022, Additional history exists Albumin/Creatinine Ratio 03/11/2025 024, 12/11/2016, 08/15/2015, Additional history exists CKD HGB USE SMARTSET 30273 04/10/202504/10, 04/10/2024, 04/04/2023, Additional history exists CKD PHOS USE SMARTSET 32264 04/10/2025 06/0 05/2024, 04/04/2023, 04/10/2022, Additional history [...] filedocumented as of this encounter Care Teams Commissary Clerk Relationship Specialty Start Date End Date Allyson Vickers DO 132 [place] [address] PCP - General Family Medicine 04/02/19 documented as of this encounter
--- OUTSIDE RECORDS SUMMARY | 2024-09-15 08:52 | External Medical Summary ---
Author Name Unknown Address Unknown Organization K[facility]G:[facility] [place] [address] [place] [address] Laboratory Report Ordering Provider Test Date Status GALDINO CAMARA 07/31/2024 10:46:14 Final Observation Date Value Abnormality Reference (Units ) Status Creatinine 07/31/2024 10:46:14 1.4 Above high normal 0.5-1.0 (mg/dL) Final Glomerular filtration rate/1.73 sq M.predicted [Volume Rate/Area] in Serum, Plasma or Blood by Creatinine-based formula (CKD-EPI) 07/31/2024 10:46:14 44 Below low normal >=60 (mL/min) Final eGFR is calculated based on the CKD-EPI 2020 equation. Performing Location [facility] [place] [address] [place] [address]
--- OUTSIDE RECORDS SUMMARY | 2024-09-15 08:52 | External Medical Summary | Summary of Care ---
Author Name Unknown Organization [facility] Address [address] [place] [address] Phone [phone] Care Team Providers Care Stone Breaker Name Role Phone Allyson Vickers DO Primary Care Provider [phone] Encounter Details Date Type Department Care Team (Late st Contact Info) Description 07/29/2024 Telephone Urology, [facility] 132 [facility] [place] [address] Poncho Guerrero MD 27 [facility] [place] [address] Allergies Active Allergy Reactions Criticality Noted Date [...] mRNA, LNP-s, No Pre serve, 2-Dose Series ([employer]) 01/21/2021,12/31/2020 Influenza, Whole Virus 09/18/2000 Pneumococcal Polysaccharide [...] encounter Miscellaneous Notes * Telephone Encounter - Colleen Alarcon OSA [...] AM EDT Dr Guerrero Next available at [facility] for TURBT is 08/31. Next available at [facility] is 10/09. Please advise if this [...] soonest. Patient will need nurse visit at [facility] to discuss preop instructions / testing. TOV [address] Guerrero 3 weeks postop Referral to [place] [facility]. Appt should be scheduled approx 1 month after TURBT to discuss possible cystectomy. Next available robotic slot with Dr Guerrero for partial cystectomy held. Thank you Emelina * Telephone Encounter - Poncho Guerrero MD - 07/29/2024 4:17 PM EDT Can we check the schedule/hold a date for a robotic partial cystectomy at [facility] for this patient? Let me know what time frame we are looking at. Thanks, HM documented in this encounter Plan of Treatment Upcoming Encounters Date Type Department Care Team (Latest Contact Info) Description 08/03/2024 9:30 AM EDT Office Visit Gynecology/Obstetr ics [facility] [address] [place] [address] Nando Garay MD [address] [place] [address] 08/31/2024 8:37 AM EDT Hospital Encounter OR [facility], Operating Room [facility] [address] [place] [phone] Poncho Guerrero MD 27 [place] [address] 08/31/2024 8:37 AM EDT - 08/31/2024 9:45 AM EDT Surgery OR [facility], Operating Room [facility] [address] [place] [address] Poncho Guerrero MD 27 [place] [address] CYSTOURETHROSCOPY WITH FULGURATION MEDIUM BLADDER TUMOR 09/07/2024 11:00 AM EST Nurse Only Urology, [facility] [address] [place] [address] [facility], Nurse Urology [facility] [address] [place] [address] 09/21/2024 3:30 PM EST Office Visit Urology, [facility] [address] [place] [address] Poncho Guerrero MD 27 [place] [address] 10/07/2024 5:40 PM EST Office Visit Family [facility] [address] [place] [address] Allyson Vickers DO [address] [place] [address] 12/18/2024 11:20 AM EST Office Visit Nephrology, [facility] [address] [place] [address] Delonte Kirby MD [address] [place] [address] 05/17/2025 1:30 PM EDT Imaging Radiology [address] [place] [address] Scheduled Procedures Name Priority Associated Diagnoses Date/Ti sd CYSTOURETHROSCOPY WITH FULGURATION MEDIUM BLADDER TUMOR Hematuria, [...] Additional history exists CKD HGB USE SMARTSET 18541 04/10/202504/10, 04/10/2024, 04/04/2023, Additional history exists CKD PHOS USE SMARTSET 09923 04/10/2025 06/0 05/2024, 04/04/2023, 04/10/2022, Additional history [...] filedocumented as of this encounter Care Teams Stone Breaker Relationship Specialty Start Date End Date Allyson Vickers DO [address] [place] [address] PCP - General Family Medicine 04/02/19 documented as of this encounter
--- OUTSIDE RECORDS SUMMARY | 2024-09-15 08:52 | External Medical Summary | Summary of Care ---
Author Name Unknown Organization [facility] Address [address] [place] [address] Phone [phone] Care Team Providers Care Paper Colorer Name Role Phone Allyson Vickers DO Primary Care Provider [phone] Encounter Details Date Type Department Care Team (Late st Contact Info) Description 07/29/2024 Telephone Urology, [facility] 132 [facility] [place] [address] Poncho Guerrero MD 27 [facility] [place] [address] Allergies Active Allergy Reactions Criticality Noted Date [...] mRNA, LNP-s, No Pre serve, 2-Dose Series ([employer]) 01/21/2021,12/31/2020 Influenza, Whole Virus 09/18/2000 Pneumococcal Polysaccharide [...] encounter Miscellaneous Notes * Telephone Encounter - Poncho Guerrero MD - 07/30/2024 9:57 AM EDT TURBT Mon Aug 31 is chivo gamboa, HM * Telephone Encounter - Sofía Sanchez LPN - 07/30/2024 9:52 AM EDT Colleen- can you save a spot for robotic time in November please * Telephone Encounter - Marla Felipe LPN - 07/30/2024 9:[address] Guerrero Next available at [facility] for TURBT is 08/31. Next available at [facility] is 10/09. Please advise if [...] will need nurse visit at [facility] to discuss preop instructions / testing. TOV [address] Guerrero 3 weeks postop Referral to [place] [facility]. Appt should be scheduled approx 1 month after TURBT to discuss possible cystectomy. Next available robotic slot with Dr Guerrero for partial cystectomy held. Thank you Emelina * Telephone Encounter - Poncho Guerrero MD - 07/29/2024 4:17 PM EDT Can we check the schedule/hold a date for a robotic partial cystectomy at [facility] for this patient? Let me know what time frame we are looking at. Thanks, HM documented in this encounter Plan of Treatment Upcoming Encounters Date Type Department Care Team (Latest Contact Info) Description 08/03/2024 9:30 AM EDT Office Visit Gynecology/Obstetr ics [facility] [address] [place] [address] Nando Garay MD [address] [place] [address] 08/31/2024 8:37 AM EDT Hospital Encounter OR [facility], Operating Room [facility] [address] [place] [phone] Poncho Guerrero MD 27 [place] [address] 08/31/2024 8:37 AM EDT - 08/31/2024 9:45 AM EDT Surgery OR [facility], Operating Room [facility] [address] [place] [address] Poncho Guerrero MD 27 [place] [address] CYSTOURETHROSCOPY WITH FULGURATION MEDIUM BLADDER TUMOR 09/07/2024 11:00 AM EST Nurse Only Urology, [facility] [address] [place] [address] [facility], Nurse Urology [facility] [address] [place] [address] 09/21/2024 3:30 PM EST Office Visit Urology, [facility] [address] [place] [address] Poncho Guerrero MD 27 [place] [address] 10/07/2024 5:40 PM EST Office Visit Family Practice [facility] [address] [place] [address] Allyson Vickers DO [address] [place] [address] 12/18/2024 11:20 AM EST Office Visit Nephrology, [facility] [address] [place] [address] Delonte Kirby MD [address] [place] [address] 05/17/2025 1:30 PM EDT Imaging Radiology [address] [place] [address] Scheduled Procedures Name Priority Associated Diagnoses Date/Ti nh CYSTOURETHROSCOPY WITH FULGURATION MEDIUM BLADDER TUMOR Hematuria, [...] 07/03/2022, Additional history exists TSH 12/31/2024 12/31/2023, 0804/2022, 04/10/2022, Additional history exists Albumin/Creatinine Ratio 03/11/2025 024, 12/11/2016, 08/15/2015, Additional history exists CKD HGB USE SMARTSET 43059 04/10/202504/10, 04/10/2024, 04/04/2023, Additional history exists CKD PHOS USE SMARTSET 70634 04/10/2025 05/2024, 04/04/2023, 04/10/2022, Additional history exists Mammogram [...] filedocumented as of this encounter Care Teams Paper Colorer Relationship Specialty Start Date End Date Allyson Vickers DO [address] [place] [address] PCP - General Family Medicine 04/02/19 documented as of this encounter
--- OUTSIDE RECORDS SUMMARY | 2024-09-15 08:52 | External Medical Summary | Summary of Care ---
Author Name Unknown Organization [facility] Address [address] [place] [address] Phone [phone] Care Team Providers Care Fly Tier Name Role Phone Allyson Vickers DO Primary Care Provider [phone] Encounter Details Date Type Department Care Team (Late st Contact Info) Description 07/29/2024 Telephone Urology, [facility] 132 [facility] [place] [address] Poncho Guerrero MD 27 [facility] [place] [address] Allergies Active Allergy Reactions Criticality Noted Date [...] mRNA, LNP-s, No Pre serve, 2-Dose Series ([employer]) 01/21/2021,12/31/2020 Influenza, Whole Virus 09/18/2000 Pneumococcal Polysaccharide [...] for TURBT is 08/31. Next available at [facility] is 10/09. Please advise if this [...] soonest. Patient will need nurse visit at [facility] to discuss preop instructions / testing. TOV [address] Guerrero 3 weeks postop Referral to [facility]. Appt should be scheduled approx 1 month after TURBT to discuss possible cystectomy. Next available robotic slot with Dr Guerrero for partial cystectomy held. Thank you [facility] * Telephone Encounter - Poncho Guerrero MD - 07/29/2024 4:17 PM EDT Can we check the schedule/hold a date for a robotic partial cystectomy at [facility] for this patient? Let me know what time frame we are looking at. Thanks, HM documented in this encounter Plan of Treatment Upcoming Encounters Date Type Department Care Team (Latest Contact Info) Description 08/03/2024 9:30 AM EDT Office Visit Gynecology/Obstetr ics [facility] [address] [place] [address] Nando Garay MD [address] [place] [address] 08/31/2024 8:37 AM EDT Hospital Encounter OR [facility], Operating Room [facility] [address] [place] [phone] Poncho Guerrero MD [address] [place] [address] 08/31/2024 8:37 AM EDT - 08/31/2024 9:45 AM EDT Surgery OR [facility], Operating Room [facility] [address] [place] [phone] Poncho Guerrero MD [address] [place] [address] CYSTOURETHROSCOPY WITH FULGURATION MEDIUM BLADDER TUMOR 09/07/2024 11:00 AM EST Nurse Only Urology, [facility] [address] [place] [address] [facility], Nurse Urology [facility] [address] [place] [address] 09/21/2024 3:30 PM EST Office Visit Urology, [facility] [address] [place] [address] Poncho Guerrero MD [address] [place] [address] 10/07/2024 5:40 PM EST Office Visit Family Practice [facility] [address] [place] [address] Allyson Vickers DO [address] [place] [address] 12/18/2024 11:20 AM EST Office Visit Nephrology, [facility] [address] [place] [address] Delonte Kirby MD [address] [place] [address] 05/17/2025 1:30 PM EDT Imaging Radiology [address] [place] [address] Scheduled Procedures Name Priority Associated Diagnoses Date/Ti ok CYSTOURETHROSCOPY WITH FULGURATION MEDIUM BLADDER TUMOR Hematuria, [...] Additional history exists CKD HGB USE SMARTSET 12913 04/10/202504/10, 04/10/2024, 04/04/2023, Additional history exists CKD PHOS USE SMARTSET 88334 04/10/2025 06/0 05/2024, 04/04/2023, 04/10/2022, Additional history [...] filedocumented as of this encounter Care Teams Fly Tier Relationship Specialty Start Date End Date Allyson Vickers DO [address] [place] [address] PCP - General Family Medicine 04/02/19 documented as of this encounter
--- OUTSIDE RECORDS SUMMARY | 2024-09-15 08:52 | External Medical Summary | Summary of Care ---
Author Name Unknown Organization [facility] Address [address] [place] [address] Phone [phone] Care Team Providers Care Extracorporeal Circulation Specialist Name Role Phone Allyson Vickers DO Primary Care Provider [phone] Encounter Details Date Type Department Care Team (Late st Contact Info) Description 07/29/2024 Telephone Urology, [facility] 132 [facility] [place] [address] Poncho Guerrero MD 27 [facility] [place] [address] Allergies Active Allergy Reactions Criticality Noted Date [...] mRNA, LNP-s, No Pre serve, 2-Dose Series ([employer]) 01/21/2021,12/31/2020 Influenza, Whole Virus 09/18/2000 Pneumococcal Polysaccharide [...] AM EDT Dr Guerrero Next available at [facility] for TURBT is 08/31. Next available at [facility] is 10/09. Please advise if this isok. Thank you [facility] * Telephone Encounter - Diana Doe OSA - 07/30/2024 8:48 AM EDT Scheduled at on 08/31/24. TOV is scheduled on 09/07/2024 PO is scheduled on 09/21/2024 * Telephone Encounter - Marla Felipe LPN - 07/29/2024 4:30 PM EDT Patient needs: TURBT booked at whichever location is soonest. Patient will need nurse visit at [facility] to discuss preop instructions / testing. TOV [address] Guerrero 3 weeks postop Referral to [facility]. Appt should be scheduled approx 1 [...] Description 07/31/2024 11:00 AM EDT Laboratory Laboratory, [facility] [address] [place] [phone] [facility] [address] [place] [address] 08/03/2024 9:30 AM EDT Office Visit Gynecology/Obstet rics [facility] [address] [place] [address] Nando Garay MD [address] [place] [address] 08/03/2024 4:00 PM EDT Imaging Radiology [facility] [address] [place] [address] 08/31/2024 8:37 AM EDT Hospital Encounter OR [facility], Operating Room [facility] [address] [place] [phone] Poncho Guerrero MD [address] [place] [address] 08/31/2024 8:37 AM EDT - 08/31/2024 9:45 AM EDT Surgery OR [facility], Operating Room [facility] [address] [place] [phone] Poncho Guerrero MD [address] [place] [address] CYSTOURETHROSCOPY WITH FULGURATION MEDIUM BLADDER TUMOR 09/07/2024 11:00 AM EST Nurse Only Urology, [facility] [address] [place] [address] [facility], Nurse Urology [facility] [address] [place] [address] 09/21/2024 3:30 PM EST Office Visit Urology, [facility] [address] [place] [address] Poncho Guerrero MD [address] [place] [address] 10/07/2024 5:40 PM EST Office Visit Family Practice [facility] [address] [place] [address] Allyson Vickers DO [address] [place] [address] 12/18/2024 11:20 AM EST Office Visit Nephrology, [facility] [address] [place] [address] Delonte Kirby MD [address] [place] [address] 05/17/2025 1:30 PM EDT Imaging Radiology [address] [place] [address] Scheduled Procedures Name Priority Associated Diagnoses Date/Ti ia CYSTOURETHROSCOPY WITH FULGURATION MEDIUM BLADDER TUMOR Hematuria, [...] Additional history exists CKD HGB USE SMARTSET 86209 04/10/202504/10, 04/10/2024, 04/04/2023, Additional history exists CKD PHOS USE SMARTSET 34760 04/10/2025 06/0 05/2024, 04/04/2023, 04/10/2022, Additional history [...] filedocumented as of this encounter Care Teams Extracorporeal Circulation Specialist Relationship Specialty Start Date End Date Allyson Vickers DO [address] [place] [address] PCP - General Family Medicine 04/02/19 documented as of this encounter
--- OUTSIDE RECORDS SUMMARY | 2024-09-15 08:53 | External Medical Summary | Summary of Care ---
Author Name Unknown Organization [facility] [address] [facility] [address] Phone [phone] Care Team Providers Care Software Build Engineer Name Role Phone Rancho Kirill Kit JULIO Primary Care Provider [phone] Reason for Referral * Precert (Within 10 days (routine)) - Pending Review Specialty Diagnoses / Procedures Referred By Contac t Referred To Contact Radiology Diagnoses Malignant neoplasm of urachus (HCC) Procedures CT UROGRAPHY W WO CONTRAST Poncho Guerrero MD [address] [place] [address] Referral ID Status Reason Start Date Expiration Date V isits Requested Visits Authorized [id number] Pending Review 07/29/2024 999 999 * Evaluate & Treat - Unlimited Visits (Within 30 days (routine)) - Authorized Specialty Diagnoses / Procedures Referred By Contmikayla alvarez Referred To Contact Urology Diagnoses Malignant neoplasm of urachus (HCC) Poncho Guerrero MD [address] [place] [address] Referral ID Status Reason Start Date Expiration Date Visits Requested Visits Authorized [id number] Authorized Specialty Services Required 07/29/2024 999 999 Question Answer Referral Priority Within 30 days (routine) Where should this appointment be scheduled? [facility] What is the patient being referred for? 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 for consideration of cystectomy, set up appointment for one-month after TURBT Reason for Visit * Reason Comments NEW PATIENT Encounter Details Date Type Department Care Team (Late st Contact Info) Description 07/29/2024 3:30 PM EDT Office Visit Urology, [facility] [address] [place] [address] Poncho Guerrero MD [address] [place] [address] Hematuria, gross*; Lesion of bladder; Malignant neoplasm of urachus (HCC) Allergies Active Allergy Reactions Criticality Noted Date Comments Latex Hives,Rash Medium 05/20/2014 documented as of this encounter (statuses as of 07/29/2024) Medications Medication Sig Dispensed Refills Start Date [...] Pain, Breakthrough. 100 Tablet 3 07/16/2024 Active Hospital, Clinic, or Other Facility Administered Medication Ordered Dose Route Frequency Start Date End Date Status sulfamethoxazole-trimethopr im DS (Bactrim DS) 800-160 MG 1 TabletIndications:Hematuria , gross,Lesion of bladder 1 Tablet OR ONCE 07/29/2024 07/29/2024 Ended documented as of this encounter (statuses as of 07/29/2024) Active Problems Problem Noted Date Diagnosed Date Hematuria, gross 07/29/2024 Lesion of bladder 07/29/2024 Depression with anxiety 12/21/2022 Chronic kidney disease, stage 3a 03/14/2021 Overview: Per CKD protocol History of thyroid cancer 03/02/2018 History of cervical cancer 03/02/2018 Acquired hypothyroidism 06/04/2017 Dyslipidemia 08/14/2007 Overview: Per Lipid Taxonomy. HTN, goal below 130/80 documented as of this encounter (statuses as of 07/29/2024) Resolved Problems Problem Noted Date Diagnosed Date [...] as of this encounter (statuses as of 07/29/2024) Immunizations Name Administration Dates Next Due COVID-19 mRNA, LNP-s, No Pre serve, 2-Dose Series ([employer]) 01/21/2021,12/31/2020 Pneumococcal Polysaccharide PPV23 (Pneumovax) 02/14/2017 Seasonal [...] Progress Notes * Poncho Guerrero MD - 07/29/2024 3:39 PM EDT [id number] PCP: KIRILL VICKERS [place] [address] [phone] Marium Tobar is a 63 year old female, who presents for evaluation of gross hematuria. Patient underwent ultrasound imaging and then contrast phase CT imaging. These results are personally reviewedwith the patient. Personal review of the patient's CT scan demonstrates findings relatively typicalof a urachal remnant. Patient is here today with her, also the patient. Patient is quite anxious regarding her findings. Patient notes she saw blood on wiping. She notes 3 UTIs in the recent past, nocurrent UTI symptoms. Gross hematuria: Presented to Urology July of 2024. Renal ultrasound April 2024: IMPRESSION: RENAL ULTRASOUND: 1. A complex appearing tubular structure at the anterior superior aspect of the urinary bladder andextending slightly into the urinary bladder demonstrates evidence of vascularity, indeterminate. Differential considerations include but are not limited to an infected urachal remnant, an infected urinary bladder diverticulum, and a urachal or urinary bladder neoplasm. CT abdomen pelvis with contrast is recommended for further evaluation. 2. Possible hypoechoic mid to lower pole left renal lesion versus cortical lobulation measuring 1.1x 1.0 x 0.7 cm. Further evaluation should be based on appearance of this finding on the CT recommended above. 3. Mildly increased bilateral renal cortical echogenicity, which may be seen in setting medical renal disease. 4. Left renal pelviectasis. No hydronephrosis. PELVIC ULTRASOUND: 1. The endometrium measures 9 mm in thickness, considered abnormally thickened in the setting of postmenopausal vaginal bleeding. 2. Nonvisualization of the bilateral ovaries due to overlying bowel gas. CT scan April 2024: IMPRESSION Bladder completely collapsed limiting evaluation. Current Outpatient Medications Medication Sig Dispense Refill [...] of Breath or Wheezing. 18 g 2 Turmeric 500 MG Oral [...] needed for Pain, Breakthrough. 100 Tablet 3 No current facility-administered medications for this visit. [...] JOINT performed by Zach Valdovinos DO at [facility] COLONOSCOPY, DIAGNOSTIC (RECTUM) 02/18/2013 COLONOSCOPY FLEXIBLE PROXIMAL DIAGNOSTIC performed by Kristina Bynum DO at [facility] COLONOSCOPY, DIAGNOSTIC (RECTUM) 02/12/2018 normal, repeat 5 yrs/COLONOSCOPY FLEXIBLE PROXIMAL DIAGNOSTIC performed by India Marcial MD at ENDOSCOPY [facility] COLONOSCOPY, DIAGNOSTIC (RECTUM) N/A 08/16/2023 diverticulosis/biopsies show adenomatous polyps/recall 5 years/Colonoscopy COLONOSCOPY, DIAGNOSTIC (RECTUM) 08/16/2023 COLONOSCOPY FLEXIBLE PROXIMAL DIAGNOSTIC performed by India Marcial MD at [facility] HYSTEROSCOPY W/BIOPSY AND/OR POLYPECTOMY W/WO D&C Bilateral 07/16/2024 HYSTEROSCOPY WITH BIOPSY AND/OR POLYPECTOMY WITH OR WITHOUT D&C performed by Nando Garay MD at [facility] INFORMATION wisdom teeth extraction INJECT DX/THER SUBSTANCE INTERLAMINAR LUMBAR/SACRAL W IMAGE GUIDE 09/28/2019 INJECTION SPINE LUMBAR OR SACRAL performed by Juan Su DO at [facility] MASTECTOMY, PARTIAL Left 11/04/2012 PELVIC EXAM UNDER ANESTHESIA, NOT LOCAL Bilateral 07/16/2024 PELVIC EXAMINATION UNDER ANESTHESIA performed by Nando Garay MD at [facility] RADIATION THERAPY SACROILIAC JOINT INJECT W/GUIDANCE Left 05/20/2014 INJECTION SACROILIAC JOINT performed by Zach Valdovinos DO at [facility] SENTINEL LYMPH NODE BIOPSY PERFORMED 06/08/2013 Left Lumpectomy,left sentinel lymph node biopsy,injection of lymphazurin blue dye for sentinel nodeidentification Dr [place] [facility] 06/08/13 STRESS ECHO (EXERCISE) 10/2011 [...] disease, stage 3a (HCC) Depression with anxiety Constitutional: (-) fever and (-) chills ENT: (-) stridor Cardiovascular: (-) chest pain Female : (+) see HPI Neurology: (-) negative: no focal neurologic defect Psychiatry: (+) depression and (+) anxiousness Musculoskeletal: (+) back pain/problems Physical Exam Nursing note reviewed. Constitutional: General: [...] and Affect: Mood normal. Behavior: Behavior normal. Cystoscopy procedure note: Patient was properly identified and appropriate consent was confirmed. Risks and benefits of the procedure were reviewed and the patient was prepped and draped in the standard fashion for the procedure. A well lubricated 16 Indonesian flexible cystoscope was introduced through the meatus into the urethra. Urethra demonstrated no abnormalities. Bladder neck was visualized and bladder was entered. Sterile saline irrigation was used to distend the bladder which was noted to have a well-delineated beefy tumor in the dome at the midline where urachal insertion would be expected with grade 2 trabeculation. Bladder was completely inspected including retroflexion of the scope. Ureteral orifices were noted to be in the normal anatomic position bilaterally. After this was completed the cystoscope was removed. Patient tolerated the procedure well without complications or difficulties. Perioperative Bactrim was provided. 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 NCCN guidelines are reviewed with patient. Will proceed with TURBT for tissue diagnosis, but CT is fairly classic in terms of suspicion for urachal malignancy with urachus being clearly visible up tothe level of the umbilicus and tumor involvement distally. Thankfully, no evidence of metastatic disease or lymph node involvement exists. Will obtain a CT urogram for better opacification of the collecting system, but my expectation is that more radical intervention in the form of either partial nephrectomy or radical cystectomy will be required. As noted, no clear evidence for neoadjuvant chemotherapy is present. Will arrange for consultation in [place] after TURBT for discussion of the roleof radical cystectomy, but cystoscopic findings suggest patient should be a candidate for partial cystectomy barring unexpected findings on imaging. Will hold a date for a robot assisted laparoscopicpartial cystectomy locally at [facility] to minimize time until more definitive intervention in case the patient wishes to proceed with intervention locally. Will hold on consultation with Medical Oncology for the time being. Informed consent obtained for TURBT, questions answered. Will see at the time of intervention for tissue diagnosis. Above content is personally reviewed. Patient vocalizes good understanding of the treatment plan. Poncho Guerrero MD 3:39 PM 07/29/2024 documented in this encounter Nursing Notes * Claudette Dozier LPN - 07/29/2024 3:25 PM EDT New pt Gross hematuria, abnormal ultrasound C/o- pt states mass in bladder was found on imaging, question of fibroid, vaginal spotting after D&C. Cysto consent signed Patient's skin was prepped with hibiclens, and 2% lidocaine jelly was inserted into urethra for cystoscopy. Patient tolerated well. documented in this encounter Plan of Treatment Upcoming Encounters Date Type Department Care Team (Late st Contact Info) Description 08/03/2024 9:30 AM EDT Office Visit Gynecology/Obstetrics [facility] [address] [place] [address] Nando Garay MD [address] [place] [address] 10/07/2024 5:40 PM EST Office Visit Family Practice [facility] [address] [place] [address] Kirill Vickers DO [address] [place] [address] 12/18/2024 11:20 AM EST Office Visit Nephrology, [facility] [address] [place] [address] Delonte Kirby MD [address] [place] [address] 05/17/2025 1:30 PM EDT Imaging Radiology [address] [place] [address] Scheduled Orders Name Type Priority Associated Diagnoses Orde r Schedule CT UROGRAPHY W WO CONTRAST Medical Imaging Routine Malignant neoplasm of urachus (HCC) Expected: 07/29/2024, Expires: 08/28/2025 CREATININE Lab Routine Malignant neoplasm of urachus (HCC) Expected: 07/29/2024, Expires: 07/29/2025 CYSTOSCOPY Procedures Routine Hematuria, gross Ordered: 07/29/2024 Scheduled Procedures Name Priority Associated Diagnoses Date/Ti me CYSTOURETHROSCOPY WITH FULGU RATION MEDIUM BLADDER TUMOR Hematuria, gross Lesion of bladder COLONOSCOPY FLEXIBLE PROXIMA L DIAGNOSTIC Recall History of colonic polyps Scheduled Referrals Name Type Priority Associated Diagnoses Orde r Schedule ADULT/PEDS UROLOGY REFERRAL OP Referral Within 30 days (routine) Malignant neoplasm of urachus (HCC) Ordered: 07/29/2024 Health Maintenance Due Date Last Done Comments [...] Additional history exists CKD HGB USE SMARTSET 04603 04/10/202504/10, 04/10/2024, 04/04/2023, Additional history exists CKD PHOS USE SMARTSET 70529 04/10/2025 06/0 05/2024, 04/04/2023, 04/10/2022, Additional history [...] of this encounter Visit Diagnoses Diagnosis Hematuria, gross- Primary Gross hematuria Lesion of bladder Unspecified disorder of bladder Malignant neoplasm of urachus (HCC) Malignant neoplasm of urachus Screening mammogram for breast cancer documented in this encounter Administered Medications Inactive Administered Medications - up to 3 most recent administrations Medication Order MAR Action Action Date Dose Rate Site sulfamethoxazole-trimethoprim DS (Bactrim DS) 800-160 MG 1 Tablet 1 Tablet, Oral, ONCE, On Sat07/29/24 at 1630, For 1 dose Given 07/29/2024 4:02 PM EDT 1 Tablet documented in this encounter Care Teams Software Build Engineer Relationship Specialty Start Date End Date Kirill Vickers DO [address] [place] [address] PCP - General Family Medicine 04/02/19 documented as of this encounter
--- OUTSIDE RECORDS SUMMARY | 2024-09-15 08:53 | External Medical Summary | Summary of Care ---
Author Name Unknown Organization [facility] Address [address] [facility] [place] [address] Phone [phone] Care Team Providers Care Digital Campaign Manager Name Role Phone Allyson Vickers DO Primary Care Provider [phone] Reason for Visit * Auth/Cert Specialty Diagnoses / Procedures Referred By Home t Referred To Contact Diagnoses Thickened endometrium History of breast cancer Thickened endometrium [R93.89] History of breast cancer [Z85.3] Procedures PELVIC EXAM UNDER ANESTHESIA, NOT LOCAL HYSTEROSCOPY W/BIOPSY AND/OR POLYPECTOMY W/WO D&C PELVIC EXAMINATION UNDER ANESTHESIA HYSTEROSCOPY WITH BIOPSY AND/OR POLYPECTOMY WITH OR WITHOUT D&C Nando Dockery MD [address] [place] [address] [address] [place] [address] [address] Referral ID Status Reason Start Date Expiration Date Visits Re quested Visits Authorized [id number] Encounter Details Date Type Department Care Team (Latest Contact Info) Description 07/16/2024 7:28 AM EDT - 07/16/2024 11:29 AM EDT Hospital Encounter [facility], Operating Room [facility] [address] [place] [address] Nando Dockery MD [address] [place] [address] Discharge Disposition: Home - Self Care Allergies Active Allergy Reactions Criticality Noted Date Comments Latex Hives,Rash Medium 05/20/2014 documented as of this encounter (statuses as of 07/16/2024) Medications Medication Sig Dispensed Refills Start Date [...] Active Losartan Potassium 50 MG Oral Tablet (Cozaar)Indications :HTN, goal below 140/90 Take 1 Tablet by mouth in the morning. 90 Tablet 3 06/24/2024 Active Sertraline HCl 50 MG Oral Tablet (Zoloft)Indications :Recurrent major depressive disorder, in remission (HCC) Take 1 Tablet by mouth in the morning. 90 Tablet 3 06/24/2024 Active Synthroid 200 MCG Oral TabletIndications:A cquired hypothyroidism (at least 30 min prior to breakfast or other meds)TAKE 1 TABLET BY MOUTH DAILY IN THE MORNING AT LEAST 30 MINS PRIOR TO BREAKFAST OR OTHER MEDS. TAKE 2 TABLETS ON SUNDAYS 96 Tablet 1 06/24/2024 Active Acetaminophen 325 MG Oral Tablet (Tylenol) Take 2 Tablets by mouth every 6 hours as needed for Pain, Breakthrough. 100 Tablet 3 07/16/2024 Active Amoxicillin-Pot Clavulanate 500-125 MG Oral Tablet (Augmentin) Take 1 Tablet by mouth in the morning and 1 Tablet before bedtime. 20 Tablet 04/13/2024 07/13/20 24 Discontinued documented as of this encounter (statuses as of 07/16/2024) Active Problems Problem Noted Date Diagnosed Date Depression with anxiety 12/21/2022 Chronic kidney disease, stage 3a 03/14/2021 Overview: Per CKD protocol History of thyroid cancer 03/02/2018 History of cervical cancer 03/02/2018 Acquired hypothyroidism 06/04/2017 Dyslipidemia 08/14/2007 Overview: Per Lipid Taxonomy. HTN, goal below 130/80 documented as of this encounter (statuses as of 07/16/2024) Resolved Problems Problem Noted Date Diagnosed Date [...] as of this encounter (statuses as of 07/16/2024) Immunizations Name Administration Dates Next Due COVID-19 [...] Sign Reading Time Taken Comments Blood Pressure 100/70 07/16/2024 11:00 AM EDT Pulse 50 07/16/2024 11:00 AM EDT Temperature 36.1 C (97 F) 07/16/2024 11:00 AM EDT Respiratory Rate 16 07/16/2024 11:00 AM EDT Oxygen Saturation 99% 07/16/2024 11:00 AM EDT Inhaled Oxygen Concentration - - Weight 81.2 kg (179 lb) 07/16/2024 8:13 AM EDT Height 165.1 cm (5' 5") 07/16/2024 8:13 AM EDT Body Mass Index 29.79 07/16/2024 8:13 AM EDT documented in this encounter Discharge Summaries * Nando Dockery MD - 07/16/2024 10:31 AM EDT [facility] [address] [address] OUTPATIENT SURGERY DISCHARGE SUMMARY NOTE Name: Marium Tobar Location: [place] [facility] Date: 07/16/2024 Time: 10:31 AM Surgery Date: 07/16/2024 Procedure: HYSTEROSCOPY WITH BIOPSY AND/OR POLYPECTOMY WITH OR WITHOUT D&C, PELVIC EXAMINATION UNDER ANESTHESIA Bilateral Bilateral Surgeon: Nando Dockery MD Discharge Diagnosis: postop After examination of this patient, I have determined she is ready for discharge to home when the patient meets criteria. Discharge instructions were given to the patient. documented in this encounter Discharge Instructions * Discharge Instr - AVS* Nando Dockery MD - 07/16/2024 10:30 AM EDT Discharge Date: 07/16/2024 You may call the department of Obstetrics and Gynecology during business hours for any questions ortest results. Raminelsie Saenz - [phone] After hours, you may call the number above and follow the prompts for more information on the next steps in your care. For acute concerns, you may also call the hospital directly and have the grinder operator page the ENVIRONMENTAL ASSISTANT physician linux consultant. [facility] sites are available 24 hours a day. You can call or schedule an appointment online at a location near your home. Check your Patient Education Brochure for further information. The information below provides you with the instructions following discharge from the hospital. If you have any questions, please ask before leaving. Please carry this letter with you when you see your doctor in the clinic. If you have questions, you can reach us at the numbers above. Diet Start with clear liquids (jell-o, tea, apple juice). Avoid dairy products (milk, cheese, pudding, ice cream) and fried or greasy foods. Progress to prescribed diet as tolerated. If nausea should occur, have clear liquids only until soft foods can be tolerated. Activity A responsible adult must be with the patient for 24 hours after surgery. We encourage light walkingintermittently in the first days following surgery for the quickest recovery and increase activity as tolerated. DO NOT drive, operate any appliances and/or machinery or sign legal documents for 24 hours. Over the Counter (OTC) Pain Medications Fbbw-bbx-dmutnfz Tylenol 325 mg, take 2 tablets by mouth every 6 hours as needed for pain Dtet-nnw-hkegsxo Ibuprofen 200 mg, take 3 tablets by mouth every 6 hours as needed for pain For the best pain control using kkgi-hkp-mxntnme Tylenol and Ibuprofen, alternate Ibuprofen and Tylenol so that you are taking 1 medication every 3 hours (ex: If you take Tylenol at 12:00 PM, take Ibuprofen at 3:00 PM, and then you will be permitted to take Tylenol again at 6:00 PM, and Ibuprofen at 9:00 PM, etc). Do not exceed Tylenol 4000mg or Ibuprofen 2400mg in a 24 hour period. See the sections below on your After Visit Summary (AVS) for other medications that have been prescribed. Warnings Call your surgeon promptly in case of: Excessive bleeding Fever greater than 101 degrees fahrenheit (38.3 degrees centigrade) Persistent nausea and vomiting Redness, swelling, or pus-like drainage Pain that is not relieved by the medicine you were told to take Follow Up Please follow up with Dr. dockery on as previously scheduled. See your primary care physician (Allyson Vickers DO) as regularly scheduled. If you have any scheduled appointments at [facility], they will be listed below on your After Visit Summary (AVS). Return to Work or School You may return to work or school as previously discussed with Dr. dockery Special Instructions You may have vaginal bleeding that requires a pad. If your bleeding saturates more than 1 heavy padper hour, please notify your physician. Maintain pelvic rest (nothing in the vagina - no douching, tampons, or sexual intercourse) for at least weeks. Frequently Asked Questions During Recovery Hysteroscopy, Dilation and Curettage (D&C) You should understand that when you are first at home that not every day will be a good day. It is not uncommon after surgery to take two steps forward and one backward. Fatigue and low energy level may persist for many weeks after surgery. Some people experience depression or post-surgery blues. Usually this goes away by itself but if it doesn't, you should call my office and let me know. If you feel suicidal or homicidal, please call the crisis hotline at [phone]-KHFA ([phone]). You may have some spotting and discharge from the vagina for a few weeks. Bleeding usually lessens over time, but if the bleeding increases, you need to call right away. Vaginal discharge is usually yellowish-white and watery. In the meantime, you can use sanitary pads or napkins; please do not usetampons. If you are concerned about the discharge you are having, please call. If you have any excessive pain or a fever, please call the number provided at the top of the instructions. Please be sure to ask any questions about issues of concern. It is often helpful to write these down as you think of them. You can be sure that you are not the first person who needs questions answered, and I consider it part of my responsibilities to make sure that all your questions are answered s atisfactorily. Remember, there is NO such thing as a stupid question! I would much rather have you ask too many questions than not enough. It is important that you refrain from intercourse for 2 weeks or until cleared by your doctor. Showering is the preferred method of bathing during the first 2 weeks after surgery. Washing the labia is fine but no water (or anything else, for that matter) should go in the vagina during the healing process. It is important to avoid straining and pushing, whether urinating or having a bowel movement! Therefore, it is very important to avoid constipation. If a high-fiber diet alone is enough to accomplishthis, great! Most likely, though, you will need to use a stool softener like Colace (docusate sodium) 2-4 times a day to keep your bowel movements soft. By the way, the generic is just as good as thebrand name. If Colace isn't enough, use some Milk of Magnesia. Even an enema is a whole lot better than becoming completely bound up. Medications As noted above, you are encouraged to use a mild stool softener to avoid constipation. Most patients find that they need nothing stronger than Tylenol (acetaminophen) or Motrin (ibuprofen). Please call your doctor if your pain requires further attention. You should resume all of your regular medications unless specifically instructed not to. Please ask if you have any questions about your medications. documented in this encounter H&P Notes * Nando Dockery MD - 07/16/2024 9:09 AM EDT HISTORY & PHYSICAL INTERVAL NOTE [facility] [address] [address] History and Physical Update: Name: Marium Tobar Location: OR [facility] Date: 07/16/2024 Time: 9:09 AM DATE OF HISTORY AND PHYSICAL: BP: 133 mmHg/74 mmHg (07/16/24812) Pulse: 53 (07/16/24812) Resp: 20 (07/16/24812) Temp: 36.11 C (07/16/24812) Temp Summary: Temp Min: 36.1 C (97 F) Max: 36.1 C (97 F) SpO2: 98 % (07/16/24812) O2 flow rate: Supplemental O2 Delivery: Room Air, None (07/16/24812) Does patient take a beta ghazal? No Did patient stop anticoagulants? No Heart Exam: regular rate and rhythm Lung Exam: clear to auscultation bilaterally Other Pertinent Physical Exam: I have reviewed the H&P previously performed and examined the patient today. There are no new findings noted. Source Note - Nando Dockery MD - 07/02/2024 2:21 PM EDT [place] [address] [place] [address] Appt line [phone] Context: (HPI) 63 year old seen by AP for possible postmenopausal bleeding and hematuria. Patient was in her usual state of health status post breast cancer. She was also seen Nephrology. She suddenly experienced hematuria and possible vaginal bleeding. Ultrasound done by PCP showed 1. Complex appearing tubular structure in the bladder differential diagnosis for the included urinary bladder diverticulum and urinary bladder neoplasm. 2. Thickened endometrium. Patient is scheduled to see Urology to discuss the complex tubular structure seen in the bladder. She had an attempt in the office to do endometrial biopsy x3 was unsuccessful by the PA. Patient is scheduled for D&C with hysteroscopy OB History Para Term AB Living 1 1 1 1 SAB IAB Ectopic Multiple Live Births # Outcome Date GA Lbr Jean Pierre/2nd Weight Sex Type Anes PTL Lv 1 Term Date Labor Sex Delivery Anesth Del Comments GA Length Weight Type Site Clinical Research Nurse History: Menstrual Index: // days. Denies h/o STDs and abnormal Paps. Her past medical/surgical histories and current medications are recorded in the electronic record. Past Surgical History: Procedure Laterality Date ARTHROCENT ASP &/OR INJ MAJOR JX/BURSA W/O US Left 05/20/2014 ARTHROCENTESIS OR INJECTION MAJOR JOINT performed by Zach Valdovinos DO at OR [facility] COLONOSCOPY, DIAGNOSTIC (RECTUM) 02/18/2013 COLONOSCOPY FLEXIBLE PROXIMAL DIAGNOSTIC performed by Kristina Bynum DO at ENDOSCOPY [facility] COLONOSCOPY, DIAGNOSTIC (RECTUM) 02/12/2018 normal, repeat 5 yrs/COLONOSCOPY FLEXIBLE PROXIMAL DIAGNOSTIC performed by India Marcial MD at ENDOSCOPY [facility] COLONOSCOPY, DIAGNOSTIC (RECTUM) N/A 08/16/2023 diverticulosis/biopsies show adenomatous polyps/recall 5 years/Colonoscopy COLONOSCOPY, DIAGNOSTIC (RECTUM) 08/16/2023 COLONOSCOPY FLEXIBLE PROXIMAL DIAGNOSTIC performed by India Marcial MD at ENDOSCOPY [facility] INFORMATION wisdom teeth extraction INJECT DX/THER SUBSTANCE INTERLAMINAR LUMBAR/SACRAL W IMAGE GUIDE 09/28/2019 INJECTION SPINE LUMBAR OR SACRAL performed by Juan Su DO at OR [facility] MASTECTOMY, PARTIAL Left 11/04/2012 RADIATION THERAPY SACROILIAC JOINT INJECT W/GUIDANCE Left 05/20/2014 INJECTION SACROILIAC JOINT performed by Zach Valdovinos DO at OR [facility] SENTINEL LYMPH NODE BIOPSY PERFORMED 06/08/2013 Left Lumpectomy,left sentinel lymph node biopsy,injection of lymphazurin blue dye for sentinel nodeidentification Dr [facility] 06/08/13 STRESS ECHO (EXERCISE) 10/2011 negative for inducible ischemia, LVEF 60% VASC DUPLEX VENOUS LE BILAT 06/17/2013 acute thrombus right posterior tibial vein Family History Problem Relation Name Age of Onset Diabetes Mother Hypertension Mother Coronary Artery disease Mother 58 Coronary Artery disease Father 62 Hyperlipidemia Father Alzheimer's disease Father Dementia Father Breast Cancer No significant family history History Social History Socioeconomic History Marital status: Spouse name: Not on file Number of children: Not on file Years of education: Not on file Highest education level: Not on file Occupational History Not on file Tobacco Use Smoking status: Never Smokeless tobacco: Never Vaping Use Vaping status: Never Used Substance and Sexual Activity Alcohol use: Yes Comment: once or twice a year Drug use: No Sexual activity: Not on file Other Topics Concern Not on file Social History Narrative Not on file Social Determinants of Health Financial Resource Strain: Not on file Food Insecurity: No Food Insecurity (07/13/2020) Hunger Vital Sign Worried About Running Out of Food in the Last Year: Never true Ran Out of Food in the Last Year: Never true Transportation Needs: Not on file Social Connections: Unknown (07/02/2024) Social Connections How often do you feel lonely or isolated from those around you? (Adult - for ages 18 years and over): Not on file Housing Stability: Not on file @ACTMEDS@ Physical Exam: LMP 02/18/2013 CV: S1, S2. Regular rate and Rhythm Lungs: Clear to auscultation bilaterally. Abdomen: Soft Extremities: Soft non tender calves bilaterally. A/P: 63 year old year old S/p Post menopausal bleeding Cervical stenosis Failed office attempt at endometrial biopsy We have discussed the risk alternatives and complications of surgery including more surgery to correct complication,risk of anesthesia,infection,damage to internal organs and . We have also discussed the possibility that pt's present situation may not change. Pt is aware and wishes to proceed to surgery. Consent is signed Pt is scheduled for Pt scheduled for the ff procedures 1.Examination under anesthesia 2.Dilation and curettage 3.Hysterosocpy Nando Dockery MD 07/02/2024 2:22 PM documented in this encounter Nursing Notes * Catrina Bustos RN - 07/16/2024 11:22 AM EDT Vs stable. Denies pain or nausea and tolerating PO intake. Verbalized understanding of all discharge directions. Patient stable for discharge to home. Ambulated to private auto with staff presence tocare of non emergency services ambulance driver. * Catrina Bustos RN - 07/16/2024 10:45 AM EDT Patient awake and oriented. Tolerating PO ice chips without nausea. Denies pain. Vital signs stable. Ready for discharge from PACU 1. Will maintain care of patient for PACU II status in current location. * Catrina Bustos RN - 07/16/2024 10:18 AM EDT Patient received to pacu 1 status post hysteroscopy. Patient awake. denies pain. denies nausea. Respirations are even and unlabored on 6lpm via simple face mask. NSR on monitor. Abdomen soft and non distended. Anne pad with scant amount bloody drainage. Vital signs stable. * Tiki Zhou RN - 07/16/2024 8:04 AM EDT Surgical consent verified with patient. Patient agrees with listed procedure and verified signature. documented in this encounter OR Notes * OR Surgeon - Nando Dockery MD - 07/16/2024 10:31 AM EDT OPERATIVE RECORD [facility], Operating Room [facility] [address] [facility] [place] [address] Marium Tobar : 1960 DATE: 07/16/2024 PREOPERATIVE DIAGNOSIS: Postmenopausal bleeding POSTOPERATIVE DIAGNOSIS: Postmenopausal bleeding and endometrial polyp SURGEON: Nando Dockery MD ASSISTANTS: Sue García Physician Senior Coldfusion Developer Attestation for engineer first assistant: Senior Coldfusion Developer was necessary to help with retraction manipulation of instruments in order to provide for safe surgery ANESTHESIA: general OPERATION: 1. Exam under anesthesia 2. Dilation and curettage 3. Hysteroscopy 4. Endometrial polyp resection with MyoSure FINDINGS: Normal female escutcheon vagina cervix appeared atrophic. Hysteroscopy findings showed endometrial polyp and atrophic endometrium both ostia seen. ESTIMATED BLOOD LOSS: 5 milliliters DRAINS: None FLUIDS: None 700 mL Crystalloid URINE OUTPUT: 50 milliliters SPECIMEN: 1. Endometrial polyp resection with MyoSure 2. Sharp endometrial curettings COMPLICATIONS: None CONDITION: Stable in recovery room. INDICATIONS AND HISTORY: This is a 63-year-old with postmenopausal bleeding DESCRIPTION OF OPERATION: The patient was identified, and the procedure was verified. DESCRIPTION OF OPERATION: Patient is taken to the operating room was she was prepped and draped in normal sterile fashion in dorsal lithotomy position. Exam under anesthesia is as dictated above. Bladder is catheterized and 50 cubic centimeters of clear urine is obtained. Single-tooth tenaculum wasused to grab the cervix. Weighted speculum was placed in the vagina. Cervix is dilated in series. Operative hysteroscope was placed into the uterine cavity. Findings of the uterus as dictated above. The MyoSure device was passed through the outflow tract of the hysteroscope. Resection of the endometrial polyp and endometrium was performed with the MyoSure device. It was removed and a size 2 sharpcurette introduced in the uterine cavity. Curettage was performed in all 4 quadrants until a grittytexture is obtained. Both specimens sent to pathology for pathologic analysis. All instruments removed from the uterus and the vagina and accounted for x2 including sponges needles and retractors. There was good hemostasis. The patient is sent to recovery in stable condition. Nando Dockery MD 07/16/2024 10:31 AM documented in this encounter Plan of Treatment Upcoming Encounters Date Type Department Care Team (Late st Contact Info) Description 07/29/2024 3:30 PM EDT Office Visit Urology, [facility] [address] [address] Poncho Guerrero MD [address] [place] [address] 08/03/2024 9:30 AM EDT Office Visit Gynecology/Obstetrics [facility] [address] [address] Nando Dockery MD [address] [address] 10/07/2024 5:40 PM EST Office Visit Family Practice [facility] [address] [address] Allyson Vickers DO [address] [place] [address] 12/18/2024 11:20 AM EST Office Visit Nephrology, Adri Kaufman [address] [place] [address] Delonte Kirby MD [address] [place] [address] 05/17/2025 1:30 PM EDT Imaging Radiology [address] [place] [address] Pending Results Name Type Priority Associated Diagnoses Date /Time SURGICAL PATHOLOGY Pathology Routine Thickened endometrium History of breast cancer 07/16/2024 9:58 AM EDT Scheduled Orders Name Type Priority Associated Diagnoses Orde r Schedule SURGICAL PATHOLOGY Pathology Routine Thickened endometrium History of breast cancer Release Upon Ordering for 1 Occurrences starting 07/16/2024, 1 completed Scheduled Procedures Name Priority Associated Diagnoses Date/Ti me HYSTEROSCOPY WITH BIOPSY AND/OR POLYPECTOMY WITH OR WITHOUT D&C Thickened endometrium History of breast cancer 07/16/2024 9:20 AM EDT PELVIC EXAMINATION UNDER ANESTHESIA Thickened endometrium History of breast cancer 07/16/2024 9:20 AM EDT COLONOSCOPY FLEXIBLE PROXIMAL DIAGNOSTIC Recall History of [...] Additional history exists CKD HGB USE SMARTSET 06402 04/10/202504/10, 04/10/2024, 04/04/2023, Additional history exists CKD PHOS USE SMARTSET 30401 04/10/2025 06/0 05/2024, 04/04/2023, 04/10/2022, Additional history [...] as of this encounter Visit Diagnoses Diagnosis Thickened endometrium Nonspecific (abnormal) findings on radiological and other examination of genitourinary organs History of breast cancer Personal history of malignant neoplasm of breast Screening mammogram for breast cancer documented in this encounter Administered Medications Inactive Administered Medications - up to 3 most recent administrations Medication Order MAR Action Action Date Dose Rate Site dexAMETHasone Sodium Phosphate (Decadron) 4 MG/ML inj 4 mg 4 mg, IV Push, PRN Nausea, Starting on Shayna 07/16/24 at 1024, Until Shayna 07/16/24 at 1529, For 1 dose, PROTECT FROM LIGHT, PACU fentaNYL (PF) inj 25 mcg 25 mcg, IV Push, PRN Pain, Severe, Starting on Shayna 07/16/24 at 1024, Until Shayna 07/16/24 at 1529, For 6 doses, When given IV Push its recommended that the dose be given over 3 to 5 minutes., PACU isolyte-S pH 7.4 infusion Intravenous, at 100 mL/hr, Plasma-LYTE 148, isolyte-S, and isolyte-S pH 7.4 are considered equivalent - including for MAR barcode scanning., CONTINUOUS, Starting on Shayna 07/16/24 at 0830, Until Shayna 07/16/24 at 1529, Pre-Op Continue from Pre-Op 07/16/2024 9:33 AM EDT 100 mL/hr New Bag 07/16/2024 8:20 AM EDT 100 mL/hr ondansetron (Zofran) inj 4 mg 4 mg, IV Push, PRN Nausea, Starting on Shayna 07/16/24 at 1024, Until Shayna 07/16/24 at 1529, For 1 dose, PACU documented in this encounter Active and Recently Administered Medications Times are shown in EDT. Continuous Medication Order 07/14/2024 07/15/2024 07/16/2024 isolyte-S pH 7.4 infusion Intravenous, at 100 mL/hr, Plasma-LYTE 148, isolyte-S, and isolyte-S pH 7.4 are considered equivalent - including for MAR barcode scanning., CONTINUOUS, Starting on Shayna 07/16/24 at 0830, Until Shayna 07/16/24 at 1529, Pre-Op 0820 (New Bag - Prov ider: Tiki Zhou RN)0933 (Continue from Pre-Op - Provider: Ladarius Bowie CRNA)1014 (Anes Intra-Op Fluid - Provider: Ladarius Bowie CRNA) PRN Medication Order 07/14/2024 07/15/2024 07/16/2024 dexAMETHasone Sodium Phosphate (Decadron) 4 MG/ML inj 4 mg 4 mg, IV Push, PRN Nausea, Starting on Shayna 07/16/24 at 1024, Until Shayna 07/16/24 at 1529, For 1 dose, PROTECT FROM LIGHT, PACU fentaNYL (PF) inj 25 mcg 25 mcg, IV Push, PRN Pain, Severe, Starting on Shayna 07/16/24 at 1024, Until Shayna 07/16/24 at 1529, For 6 doses, When given IV Push its recommended that the dose be given over 3 to 5 minutes., PACU ondansetron (Zofran) inj 4 mg 4 mg, IV Push, PRN Nausea, Starting on Shayna 07/16/24 at 1024, Until Shayna 07/16/24 at 1529, For 1 dose, PACU silver nitrate applicator (CANCELED) ONCE PRN INTRA PROCEDURE, Starting on Shayna 07/16/24 at 1012, Until Shayna 07/16/24 at 1015, Intra-Op 1012 (Given - Provid er: Nando Dockery MD) sodium chloride IR 0.9 % irrigation (CANCELED) ONCE PRN INTRA PROCEDURE, Starting on Shayna 07/16/24 at 1012, Until Shayna 07/16/24 at 1015, Intra-Op 1012 (Given - Provid er: Nando Dockery MD) documented in this encounter Care Teams Digital Campaign Manager Relationship Specialty Start Date End Date Allyson Vickers DO [address] [place] [address] PCP - General Family Medicine 04/02/19 documented as of this encounter
--- OUTSIDE RECORDS SUMMARY | 2024-09-15 08:53 | External Medical Summary | Summary of Care ---
Author Name Unknown Organization [facility] Address [address] [place] [address] Phone [phone] Care Team Providers Care Real Estate Instructor Name Role Phone Allyson Vickers DO Primary Care Provider [phone] Encounter Details Date Type Department Care Team (Late st Contact Info) Description 07/29/2024 Telephone Urology, [facility] 132 [facility] [place] [address] Poncho Guerrero MD 27 [facility] [place] [address] Allergies Active Allergy Reactions Criticality Noted Date [...] mRNA, LNP-s, No Pre serve, 2-Dose Series ([employer]ish) 01/21/2021,12/31/2020 Pneumococcal Polysaccharide PPV23 (Pneumovax) 02/14/2017 Seasonal [...] encounter Miscellaneous Notes * Telephone Encounter - Diana Doe OSA - 07/30/2024 8:48 AM EDT Scheduled at on 08/31/24. TOV is scheduled on 09/07/2024 PO is scheduled on 09/21/2024 * Telephone Encounter - Marla Felipe LPN - 07/29/2024 4:30 PM EDT Patient needs: TURBT booked at whichever location is soonest. Patient will need nurse visit at [facility] to discuss preop instructions / testing. TOV [address] Guerrero 3 weeks postop Referral to [facility]. Appt should be scheduled approx 1 month after TURBT to discuss possible cystectomy. Next available robotic slot with Dr Guerrero for partial cystectomy held. Thank you Emelina * Telephone Encounter - Poncho Guerrero MD - 07/29/2024 4:17 PM EDT Can we check the schedule/hold a date for a robotic partial cystectomy at [facility] for this patient? Let me know what time frame we are looking at. Thanks, HM documented in this encounter Plan of Treatment Upcoming Encounters Date Type Department Care Team (Latest Contact Info) Description 08/03/2024 9:30 AM EDT Office Visit Gynecology/Obstetr ics [facility] [address] [place] [address] Nando Garay MD [address] [place] [address] 08/31/2024 8:37 AM EDT Hospital Encounter OR [facility], Operating Room [facility] [address] [place] [phone] Poncho Guerrero MD [address] [place] [address] 08/31/2024 8:37 AM EDT - 08/31/2024 9:45 AM EDT Surgery OR [facility], Operating Room [facility] [address] [place] [phone] Poncho Guerrero MD [address] [place] [address] CYSTOURETHROSCOPY WITH FULGURATION MEDIUM BLADDER TUMOR 09/07/2024 11:00 AM EST Nurse Only Urology, [facility] [place] [address] [facility] Nurse Urology [facility] [address] [place] [address] 09/21/2024 3:30 PM EST Office Visit Urology, [facility] 132 [facility] [place] [address] Poncho Guerrero MD [address] [place] [address] 10/07/2024 5:40 PM EST Office Visit Family Practice [facility] 132 [facility] [place] [address] Allyson Vickers DO 132 [facility] [place] [address] 12/18/2024 11:20 AM EST Office Visit Nephrology, [facility] [address] [place] [address] Delonte Kirby MD [address] [place] [address] 05/17/2025 1:30 PM EDT Imaging Radiology [address] [place] [address] Scheduled Procedures Name Priority Associated Diagnoses Date/Ti ga CYSTOURETHROSCOPY WITH FULGURATION MEDIUM BLADDER TUMOR Hematuria, [...] 08/20/2018, Additional history exists GFR 10/10/2024 04/10/2024, 060 11/2022, 07/03/2022, Additional history exists TSH 12/31/2024 12/31/2023, 06/05, 04/10/2022, Additional history exists Albumin/Creatinine Ratio 03/11/2025 024, 12/11/2016, 08/15/2015, Additional history exists CKD HGB USE SMARTSET 14613 04/10/202504/10, 04/10/2024, 04/04/2023, Additional history exists CKD PHOS USE SMARTSET 88610 04/10/2025 060 05/2024, 04/04/2023, 04/10/2022, Additional history [...] filedocumented as of this encounter Care Teams Real Estate Instructor Relationship Specialty Start Date End Date Allyson Vickers DO [address] [place] [address] PCP - General Family Medicine 04/02/19 documented as of this encounter
--- OUTSIDE RECORDS SUMMARY | 2024-09-15 08:53 | External Medical Summary | Summary of Care ---
Author Name Unknown Organization [facility] Address [address] [place] [address] Phone [phone] Care Team Providers Care Flat Optical Element Maker Name Role Phone Allyson Vickers DO Primary Care Provider [phone] Encounter Details Date Type Department Care Team (Late st Contact Info) Description 07/29/2024 Telephone Urology, [facility] 132 [facility] [place] [address] Poncho Guerrero MD 27 [facility] [place] [address] Allergies Active Allergy Reactions Criticality Noted Date [...] mRNA, LNP-s, No Pre serve, 2-Dose Series ([employer]) 01/21/2021,12/31/2020 Influenza, Whole Virus 09/18/2000 Pneumococcal Polysaccharide [...] AM EDT Dr Guerrero Next available at [facility] for TURBT is 08/31. Next available at [facility] is 10/09. Please advise if [...] soonest. Patient will need nurse visit at [facility] to discuss preop instructions / testing. TOV [address] Guerrero 3 weeks postop Referral to [facility]. Appt should be scheduled approx 1 month after TURBT to discuss possible cystectomy. Next available robotic slot with Dr Guerrero for partial cystectomy held. Thank you Emelina * Telephone Encounter - Poncho Guerrero MD - 07/29/2024 4:17 PM EDT Can we check the schedule/hold a date for a robotic partial cystectomy at [facility] for this patient? Let me know what time frame we are looking at. Thanks, HM documented in this encounter Plan of Treatment Upcoming Encounters Date Type Department Care Team (Latest Contact Info) Description 08/03/2024 9:30 AM EDT Office Visit Gynecology/Obstetr ics [facility] [address] [place] [address] Nando Garay MD [address] [place] [address] 08/31/2024 8:37 AM EDT Hospital Encounter [facility], Operating Room [facility] [address] [place] [phone] Poncho Guerrero MD [address] [place] [address] 08/31/2024 8:37 AM EDT - 08/31/2024 9:45 AM EDT Surgery OR [facility], Operating Room [facility] [address] [place] [phone] Poncho Guerrero MD [address] [place] [address] CYSTOURETHROSCOPY WITH FULGURATION MEDIUM BLADDER TUMOR 09/07/2024 11:00 AM EST Nurse Only Urology, [facility] [place] [address] [facility] Nurse Urology [facility] [address] [place] [address] 09/21/2024 3:30 PM EST Office Visit Urology, [facility] [place] [address] Poncho Guerrero MD [address] [place] [address] 10/07/2024 5:40 PM EST Office Visit Family Practice [facility] [address] [place] [address] Allyson Vickers DO 132 [facility] [place] [address] 12/18/2024 11:20 AM EST Office Visit Nephrology, [facility] [address] [place] [address] Delonte Kirby MD [address] [place] [address] 05/17/2025 1:30 PM EDT Imaging Radiology [address] [place] [address] Scheduled Procedures Name Priority Associated Diagnoses Date/Ti ri CYSTOURETHROSCOPY WITH FULGURATION MEDIUM BLADDER TUMOR Hematuria, [...] Additional history exists CKD HGB USE SMARTSET 09218 04/10/202504/10, 04/10/2024, 04/04/2023, Additional history exists CKD PHOS USE SMARTSET 66153 04/10/2025 06/0 05/2024, 04/04/2023, 04/10/2022, Additional history [...] filedocumented as of this encounter Care Teams Flat Optical Element Maker Relationship Specialty Start Date End Date Allyson Vickers DO [address] [place] [address] PCP - General Family Medicine 04/02/19 documented as of this encounter
--- OUTSIDE RECORDS SUMMARY | 2024-09-15 08:53 | External Medical Summary | Summary of Care ---
Author Name Unknown Organization [facility] Address [address] [facility] [place] [address] Phone [phone] Care Team Providers Care Speeder Machine Operator Name Role Phone Rancho Kirill Kit JULIO Primary Care Provider [phone] Reason for Referral * Precert (Within 10 days (routine)) - Pending Review Specialty Diagnoses / Procedures Referred By Contac t Referred To Contact Radiology Diagnoses Malignant neoplasm of urachus (HCC) Procedures CT UROGRAPHY W WO CONTRAST Poncho Guerrero MD [address] [place] [address] Referral ID Status Reason Start Date Expiration Date V isits Requested Visits Authorized [id number] Pending Review 07/29/2024 999 999 * Evaluate & Treat - Unlimited Visits (Within 30 days (routine)) - Authorized Specialty Diagnoses / Procedures Referred By Contmikayla alvarez Referred To Contact Urology Diagnoses Malignant neoplasm of urachus (HCC) Poncho Guerrero MD [address] [place] [address] Referral ID Status Reason Start Date Expiration Date Visits Requested Visits Authorized [id number] Authorized Specialty Services Required 07/29/2024 999 999 [...] 07/29/2024 3:30 PM EDT Office Visit Urology, [facility] [address] [place] [address] Poncho Guerrero MD [address] [place] [address] [...] mRNA, LNP-s, No Pre serve, 2-Dose Series ([employer]) 01/21/2021,12/31/2020 Influenza, Whole Virus 09/18/2000 Pneumococcal Polysaccharide [...] Guerrero MD - 07/29/2024 3:39 PM EDT [id number] PCP: KIRILL VICKERS [address] [place], [place] [address] [place] [address] [phone] Marium Tobar is a 63 year old [...] performed by Zach Valdovinos DO at OR [facility] COLONOSCOPY, DIAGNOSTIC (RECTUM) 02/18/2013 COLONOSCOPY FLEXIBLE PROXIMAL DIAGNOSTIC performed by Kristina Bynum DO at ENDOSCOPY [facility] COLONOSCOPY, DIAGNOSTIC (RECTUM) 02/12/2018 normal, repeat 5 yrs/COLONOSCOPY FLEXIBLE PROXIMAL DIAGNOSTIC performed by India Marcial MD at ENDOSCOPY [facility] COLONOSCOPY, DIAGNOSTIC (RECTUM) N/A 08/16/2023 diverticulosis/biopsies show adenomatous polyps/recall 5 years/Colonoscopy COLONOSCOPY, DIAGNOSTIC (RECTUM) 08/16/2023 COLONOSCOPY FLEXIBLE PROXIMAL DIAGNOSTIC performed by Idnia Marcial MD at ENDOSCOPY [facility] HYSTEROSCOPY W/BIOPSY AND/OR POLYPECTOMY W/WO D&C Bilateral 07/16/2024 HYSTEROSCOPY WITH BIOPSY AND/OR POLYPECTOMY WITH OR WITHOUT D&C performed by Nando Garay MD at OR [facility] INFORMATION wisdom teeth extraction INJECT DX/THER SUBSTANCE INTERLAMINAR LUMBAR/SACRAL W IMAGE GUIDE 09/28/2019 INJECTION SPINE LUMBAR OR SACRAL performed by Juan Su DO at [facility] MASTECTOMY, PARTIAL Left 11/04/2012 PELVIC EXAM UNDER ANESTHESIA, NOT LOCAL Bilateral 07/16/2024 PELVIC EXAMINATION UNDER ANESTHESIA performed by Nando Garay MD at [facility] RADIATION THERAPY SACROILIAC JOINT INJECT W/GUIDANCE Left 05/20/2014 INJECTION SACROILIAC JOINT performed by Zach Valdovinos DO at [facility] SENTINEL LYMPH NODE BIOPSY PERFORMED 06/08/2013 Left Lumpectomy,left sentinel lymph node biopsy,injection of lymphazurin blue dye for sentinel nodeidentification Dr [place] [facility] 06/08/13 STRESS ECHO (EXERCISE) 10/2011 negative [...] for the procedure. A well lubricated 16 Portuguese flexible cystoscope was introduced through the meatus [...] is present. Will arrange for consultation in [place] after TURBT for discussion of the roleof radical cystectomy, but cystoscopic findings suggest patient should be a candidate for partial cystectomy barring unexpected findings on imaging. Will hold a date for a robot assisted laparoscopicpartial cystectomy locally [facility] to minimize time until more definitive intervention [...] 08/03/2024 9:30 AM EDT Office Visit Gynecology/Obstetrics [facility] [address] [place] [address] Nando Garay MD [address] [place] [address] 08/31/2024 Hospital Encounter OR [facility], Operating Room [facility] [address] [place] [phone] Poncho Guerrero MD [address] [place] [address] 09/07/2024 11:00 AM EST Nurse Only Urology, [facility] [address] [place] [address] [facility], Nurse Urology [facility] [address] [place] [address] 09/21/2024 3:30 PM EST Office Visit Urology, [facility] [address] [place] [address] Poncho Guerrero MD [address] [place] [address] 10/07/2024 5:40 PM EST Office Visit Family Practice [facility] [address] [place] [address] Kirill Vickers, DO [address] [place] [address] 12/18/2024 11:20 AM EST Office Visit Nephrology, [facility] [address] [place] [address] Delonte Kirby MD [address] [place] [address] 05/17/2025 1:30 PM EDT Imaging Radiology [address] [place] [address] Scheduled Orders Name Type Priority Associated Diagnoses [...] Additional history exists CKD HGB USE SMARTSET 26659 04/10/202504/10, 04/10/2024, 04/04/2023, Additional history exists CKD PHOS USE SMARTSET 06530 04/10/2025 06/0 05/2024, 04/04/2023, 04/10/2022, Additional history [...] Tablet documented in this encounter Care Teams Speeder Machine Operator Relationship Specialty Start Date End Date Kirill Vickers DO [address] [place] [address] PCP - General Family Medicine 04/02/19 documented as of this encounter
--- OUTSIDE RECORDS SUMMARY | 2024-09-15 08:54 | External Medical Summary | Summary of Care ---
Author Name Unknown Organization [facility] Address [address] [facility] [address] Phone [phone] Care Team Providers Care Central Supply Assistant Name Role Phone Allyson Vickers DO Primary Care Provider [phone] Reason for Visit * Reason Onset Date Comments Office Procedure 06/22/2024 Encounter Details Date Type Department Care Team (Late st Contact Info) Description 06/22/2024 Telephone Gynecology/Obstetrics [facility] [address] [place] [address] Nanod Garay MD [address] [place] [address] Office Procedure Allergies Active Allergy Reactions Criticality Noted Date Comments Latex Hives,Rash Medium 05/20/2014 documented as of this encounter (statuses as of 06/23/2024) Medications Medication Sig Dispensed Refills Start Date [...] Active Additional Information Patient not taking.Reported on 01/14/2024 Turmeric 500 MG Oral Tablet Take by [...] takes biotin 3000mcg once daily . Active Sertraline HCl 50 MG Oral Tablet (Zoloft)Indications:R ecurrent major depressive disorder, in remission (HCC) Take 1 Tablet by mouth in the morning. 90 Tablet 3 06/18/2023 Active Losartan Potassium 50 MG Oral Tablet (Cozaar)Indications:H TN, goal below 140/90 Take 1 Tablet by mouth in the morning. 90 Tablet 3 06/18/2023 Active Amoxicillin-Pot Clavulanate 500-125 MG Oral Tablet (Augmentin) Take 1 Tablet by mouth in the morning and 1 Tablet before bedtime. 20 Tablet 04/13/2024 Active Additional Information Patient not taking.Reported on 06/05/2024 Synthroid 200 MCG Oral TabletIndications:Acq uired hypothyroidism TAKE 1 TABLET BY MOUTH DAILY IN THE MORNING AT LEAST 30 MINS PRIOR TO BREAKFAST OR OTHER MEDS. TAKE 2 TABLETS ON SUNDAYS 96 Tablet 1 06/12/2024 Active documented as of this encounter (statuses as of 06/23/2024) Active Problems Problem Noted Date Diagnosed Date Depression with anxiety 12/21/2022 Chronic kidney disease, stage 3a 03/14/2021 Overview: Per CKD protocol History of thyroid cancer 03/02/2018 History of cervical cancer 03/02/2018 Acquired hypothyroidism 06/04/2017 Dyslipidemia 08/14/2007 Overview: Per Lipid Taxonomy. HTN, goal below 130/80 documented as of this encounter (statuses as of 06/23/2024) Resolved Problems Problem Noted Date Diagnosed Date [...] as of this encounter (statuses as of 06/23/2024) Immunizations Name Administration Dates Next Due COVID-19 mRNA, LNP-s, No Pre serve, 2-Dose Series ([employer]) 01/21/2021,12/31/2020 Pneumococcal Polysaccharide PPV23 (Pneumovax) 02/14/2017 Seasonal Influenza, PF, 6 M & above, IM , (FluLaval or Fluzone) 07/13/2020,08/13/2019,08/22/2017 Seasonal Influenza, Quadriva lent, No Preserve, IM 08/20/2018,08/16/2016,08/15/2015 Seasonal Influenza, Split, I IV3, With Preserve, Inj 08/04/2013,08/13/2012,07/30/2011,08/04,07/20/2009,08/17/2008,08/14/2007 ,08/08/2006 TD - Tetanus/Diptheria (ADULT) 07/05/2005 [...] encounter Miscellaneous Notes * Telephone Encounter - Ally Rivers OSA - 06/23/2024 2:30 PM EDT Pt scheduled 07/16 * Telephone Encounter - Katarzyna Fonseca OSA - 06/22/2024 4:24 PM EDT The pt contacted [facility] today to find out information in regards to her last visit w/ Dr. Garay. She and Dr. Garay discussed "scheduling patient for D and C exam under anesthesia and hysteroscopy". She stated that Dr. Garay's staff would contact her to schedule this procedure, but she has not heard from anyone. The pt states that she is ready for this procedure, and she would like details regarding schedulingdates/times available. Please contact the pt in regards to the above request. [phone] Phone # Thank you. documented in this encounter Plan of Treatment Upcoming Encounters Date Type Department Care Team (Latest Contact Info) Description 07/02/2024 2:15 PM EDT Office Visit Gynecology/Obstetri [facility] [address] [place] [address] Nando Garay MD [address] [place] [address] 07/16/2024 9:10 AM EDT Hospital Encounter OR [facility], Operating Room [facility] [address] [place] [phone] Nando Garay MD [address] [place] [address] 07/16/2024 9:10 AM EDT - 07/16/2024 10:08 AM EDT Surgery OR [facility], Operating Room [facility] [address] [place] [phone] Nando Garay MD [address] [place] [address] HYSTEROSCOPY WITH BIOPSY AND/OR POLYPECTOMY WITH OR WITHOUT D&C 07/29/2024 3:30 PM EDT Office Visit Urology, [facility] [address] [place] [address] Poncho Guerrero MD [address] [place] [address] 08/03/2024 9:30 AM EDT Office Visit Gynecology/Obstetri [facility] [address] [place] [address] Nando Garay MD [address] [place] [address] 10/07/2024 5:40 PM EST Office Visit Family Practice [facility] [address] [place] [address] Allyson Vickers DO [address] [place] [address] 12/18/2024 11:20 AM EST Office Visit Nephrology, [facility] [address] [place] [address] Delonte Kirby MD [address] [place] [address] 05/17/2025 1:30 PM EDT Imaging Radiology [address] [place] [address] Scheduled Procedures Name Priority Associated Diagnoses Date/Ti me HYSTEROSCOPY WITH BIOPSY AND/OR POLYPECTOMY WITH OR WITHOUT D&C Thickened endometrium History of breast cancer 07/16/2024 9:10 AM EDT PELVIC EXAMINATION UNDER ANESTHESIA Thickened endometrium History of breast cancer 07/16/2024 9:10 AM EDT COLONOSCOPY FLEXIBLE PROXIMAL DIAGNOSTIC Recall History of colonic polyps Health Maintenance Due Date Last Done Comments HPV/Co-Test 1991 Cologuard 2006 Fecal Occult Blood Test 2006 Sigmoidoscopy 2006 Depression Monitoring 04/17/2023 04/17/2022 COVID-19 Vaccine ( season) 2023 01/21/2021, 12/31/2020 Cervical Cancer Screening 04/12/2024 Pap Smear 04/12/2024 04/12/2021, 05/04, 03/04/2014 (Done elsewhere), Additional history exists Influenza Vaccine (FLU shot) (#1) 2024 07/13/2020, 08/13/2019, 08/20/2018, Additional history exists GFR 10/10/2024 04/10/2024, 06/0 11/2022, 07/03/2022, Additional history exists TSH 12/31/2024 12/31/2023, 06/05, 04/10/2022, Additional history exists Albumin/Creatinine Ratio 03/11/2025 024, 12/11/2016, 08/15/2015, Additional history exists CKD HGB USE SMARTSET 91276 04/10/202504/10, 04/10/2024, 04/04/2023, Additional history exists CKD PHOS USE SMARTSET 65354 04/10/2025 060 05/2024, 04/04/2023, 04/10/2022, Additional history exists Mammogram 05/11/2025 05/11/2024, 04/05, 04/27/2022, Additional history exists Lipid Panel 04/14/2026 04/14/2021, 07/05, 08/13/2019, Additional history exists Diabetes Screening 04/10/2027 04/10/2024, 0 04/04/2023, 07/03/2022, Additional history exists Colonoscopy 08/16/2028 08/16/2023, 08/04, 02/12/2018, Additional history exists Colorectal Cancer Screening 08/16/2028 DTaP,Tdap,and Td Vaccines (3 - Td or Tdap) 05/17/2031 [...] filedocumented as of this encounter Care Teams Central Supply Assistant Relationship Specialty Start Date End Date Allyson Vickers DO [address] [place] [address] PCP - General Family Medicine 04/02/19 documented as of this encounter
--- OUTSIDE RECORDS SUMMARY | 2024-09-15 08:54 | External Medical Summary | Summary of Care ---
Author Name Unknown Organization [facility] Address [address] [place] [address] Phone [phone] Care Team Providers Care Professor Of Poultry Science Name Role Phone Allyson Vickers DO Primary Care Provider [phone] Encounter Details Date Type Department Care Team (Late st Contact Info) Description 07/02/2024 2:15 PM EDT Office Visit Gynecology/Obstetrics [facility] [address] [place] [address] Nando Garay MD [address] [place] [address] Preop testing* Allergies Active Allergy Reactions Criticality Noted Date Comments Latex Hives,Rash Medium 05/20/2014 documented as of this encounter (statuses as of 07/02/2024) Medications Medication Sig Dispensed Refills Start Date [...] takes biotin 3000mcg once daily . Active Amoxicillin-Pot Clavulanate 500-125 MG Oral Tablet (Augmentin) Take 1 Tablet by mouth in the morning and 1 Tablet before bedtime. 20 Tablet 04/13/2024 Active Additional Information Patient not taking.Reported on 06/05/2024 Losartan Potassium 50 MG Oral Tablet (Cozaar)Indications:H [...] ON SUNDAYS 96 Tablet 1 06/24/2024 Active documented as of this encounter (statuses as of 07/02/2024) Active Problems Problem Noted Date Diagnosed Date Depression with anxiety 12/21/2022 Chronic kidney disease, stage 3a 03/14/2021 Overview: Per CKD protocol History of thyroid cancer 03/02/2018 History of cervical cancer 03/02/2018 Acquired hypothyroidism 06/04/2017 Dyslipidemia 08/14/2007 Overview: Per Lipid Taxonomy. HTN, goal below 130/80 documented as of this encounter (statuses as of 07/02/2024) Resolved Problems Problem Noted Date Diagnosed Date [...] as of this encounter (statuses as of 07/02/2024) Immunizations Name Administration Dates Next Due COVID-19 mRNA, LNP-s, No Pre serve, 2-Dose Series (Great Dream) 01/21/2021,12/31/2020 Pneumococcal Polysaccharide PPV23 (Pneumovax) 02/14/2017 Seasonal [...] as of this encounter Progress Notes * Nando Garay MD - 07/02/2024 2:27 PM EDT Pt here for preop History and physical examination done Consnet obtained documented in this encounter H&P Notes * Nando Garay MD - 07/02/2024 2:21 PM EDT [facility] [address] [place] [address] Appt line [phone] Context: (HPI) 63 year old seen by [...] Del Comments GA Length Weight Type Site Seismograph Helper History: Menstrual Index: // days. Denies h/o STDs and abnormal Paps. Her past medical/surgical histories and current medications are recorded in the electronic record. Past Surgical History: Procedure Laterality Date ARTHROCENT ASP &/OR INJ MAJOR JX/BURSA W/O US Left 05/20/2014 ARTHROCENTESIS OR INJECTION MAJOR JOINT performed by Zach Valdovinos DO at OR [facility] COLONOSCOPY, DIAGNOSTIC (RECTUM) 02/18/2013 COLONOSCOPY FLEXIBLE PROXIMAL DIAGNOSTIC performed by Kristina Bynum DO at ENDOSCOPY [facility] COLONOSCOPY, DIAGNOSTIC (RECTUM) 02/12/2018 normal, repeat 5 yrs/COLONOSCOPY FLEXIBLE PROXIMAL DIAGNOSTIC performed by India Marcial MD at ENDOSCOPY [facility] COLONOSCOPY, DIAGNOSTIC (RECTUM) N/A 08/16/2023 diverticulosis/biopsies show adenomatous polyps/recall 5 years/Colonoscopy COLONOSCOPY, DIAGNOSTIC (RECTUM) 08/16/2023 COLONOSCOPY FLEXIBLE PROXIMAL DIAGNOSTIC performed by India Marcial MD at ENDOSCOPY [facility] INFORMATION wisdom teeth extraction INJECT DX/THER SUBSTANCE INTERLAMINAR LUMBAR/SACRAL W IMAGE GUIDE 09/28/2019 INJECTION SPINE LUMBAR OR SACRAL performed by Juan Su DO at OR [facility] MASTECTOMY, PARTIAL Left 11/04/2012 RADIATION THERAPY SACROILIAC JOINT INJECT W/GUIDANCE Left 05/20/2014 INJECTION SACROILIAC JOINT performed by Zach Valdovinos DO at OR [facility] SENTINEL LYMPH NODE BIOPSY PERFORMED 06/08/2013 Left Lumpectomy,left sentinel lymph node biopsy,injection of lymphazurin blue dye for sentinel nodeidentification Dr Lake [facility] 06/08/13 STRESS ECHO (EXERCISE) 10/2011 negative for [...] under anesthesia 2.Dilation and curettage 3.Hysterosocpy Nando Garay MD 07/02/2024 2:22 PM documented in this encounter Nursing Notes * Lucía Martínez LPN - 07/02/2024 1:42 PM EDT Pt is here for pre-op for EUA D&C hysteroscopy had thickend endometrium on US with hx of BreastCA documented in this encounter Plan of Treatment Upcoming Encounters Date Type Department Care Team (Latest Contact Info) Description 07/16/2024 8:55 AM EDT Hospital Encounter OR [facility], Operating Room [facility] [address] [place] [phone] Nando Garay MD [address] [place] [address] 07/16/2024 8:55 AM EDT - 07/16/2024 9:53 AM EDT Surgery [facility], Operating Room [facility] [address] [place] [phone] Nando Garay MD [address] [place] [address] HYSTEROSCOPY WITH BIOPSY AND/OR POLYPECTOMY WITH OR WITHOUT D&C 07/29/2024 3:30 PM EDT Office Visit Urology, [facility] [address] [place] [address] Poncho Guerrero MD [address] [place] [address] 08/03/2024 9:30 AM EDT Office Visit Gynecology/Obstetri [facility] [address] [place] [address] Nando Garay MD [address] [place] [address] 10/07/2024 5:40 PM EST Office Visit Family Practice [facility] [address] [place] [address] Allyson Vickers DO [address] [place] [address] 12/18/2024 11:20 AM EST Office Visit Nephrology, [facility] [address] [place] [address] Delonte Kirby MD [address] [place] [address] 05/17/2025 1:30 PM EDT Imaging Radiology [address] [place] [address] Scheduled Procedures Name Priority Associated Diagnoses Date/Ti me HYSTEROSCOPY WITH BIOPSY AND/OR POLYPECTOMY WITH OR WITHOUT D&C Thickened endometrium History of breast cancer 07/16/2024 8:55 AM EDT PELVIC EXAMINATION UNDER ANESTHESIA Thickened endometrium History of breast cancer 07/16/2024 8:55 AM EDT COLONOSCOPY FLEXIBLE PROXIMAL DIAGNOSTIC Recall [...] Additional history exists CKD HGB USE SMARTSET 39836 04/10/202504/10, 04/10/2024, 04/04/2023, Additional history exists CKD PHOS USE SMARTSET 62283 04/10/202505/2024, 04/04/2023, 04/10/2022, Additional history exists Mammogram [...] as of this encounter Visit Diagnoses Diagnosis Preop testing- Primary Preoperative examination, unspecified Thickened endometrium Nonspecific (abnormal) findings on radiological and other examination of genitourinary organs History of breast cancer Personal history of malignant neoplasm of breast Screening mammogram for breast cancer documented in this encounter Care Teams Professor Of Poultry Science Relationship Specialty Start Date End Date Allyson Vickers DO [address] [facility] [place] [address] PCP - General Family Medicine 04/02/19 documented as of this encounter
--- OUTSIDE RECORDS SUMMARY | 2024-09-15 08:54 | External Medical Summary | Summary of Care ---
Author Name Unknown Organization [facility] Address [address] [facility] [address] Phone [phone] Care Team Providers Care Corporate Event Planner Name Role Phone Allyson Vickers DO Primary Care Provider [phone] Reason for Visit * Reason Comments Consultation * Evaluate & Treat - Unlimited Visits (Within 30 days (routine)) - Authorized Specialty Diagnoses / Procedures Referred By Contmikayla t Referred To Contact Obstetrics/Gynecology / Gynecology Obstetrics Diagnoses Post-menopausal bleeding Thickened endometrium Allyson Vickers DO [address] [place] [address] Referral ID Status Reason Start Date Expiration Date Visits Requested Visits Authorized [id number] Authorized Specialty Services Required 04/10/[phone] Encounter Details Date Type Department Care Team (Late st Contact Info) Description 06/16/2024 10:00 AM EDT Office Visit Gynecology/Obstetric s [facility] [address] [place] [address] Nando Garay MD [address] [place] [address] PMB (postmenopausal bleeding)*; Hematuria, unspecified type Allergies Active Allergy Reactions Criticality Noted Date Comments Latex Hives,Rash Medium 05/20/2014 documented as of this encounter (statuses as of 06/16/2024) Medications Medication Sig Dispensed Refills Start Date [...] as of this encounter (statuses as of 06/16/2024) Active Problems Problem Noted Date Diagnosed Date Depression with anxiety 12/21/2022 Chronic kidney disease, stage 3a 03/14/2021 Overview: Per CKD protocol History of thyroid cancer 03/02/2018 History of cervical cancer 03/02/2018 Acquired hypothyroidism 06/04/2017 Dyslipidemia 08/14/2007 Overview: Per Lipid Taxonomy. HTN, goal below 130/80 documented as of this encounter (statuses as of 06/16/2024) Resolved Problems Problem Noted Date Diagnosed Date [...] as of this encounter (statuses as of 06/16/2024) Immunizations Name Administration Dates Next Due COVID-19 [...] Sign Reading Time Taken Comments Blood Pressure 124/84 06/16/2024 9:46 AM EDT Pulse - - Temperature - - Respiratory Rate - - Oxygen Saturation - - Inhaled Oxygen Concentration - - Weight 81.2 kg (179 lb) 06/16/2024 9:46 AM EDT Height 165.1 cm (5' 5") 06/16/2024 9:46 AM EDT Body Mass Index 29.79 06/16/2024 9:46 AM EDT documented in this encounter Progress Notes * Nando Garay MD - 06/16/2024 10:17 AM EDT Patient Name: Marium Tobar Patient Context: (HPI) 63 year old seen by [...] was unsuccessful by the PA. Patient is here to discuss next step in treatment. 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 Carcinoma of breast (HCC) 06/08/[address] [place] CKD (chronic kidney disease) stage 3, GFR 30-59 ml/min ([facility]) Depression with anxiety 12/21/2022 DVT of lower limb, acute (HCC) 06/17/13 right posterior tibial vein HTN, goal below 130/80 Hyperlipidemia LDL goal < 100 Hyperthyroidism treated with radioactive iodine Past Surgical Hx: Past Surgical History: Procedure Laterality Date ARTHROCENT ASP &/OR INJ MAJOR JX/BURSA W/O US Left 05/20/2014 ARTHROCENTESIS OR INJECTION MAJOR JOINT performed by Zach Valdovinos DO at OR [facility] COLONOSCOPY, DIAGNOSTIC (RECTUM) 02/18/2013 COLONOSCOPY FLEXIBLE PROXIMAL DIAGNOSTIC performed by Kristina Bynum DO at ENDOSCOPY [facility] COLONOSCOPY, DIAGNOSTIC (RECTUM) 02/12/2018 normal, repeat 5 yrs/COLONOSCOPY FLEXIBLE PROXIMAL DIAGNOSTIC performed by India Marcial MD at ENDOSCOPY [facility] COLONOSCOPY, DIAGNOSTIC (RECTUM) N/A 08/16/2023 diverticulosis/biopsies show adenomatous polyps/recall 5 years/Colonoscopy COLONOSCOPY, DIAGNOSTIC (RECTUM) 08/16/2023 COLONOSCOPY FLEXIBLE PROXIMAL DIAGNOSTIC performed by India Marcial MD at ENDOSCOPY [facility] INFORMATION wisdom teeth extraction INJECT DX/THER SUBSTANCE INTERLAMINAR LUMBAR/SACRAL W IMAGE GUIDE 09/28/2019 INJECTION SPINE LUMBAR OR SACRAL performed by Juan Su DO at OR [facility] MASTECTOMY, PARTIAL Left 11/04/2012 RADIATION THERAPY SACROILIAC JOINT INJECT W/GUIDANCE Left 05/20/2014 INJECTION SACROILIAC JOINT performed by Zach Valdovinos DO at OR [facility] SENTINEL LYMPH NODE BIOPSY PERFORMED 06/08/2013 Left Lumpectomy,left sentinel lymph node biopsy,injection of lymphazurin blue dye for sentinel nodeidentification Dr Lake [facility] 06/08/13 STRESS ECHO (EXERCISE) 10/2011 negative for inducible ischemia, LVEF 60% VASC DUPLEX VENOUS LE BILAT 06/17/2013 acute thrombus right posterior tibial vein Social Hx: Social History Socioeconomic History Marital status: Tobacco Use Smoking status: Never Smokeless tobacco: Never Vaping Use Vaping status: Never Used Substance and Sexual Activity Alcohol use: Yes Comment: once or twice a year Drug use: No Social Determinants of Health Food Insecurity: No Food Insecurity (07/13/2020) Hunger Vital Sign Worried About Running Out of Food in the Last Year: Never true Ran Out of Food in the Last Year: Never true Social Connections Allergy: Review of patient's allergies indicates: Allergen Reactions Latex Hives and Rash Family HX: Family History Problem Relation Name Age of Onset Diabetes Mother Hypertension Mother Coronary Artery disease Mother 58 Coronary Artery disease Father 62 Hyperlipidemia Father Alzheimer's disease Father Dementia Father Breast Cancer No significant family history ROS: REVIEW OF SYSTEMS CONSTITUTIONAL ROS: No change in weight, No weakness, No fatigue and No fevers, sweats, or chills PULMONARY ROS: No cough, sputum, or hemoptysis, No wheezing, No shortness or breath and No recent change in breathing CARDIOVASCULAR ROS: No chest pain, No shortness of breath, No dyspnea on exertion, No orthopnea, Noparoxysmal nocturnal dyspnea, No edema, No palpitations and No syncope BREAST ROS: No new breast lumps or masses, No severe breast pain, No nipple discharge, No recent change in shape/color and Performs self breast exam ENDOCRINE ROS; No change in wt gain, hair loss or bowel habits, malaise or fatigue. No polyuria, polyphagia polydipsia GASTROINTESTINAL ROS: No abdominal pain, No change in bowel habits, No significant heartburn, No significant change in appetite, No nausea, vomiting, diarrhea, or constipation, No hematemesis, No blood in stools or black tarry stools, No abdominal bloating or early satiety and No dysphagia GENITO-URINARY FEMALE ROS: No STDs, No dysuria, No frequency, No incontinence, No urgency and No vaginal discharge and + for irreg menses. ALL OTHERS REVIEWED AND ALL OTHERS NEGATIVE LABS: Pelvic Sonogram; Done04/09/24 at [facility] Reviewed with pt and spouse PHYSICAL EXAMINATION Well developed. Well nourishes white female in no acute distress Vital signs BP 124/84 | Ht 1.651 m (5' 5") | Wt 81.2 kg (179 lb) | LMP 02/18/2013 | BMI 29.79 kg/m | BSA 1.93m A/P 1. Vaginal bleeding versus gross hematuria. Ultrasound reviewed with the patient. Patient will follow up with Urology on July 29 Discussed findings in the bladder seen on ultrasound. 2.Thickened endometrium seen on ultrasound attempt to do office endometrial biopsy x3 was unsuccessful by PA patient is office. I therefore offered pt. D and C hysteroscopy. Patient has agreed paperwork is sent to schedule patient for D and C exam under anesthesia and hysteroscopy. I spent a total of 30-39 minutes (exact time 31 mins) on the date of service in preparation, delivery, and documentation of the care provided to Marium Tobar excluding any time spent in the performance of separately billed services or time spent by another provider/QHP. documented in this encounter Nursing Notes * Greta Anne LPN - 06/16/2024 9:53 AM EDT Bright red, mucusy like discharge with wiping. Cramping and bloating. Has been ongoing since about February 2024. documented in this encounter Plan of Treatment Upcoming Encounters Date Type Department Care Team (Late st Contact Info) Description 07/29/2024 3:30 PM EDT Office Visit Urology, [facility] [address] [facility] [place] [address] Poncho Guerrero MD [address] [place] [address] 10/07/2024 5:40 PM EST Office Visit Family Practice [facility] [address] [facility] [place] [address] Allyson Vickers DO [address] [place] [address] 12/18/2024 11:20 AM EST Office Visit Nephrology, [facility] [address] [facility] [place] [address] Delonte Kirby MD [address] [place] [address] 05/17/2025 1:30 PM EDT Imaging Radiology [address] [place] [address] Scheduled Procedures Name Priority Associated Diagnoses Date/Ti me COLONOSCOPY FLEXIBLE PROXIMA L DIAGNOSTIC Recall History of colonic polyps Scheduled Referrals Name Type Priority Associated Diagnoses Orde r Schedule SHOW CARD WRITER REFERRAL OP Referral Within 30 days (routine) Post-menopausal bleeding Thickened endometrium Ordered: 04/10/2024 Health Maintenance Due Date Last Done Comments [...] Additional history exists CKD HGB USE SMARTSET 30993 04/10/202504/10, 04/10/2024, 04/04/2023, Additional history exists CKD PHOS USE SMARTSET 06864 04/10/2025 060 05/2024, 04/04/2023, 04/10/2022, Additional history [...] as of this encounter Visit Diagnoses Diagnosis PMB (postmenopausal bleeding)- Primary Postmenopausal bleeding Hematuria, unspecified type Screening mammogram for breast cancer documented in this encounter Care Teams Corporate Event Planner Relationship Specialty Start Date End Date Allyson Vickers DO [address] [facility] [place] [address] PCP - General Family Medicine 04/02/19 documented as of this encounter
--- OUTSIDE RECORDS SUMMARY | 2024-09-15 08:54 | External Medical Summary | Summary of Care ---
Author Name Unknown Organization [facility] Address [address] [facility] [address] Phone [phone] Care Team Providers Care Head Batcher Name Role Phone Allyson Vickers DO Primary Care Provider [phone] Encounter Details Date Type Department Care Team (Late st Contact Info) Description 06/24/2024 Telephone Family Practice [facility] [address] [place] [address] Allyson Vickers DO [address] [place] [address] Allergies Active Allergy Reactions Criticality Noted Date Comments Latex Hives,Rash Medium 05/20/2014 documented as of this encounter (statuses as of 06/24/2024) Medications Medication Sig Dispensed Refills Start Date [...] 06/05/2024 Losartan Potassium 50 MG Oral Tablet (Cozaar)Indications [...] ON SUNDAYS 96 Tablet 1 06/24/2024 Active Sertraline HCl 50 MG Oral Tablet (Zoloft)Indications :Recurrent major depressive disorder, in remission (HCC) Take 1 Tablet by mouth in the morning. 90 Tablet 3 06/18/2023 4 Discontinue d(Refill) Losartan Potassium 50 MG Oral Tablet (Cozaar)Indications :HTN, goal below 140/90 Take 1 Tablet by mouth in the morning. 90 Tablet 3 06/18/2023 4 Discontinue d(Refill) Synthroid 200 MCG Oral TabletIndications:A cquired hypothyroidism TAKE 1 TABLET BY MOUTH DAILY IN THE MORNING AT LEAST 30 MINS PRIOR TO BREAKFAST OR OTHER MEDS. TAKE 2 TABLETS ON SUNDAYS 96 Tablet 1 06/12/2024 4 Discontinue d(Refill) documented as of this encounter (statuses as of 06/24/2024) Active Problems Problem Noted Date Diagnosed Date Depression with anxiety 12/21/2022 Chronic kidney disease, stage 3a 03/14/2021 Overview: Per CKD protocol History of thyroid cancer 03/02/2018 History of cervical cancer 03/02/2018 Acquired hypothyroidism 06/04/2017 Dyslipidemia 08/14/2007 Overview: Per Lipid Taxonomy. HTN, goal below 130/80 documented as of this encounter (statuses as of 06/24/2024) Resolved Problems Problem Noted Date Diagnosed Date [...] as of this encounter (statuses as of 06/24/2024) Immunizations Name Administration Dates Next Due COVID-19 [...] 07/02/2024 2:15 PM EDT Office Visit Gynecology/Obstetri [facility] [address] [place] [address] Nando Garay MD [address] [place] [address] 07/16/2024 9:10 AM EDT Hospital Encounter [facility], Operating Room [facility] [address] [place] [phone] Nando Garay MD [address] [place] [address] 07/16/2024 9:10 AM EDT - 07/16/2024 10:08 AM EDT Surgery OR [facility], Operating Room [facility] [address] [place] [phone] Nando Garay MD [address] [place] [address] HYSTEROSCOPY WITH BIOPSY AND/OR POLYPECTOMY WITH OR WITHOUT D&C 07/29/2024 3:30 PM EDT Office Visit Urology, [facility] [address] [place] [address] Poncho Guerrero MD [address] [place] [address] 08/03/2024 9:30 AM EDT Office Visit Gynecology/Obstetri [facility] [address] [place] [address] Nando Garay MD [address] [place] [address] 10/07/2024 5:40 PM EST Office Visit Family Practice [facility] [address] [place] [address] Allyson Vickers, DO [address] [place] [address] 12/18/2024 11:20 AM EST Office Visit Nephrology, [facility] [address] [place] [address] Delonte Kirby MD [address] [place] [address] 05/17/2025 1:30 PM EDT Imaging Radiology [address] [place] [address] Scheduled Procedures Name Priority Associated Diagnoses Date/Ti [...] Additional history exists CKD HGB USE SMARTSET 80778 04/10/202504/10, 04/10/2024, 04/04/2023, Additional history exists CKD PHOS USE SMARTSET 60927 04/10/2025 06/0 05/2024, 04/04/2023, 04/10/2022, Additional history [...] as of this encounter Visit Diagnoses Diagnosis HTN, goal below 140/90 Unspecified essential hypertension Recurrent major depressive disorder, in remission (HCC) Acquired hypothyroidism Unspecified hypothyroidism Thickened endometrium Nonspecific (abnormal) findings on radiological and other examination of genitourinary organs History of breast cancer Personal history of malignant neoplasm of breast Screening mammogram for breast cancer documented in this encounter Care Teams Head Batcher Relationship Specialty Start Date End Date Allyson Vickers DO [address] [place] [address] PCP - General Family Medicine 04/02/19 documented as of this encounter
--- OUTSIDE RECORDS SUMMARY | 2024-09-15 08:55 | External Medical Summary | Summary of Care ---
Author Name Unknown Organization [facility] [address] [facility] [address] Phone [phone] Care Team Providers Care Exercise Scientist Name Role Phone Allyson Vickers DO Primary Care Provider [phone] Reason for Visit * Reason Comments Consultation * Evaluate & Treat - Unlimited Visits (Within 10 days (routine)) - Authorized Specialty Diagnoses / Procedures Referred By Contac t Referred To Contact HEATER MECHANIC - Urogynecology / Gynecology Urology Diagnoses Dysuria Recurrent UTI Delonte Kirby MD [address] [facility] [address] Referral ID Status Reason Start Date Expiration Date Visits Requested Visits Authorized [id number] Authorized Specialty Services Required 04/08/[phone] Encounter Details Date Type Department Care Team (Late st Contact Info) Description 06/05/2024 8:45 AM EDT Office Visit Urogynecologlola Saenz [address] [place] [address] Stefania Polanco PA-C [address] [place] [address] Nurse Alonzo Saenz [address] [place] [address] Thickened endometrium*; Hematuria, unspecified type; History of recurrent UTIs; Other microscopic hematuria; PMB (postmenopausal bleeding) Allergies Active Allergy Reactions Criticality Noted Date Comments Latex Hives,Rash Medium 05/20/2014 documented as of this encounter (statuses as of 06/08/2024) Medications Medication Sig Dispensed Refills Start Date [...] As needed Active multivitamin w/ minerals (CENTRUM, CERTA-BERANN,) liquid Take 5 mL by mouth in [...] the morning. 90 Tablet 3 06/18/2023 Active Synthroid 200 MCG Oral TabletIndications:Acq uired hypothyroidism TAKE 1 TABLET BY MOUTH DAILY IN THE MORNING AT LEAST 30 MINS PRIOR TO BREAKFAST OR OTHER MEDS. TAKE 2 TABLETS ON SUNDAYS 96 Tablet 1 12/06/2023 Active Amoxicillin-Pot Clavulanate 500-125 MG Oral Tablet (Augmentin) Take 1 Tablet by mouth in the morning and 1 Tablet before bedtime. 20 Tablet 04/13/2024 Active Additional Information Patient not taking.Reported on 06/05/2024 documented as of this encounter (statuses as of 06/08/2024) Active Problems Problem Noted Date Diagnosed Date Depression with anxiety 12/21/2022 Chronic kidney disease, stage 3a 03/14/2021 Overview: Per CKD protocol History of thyroid cancer 03/02/2018 History of cervical cancer 03/02/2018 Acquired hypothyroidism 06/04/2017 Dyslipidemia 08/14/2007 Overview: Per Lipid Taxonomy. HTN, goal below 130/80 documented as of this encounter (statuses as of 06/08/2024) Resolved Problems Problem Noted Date Diagnosed Date [...] as of this encounter (statuses as of 06/08/2024) Immunizations Name Administration Dates Next Due COVID-19 [...] Date Smoking Tobacco: Never Smokeless Tobacco: Never Tobacco Cessation:Counseling Given: Not Answered Alcohol Use Standard Drinks/Week Comments Yes 0 [...] Sign Reading Time Taken Comments Blood Pressure 132/80 06/05/2024 8:20 AM EDT Pulse - - Temperature - - Respiratory Rate - - Oxygen Saturation - - Inhaled Oxygen Concentration - - Weight 80.7 kg (178 lb) 06/05/2024 8:20 AM EDT Height 165.1 cm (5' 5") 06/05/2024 8:20 AM EDT Body Mass Index 29.62 06/05/2024 8:20 AM EDT documented in this encounter Progress Notes * Stefania Polanco PA-C - 06/05/2024 8:18 AM EDT HPI: Marium Tobar is a 63 year old P1 female presenting for evaluation for recurrent UTI, dysuria, gross hematuria vs. bloody vaginal discharge. Marium complains of bright red discharge that she sees with wiping after using the bathroom which started about 3 months ago. She states sometimes the discharge is mucous like. Never sees blood in the toilet, only when she wipes. Never smoker. She reports feeling a heaviness in lower abdomen. She has had on and off dysuria. Denies dysuria currently. She has had 3 UTIs in the last 6 months. Normalurinary frequency, denies urgency. Occasional CASIE but not concerning to patient at this time. Hx of breast cancer s/p lumpectomy 2012. Hx of cervical cancer, s/p radiation and cryo 1989, paps since normal. Patient was referred by Delonte Kirby MD. Urinary: She leaks with coughing, sneezing, laughing, and getting up. Overall, she leaks mildly a few times a week. She uses one to two thin pads daily for protection. She denies a sense of incomplete bladder emptying. Prior/current treatment include: kegel exercises, pelvic floor PT UTI: She states she has had three urinary tract infections in the past 5 months. Documented by positive urine cultures. Triggers: patient not aware of any triggers. Prior/ current treatment include: Augmentin Voiding detail: Daytime frequency: every 4-6 hours Urgency: no Nocturia: 0-1x nightly Hesitancy: no Straining: no Hematuria: no Postvoid dribbling: no Postvoid urgency: no Manual reduction: no Drinks: ice tea, water Prolapse: She denies a palpable bulge. GI: Bowel habits: normal bowel movement 2x daily She denies fecal incontinence. Prior/ current treatments include: none Weight of largest baby: 7 lbs Vaginal deliveries: 1 C/S: 0 Renal/Pelvic US 04/09/2024 IMPRESSION: RENAL ULTRASOUND: 1. A complex appearing [...] ovaries due to overlying bowel gas. CT Abd/Pelvis 04/14/2024 IMPRESSION Bladder completely collapsed limiting evaluation. Past Medical History: Diagnosis Date BMI 31.0-31.9,adult [...] 100 Hyperthyroidism treated with radioactive iodine Patient sees Allyson Vickers DO as her primary care provider. Past Surgical History: Procedure Laterality Date ARTHROCENT ASP &/OR INJ MAJOR JX/BURSA W/O US Left 05/20/2014 ARTHROCENTESIS OR INJECTION MAJOR JOINT performed by Zach Valdovinos DO at OR [facility] COLONOSCOPY, DIAGNOSTIC (RECTUM) 02/18/2013 COLONOSCOPY FLEXIBLE PROXIMAL DIAGNOSTIC performed by Kristina Bynum DO at ENDOSCOPY [facility] COLONOSCOPY, DIAGNOSTIC (RECTUM) 02/12/2018 normal, repeat 5 yrs/COLONOSCOPY FLEXIBLE PROXIMAL DIAGNOSTIC performed by India Marcial MD at ENDOSCOPY [facility] COLONOSCOPY, DIAGNOSTIC (RECTUM) N/A 08/16/2023 diverticulosis/biopsies show adenomatous polyps/recall 5 years/Colonoscopy COLONOSCOPY, DIAGNOSTIC (RECTUM) 08/16/2023 COLONOSCOPY FLEXIBLE PROXIMAL DIAGNOSTIC performed by India Marcial MD at ENDOSCOPY [facility] INFORMATION wisdom teeth extraction INJECT DX/THER SUBSTANCE INTERLAMINAR LUMBAR/SACRAL W IMAGE GUIDE 09/28/2019 INJECTION SPINE LUMBAR OR SACRAL performed by Juan Su DO at [facility] MASTECTOMY, PARTIAL Left 11/04/2012 RADIATION THERAPY SACROILIAC JOINT INJECT W/GUIDANCE Left 05/20/2014 INJECTION SACROILIAC JOINT performed by Zach Valdovinos DO at [facility] SENTINEL LYMPH NODE BIOPSY PERFORMED 06/08/2013 Left Lumpectomy,left sentinel lymph node biopsy,injection of lymphazurin blue dye for sentinel nodeidentification Dr [place] [facility] 06/08/13 STRESS ECHO (EXERCISE) 10/2011 negative for inducible ischemia, LVEF 60% VASC DUPLEX VENOUS LE BILAT 06/17/2013 acute thrombus right posterior tibial vein Review of patient's allergies indicates: Allergen Reactions Latex Hives and Rash Current Outpatient Medications Medication Sig Dispense Refill [...] or Wheezing. (Patient not taking: Reported on 01/14/2024) 18 g 2 Turmeric 500 MG Oral [...] Pt takes biotin 3000mcg once daily . Sertraline HCl 50 MG Oral Tablet (Zoloft) Take 1 Tablet by mouth in the morning. 90 Tablet 3 Losartan Potassium 50 MG Oral Tablet (Cozaar) Take 1 Tablet by mouth in the morning. 90 Tablet 3 Synthroid 200 MCG Oral Tablet TAKE 1 TABLET BY MOUTH DAILY IN THE MORNING AT LEAST 30 MINS PRIOR TOBREAKFAST OR OTHER MEDS. TAKE 2 TABLETS ON SUNDAYS 96 Tablet 1 Amoxicillin-Pot Clavulanate 500-125 MG Oral Tablet (Augmentin) Take 1 Tablet by mouth in the morning and 1 Tablet before bedtime. 20 Tablet 0 No current facility-administered medications for this visit. Family History Problem Relation Name Age of Onset Diabetes Mother Hypertension Mother Coronary Artery disease Mother 58 Coronary Artery disease Father 62 Hyperlipidemia Father Alzheimer's disease Father Dementia Father Breast Cancer No significant family history ROS: ROS was performed. Pertinent positives and negatives are documented in the HPI. All others were negative or non contributory. Constitutional: no weight loss, weakness or fatigue Head: no headache Eyes: no worsening of vision Resp: no recent change in breathing Cardiac: no chest pain, palpitations, dyspnea on exertion Breast: no breast lumps, masses, nipple discharge GI: no heartburn, diarrhea, constipation, nausea, vomiting, appetite OK Musculoskeletal: no significant joint/muscle pain or swelling Female : as per HPI Neuro: no weakness, numbness or tingling Psych: denies feeling down, depressed or hopeless in past month, denies being bothered by little interest or pleasure in doing things in past month and no insomnia Heme: no fever, no chills, no sweats and no bleeding/bruising Endo: no unplanned weight change, diaphoresis or hot/cold intolerance Skin: no rash, no itching and no new/changing skin lesion Supervisor Sawing And Assembly requested by provider. Supervisor Sawing And Assembly: Lara Plata MA [facility] 02/18/2013 GENERAL: alert, healthy, no distress, well nourished and well developed SKIN: Skin color normal. No rashes or significant lesions HEART: No cyanosis. No peripheral edema. LUNG: No increased respiratory effort. No audible wheezing. ABDOMEN: abdomen soft, non-tender, no abnormal masses no guarding no rebound PELVIC: Normal external female genitalia, no vulvar lesions. Clitoris, labia, minor vestibular glands and urethral meatus appear normal. Urethra and bladder palpated non-tender with no masses and no expressible exudate. Vagina atrophic without lesions. BIMANUAL EXAM: no cervical motion tenderness, the uterus is smooth, mobile, non tender and of normal size. No adnexal masses or tenderness elicited. No vaginal bleeding or abnormal discharge seen. PVR: 30 ml via straight cath EMB A ''time out'' was initiated by Stefania Polanco PA-C prior to procedure.The patient was identified by name and date of . Consents were signed. The correct procedure, and correct site identified. Correct positioning (as applicable). There is availability of necessary equipment. Patient states she not allergic to latex or iodine. Cervix visualized and prepped with Betadine. Pipelle unable to be passed through the cervical canal. Patient tolerated procedure well. No bleeding noted at end of procedure. Impression: R93.89 Thickened endometrium (primary encounter diagnosis) R31.9 Hematuria, unspecified type Z87.440 History of recurrent UTIs R31.29 Other microscopic hematuria N95.0 PMB (postmenopausal bleeding) Plan: Straight cath urine specimen collected for microscopic exam. Given thickened endometrium on pelvic US, and bleeding with unknown origin, EMB recommended. EMB was attempted but unable to pass pipelle through the cervical canal. Patient has appointment with [facility], Dr. Garay, next week. Given renal US findings, patient needs appointment with urology, she has referral in place from PCP. Would consider vaginal estrogen cream for atrophy/UTI prevention. Patient more suited to follow up with [facility] and urology. Patient encouraged to RTC for any urogynecologic concerns. Will call patient with urine testing results. I spent a total of 40-54 minutes (exact time 40 mins) on the date of service in preparation, delivery, and documentation of the care provided to Marium Tobar excluding any time spent in the performance of separately billed services. Stefania Polanco PA-C 06/05/2024 8:18 AM Stefania Polanco PA-C Urogynecology [address] [place] [address] \\ documented in this encounter Nursing Notes * Gwendolyn Plata TECH - 06/05/2024 8:23 AM EDT Patient here for consultation Medications, allergies, and medical and surgical histories have been reviewed and updated. The last PAP smear was done She does do a monthly SBE. The last mammogram was done . The patient is referred by Dr. Herrera for Dysuria. She has been experiencing this problem since 2 month and it has remained the same. She requires a pad to prevent soiling and uses a mini pad and changes it 1 - 2 times daily documented in this encounter Plan of Treatment Upcoming Encounters Date Type Department Care Team (Late st Contact Info) Description 06/16/2024 10:00 AM EDT Office Visit Gynecology/Obstetrics [facility] [address] [place] [address] Nando Garay MD [address] [place] [address] 07/29/2024 3:30 PM EDT Office Visit Urology, [facility] [address] [place] [address] Poncho Guerrero MD [address] [place] [address] 10/07/2024 5:40 PM EST Office Visit Family Practice [facility] [address] [place] [address] Allyson Vickers DO [address] [place] [address] 12/18/2024 11:20 AM EST Office Visit Nephrology, [facility] [address] [place] [address] Delonte Kirby MD [address] [place] [address] 05/17/2025 1:30 PM EDT Imaging Radiology [address] [place] [address] Scheduled Procedures Name Priority Associated Diagnoses Date/Ti [...] Additional history exists CKD HGB USE SMARTSET 43245 04/10/202504/10, 04/10/2024, 04/04/2023, Additional history exists CKD PHOS USE SMARTSET 16631 04/10/2025 06/0 05/2024, 04/04/2023, 04/10/2022, Additional history [...] Procedure Name Priority Date/Time Associated Diagnosis Comments URINALYSIS WITH MICROSCOPIC EXAM Routine 06/05/2024 9:19 AM EDT Other microscopic hematuria documented in this encounter Results * (ABNORMAL) URINALYSIS WITH MICROSCOPIC EXAM (06/05/2024 9:19 AM EDT) Color, Urine Yellow Light Yellow, Yellow, Dark Yellow 06/05/2024 3:05 PM EDT [facility] Clarity, Urine Clear Clear 06/05/2024 3:05 PM EDT [facility] Glucose, Urine Negative Negative mg/dL 06/05/2024 3:05 PM EDT [facility] Bilirubin, Urine Negative Negative 06/05/2024 3:05 PM EDT [facility] Ketone, Urine Negative Negative mg/dL 06/05/2024 3:05 PM EDT [facility] Specific [place], Urine 1.025 1.003 - 1.030 06/05/2024 3:05 PM EDT [facility] Blood, Urine Small(A) Negative 06/05/2024 3:05 PM EDT [facility] pH, Urine 5.5 5.0 - 7.5 Units 06/05/2024 3:05 PM EDT [facility] Protein, Urine Negative Negative mg/dL 06/05/2024 3:05 PM EDT [facility] Urobilinogen, Urine 0.2 0.2, 1.0 mg/dL 06/05/2024 3:05 PM EDT [facility] Nitrite, Urine Negative Negative 06/05/2024 3:05 PM EDT [facility] Esterase, Urine Negative Negative 06/05/2024 3:05 PM EDT [facility] RBC, Urine 6-9(A) 0 - 2 /HPF 06/05/2024 3:05 PM EDT [facility] WBC, Urine 3-5(A) 0 - 2 /HPF 06/05/2024 3:05 PM EDT [facility] Bacteria, Urine 0-25 0 - 25 /HPF 06/05/2024 3:05 PM EDT [facility] Urine Non-blood Collection / Unknown 06/05/2024 9:19 AM EDT 06/05/2024 2:16 PM EDT Stefania Polanco PA-C LAB URINE ORDERABLES [facility] [address] [facility] [place] [address] documented in this encounter Visit Diagnoses Diagnosis Thickened endometrium- Primary Nonspecific (abnormal) findings on radiological and other examination of genitourinary organs Hematuria, unspecified type History of recurrent UTIs Personal history of urinary (tract) infection Other microscopic hematuria PMB (postmenopausal bleeding) Postmenopausal bleeding Screening mammogram for breast cancer documented in this encounter Care Teams Exercise Scientist Relationship Specialty Start Date End Date Allyson Vickers DO [address] [place] [address] PCP - General Family Medicine 04/02/19 documented as of this encounter
--- OUTSIDE RECORDS SUMMARY | 2024-09-15 08:55 | External Medical Summary | Summary of Care ---
Author Name Unknown Organization [facility] Address [address] [place] [address] Phone [phone] Care Team Providers Care Back Roller Name Role Phone Allyson Vickers DO Primary Care Provider [phone] Encounter Details Date Type Department Care Team (Late st Contact Info) Description 06/05/2024 Orders Only Laboratory, [facility] [address] [place] [address] Stefania Polanco PA-C [address] [place] [address] Hematuria* Allergies Active Allergy Reactions Criticality Noted Date Comments Latex Hives,Rash Medium 05/20/2014 documented as of this encounter (statuses as of 06/05/2024) Medications Medication Sig Dispensed Refills Start Date [...] as of this encounter (statuses as of 06/05/2024) Active Problems Problem Noted Date Diagnosed Date Depression with anxiety 12/21/2022 Chronic kidney disease, stage 3a 03/14/2021 Overview: Per CKD protocol History of thyroid cancer 03/02/2018 History of cervical cancer 03/02/2018 Acquired hypothyroidism 06/04/2017 Dyslipidemia 08/14/2007 Overview: Per Lipid Taxonomy. HTN, goal below 130/80 documented as of this encounter (statuses as of 06/05/2024) Resolved Problems Problem Noted Date Diagnosed Date [...] as of this encounter (statuses as of 06/05/2024) Immunizations Name Administration Dates Next Due COVID-19 mRNA, LNP-s, No Pre serve, 2-Dose Series ([employer]) 01/21/2021,12/31/2020 Pneumococcal Polysaccharide PPV23 (Pneumovax) 02/14/2017 Seasonal [...] 06/16/2024 10:00 AM EDT Office Visit Gynecology/Obstetrics [facility] [address] [place] [address] Nando Garay MD [address] [place] [address] 07/29/2024 3:30 PM EDT Office Visit Urology, [facility] [address] [place] [address] Poncho Guerrero MD [address] [place] [address] 10/07/2024 5:40 PM EST Office Visit Family Practice [facility] [address] [place] [address] Allyson Vickers DO [address] [place] [address] 12/18/2024 11:20 AM EST Office Visit Nephrology, [facility] [address] [place] [address] Delonte Kirby MD [address] [place] [address] 05/17/2025 1:30 PM EDT Imaging Radiology [address] [place] [address] Pending Results Name Type Priority Associated Diagnoses Date /Time URINALYSIS WITH MICROSCOPIC EXAM Lab Routine Hematuria 06/05/2024 9:19 AM EDT Scheduled Orders Name Type Priority Associated Diagnoses Orde r Schedule URINALYSIS WITH MICROSCOPIC EXAM Lab Routine Hematuria Expected: 06/05/2024, Expires: 06/05/2025 Scheduled Procedures Name Priority Associated Diagnoses Date/Ti [...] Additional history exists CKD HGB USE SMARTSET 52576 04/10/202504/10, 04/10/2024, 04/04/2023, Additional history exists CKD PHOS USE SMARTSET 95519 04/10/2025 06/0 05/2024, 04/04/2023, 04/10/2022, Additional history [...] as of this encounter Visit Diagnoses Diagnosis Hematuria- Primary Hematuria, unspecified Screening mammogram for breast cancer documented in this encounter Care Teams Back Roller Relationship Specialty Start Date End Date Allyson Vickers DO [address] [place] [address] PCP - General Family Medicine 04/02/19 documented as of this encounter
--- OUTSIDE RECORDS SUMMARY | 2024-09-15 08:55 | External Medical Summary | Summary of Care ---
Author Name Unknown Organization [facility] Address [address] [facility] [address] Phone [phone] Care Team Providers Care Plant Sciences Professor Name Role Phone Allyson Vickers DO Primary Care Provider [phone] Reason for Referral * Evaluate & Treat - Unlimited Visits (Within 10 days (routine)) - Authorized Specialty Diagnoses / Procedures Referred By Home alvarez Referred To Contact Urology Diagnoses Gross hematuria Abnormal ultrasound of bladder Allyson Vickers DO [address] [place] [address] Referral ID Status Reason Start Date Expiration Date Visits Requested Visits Authorized [id number] Authorized Specialty Services Required 04/27/[phone] Question Answer Referral Priority Within 10 days (routine) Where should this appointment be scheduled? [facility] What is the patient being referred for? Mass/Cyst/Lesion Reason for Visit * Reason Onset Date Comments Test Results 04/27/2024 Encounter Details Date Type Department Care Team (Late st Contact Info) Description 04/27/2024 Telephone Family Practice [facility] [address] [place] [address] Allyson Vickers DO [address] [place] [address] Test Results Allergies Active Allergy Reactions Criticality Noted Date Comments Latex Hives,Rash Medium 05/20/2014 documented as of this encounter (statuses as of 05/01/2024) Medications Medication Sig Dispensed Refills Start Date [...] Tablet before bedtime. 20 Tablet 04/13/2024 Active documented as of this encounter (statuses as of 05/01/2024) Active Problems Problem Noted Date Diagnosed Date Depression with anxiety 12/21/2022 Chronic kidney disease, stage 3a 03/14/2021 Overview: Per CKD protocol History of thyroid cancer 03/02/2018 History of cervical cancer 03/02/2018 Acquired hypothyroidism 06/04/2017 Dyslipidemia 08/14/2007 Overview: Per Lipid Taxonomy. HTN, goal below 130/80 documented as of this encounter (statuses as of 05/01/2024) Resolved Problems Problem Noted Date Diagnosed Date [...] as of this encounter (statuses as of 05/01/2024) Immunizations Name Administration Dates Next Due COVID-19 mRNA, LNP-s, No Pre serve, 2-Dose Series (Pfizer) 01/21/2021,12/31/2020 Influenza, Whole Virus 09/18/2000 Pneumococcal Polysaccharide PPV23 (Pneumovax) 02/14/2017 Seasonal Influenza, PF, 6 M & above, IM , (FluLaval or Fluzone) 07/13/2020,08/13/2019,08/22/2017 Seasonal Influenza, Quadriva lent, No Preserve, IM 08/20/2018,08/16/2016,08/15/2015 Seasonal Influenza, Split, I IV3, With Preserve, Inj 08/04/2013,08/13/2012,07/30/2011,08/04,07/20/2009,08/17/2008,08/14/2007 ,08/08/2006,10/11/2003,09/02/2002 TD - Tetanus/Diptheria (ADULT) 07/05/2005 [...] Telephone Encounter - Rani Peres OSA - 05/01/2024 9:19 AM EDT Pt scheduled for 05/08 in [facility] * Telephone Encounter - Rani Peres OSA - 04/30/2024 9:21 AM EDT Message sent to [facility] urology as they have sooner appts * Telephone Encounter - Emelia Tian LPN - 04/29/2024 11:00 AM EDT Patient called. Informed of message. Verbalized understanding. * Telephone Encounter - Zoraida Davenport RN - 04/29/2024 10:10 AM EDT Called pt and left message for return call. Please give pt My G message when she calls. * Telephone Encounter - Allyson Vickers DO - 04/27/2024 12:58 PM EDT Myg to pt Needs urology rather than urogyn for bladder finding and hematuria, referral placed, please schedule documented in this encounter Plan of Treatment Upcoming Encounters Date Type Department Care Team (Late st Contact Info) Description 05/08/2024 1:00 PM EDT Office Visit Urology [facility] [address] [place] [address] Maday Avalos PA-C [place] [address] 05/11/2024 1:30 PM EDT Imaging Radiology [address] [place] [address] 06/05/2024 8:45 AM EDT Office Visit Urogynecology [facility] [address] [place] [address] Stefania Polanco PA-C [address] [place] [address] Nurse Alonzo Saenz [facility] [address] [place] [address] 06/16/2024 10:00 AM EDT Office Visit Gynecology/Obstetrics [facility] [address] [place] [address] Nando Garay MD [address] [place] [address] 10/07/2024 5:40 PM EST Office Visit Family Practice [facility] [address] [place] [address] Allyson Vickers DO [address] [place] [address] 12/18/2024 11:20 AM EST Office Visit Nephrology, [facility]auf[facility] [address] [place] [address] Delonte Kirby MD [address] [place] [address] Scheduled Procedures Name Priority Associated Diagnoses Date/Ti me COLONOSCOPY FLEXIBLE PROXIMA L DIAGNOSTIC Recall History of colonic polyps Scheduled Referrals Name Type Priority Associated Diagnoses Orde r Schedule ADULT/PEDS UROLOGY REFERRAL OP Referral Within 10 days (routine) Gross hematuria Abnormal ultrasound of bladder Ordered: 04/27/2024 Health Maintenance Due Date Last Done Comments HPV/Co-Test 1991 Cologuard 2006 Fecal Occult Blood Test 2006 Sigmoidoscopy 2006 Depression Monitoring 04/17/2023 04/17/2022 COVID-19 Vaccine ( season) 2023 01/21/2021, 12/31/2020 Cervical Cancer Screening 04/12/2024 Pap Smear 04/12/2024 04/12/2021, 05/04, 03/04/2014 (Done elsewhere), Additional history exists Mammogram 04/30/2024 04/30/2023, 04/05, 04/21/2021, Additional history exists Influenza Vaccine (FLU shot) (Season Ended) 2024 07/13/2020, 08/13/2019, 08/20/2018, Additional history exists GFR 10/10/2024 04/10/2024, 060 11/2022, 07/03/2022, Additional history exists TSH 12/31/2024 12/31/2023, 06/05, 04/10/2022, Additional history exists Albumin/Creatinine Ratio 03/11/2025 024, 12/11/2016, 08/15/2015, Additional history exists CKD HGB USE SMARTSET 13393 04/10/202504/10, 04/10/2024, 04/04/2023, Additional history exists CKD PHOS USE SMARTSET 68047 04/10/2025 06/0 05/2024, 04/04/2023, 04/10/2022, Additional history exists Lipid Panel 04/14/2026 04/14/2021, [...] Discontinued 08/16/2023, 08/16/2023, 02/12/2018, Additional history exists GARDASIL-HPV IMMUNIZATION SERIES Aged Out No longer eligible based on patient's age to complete this topic Hepatitis B Aged Out No longer eligi ble based on patient's age to complete this topic MENINGOCOCCAL (MENACTRA/MENVEO) Aged Out No longer eligible based on patient's age to complete this topic documented as of this encounter Medical Devices Not on filedocumented as of this encounter Visit Diagnoses Diagnosis Gross hematuria- Primary Abnormal ultrasound of bladder Nonspecific (abnormal) findings on radiological and other examination of genitourinary organs documented in this encounter Care Teams Plant Sciences Professor Relationship Specialty Start Date End Date Allyson Vickers DO [address] [place] [address] PCP - General Family Medicine 04/02/19 documented as of this encounter
--- OUTSIDE RECORDS SUMMARY | 2024-09-15 08:55 | External Medical Summary | Summary of Care ---
Author Name Unknown Organization [facility] Address [address] [facility] [address] Phone [phone] Care Team Providers Care Environmental Assistant Name Role Phone Allyson Vickers DO Primary Care Provider [phone] Reason for Visit * Reason Onset Date Comments Referral 04/28/2024 Appointment 04/28/2024 Encounter Details Date Type Department Care Team (Late st Contact Info) Description 04/28/2024 Telephone Urology [facility] [address] [place] [address] Maday Avalos PA-C [address] [place] [address] Referral; Appointment Allergies Active Allergy Reactions Criticality Noted Date Comments Latex Hives,Rash Medium 05/20/2014 documented as of this encounter (statuses as of 04/30/2024) Medications Medication Sig Dispensed Refills Start Date [...] as of this encounter (statuses as of 04/30/2024) Active Problems Problem Noted Date Diagnosed Date Depression with anxiety 12/21/2022 Chronic kidney disease, stage 3a 03/14/2021 Overview: Per CKD protocol History of thyroid cancer 03/02/2018 History of cervical cancer 03/02/2018 Acquired hypothyroidism 06/04/2017 Dyslipidemia 08/14/2007 Overview: Per Lipid Taxonomy. HTN, goal below 130/80 documented as of this encounter (statuses as of 04/30/2024) Resolved Problems Problem Noted Date Diagnosed Date [...] as of this encounter (statuses as of 04/30/2024) Immunizations Name Administration Dates Next Due COVID-19 mRNA, LNP-s, No Pre serve, 2-Dose Series ([employer]odrom) 01/21/2021,12/31/2020 Influenza, Whole Virus 09/18/2000 Pneumococcal Polysaccharide [...] encounter Miscellaneous Notes * Telephone Encounter - Allyson Taylor OSA - 04/30/2024 11:43 AM EDT LM for pt. Pt scheduled with Maday Avalos in [place] office on 05/08 @1:00 * Telephone Encounter - Rani Peres OSA - 04/30/2024 9:17 AM EDT PCP wants patient to see Urology now. Patient was made aware. Can someone please reach out to schedule patient as Dr. Guerrero is out next week and dx is Gross Hematuria. Thank you! * Telephone Encounter - Loulou Colon LPN - 04/28/2024 1:59 PM EDT Noted. * Telephone Encounter - Christiane Stockton MED ASSIST - 04/28/2024 1:41 PM EDT Pt decided to hold off on an appt with urology due to having urogyn appt in June. She will call if appt is needed. * Telephone Encounter - Tanya Dennison OSA - 04/28/2024 1:25 PM EDT Patient returning call. * Telephone Encounter - Christiane Stockton MED ASSIST - 04/28/2024 1:19 PM EDT Lmom to call back to schedule Urology appt. Pt has a referral. documented in this encounter Plan of Treatment Upcoming Encounters Date Type Department Care Team (Late st Contact Info) Description 05/08/2024 1:00 PM EDT Office Visit Urology [facility] [address] [place] [address] Maday Avalos PA-C [address] [place] [address] 05/11/2024 1:30 PM EDT Imaging Radiology [address] [place] [id number] 06/05/2024 8:45 AM EDT Office Visit Urogynecology [facility] [address] [place] [address] Stefania Polanco PA-C [address] [place] [address] SaenzNurse Alonzo zimmerman [facility] [address] [place] [address] 06/16/2024 10:00 AM EDT Office Visit Gynecology/Obstetrics [facility] [address] [place] [address] Nando Garay MD [address] [place] [address] 10/07/2024 5:40 PM EST Office Visit Family Practice [facility] [address] [facility] [place] [address] Allyson Vickers DO [address] [place] [address] 12/18/2024 11:20 AM EST Office Visit Nephrology, [facility] [address] [facility] [place] [address] Delonte Kirby MD [address] [facility] [place] [address] Scheduled Procedures Name Priority Associated Diagnoses Date/Ti [...] Additional history exists CKD HGB USE SMARTSET 68167 04/10/202504/10, 04/10/2024, 04/04/2023, Additional history exists CKD PHOS USE SMARTSET 16546 04/10/2025 06/0 05/2024, 04/04/2023, 04/10/2022, Additional history [...] filedocumented as of this encounter Care Teams Environmental Assistant Relationship Specialty Start Date End Date Allyson Vickers DO [address] [place] [address] PCP - General Family Medicine 04/02/19 documented as of this encounter
--- OUTSIDE RECORDS SUMMARY | 2024-09-15 08:55 | External Medical Summary ---
Author Name Unknown Address Unknown Organization [facility] [place] [address] [place] [address] Laboratory Report Ordering Provider Test Date Status PEDRO SARMIENTO 06/05/2024 09:19:00 Final Observation Date Value Abnormality Reference (Units ) Status Color of Urine by Auto 06/05/2024 09:19:00 Yellow Light Yellow, Yellow, Dark Yellow Final Clarity, Urine 06/05/2024 09:19:00 Clear Clear Final Glucose [Mass/volume] in Urine by Automated test strip 06/05/2024 09:19:00 Negative Negative (mg/dL) Final Bilirubin.total [Presence] in Urine by Automated test strip 06/05/2024 09:19:00 Negative Negative Final Ketones [Mass/volume] in Urine by Automated test strip 06/05/2024 09:19:00 Negative Negative (mg/dL) Final Specific gravity, Urine 06/05/2024 09:19:00 1.025 1.003-1.030 Final Hemoglobin [Presence] in Urine by Automated test strip 06/05/2024 09:19:00 Small Abnormal Negative Final pH, Urine 06/05/2024 09:19:00 5.5 5.0-7.5 (Units) Final Protein [Mass/volume] in Urine by Automated test strip 06/05/2024 09:19:00 Negative Negative (mg/dL) Final Urobilinogen [Mass/volume] in Urine by Automated test strip 06/05/2024 09:19:00 0.2 0.2, 1.0 (mg/dL) Final Nitrite [Presence] in Urine by Automated test strip 06/05/2024 09:19:00 Negative Negative Final Leukocyte esterase [Presence] in Urine by Automated test strip 06/05/2024 09:19:00 Negative Negative Final RBC, Urine 06/05/2024 09:19:00 6-9 Abnormal 0-2 (/HPF) Final WBC, Urine 06/05/2024 09:19:00 3-5 Abnormal 0-2 (/HPF) Final Bacteria [#/area] in Urine sediment by Microscopy high power field 06/05/2024 09:19:00 0-25 0-25 (/HPF) Final Performing Location [facility] [address] [facility] [address]
--- OUTSIDE RECORDS SUMMARY | 2024-09-15 08:55 | External Medical Summary | Summary of Care ---
Author Name Unknown Organization [facility] Address [address] [facility] [address] Phone [phone] Care Team Providers Care Operations Analyst Name Role Phone Allyson Vickers DO Primary Care Provider [phone] Reason for Referral * Evaluate & Treat - Unlimited Visits (Within 10 days (routine)) - Authorized Specialty Diagnoses / Procedures Referred By Home alvarez Referred To Contact Urology Diagnoses Gross hematuria Abnormal ultrasound of bladder Allyson Vickers DO [address] [place] [address] Referral ID Status Reason Start Date Expiration Date Visits Requested Visits Authorized [id number] Authorized Specialty Services Required 04/27/[phone] Question Answer Referral Priority Within 10 days (routine) Where should this appointment be scheduled? [facility] What is the patient being referred for? Mass/Cyst/Lesion Reason for Visit * Reason Onset Date Comments Test Results 04/27/2024 Encounter Details Date Type Department Care Team (Late st Contact Info) Description 04/27/2024 Telephone Family Practice [facility] [address] [place] [address] Allyson Vickers DO [address] [place] [address] Test Results Allergies Active Allergy Reactions Criticality [...] 04/30/2024 9:21 AM EDT Message sent to [facility] urology as they have sooner appts [...] Care Team (Late st Contact Info) Description 05/11/2024 1:30 PM EDT Imaging Radiology [address] [place] [address] 06/05/2024 8:45 AM EDT Office Visit Urogynecology Gely Saenz [address] [place] [address] Stefania Polanco PA-C [address] [place] [address] Nurse Alonzo Saenz [address] [place] [address] 06/16/2024 10:00 AM EDT Office Visit Gynecology/Obstetrics [facility] [address] [place] [address] Nando Garay MD [address] [place] [address] 10/07/2024 5:40 PM EST Office Visit Family Practice [facility] [address] [place] [address] Allyson Vickers DO [address] [place] [address] 12/18/2024 11:20 AM EST Office Visit Nephrology, [facility] [address] [facility] [place] [address] Delonte Kirby MD [address] [facility] [place] [address] Scheduled Procedures Name Priority Associated Diagnoses Date/Ti [...] Additional history exists CKD HGB USE SMARTSET 76338 04/10/202504/10, 04/10/2024, 04/04/2023, Additional history exists CKD PHOS USE SMARTSET 96741 04/10/2025 06/0 05/2024, 04/04/2023, 04/10/2022, Additional history [...] organs documented in this encounter Care Teams Operations Analyst Relationship Specialty Start Date End Date Allyson Vickers DO [address] [place] [address] PCP - General Family Medicine 04/02/19 documented as of this encounter
--- OUTSIDE RECORDS SUMMARY | 2024-09-15 08:55 | External Medical Summary | Summary of Care ---
Author Name Unknown Organization [facility] Address [address] [facility] [address] Phone [phone] Care Team Providers Care Patient Intake Coordinator Name Role Phone Kirill Awad DO Primary Care Provider [phone] Reason for Visit * Reason Comments eRx-Medication Refill Encounter Details Date Type Department Care Team (Late st Contact Info) Description 06/11/2024 Refill Family Practice [facility] [address] [place] [address] Kirill Awad DO [address] [place] [address] Acquired hypothyroidism Allergies Active Allergy Reactions Criticality Noted Date Comments Latex Hives,Rash Medium 05/20/2014 documented as of this encounter (statuses as of 06/12/2024) Medications Medication Sig Dispensed Refills Start Date End Date Status ASPIRIN EC 81 MG PO TBECIndications:TIA (transient ischemic attack) Take by mouth daily. 2 Active CYANOCOBALAMIN 1000 MCG PO TABS one [...] of Breath or Wheezing. 18 g 2 1 Active Additional Information Patient not taking.Reported on [...] mouth in the morning. 90 Tablet 3 3 Active Losartan Potassium 50 MG Oral Tablet (Cozaar)Indications :HTN, goal below 140/90 Take 1 Tablet by mouth in the morning. 90 Tablet 3 3 Active Amoxicillin-Pot Clavulanate 500-125 MG Oral Tablet (Augmentin) Take 1 Tablet by mouth in the morning and 1 Tablet before bedtime. 20 Tablet 4 Active Additional Information Patient not taking.Reported on 06/05/2024 Synthroid 200 MCG Oral TabletIndications:A cquired hypothyroidism TAKE 1 TABLET BY MOUTH DAILY IN THE MORNING AT LEAST 30 MINS PRIOR TO BREAKFAST OR OTHER MEDS. TAKE 2 TABLETS ON SUNDAYS 96 Tablet 1 4 Active Synthroid 200 MCG Oral TabletIndications:A cquired hypothyroidism TAKE 1 TABLET BY MOUTH DAILY IN THE MORNING AT LEAST 30 MINS PRIOR TO BREAKFAST OR OTHER MEDS. TAKE 2 TABLETS ON SUNDAYS 96 Tablet 1 4 06/12/20 24 Discontinued documented as of this encounter (statuses as of 06/12/2024) Active Problems Problem Noted Date Diagnosed Date Depression with anxiety 12/21/2022 Chronic kidney disease, stage 3a 03/14/2021 Overview: Per CKD protocol History of thyroid cancer 03/02/2018 History of cervical cancer 03/02/2018 Acquired hypothyroidism 06/04/2017 Dyslipidemia 08/14/2007 Overview: Per Lipid Taxonomy. HTN, goal below 130/80 documented as of this encounter (statuses as of 06/12/2024) Resolved Problems Problem Noted Date Diagnosed Date Resolved Date Recurrent major depressive d rony in remission 07/13/2020 12/21/2022 HTN, goal below [...] as of this encounter (statuses as of 06/12/2024) Immunizations Name Administration Dates Next Due COVID-19 mRNA, LNP-s, No Pre serve, 2-Dose Series ([employer]) 01/21/2021,12/31/2020 Pneumococcal Polysaccharide PPV23 (Pneumovax) 02/14/2017 Seasonal [...] encounter Miscellaneous Notes * Telephone Encounter - John Mcguire, [facility] - 06/12/2024 9:25 AM EDTSigned Prescriptions: Disp Refills Synthroid 200 MCG Oral Tablet 96 Tab*1 Sig: TAKE 1 TABLET BY MOUTH DAILY IN THE MORNING AT LEAST 30 MINS PRIOR TO BREAKFAST OR OTHER MEDS. TAKE 2 TABLETS ON SUNDAYSAuthorizing Provider: KIRILL AWAD User: JOHN STEVEN documented in this encounter Plan of Treatment Upcoming Encounters Date Type Department Care Team (Late st Contact Info) Description 06/16/2024 10:00 AM EDT Office Visit Gynecology/Obstetrics [facility] [address] [place] [address] Nando Garay MD [address] [place] [address] 07/29/2024 3:30 PM EDT Office Visit Urology, [facility] [address] [place] [address] Poncho Guerrero MD [address] [place] [address] 10/07/2024 5:40 PM EST Office Visit Family Practice [facility] [address] [place] [address] Kirill Awad DO [address] [facility] [place] [address] 12/18/2024 11:20 AM EST Office Visit Nephrology, [facility] [address] [place] [address] Delonte Kirby MD [address] [place] [address] 05/17/2025 1:30 PM EDT Imaging Radiology [address] [place] [address] Scheduled Procedures Name Priority Associated Diagnoses Date/Ti [...] 08/20/2018, Additional history exists GFR 10/10/2024 04/10/2024, 11/2022, 07/03/2022, Additional history exists TSH 12/31/2024 12/31/2023, 06/05, 04/10/2022, Additional history exists Albumin/Creatinine Ratio 03/11/2025 024, 12/11/2016, 08/15/2015, Additional history exists CKD HGB USE SMARTSET 49205 04/10/202504/10, 04/10/2024, 04/04/2023, Additional history exists CKD PHOS USE SMARTSET 13654 04/10/2025 060 05/2024, 04/04/2023, 04/10/2022, Additional history [...] as of this encounter Visit Diagnoses Diagnosis Acquired hypothyroidism Unspecified hypothyroidism Screening mammogram for breast cancer documented in this encounter Care Teams Patient Intake Coordinator Relationship Specialty Start Date End Date Kirill Awad DO [address] [place] [address] PCP - General Family Medicine 04/02/19 documented as of this encounter
--- OUTSIDE RECORDS SUMMARY | 2024-09-15 08:56 | External Medical Summary | Summary of Care ---
Author Name Unknown Organization [facility] Address [address] [facility] [address] Phone [phone] Care Team Providers Care Sports Marketing Coordinator Name Role Phone Allyson Vickers DO Primary Care Provider [phone] Reason for Visit * Reason Onset Date Comments Referral 04/28/2024 Encounter Details Date Type Department Care Team (Late st Contact Info) Description 04/28/2024 Telephone Urology [facility] [address] [place] [address] Maday Avalos PA-C [address] [place] [address] Referral Allergies Active Allergy Reactions Criticality Noted Date [...] Description 05/11/2024 1:30 PM EDT Imaging Radiology [address] [place] [address] 06/05/2024 8:45 AM EDT Office Visit Urogynecology Gely Saenz [address] [place] [address] Stefania Polanco PA-C [address] [place] [address] Nurse Alonzo Saenz [address] [place] [address] 06/16/2024 10:00 AM EDT Office Visit Gynecology/Obstetrics Gely Saenz [address] [place] [address] Nando Garay MD [address] [place] [address] 10/07/2024 5:40 PM EST Office Visit Family Practice [facility] [address] [place] [address] Allyson Vickers DO [address] [place] [address] 12/18/2024 11:20 AM EST Office Visit Nephrology, [facility] [address] [facility] [place] [address] Delonte Kirby MD [address] [facility] [place] [address] Scheduled Procedures Name Priority Associated Diagnoses Date/Ti [...] Additional history exists CKD HGB USE SMARTSET 99109 04/10/202504/10, 04/10/2024, 04/04/2023, Additional history exists CKD PHOS USE SMARTSET 65382 04/10/2025 06/0 05/2024, 04/04/2023, 04/10/2022, Additional history [...] filedocumented as of this encounter Care Teams Sports Marketing Coordinator Relationship Specialty Start Date End Date Allyson Vickers DO [address] [place] [address] PCP - General Family Medicine 04/02/19 documented as of this encounter
--- OUTSIDE RECORDS SUMMARY | 2024-09-15 08:56 | External Medical Summary | Summary of Care ---
Author Name Unknown Organization [facility] Address [address] [facility] [address] Phone [phone] Care Team Providers Care Commissary Manager Name Role Phone Allyson Vickers DO Primary Care Provider [phone] Reason for Referral * Evaluate & Treat - Unlimited Visits (Within 10 days (routine)) - Authorized Specialty Diagnoses / Procedures Referred By Home alvarez Referred To Contact Urology Diagnoses Gross hematuria Abnormal ultrasound of bladder Allyson Vickers DO [address] [employer] [place] [address] Referral ID Status Reason Start Date Expiration Date Visits Requested Visits Authorized [id number] Authorized Specialty Services Required 04/27/[phone] Question Answer Referral Priority Within 10 days (routine) Where should this appointment be scheduled? [facility] What is the patient being referred for? Mass/Cyst/Lesion Reason for Visit * Reason Onset Date Comments Test Results 04/27/2024 Encounter Details Date Type Department Care Team (Late st Contact Info) Description 04/27/2024 Telephone Family Practice [facility] [address] [place] [address] Allyson Vickers DO [address] [employer] [place] [address] Test Results Allergies Active Allergy Reactions Criticality Noted Date Comments Latex Hives,Rash Medium 05/20/2014 documented as of this encounter (statuses as of 04/29/2024) Medications Medication Sig Dispensed Refills Start Date [...] as of this encounter (statuses as of 04/29/2024) Active Problems Problem Noted Date Diagnosed Date Depression with anxiety 12/21/2022 Chronic kidney disease, stage 3a 03/14/2021 Overview: Per CKD protocol History of thyroid cancer 03/02/2018 History of cervical cancer 03/02/2018 Acquired hypothyroidism 06/04/2017 Dyslipidemia 08/14/2007 Overview: Per Lipid Taxonomy. HTN, goal below 130/80 documented as of this encounter (statuses as of 04/29/2024) Resolved Problems Problem Noted Date Diagnosed Date [...] as of this encounter (statuses as of 04/29/2024) Immunizations Name Administration Dates Next Due COVID-19 [...] encounter Miscellaneous Notes * Telephone Encounter - Emelia Tian LPN [...] Description 05/11/2024 1:30 PM EDT Imaging Radiology [address] [place] [address] 06/05/2024 8:45 AM EDT Office Visit Urogynecology Gely Saenz [address] [place] [address] Stefania Polanco PA-C [address] [place] [address] Nurse Alonzo Saenz [address] [place] [address] 06/16/2024 10:00 AM EDT Office Visit Gynecology/Obstetrics Gely Saenz [address] [place] [address] Nando Garay MD [address] [place] [address] 10/07/2024 5:40 PM EST Office Visit Family Practice [facility] [address] [place] [address] Allyson Vickers DO [address] [place] [address] 12/18/2024 11:20 AM EST Office Visit Nephrology, [facility] [place] [address] Delonte Kirby MD [facility] [place] [address] Scheduled Procedures Name Priority Associated Diagnoses Date/Ti [...] Additional history exists CKD HGB USE SMARTSET 92778 04/10/202504/10, 04/10/2024, 04/04/2023, Additional history exists CKD PHOS USE SMARTSET 35770 04/10/2025 06/0 05/2024, 04/04/2023, 04/10/2022, Additional history [...] organs documented in this encounter Care Teams Commissary Manager Relationship Specialty Start Date End Date Allyson Vickers DO [address] [place] [address] PCP - General Family Medicine 04/02/19 documented as of this encounter
--- OUTSIDE RECORDS SUMMARY | 2024-09-15 08:56 | External Medical Summary | Summary of Care ---
Author Name Unknown Organization [facility] Address [address] [facility] [address] Phone [phone] Care Team Providers Care Local Combination Truck Driver Name Role Phone Allyson Vickers DO Primary Care Provider [phone] Reason for Visit * Reason Onset Date Comments Referral 04/28/2024 Encounter Details Date Type Department Care Team (Late st Contact Info) Description 04/28/2024 Telephone Urology [facility] [address] [place] [id number] Maday Avalos PA-C [address] [place] [address] Referral Allergies Active Allergy Reactions Criticality Noted Date Comments Latex Hives,Rash Medium 05/20/2014 documented as of this encounter (statuses as of 04/28/2024) Medications Medication Sig Dispensed Refills Start Date [...] as of this encounter (statuses as of 04/28/2024) Active Problems Problem Noted Date Diagnosed Date Depression with anxiety 12/21/2022 Chronic kidney disease, stage 3a 03/14/2021 Overview: Per CKD protocol History of thyroid cancer 03/02/2018 History of cervical cancer 03/02/2018 Acquired hypothyroidism 06/04/2017 Dyslipidemia 08/14/2007 Overview: Per Lipid Taxonomy. HTN, goal below 130/80 documented as of this encounter (statuses as of 04/28/2024) Resolved Problems Problem Noted Date Diagnosed Date [...] as of this encounter (statuses as of 04/28/2024) Immunizations Name Administration Dates Next Due COVID-19 [...] encounter Miscellaneous Notes * Telephone Encounter - Loulou Colon LPN - 04/28/2024 1:59 PM EDT Noted. * Telephone Encounter - Christiane Stockton MED [employer] - 04/28/2024 1:41 PM EDT Pt decided [...] Description 05/11/2024 1:30 PM EDT Imaging Radiology [address] [place] [address] 06/05/2024 8:45 AM EDT Office Visit Urogynecology Gely [facility] [address] [place] [address] Stefania Polanco PA-C [address] [place] [address] Nurse Alonzo Saenz [address] [place] [address] 06/16/2024 10:00 AM EDT Office [facility] [address] [place] [address] Nando Garay MD [address] [place] [address] 10/07/2024 5:40 PM EST Office Visit Family Practice [facility] [address] [place] [address] Allyson Vickers DO [address] [place] [address] 12/18/2024 11:20 AM EST Office Visit NephrologyAdri [address] [place] [address] Delonte Kirby MD 200 [facility] [place] [address] Scheduled Procedures Name Priority Associated Diagnoses Date/Ti [...] Additional history exists CKD HGB USE SMARTSET 83990 04/10/202504/10, 04/10/2024, 04/04/2023, Additional history exists CKD PHOS USE SMARTSET 32556 04/10/2025 06/0 05/2024, 04/04/2023, 04/10/2022, Additional history [...] filedocumented as of this encounter Care Teams Local Combination Truck Driver Relationship Specialty Start Date End Date Allyson Vickers DO [address] [place] [address] PCP - General Family Medicine 04/02/19 documented as of this encounter
--- OUTSIDE RECORDS SUMMARY | 2024-09-15 08:56 | External Medical Summary | Summary of Care ---
Author Name Unknown Organization [facility] Address [address] [facility] [address] Phone [phone] Care Team Providers Care Facilities Planner Name Role Phone Allyson Vickers DO Primary Care Provider [phone] Reason for Visit * Reason Onset Date Comments Referral 04/28/2024 Encounter Details Date Type Department Care Team (Late st Contact Info) Description 04/28/2024 Telephone Urology Elham [facility] [address] [place] [phone] Maday Avalos PA-C [address] [place] [address] Referral Allergies Active Allergy Reactions Criticality Noted [...] * Telephone Encounter - Christiane Stockton MED [employer] - 04/28/2024 1:41 PM EDT Pt decided [...] Description 05/11/2024 1:30 PM EDT Imaging Radiology [address] [place] [address] 06/05/2024 8:45 AM EDT Office Visit Urogynecology [facility]ely [facility] [address] [place] [address] Stefania Polanco PA-C [address] [place] [address] Nurse Alonzo Saenz [address] [place] [address] 06/16/2024 10:00 AM EDT Office [facility] [address] [place] [address] Nando Garay MD [address] [place] [address] 10/07/2024 5:40 PM EST Office Visit Family Practice [facility] [address] [place] [address] Allyson Vickers DO [address] [place] [address] 12/18/2024 11:20 AM EST Office Visit NephrologyAdri [address] [place] [address] Delonte Kirby MD 200 [facility] [place] [address] Scheduled Procedures Name Priority Associated Diagnoses Date/Ti [...] Additional history exists CKD HGB USE SMARTSET 18143 04/10/202504/10, 04/10/2024, 04/04/2023, Additional history exists CKD PHOS USE SMARTSET 38613 04/10/2025 06/0 05/2024, 04/04/2023, 04/10/2022, Additional history [...] filedocumented as of this encounter Care Teams Facilities Planner Relationship Specialty Start Date End Date Allyson Vickers DO 132 [place] [address] PCP - General Family Medicine 04/02/19 documented as of this encounter
--- OUTSIDE RECORDS SUMMARY | 2024-09-15 08:57 | External Medical Summary | Summary of Care ---
Author Name Unknown Organization [facility] Address [address] [facility] [address] Phone [phone] Care Team Providers Care Diversified Crops I Farmworker Name Role Phone Kirill Awad DO Primary Care Provider [phone] Reason for Referral * Evaluate & Treat - Unlimited Visits (Within 30 days (routine)) - Authorized Specialty Diagnoses / Procedures Referred By Contac t Referred To Contact Obstetrics/Gynecology / Gynecology Obstetrics Diagnoses Post-menopausal bleeding Thickened endometrium Kirill Awad DO [address] [facility] [place] [address] Referral ID Status Reason Start Date Expiration Date Visits Requested Visits Authorized [id number] Authorized Specialty Services Required 04/10/[phone] Question Answer Referral Priority Within 30 days (routine) What condition is the patient being seen for? Thickened endometrium Is the patient bleeding? Yes Patient will need an ultrasound prior to being seen by gynecology. I acknowledge Where should this appointment be scheduled? [facility] 02/18/2013 * Precert (Within 10 days (routine)) - Pending Review Specialty Diagnoses / Procedures Referred By Contac t Referred To Contact Radiology Diagnoses Post-menopausal bleeding Thickened endometrium Abnormal ultrasound of bladder Procedures CT ABD/PELVIS W IV CONTRAST - WO ORAL CONTRAST Kirill Awad DO [address] [facility] [place] [address] Referral ID Status Reason Start Date Expiration Date V isits Requested Visits Authorized [id number] Pending Review 04/10/2024 999 999 Reason for Visit * Reason Onset Date Comments Test Results 04/10/2024 Unexpected or In determinate Result Encounter Details Date Type Department Care Team (Late st Contact Info) Description 04/10/2024 Telephone Laboratory, [facility] [address] [facility] [place] [address] Kirill Awad DO [address] [facility] [place] [address] Test Results (Unexpected or Indeterminate ... Allergies Active Allergy Reactions Criticality Noted Date Comments Latex Hives,Rash Medium 05/20/2014 documented as of this encounter (statuses as of 04/10/2024) Medications Medication Sig Dispensed Refills Start Date [...] ON SUNDAYS 96 Tablet 1 12/06/2023 Active documented as of this encounter (statuses as of 04/10/2024) Active Problems Problem Noted Date Diagnosed Date Depression with anxiety 12/21/2022 Chronic kidney disease, stage 3a 03/14/2021 Overview: Per CKD protocol History of thyroid cancer 03/02/2018 History of cervical cancer 03/02/2018 Acquired hypothyroidism 06/04/2017 Dyslipidemia 08/14/2007 Overview: Per Lipid Taxonomy. HTN, goal below 130/80 documented as of this encounter (statuses as of 04/10/2024) Resolved Problems Problem Noted Date Diagnosed Date [...] as of this encounter (statuses as of 04/10/2024) Immunizations Name Administration Dates Next Due COVID-19 [...] encounter Miscellaneous Notes * Telephone Encounter - Adamaris Enamorado LPN - 04/10/2024 1:01 PM EDT Called and spoke with pt. Pt is already scheduled for the CT. * Addendum Note - Kirill Awad DO - 04/10/2024 7:26 AM EDTAddended by: KIRILL AWAD on: 04/10/2024 07:26 AM Modules accepted: Orders * Telephone Encounter - Kirill Awad DO - 04/10/2024 7:15 AM EDT Please call patient (she has not checked myG since 2018) US showed lining of uterus is a little thicker - also abnormality, possibly a little pocket/area ofthe bladder that could explain frequent UTIs CT abd/pelvis ordered to take a closer look Needs labs before this - ordered Also needs survey research analyst appt for thickened endometrium, possible biopsy Please schedule CT and survey research analyst referral * Telephone Encounter - Mohinder Vidal OSA - 04/10/2024 5:33 AM EDT Hello- The radiologist discovered an unexpected or indeterminate finding on Marium L Beisel ([id number]) and asks that you review the following report. Study Type: US PELVIS TRANS-VAGINAL NON-OB Date of Study: 04/09/2024 IMPRESSION: RENAL ULTRASOUND: 1. A complex [...] bilateral ovaries due to overlying bowel gas. Please respond to this encounter to acknowledge receipt of this message and take responsibility to ensure this report is reviewed. Thank you, HAM Pennington Client Service [facility] documented in this encounter Plan of Treatment Upcoming Encounters Date Type Department Care Team (Late st Contact Info) Description 04/14/2024 12:00 PM EDT Imaging Radiology [address] 132 [facility] [place] [address] 05/11/2024 1:30 PM EDT Imaging Radiology [address] [place] [address] 06/05/2024 8:45 AM EDT Office [facility] [address] [place] [address] Stefania Polanco PA-C 132 [facility] [place] [address] Nurse Alonzo Saenz [address] [place] [address] 10/07/2024 5:40 PM EST Office Visit Family [facility] [employer] [address] [place] [address] Kirill Awad DO [address] [place] [address] 12/18/2024 11:20 AM EST Office Visit Nephrology, [facility] 200 [facility] [place] [address] Delonte Kirby MD 200 [facility] [place] [address] Scheduled Orders Name Type Priority Associated Diagnoses Orde r Schedule CT ABD/PELVIS W IV CONTRAST - WO ORAL CONTRAST Medical Imaging Routine Post-menopausal bleeding Thickened endometrium Abnormal ultrasound of bladder Ordered: 04/10/2024 Scheduled Procedures Name Priority Associated Diagnoses Date/Ti me COLONOSCOPY FLEXIBLE PROXIMA L DIAGNOSTIC Recall History of colonic polyps Scheduled Referrals Name Type Priority Associated Diagnoses Orde r Schedule HOUSE DESIGNER REFERRAL OP Referral Within 30 days (routine) Post-menopausal bleeding Thickened endometrium Ordered: 04/10/2024 Health Maintenance Due Date Last Done Comments HPV/Co-Test 1991 Cologuard 2006 Fecal Occult Blood Test 2006 Sigmoidoscopy 2006 COVID-19 Vaccine ( season) 2023 01/21/2021, 12/31/2020 GFR 10/04/2023 04/04/2023, 06/06, 04/10/2022, Additional history exists CKD PHOS USE SMARTSET 02199 04/04/2024 0611/2022, 04/10/2022, 09/20/2020, Additional history exists Cervical Cancer Screening 04/12/2024 Pap Smear 04/12/2024 04/12/2021, 05/04, 03/04/2014 (Done elsewhere), Additional history exists Mammogram 04/30/2024 04/30/2023, 04/05, 04/21/2021, Additional history exists Influenza Vaccine (FLU shot) (Season Ended) 2024 07/13/2020, 08/13/2019, 08/20/2018, Additional history exists TSH 12/31/2024 12/31/2023, 06/05, 04/10/2022, Additional history exists Albumin/Creatinine Ratio 03/11/2025 024, 12/11/2016, 08/15/2015, Additional history exists CKD HGB USE SMARTSET 97974 04/10/202504/10, 04/10/2024, 04/04/2023, Additional history exists Diabetes Screening 04/04/2026 04/04/2023, 0 07/03/2022, 04/10/2022, Additional history exists Lipid Panel 04/14/2026 04/14/2021, 07/05, 08/13/2019, Additional history exists Colonoscopy 08/16/2028 08/16/2023, 08/04, [...] as of this encounter Visit Diagnoses Diagnosis Post-menopausal bleeding- Primary Postmenopausal bleeding Thickened endometrium Nonspecific (abnormal) findings on radiological and other examination of genitourinary organs Abnormal ultrasound of bladder Nonspecific (abnormal) findings on radiological and other examination of genitourinary organs documented in this encounter Care Teams Diversified Crops I Farmworker Relationship Specialty Start Date End Date Kirill Awad DO [address] [place] [address] PCP - General Family Medicine 04/02/19 documented as of this encounter
--- OUTSIDE RECORDS SUMMARY | 2024-09-15 08:57 | External Medical Summary | Summary of Care ---
Author Name Unknown Organization [facility] Address [address] [facility] [address] Phone [phone] Care Team Providers Care Bucket Turner Name Role Phone Kirill Awad DO Primary Care Provider [phone] Reason for Referral * Evaluate & Treat - Unlimited Visits (Within 30 days (routine)) - Authorized Specialty Diagnoses / Procedures Referred By Contac t Referred To Contact Obstetrics/Gynecology / Gynecology Obstetrics Diagnoses Post-menopausal bleeding Thickened endometrium Kirill Awad DO [address] [place] [address] Referral ID Status Reason Start Date Expiration Date Visits Requested Visits Authorized [id number] Authorized Specialty Services Required 04/10/[phone] Question Answer Referral Priority Within 30 days (routine) What condition is the patient being seen for? Thickened endometrium Is the patient bleeding? Yes Patient will need an ultrasound prior to being seen by gynecology. I acknowledge Where should this appointment be scheduled? [facility] Comments [facility] 02/18/2013 * Precert (Within 10 days (routine)) - Authorized Specialty Diagnoses / Procedures Referred By Contac t Referred To Contact Radiology Diagnoses Post-menopausal bleeding Thickened endometrium Abnormal ultrasound of bladder Procedures CT ABD/PELVIS W IV CONTRAST - WO ORAL CONTRAST Kirill Awad DO [address] [place] [address] Referral ID Status Reason Start Date Expiration Date V isits Requested Visits Authorized [id number] Authorized Precert 04/10/2024 10/07/[phone] Reason for Visit * Reason Onset Date Comments Test Results 04/10/2024 Unexpected or In determinate Result Encounter Details Date Type Department Care Team (Late st Contact Info) Description 04/10/2024 Telephone Laboratory, [facility] [address] [facility] [place] [address] Kirill Awad DO [address] [place] [address] Test Results (Unexpected or Indeterminate ... Allergies Active Allergy Reactions Criticality Noted Date Comments Latex Hives,Rash Medium 05/20/2014 documented as of this encounter (statuses as of 04/15/2024) Medications Medication Sig Dispensed Refills Start Date [...] as of this encounter (statuses as of 04/15/2024) Active Problems Problem Noted Date Diagnosed Date Depression with anxiety 12/21/2022 Chronic kidney disease, stage 3a 03/14/2021 Overview: Per CKD protocol History of thyroid cancer 03/02/2018 History of cervical cancer 03/02/2018 Acquired hypothyroidism 06/04/2017 Dyslipidemia 08/14/2007 Overview: Per Lipid Taxonomy. HTN, goal below 130/80 documented as of this encounter (statuses as of 04/15/2024) Resolved Problems Problem Noted Date Diagnosed Date [...] as of this encounter (statuses as of 04/15/2024) Immunizations Name Administration Dates Next Due COVID-19 mRNA, LNP-s, No Pre serve, 2-Dose Series (Home Comfort Zones) 01/21/2021,12/31/2020 Influenza, Whole Virus 09/18/2000 Pneumococcal Polysaccharide [...] encounter Miscellaneous Notes * Telephone Encounter - Yohana Mcdaniel OSA - 04/15/2024 9:04 AM EDT Called and scheduled patient for first available * Telephone Encounter - Leanne Michaels LPN - 04/10/2024 1:24 PM EDT Schedule first available consult with MD for thickened endometrium * Telephone Encounter - Rina Dave OSA - 04/10/2024 1:18 PM EDT Nothing open for SURVEY RODMAN-will send for triage/appt * Telephone Encounter - Adamaris Enamorado LPN [...] labs before this - ordered Also needs scrap metal collector appt for thickened endometrium, possible biopsy Please schedule CT and scrap metal collector referral * Telephone Encounter - Mohinder Vidal OSA - 04/10/2024 5:33 AM EDT Hello- The radiologist discovered an unexpected or indeterminate finding on Marium [place] ([id number]) and asks that you review the following [...] reviewed. Thank you, HAM Pennington Client Service Rep Diagnostic Medicine [place] documented in this encounter Plan of Treatment Upcoming Encounters Date Type Department Care Team (Late st Contact Info) Description 05/11/2024 1:30 PM EDT Imaging Radiology [address] [place] [address] 06/05/2024 8:45 AM EDT Office Visit Urogynecology [facility] [address] [place] [address] Stefania Polanco PA-C [address] [place] [address] Nurse Alonzo Saenz [facility] [address] [place] [address] 06/16/2024 10:00 AM EDT Office Visit Gynecology/Obstetrics [facility] [address] [place] [address] Nando Garay MD [address] [place] [address] 10/07/2024 5:40 PM EST Office Visit Family Practice [facility] [address] [place] [address] Kirill Awad DO [address] [place] [address] 12/18/2024 11:20 AM EST Office Visit NephrologyAdri [address] [place] [address] Delonte Kirby MD [address] [place] [address] Pending Results Name Type Priority Associated Diagnoses Date /Time CT ABD/PELVIS W IV CONTRAST - WO ORAL CONTRAST Medical Imaging Routine Post-menopausal bleeding Thickened endometrium Abnormal ultrasound of bladder 04/14/2024 12:00 PM EDT Scheduled Procedures Name Priority Associated Diagnoses Date/Ti me COLONOSCOPY FLEXIBLE PROXIMA L DIAGNOSTIC Recall History of colonic polyps Scheduled Referrals Name Type Priority Associated Diagnoses Orde r Schedule SURVEY RODMAN REFERRAL OP Referral Within 30 days (routine) [...] Additional history exists CKD HGB USE SMARTSET 04552 04/10/202504/10, 04/10/2024, 04/04/2023, Additional history exists CKD PHOS USE SMARTSET 03014 04/10/2025 06/0 05/2024, 04/04/2023, 04/10/2022, Additional history [...] organs documented in this encounter Care Teams Bucket Turner Relationship Specialty Start Date End Date Kirill Awad DO [address] [place] [address] PCP - General Family Medicine 04/02/19 documented as of this encounter
--- OUTSIDE RECORDS SUMMARY | 2024-09-15 08:57 | External Medical Summary | Summary of Care ---
Author Name Unknown Organization [facility] Address [address] [facility] [address] Phone [phone] Care Team Providers Care Support Clerk Name Role Phone Kirill Awad DO Primary Care Provider [phone] Reason for Referral * Evaluate & Treat - Unlimited Visits (Within 30 days (routine)) - Authorized Specialty Diagnoses / Procedures Referred By Contac t Referred To Contact Obstetrics/Gynecology / Gynecology Obstetrics Diagnoses Post-menopausal bleeding Thickened endometrium Kirill Awad DO [address] [facility] [place] [address] Referral ID Status Reason Start Date Expiration Date Visits Requested Visits Authorized [id number] Authorized Specialty Services Required 04/10/2024 999 999 [...] - WO ORAL CONTRAST Kirill Awad DO [address] [facility] [place] [address] Referral ID Status Reason Start Date Expiration Date V isits Requested Visits Authorized [id number] Pending Review 04/10/2024 999 999 Reason for Visit * Reason Onset Date Comments Test Results 04/10/2024 Unexpected or In determinate Result Encounter Details Date Type Department Care Team (Late st Contact Info) Description 04/10/2024 Telephone Laboratory, [facility] [address] [facility] [place] [address] Kirill Awad DO [address] [facility] [place] [address] Test Results [...] encounter Miscellaneous Notes * Telephone Encounter - Rina Dave OSA - 04/10/2024 1:18 PM EDT Nothing open for MARKETING SALES CONSULTANT-will send for triage/appt * Telephone Encounter - [...] labs before this - ordered Also needs auto motor mechanic appt for thickened endometrium, possible biopsy Please schedule CT and auto motor mechanic referral * Telephone Encounter - Mohinder Vidal OSA - 04/10/2024 5:33 AM EDT Hello- The radiologist discovered an unexpected or indeterminate finding on Marium Huertal ([id number]) and asks that you review the following [...] Thank you, HAM Pennington Client Service Rep [facility] [place] documented in this encounter Plan of Treatment Upcoming Encounters Date Type Department Care Team (Late st Contact Info) Description 04/14/2024 12:00 PM EDT Imaging Radiology [address] [place] [address] 05/11/2024 1:30 PM EDT Imaging Radiology [address] [place] [address] 06/05/2024 8:45 AM EDT Office Visit Urogynecology [facility] [address] [place], [place] [address] Stefania Polanco PA-C [address] [place] [address] Nurse Alonzo Saenz Kevin [address] [place] [address] 10/07/2024 5:40 PM EST Office Visit Family Practice [facility] [address] [place] [address] Kirill Awad DO [address] [place] [address] 12/18/2024 11:20 AM EST Office Visit Nephrology, Adri Kaufman [address] [place] [address] Delonte Kirby MD [address] [facility] [place] [address] Scheduled Orders Name Type Priority Associated Diagnoses Orde r Schedule CT ABD/PELVIS W IV CONTRAST - WO ORAL CONTRAST Medical Imaging Routine Post-menopausal bleeding Thickened endometrium Abnormal ultrasound of bladder Ordered: 04/10/2024 Scheduled Procedures Name Priority Associated Diagnoses Date/Ti me COLONOSCOPY FLEXIBLE PROXIMA L DIAGNOSTIC Recall History of colonic polyps Scheduled Referrals Name Type Priority Associated Diagnoses Orde r Schedule MARKETING SALES CONSULTANT REFERRAL OP Referral Within 30 days (routine) Post-menopausal bleeding Thickened endometrium Ordered: 04/10/2024 Health Maintenance Due Date Last Done Comments HPV/Co-Test 1991 Cologuard 2006 Fecal Occult Blood Test 2006 Sigmoidoscopy 2006 COVID-19 Vaccine ( season) 2023 01/21/2021, 12/31/2020 GFR 10/04/2023 04/04/2023, 06/06, 04/10/2022, Additional history exists CKD PHOS USE SMARTSET 05947 04/04/2024 06/0 11/2022, 04/10/2022, 09/20/2020, Additional history exists Cervical Cancer Screening 04/12/2024 Pap Smear 04/12/2024 04/12/2021, 05/04, 03/04/2014 (Done elsewhere), Additional history exists Mammogram 04/30/2024 04/30/2023, 04/05, 04/21/2021, Additional history exists Influenza Vaccine (FLU shot) (Season Ended) 2024 07/13/2020, 08/13/2019, 08/20/2018, Additional history exists TSH 12/31/2024 12/31/2023, 06/05, 04/10/2022, Additional history exists Albumin/Creatinine Ratio 03/11/2025 024, 12/11/2016, 08/15/2015, Additional history exists CKD HGB USE SMARTSET 18665 04/10/202504/10, 04/10/2024, 04/04/2023, Additional history exists Diabetes [...] organs documented in this encounter Care Teams Support Clerk Relationship Specialty Start Date End Date Kirill Awad DO [address] [place] [address] PCP - General Family Medicine 04/02/19 documented as of this encounter
--- OUTSIDE RECORDS SUMMARY | 2024-09-15 08:57 | External Medical Summary | Summary of Care ---
Author Name Unknown Organization [facility] Address [address] [facility] [address] Phone [phone] Care Team Providers Care Zigzag Appliquer Name Role Phone Kirill Awad DO Primary Care Provider [phone] Reason for Referral * Evaluate & Treat - Unlimited Visits (Within 30 days (routine)) - Authorized Specialty Diagnoses / Procedures Referred By Contac t Referred To Contact Obstetrics/Gynecology / Gynecology Obstetrics Diagnoses Post-menopausal bleeding Thickened endometrium Kirill Awad DO [address] [facility] [place] [address] Referral ID Status Reason Start Date Expiration Date Visits Requested Visits Authorized [id number] Authorized Specialty Services Required 04/10/2024 999 999 [...] - WO ORAL CONTRAST Kirill Awad DO [address] [facility] [place] [address] Referral ID Status Reason Start Date Expiration Date V isits Requested Visits Authorized [id number] Pending Review 04/10/2024 999 999 Reason for Visit * Reason Onset Date Comments Test Results 04/10/2024 Unexpected or In determinate Result Encounter Details Date Type Department Care Team (Late st Contact Info) Description 04/10/2024 Telephone Laboratory, [facility] [address] [facility] [place] [address] Kirill Awad DO [...] Dave OSA - 04/10/2024 1:18 PM EDT EXPLOSIVE OPERATOR also scheduled * Telephone Encounter - Adamaris Enamorado LPN [...] labs before this - ordered Also needs manager employment appt for thickened endometrium, possible biopsy Please schedule CT and manager employment referral * Telephone Encounter - Mohinder Vidal OSA - 04/10/2024 5:33 AM EDT Hello- The radiologist discovered an unexpected or indeterminate finding on Marium Tobar ([id number]) and asks that you review the following [...] reviewed. Thank you, HAM Pennington Client Service [facility] documented in this encounter Plan of Treatment Upcoming Encounters Date Type Department Care Team (Late st Contact Info) Description 04/14/2024 12:00 PM EDT Imaging Radiology [facility] [address] [place] [address] 05/11/2024 1:30 PM EDT Imaging Radiology [address] [place] [address] 06/05/2024 8:45 AM EDT Office Visit Urogynecology [facility] [address] [place] [address] Stefania Polanco PA-C [address] [place] [address] Nurse Alonzo Saenz Kevin [address] [place] [address] 10/07/2024 5:40 PM EST Office Visit Family Practice [facility] [address] [place] [address] Kirill Awad DO [address] [place] [address] 12/18/2024 11:20 AM EST Office Visit Nephrology, [facility] [address] [facility] [place] [address] Delonte Kirby MD [address] [facility] [place] [address] Scheduled Orders Name Type Priority Associated Diagnoses Orde r Schedule CT ABD/PELVIS W IV CONTRAST - WO ORAL CONTRAST Medical Imaging Routine Post-menopausal bleeding Thickened endometrium Abnormal ultrasound of bladder Ordered: 04/10/2024 Scheduled Procedures Name Priority Associated Diagnoses Date/Ti me COLONOSCOPY FLEXIBLE PROXIMA L DIAGNOSTIC Recall History of colonic polyps Scheduled Referrals Name Type Priority Associated Diagnoses Orde r Schedule EXPLOSIVE OPERATOR REFERRAL OP Referral Within 30 days (routine) Post-menopausal bleeding Thickened endometrium Ordered: 04/10/2024 Health Maintenance Due Date Last Done Comments HPV/Co-Test 1991 Cologuard 2006 Fecal Occult Blood Test 2006 Sigmoidoscopy 2006 COVID-19 Vaccine ( season) 2023 01/21/2021, 12/31/2020 GFR 10/04/2023 04/04/2023, 06/06, 04/10/2022, Additional history exists CKD PHOS USE SMARTSET 95904 04/04/2024 06/11/2022, 04/10/2022, 09/20/2020, Additional history exists Cervical Cancer Screening 04/12/2024 Pap Smear 04/12/2024 04/12/2021, 05/04, 03/04/2014 (Done elsewhere), Additional history exists Mammogram 04/30/2024 04/30/2023, 04/05, 04/21/2021, Additional history exists Influenza Vaccine (FLU shot) (Season Ended) 2024 07/13/2020, 08/13/2019, 08/20/2018, Additional history exists TSH 12/31/2024 12/31/2023, 06/05, 04/10/2022, Additional history exists Albumin/Creatinine Ratio 03/11/2025 024, 12/11/2016, 08/15/2015, Additional history exists CKD HGB USE SMARTSET 75477 04/10/202504/10, 04/10/2024, 04/04/2023, Additional history exists Diabetes [...] organs documented in this encounter Care Teams Zigzag Appliquer Relationship Specialty Start Date End Date Kirill Awad DO [address] [facility] [place] [address] PCP - General Family Medicine 04/02/19 documented as of this encounter
--- OUTSIDE RECORDS SUMMARY | 2024-09-15 08:57 | External Medical Summary | Summary of Care ---
Author Name Unknown Organization [facility] Address [address] [place] [address] Phone [phone] Care Team Providers Care Machine Plaster Mixer Name Role Phone Allyson Vickers DO Primary Care Provider [phone] Reason for Visit * Reason Onset Date Comments Test Results 04/13/2024 Encounter Details Date Type Department Care Team (Late st Contact Info) Description 04/13/2024 Refill NephAdri cabrera [address] [place] [address] Hannah Kirby MD 200 [facility] [place] [address] Allergies Active Allergy Reactions Criticality Noted Date Comments Latex Hives,Rash Medium 05/20/2014 documented as of this encounter (statuses as of 04/13/2024) Medications Medication Sig Dispensed Refills Start Date [...] as of this encounter (statuses as of 04/13/2024) Active Problems Problem Noted Date Diagnosed Date Depression with anxiety 12/21/2022 Chronic kidney disease, stage 3a 03/14/2021 Overview: Per CKD protocol History of thyroid cancer 03/02/2018 History of cervical cancer 03/02/2018 Acquired hypothyroidism 06/04/2017 Dyslipidemia 08/14/2007 Overview: Per Lipid Taxonomy. HTN, goal below 130/80 documented as of this encounter (statuses as of 04/13/2024) Resolved Problems Problem Noted Date Diagnosed Date [...] as of this encounter (statuses as of 04/13/2024) Immunizations Name Administration Dates Next Due COVID-19 mRNA, LNP-s, No Pre serve, 2-Dose Series (ActiveReplay) 01/21/2021,12/31/2020 Pneumococcal Polysaccharide PPV23 (Pneumovax) 02/14/2017 Seasonal [...] encounter Miscellaneous Notes * Telephone Encounter - Hannah Kirby MD - 04/13/2024 3:13 PM EDTSigned Prescriptions: Disp Refills Amoxicillin-Pot Clavulanate 500-125 MG Ora*20 Tab*0 Sig: Take 1 Tablet by mouth in the morning and 1 Tablet before bedtime. Authorizing Provider: HANNAH KIRBY * Telephone Encounter - Lelo Almaguer RN - 04/13/2024 3:02 PM EDT Te with pt regarding lab results and order for antibiotics. She is scheduled for a CT scan tomorrow. * Telephone Encounter - Lelo Almaguer RN - 04/13/2024 2:58 PM EDT ----- Message from Hannah Kirby MD sent at 04/13/2024 2:54 PM EDT ----- Will use Augmentin twice daily for 10 days. She only has UTI symptoms and looked totally fine otherwise. This bacteria can be associated with Abscess and endocarditis also. Will ask ID with Ask A doc. Hannah Kirby MD documented in this encounter Plan of Treatment Upcoming Encounters Date Type Department Care Team (Late st Contact Info) Description 04/14/2024 12:00 PM EDT Imaging Radiology [address] [place] [address] 05/11/2024 1:30 PM EDT Imaging Radiology [address] [place] [address] 06/05/2024 8:45 AM EDT Office Visit Urogynecology [facility] [address] [place] [address] Stefania Polanco PA-C [address] [place] [address] Nurse Alonzo Saenz [address] [place] [address] 10/07/2024 5:40 PM EST Office Visit Family Practice [facility] [address] [place] [address] Allyson Vickers DO [address] [place] [address] 12/18/2024 11:20 AM EST Office Visit Nephrology, Adri Kaufman [address] [place], [place] [address] Hannah Kirby MD [address] [place] [address] Scheduled Procedures Name Priority Associated Diagnoses Date/Ti [...] Additional history exists CKD HGB USE SMARTSET 90678 04/10/202504/10, 04/10/2024, 04/04/2023, Additional history exists CKD PHOS USE SMARTSET 20355 04/10/2025 06/0 05/2024, 04/04/2023, 04/10/2022, Additional history [...] filedocumented as of this encounter Care Teams Machine Plaster Mixer Relationship Specialty Start Date End Date Allyson Vickers DO [address] [place] [address] PCP - General Family Medicine 04/02/19 documented as of this encounter
--- OUTSIDE RECORDS SUMMARY | 2024-09-15 08:57 | External Medical Summary | Summary of Care ---
Author Name Unknown Organization [facility] Address [address] [facility] [address] Phone [phone] Care Team Providers Care Production Pattern Maker Name Role Phone Kirill Vickers DO Primary Care Provider [phone] Reason for Referral * Evaluate & Treat - Unlimited Visits (Within 30 days (routine)) - Authorized Specialty Diagnoses / Procedures Referred By Contac t Referred To Contact Obstetrics/Gynecology / Gynecology Obstetrics Diagnoses Post-menopausal bleeding Thickened endometrium Kirill Vickers DO [address] [facility] [place] [address] Referral ID Status Reason Start Date Expiration Date Visits Requested Visits Authorized [id number] Authorized Specialty Services Required 04/10/2024 999 999 [...] IV CONTRAST - WO ORAL CONTRAST Kirill Vickers DO [address] [facility] [place] [address] Referral ID Status Reason Start Date Expiration Date V isits Requested Visits Authorized [id number] Pending Review 04/10/2024 999 999 Reason for Visit * Reason Onset Date Comments Test Results 04/10/2024 Unexpected or In determinate Result Encounter Details Date Type Department Care Team (Late st Contact Info) Description 04/10/2024 Telephone Laboratory, [facility] [address] [facility] [place] [address] Kirill Vickers DO [address] [facility] [place] [address] Test Results (Unexpected or [...] encounter Miscellaneous Notes * Telephone Encounter - Leanne Michaels LPN - 04/10/2024 1:24 PM EDT Schedule first available consult with MD for thickened endometrium * Telephone Encounter - Rina Dave OSA - 04/10/2024 1:18 PM EDT Nothing open for ELECTROLYTIC ETCHER-will send for triage/appt * Telephone Encounter - Adamaris Enamorado LPN - 04/10/2024 1:01 PM EDT Called and spoke with pt. Pt is already scheduled for the CT. * Addendum Note - Kirill Vickers DO - 04/10/2024 7:26 AM EDTAddended by: KIRILL VICKERS on: 04/10/2024 07:26 AM Modules accepted: Orders * Telephone Encounter - Kirill Vickers DO - 04/10/2024 7:15 AM EDT Please call patient (she has not checked myG since 2018) US showed lining of uterus is a little thicker - also abnormality, possibly a little pocket/area ofthe bladder that could explain frequent UTIs CT abd/pelvis ordered to take a closer look Needs labs before this - ordered Also needs returns supervisor appt for thickened endometrium, possible biopsy Please schedule CT and returns supervisor referral * Telephone Encounter - Mohinder Vidal OSA - 04/10/2024 5:33 AM EDT Hello- The radiologist discovered an unexpected or indeterminate finding on Marium Tobar ([id number]) and asks that you review the following [...] reviewed. Thank you, HAM Pennington Client Service [facility] [place] documented in this encounter Plan of Treatment Upcoming Encounters Date Type Department Care Team (Late st Contact Info) Description 04/14/2024 12:00 PM EDT Imaging Radiology [address] [place] [address] 05/11/2024 1:30 PM EDT Imaging Radiology [address] [place] [address] 06/05/2024 8:45 AM EDT Office Visit Urogynecology [facility] [address] [place] [address] Stefania Polanco PA-C [address] [place] [address] Nurse Alonzo Saenz [facility] [address] [place] [address] 10/07/2024 5:40 PM EST Office Visit Family Practice [facility] [address] [place] [address] Kirill Vickers DO [address] [place] [address] 12/18/2024 11:20 AM EST [facility] [address] [place] [address] Delonte Kirby MD [address] [place] [address] Scheduled Orders Name Type Priority Associated Diagnoses Orde r Schedule CT ABD/PELVIS W IV CONTRAST - WO ORAL CONTRAST Medical Imaging Routine Post-menopausal bleeding Thickened endometrium Abnormal ultrasound of bladder Ordered: 04/10/2024 Scheduled Procedures Name Priority Associated Diagnoses Date/Ti me COLONOSCOPY FLEXIBLE PROXIMA L DIAGNOSTIC Recall History of colonic polyps Scheduled Referrals Name Type Priority Associated Diagnoses Orde r Schedule ELECTROLYTIC ETCHER REFERRAL OP Referral Within 30 days (routine) Post-menopausal bleeding Thickened endometrium Ordered: 04/10/2024 Health Maintenance Due Date Last Done Comments HPV/Co-Test 1991 Cologuard 2006 Fecal Occult Blood Test 2006 Sigmoidoscopy 2006 COVID-19 Vaccine ( season) 2023 01/21/2021, 12/31/2020 GFR 10/04/2023 04/04/2023, 06/06, 04/10/2022, Additional history exists CKD PHOS USE SMARTSET 98067 04/04/2024 06/0 11/2022, 04/10/2022, 09/20/2020, Additional history [...] Additional history exists CKD HGB USE SMARTSET 36995 04/10/202504/10, 04/10/2024, 04/04/2023, Additional history exists Diabetes [...] organs documented in this encounter Care Teams Production Pattern Maker Relationship Specialty Start Date End Date Kirill Vickers DO 132 [facility] [place] [address] PCP - General Family Medicine 04/02/19 documented as of this encounter
--- OUTSIDE RECORDS SUMMARY | 2024-09-15 08:57 | External Medical Summary | Summary of Care ---
Author Name Unknown Organization [facility] Address [address] [facility] [place] [address] Phone [phone] Care Team Providers Care Spinning Mule Tender Name Role Phone Allyson Vickers DO Primary Care Provider [phone] Reason for Visit * Reason Comments Outpatient Testing Encounter Details Date Type Department Care Team (Late st Contact Info) Description 04/10/2024 12:10 PM EDT Laboratory Laboratory, [facility] [address] [facility] 132 [place] [address] Chronic kidney disease, stage 3a (HCC); Post-menopausal bleeding; Thickened endometrium; Abnormal ultrasound of bladder; Recurrent UTI Allergies Active Allergy Reactions Criticality Noted Date [...] Description 04/14/2024 12:00 PM EDT [facility] 132 [place] [address] 05/11/2024 1:30 PM EDT Imaging Radiology [address] [place] [address] 06/05/2024 8:45 AM EDT Office Visit Urogynecology Gely Saenz 132 [place] [address] Stefania Polanco PA-C 132 [place] [address] Nurse Alonzo Saenz 132 [place] [address] 10/07/2024 5:40 PM EST Office Visit Family Practice [facility] [address] [place] [address] Allyson Vickers, [address] [place] [address] 12/18/2024 11:20 AM EST Office Visit Nephrology, [facility] [place] [address] Delonte Kirby MD [address] [facility] [place] [address] Pending Results Name Type Priority Associated Diagnoses Date /Time RENAL FUNCTION PANEL Lab Routine Chronic kidney disease, stage 3a (HCC) 04/10/2024 12:06 PM EDT URINALYSIS WITH MICROSCOPIC EXAM Lab Routine Chronic kidney disease, stage 3a (HCC) 04/10/2024 12:06 PM EDT PROTEIN/ CREATININE RATIO, URINE Lab Routine Chronic kidney disease, stage 3a (HCC) 04/10/2024 12:06 PM EDT CBC WITH WBC DIFFERENTIAL Lab Routine Post-menopausal bleeding Thickened endometrium Abnormal ultrasound of bladder 04/10/2024 12:06 PM EDT CULTURE, URINE, QUANTITATIVE Lab Routine Recurrent UTI 04/10/2024 12:06 PM EDT CBC Lab Routine Post-menopausal bleeding Thickened endometrium Abnormal ultrasound of bladder 04/10/2024 12:06 PM EDT DIFFERENTIAL, AUTOMATED Lab Routine Post-menopausal bleeding Thickened endometrium Abnormal ultrasound of bladder 04/10/2024 12:06 PM EDT Scheduled Procedures Name Priority Associated Diagnoses Date/Ti me COLONOSCOPY FLEXIBLE PROXIMA L DIAGNOSTIC Recall History of colonic polyps Health Maintenance Due Date Last Done Comments HPV/Co-Test 1991 Cologuard 2006 Fecal Occult Blood Test 2006 Sigmoidoscopy 2006 COVID-19 Vaccine ( season) 2023 01/21/2021, 12/31/2020 GFR 10/04/2023 04/04/2023, 06/06, 04/10/2022, Additional history exists CKD HGB USE SMARTSET 48250 04/04/202404/04, 04/04/2023, 07/03/2022, Additional history exists CKD PHOS USE SMARTSET 14012 04/04/2024 06/0 11/2022, 04/10/2022, 09/20/2020, Additional history exists Cervical Cancer Screening 04/12/2024 Pap Smear 04/12/2024 04/12/2021, 05/04, 03/04/2014 (Done elsewhere), Additional history exists Mammogram 04/30/2024 04/30/2023, 04/05, 04/21/2021, Additional history exists Influenza Vaccine (FLU shot) (Season Ended) 2024 07/13/2020, 08/13/2019, 08/20/2018, Additional history exists TSH 12/31/2024 12/31/2023, 06/05, 04/10/2022, Additional history exists Albumin/Creatinine Ratio 03/11/2025 024, 12/11/2016, 08/15/2015, Additional history exists Diabetes Screening 04/04/2026 04/04/2023, [...] as of this encounter Visit Diagnoses Diagnosis Chronic kidney disease, stage 3a (HCC) Post-menopausal bleeding Postmenopausal bleeding Thickened endometrium Nonspecific (abnormal) findings on radiological and other examination of genitourinary organs Abnormal ultrasound of bladder Nonspecific (abnormal) findings on radiological and other examination of genitourinary organs Recurrent UTI Urinary tract infection, site not specified documented in this encounter Care Teams Spinning Mule Tender Relationship Specialty Start Date End Date Allyson Vickers DO [address] [place] [address] PCP - General Family Medicine 04/02/19 documented as of this encounter
--- OUTSIDE RECORDS SUMMARY | 2024-09-15 08:58 | External Medical Summary ---
Author Name Unknown Address Unknown Organization [id number]:LABORATORY [facility] [place] - [address] [place] [address] Laboratory Report Ordering Provider Test Date Status LUCINDA ROYLatha 04/10/2024 12:06:59 Final Observation Date Value Abnormality Reference (Units ) Status BUN 04/10/2024 12:06:59 20 6-20 (mg/dL) Final Creatinine 04/10/2024 12:06:59 1.3 Above high normal 0.5-1.0 (mg/dL) Final Glomerular filtration rate/1.73 sq M.predicted [Volume Rate/Area] in Serum, Plasma or Blood by Creatinine-based formula (CKD-EPI) 04/10/2024 12:06:59 48 Below low normal >=60 (mL/min) Final eGFR is calculated based on the CKD-EPI 2020 equation Sodium 04/10/2024 12:06:59 142 135-146 (m mol/L) Final Potassium 04/10/2024 12:06:59 4.9 3.5-5.1 (m mol/L) Final Cl 04/10/2024 12:06:59 105 98-107 (mm ol/L) Final CO2 04/10/2024 12:06:59 25 22-32 (mmo l/L) Final Anion gap 04/10/2024 12:06:59 12 7-15 (mmol /L) Final Glucose 04/10/2024 12:06:59 85 70-120 (mg /dL) Final Calcium 04/10/2024 12:06:59 9.6 8.4-10.2 ( mg/dL) Final Albumin 04/10/2024 12:06:59 4.3 3.8-5.0 (g /dL) Final Phosphate 04/10/2024 12:06:59 3.4 2.5-4.8 (m g/dL) Final Performing Location LABORATORY [facility] [place] - [address] [place] [address]
--- OUTSIDE RECORDS SUMMARY | 2024-09-15 08:58 | External Medical Summary ---
Author Name Unknown Address Unknown Organization K01:[facility]ORY [facility] [place] [address] [place] [address] Laboratory Report Ordering Provider Test Date Status HARDIK YOUNG 04/10/2024 12:06:59 Final Normal: <150 mg/ g creatinine
High: 150-500 mg/g creatinine
Very High: >500 mg/g creatinine
Nephrotic: >3000 mg/g creatinine Observation Date Value Abnormality Reference (Units ) Status Protein/Creatinine [Ratio] in Urine 04/10/2024 12:06:59 72 <150 (mg/g ) Final Protein, Urine 04/10/2024 12:06:59 16 (mg/dL) Final Creatinine, Urine 04/10/2024 12:06:59 221 (mg/dL) Final Performing Location [facility] [place] - [address] [place] [address]
--- OUTSIDE RECORDS SUMMARY | 2024-09-15 08:58 | External Medical Summary ---
Author Name Unknown Address Unknown Organization K01:LABORATORY [facility] [place] - [address] [place] [address] Laboratory Report Ordering Provider Test Date Status HARDIK YOUNG 04/10/2024 12:06:59 Final <10,000 colonies/ml mixed no rmal joanne Observation Date Value Abnormality Reference (Units ) Status Bacteria identified in Specimen by Culture 04/10/2024 12:06:59 [id number]^STREPTOC OCCUS ANGINOSUS GROUP Abnormal Final >100,000 colonies/mL Strepto coccus anginosus group
Test: Culture, Urine, Quantitative
Specimen Source: Urine, Clean Catch
Specimen Type: Urine
Specimen Date: 04/10/2024 1206
Result Date: 04/13/2024 1401
Result Status: Final result
Abnormal: Yes
Resulting Lab: LABORATORY [facility] [place]
[address]
[place] [address]

CULTURE

>100,000 colonies/mL Streptococcus anginosus group (Abnormal)

<10,000 colonies/ml mixed normal joanne

null Performing Location LABORATORY [facility] [place] - [address] [place] [address]
--- OUTSIDE RECORDS SUMMARY | 2024-09-15 08:58 | External Medical Summary ---
Author Name Unknown Address Unknown Organization K0G:LABORATORY [place] [address] - [address] [place] [address] Laboratory Report Ordering Provider Test Date Status SUKHDEEP ROYTRINIDAD 04/10/2024 12:06:59 Final Observation Date Value Abnormality Reference (Units ) Status SYNC LEUKOCYTES IN BLOOD BY AUTOMATED COUNT 04/10/2024 12:06:59 5.22 4.00-10.80 (K/uL) Final Segs 04/10/2024 12:06:59 59.9 40.0-75.0 (%) Final Lymphs % 04/10/2024 12:06:59 27.8 18.0-42.0 (%) Final Monos 04/10/2024 12:06:59 10.2 1.0-11.0 (%) Final Eosinophils 04/10/2024 12:06:59 1.7 0.0-6.0 (%) Final Basos 04/10/2024 12:06:59 0.4 0.0-2.0 (%) Final Absolute Segs 04/10/2024 12:06:59 3.13 1.80-7.70 (K/uL) Final Lymphs, absolute 04/10/2024 12:06:59 1.45 1.00-4.80 (K/ul) Final Monos, Abs 04/10/2024 12:06:59 0.53 0.00-1.10 (K/uL) Final Eos, Abs 04/10/2024 12:06:59 0.09 0.00-0.70 (K/uL) Final Basos, Abs 04/10/2024 12:06:59 0.02 0.00-0.20 (K/uL) Final Performing Location LABORATORY [place] [address] - [address] [place] [address]
--- OUTSIDE RECORDS SUMMARY | 2024-09-15 08:58 | External Medical Summary | Summary of Care ---
Author Name Unknown Organization [facility] [address] [place] [address] Phone [phone] Care Team Providers Care Emerging Solutions Executive Name Role Phone Allyson Vickers DO Primary Care Provider [phone] Reason for Visit * Reason Onset Date Comments Test Results 04/10/2024 Unexpected or In determinate Result Encounter Details Date Type Department Care Team ([facility] st Contact Info) Description 04/10/2024 Telephone Laboratory, [address] [address] Allyson Vickers DO [address] [place] [address] Test Results (Unexpected or Indeterminate ... Allergies [...] encounter Miscellaneous Notes * Telephone Encounter - Mohinder Vidal OSA - 04/10/2024 5:33 AM EDT Hello- The radiologist discovered an unexpected or indeterminate finding on [facility] ([id number]) and asks that you review the following [...] Thank you, HAM Pennington Client Service [facility] [place] documented in this encounter Plan of Treatment Upcoming Encounters Date Type Department Care Team (Late st Contact Info) Description 05/11/2024 1:30 PM EDT Imaging Radiology [address] [place] [address] 06/05/2024 8:45 AM EDT Office Visit Urogynecology Gely Saenz [address] [place] [address] Stefania Polanco PA-C [address] [place] [address] Nurse Alonzo Saenz [address] [place] [address] 10/07/2024 5:40 PM EST Office Visit Family Practice Gely Saenz [place] [address] [place] [address] Allyson Vickers DO [address] [place] [address] 12/18/2024 11:20 AM EST Office Visit Nephrology, [facility] 200 [facility] [place] [address] Delonte Kirby MD [address] [place] [address] Scheduled Procedures Name Priority Associated Diagnoses Date/Ti me COLONOSCOPY FLEXIBLE PROXIMA L DIAGNOSTIC Recall History of colonic polyps Health Maintenance Due Date Last Done Comments HPV/Co-Test 1991 Cologuard 2006 Fecal Occult Blood Test 2006 Sigmoidoscopy 2006 COVID-19 Vaccine ( season) 2023 01/21/2021, 12/31/2020 GFR 10/04/2023 04/04/2023, 06/06, 04/10/2022, Additional history exists CKD HGB USE SMARTSET 04690 04/04/202404/04, 04/04/2023, 07/03/2022, Additional history exists CKD PHOS USE SMARTSET 99237 04/04/2024 06/0 11/2022, 04/10/2022, 09/20/2020, Additional history [...] filedocumented as of this encounter Care Teams Emerging Solutions Executive Relationship Specialty Start Date End Date Allyson Vickers DO [address] [place] [address] PCP - General Family Medicine 04/02/19 documented as of this encounter
--- OUTSIDE RECORDS SUMMARY | 2024-09-15 08:58 | External Medical Summary | Summary of Care ---
Author Name Unknown Organization [facility] Address [address] [facility] [place] [address] Phone [phone] Care Team Providers Care Chief Technologist Name Role Phone Allyson Vickers DO Primary Care Provider [phone] Reason for Visit * Reason Comments Outpatient Testing Encounter Details Date Type Department Care Team (Late st Contact Info) Description 04/10/2024 12:10 PM EDT Laboratory Laboratory, [facility] [address] [facility] 132 [place] [address] Chronic kidney disease, stage 3a (HCC); Post-menopausal [...] Description 04/14/2024 12:00 PM EDT [facility] 132 [place] [address] 05/11/2024 1:30 PM EDT Imaging Radiology [address] [place] [address] 06/05/2024 8:45 AM EDT Office Visit Urogynecology Gely Saenz [address] [place] [address] Stefania Polanco PA-C 132 [place] [address] Nurse Alonzo Saenz 132 [place] [address] 10/07/2024 5:40 PM EST Office Visit Family Practice [facility] [address] [place] [address] Allyson Vickers, [address] [place] [address] 12/18/2024 11:20 AM EST Office Visit Nephrology, [facility] 200 [facility] [place] [address] Delonte Kirby MD 200 [facility] [place] [address] Pending Results Name Type Priority Associated Diagnoses [...] Additional history exists CKD HGB USE SMARTSET 90440 04/04/202404/04, 04/04/2023, 07/03/2022, Additional history exists CKD PHOS USE SMARTSET 59325 04/04/2024 06/0 11/2022, 04/10/2022, 09/20/2020, Additional history [...] specified documented in this encounter Care Teams Chief Technologist Relationship Specialty Start Date End Date Allyson Vickers DO [address] [place] [address] PCP - General Family Medicine 04/02/19 documented as of this encounter
--- OUTSIDE RECORDS SUMMARY | 2024-09-15 08:58 | External Medical Summary | Summary of Care ---
Author Name Unknown Organization [facility] Address [address] [facility] [place] [address] Phone [phone] Care Team Providers Care Pipe Maker Name Role Phone Allyson Vickers DO Primary Care Provider [phone] Reason for Visit * Reason Comments Outpatient Testing Encounter Details Date Type Department Care Team (Late st Contact Info) Description 04/10/2024 12:10 PM EDT Laboratory Laboratory, [facility] [address] [facility] 132 [place] [address] Chronic kidney disease, stage 3a (HCC); Post-menopausal [...] Description 04/14/2024 12:00 PM EDT [facility] 132 [place] [address] 05/11/2024 1:30 PM EDT Imaging Radiology [address] [place] [address] 06/05/2024 8:45 AM EDT Office Visit Urogynecology Gely Saenz 132 [place] [address] Stefania Polanco PA-C 132 [place] [address] Nurse Alonzo Saenz 132 [place] [address] 10/07/2024 5:40 PM EST Office Visit Family Practice [facility] [address] [place] [address] Allyson Vickers, [address] [place] [address] 12/18/2024 11:20 AM EST Office Visit Nephrology, [facility] 200 [facility] [place] [address] Delonte Kirby MD 200 [facility] [place] [address] Pending Results Name Type Priority Associated Diagnoses [...] Additional history exists CKD HGB USE SMARTSET 48744 04/04/202404/04, 04/04/2023, 07/03/2022, Additional history exists CKD PHOS USE SMARTSET 82958 04/04/2024 06/0 11/2022, 04/10/2022, 09/20/2020, Additional history [...] specified documented in this encounter Care Teams Pipe Maker Relationship Specialty Start Date End Date Allyson Vickers DO [address] [place] [address] PCP - General Family Medicine 04/02/19 documented as of this encounter
--- OUTSIDE RECORDS SUMMARY | 2024-09-15 08:58 | External Medical Summary | Summary of Care ---
Author Name Unknown Organization [facility] Address [address] [facility] [place] [address] Phone [phone] Care Team Providers Care Plasterer Tender Name Role Phone Allyson Vickers DO Primary Care Provider [phone] Reason for Visit * Reason Comments Outpatient Testing Encounter Details Date Type Department Care Team (Late st Contact Info) Description 04/10/2024 12:10 PM EDT Laboratory Laboratory, [facility] [address] [facility] 132 [place] [address] Chronic kidney disease, stage 3a (HCC); Post-menopausal [...] Description 05/11/2024 1:30 PM EDT Imaging Radiology [address] [place] [address] 06/05/2024 8:45 AM EDT Office Visit Urogynecology Gely Saenz [address] [place] [address] Stefania Polanco PA-C [address] [place] [address] Nurse Alonzo Saenz [address] [place] [address] 10/07/2024 5:40 PM EST Office Visit Family Practice [facility] [address] [place] [address] Allyson Vickers, [address] [place] [address] 12/18/2024 11:20 AM EST Office Visit Nephrology, [facility] 200 [facility] [place] [address] Delonte Kirby MD 200 [facility] [place] [address] Pending Results Name Type Priority Associated Diagnoses [...] Additional history exists CKD HGB USE SMARTSET 12582 04/04/202404/04, 04/04/2023, 07/03/2022, Additional history exists CKD PHOS USE SMARTSET 52159 04/04/2024 06/0 11/2022, 04/10/2022, 09/20/2020, Additional history [...] specified documented in this encounter Care Teams Plasterer Tender Relationship Specialty Start Date End Date Allyson Vickers DO [address] [place] [address] PCP - General Family Medicine 04/02/19 documented as of this encounter
--- OUTSIDE RECORDS SUMMARY | 2024-09-15 08:58 | External Medical Summary ---
Author Name Unknown Address Unknown Organization K0G:LABORATORY [facility] [place] [address] - [address] [place] [address] Laboratory Report Ordering Provider Test Date Status RITESH ROY 04/10/2024 12:06:59 Final Observation Date Value Abnormality Reference (Units ) Status WBC, Total 04/10/2024 12:06:59 5.22 4.00-10.8 0 (K/uL) Final RBC 04/10/2024 12:06:59 4.98 3.85-5.15 (M/uL) Final Hemoglobin 04/10/2024 12:06:59 14.7 12.0-15.3 (g/dL) Final HCT 04/10/2024 12:06:59 45.1 36.0-45.2 (%) Final MCV 04/10/2024 12:06:59 90.6 81.5-97.5 (fL) Final MCH 04/10/2024 12:06:59 29.5 27.0-34.0 (pg) Final MCHC 04/10/2024 12:06:59 32.6 32.0-36.0 (g/dL) Final RDW 04/10/2024 12:06:59 13.3 11.5-15.5 (%) Final Platelets 04/10/2024 12:06:59 263 140-400 (K /uL) Final MPV 04/10/2024 12:06:59 9.9 6.6-11.1 ( fL) Final Performing Location LABORATORY [facility] [place] [address] - [address] [place] [address]
--- OUTSIDE RECORDS SUMMARY | 2024-09-15 08:58 | External Medical Summary | Summary of Care ---
Author Name Unknown Organization [facility] Address [address] [place] [address] Phone [phone] Care Team Providers Care Police Matron Name Role Phone Allyson Vickers DO Primary Care Provider [phone] Reason for Visit * Reason Onset Date Comments Test Results 04/10/2024 Encounter Details Date Type Department Care Team (Late st Contact Info) Description 04/10/2024 Telephone NephrologyAdri 200 [facility] [place] [address] Delonte Kirby MD 200 [facility] [place] [address] Test Results Allergies Active Allergy Reactions Criticality [...] mRNA, LNP-s, No Pre serve, 2-Dose Series (Atosho) 01/21/2021,12/31/2020 Pneumococcal Polysaccharide PPV23 (Pneumovax) 02/14/2017 Seasonal [...] encounter Miscellaneous Notes * Telephone Encounter - Lelo Almgauer RN - 04/10/2024 10:51 AM EDT TE with pt regarding US results. Is already scheduled to see Urology in June. Aware to complete UA,C/S today. States she my not be able to do this until tomorrow. * Telephone Encounter - Lelo Almagure RN - 04/10/2024 10:45 AM EDT ----- Message from Delonte Kirby MD sent at 04/10/2024 10:29 AM EDT ----- He needs to see Urology. Given her current findings Urology may be more suitable. Can we make sure she gets urine C/s and UA today Would prefer urology to order further testing. documented in this encounter Plan of Treatment Upcoming Encounters Date Type Department Care Team (Late st Contact Info) Description 05/11/2024 1:30 PM EDT Imaging Radiology [address] [place] [address] 06/05/2024 8:45 AM EDT Office Visit Urogynecology [facility] [address] [place] [address] Stefania Polanco PA-C [address] [place] [address] Nurse Alonzo Saenz [facility] [address] [place] [address] 10/07/2024 5:40 PM EST Office Visit Family Practice [facility] [address] [place] [address] Allyson Vickers DO [address] [place] [address] 12/18/2024 11:20 AM EST Office Visit Nephrology, Adri Kaufman [address] [place] [address] Delonte Kirby MD [address] [place] [address] Scheduled Orders Name Type Priority Associated Diagnoses Orde r Schedule URINALYSIS WITH MICROSCOPIC EXAM Lab Routine Recurrent UTI Expected: 04/10/2024 (Approximate), Expires: 04/10/2025 CULTURE, URINE, QUANTITATIVE Lab Routine Recurrent UTI Expected: 04/10/2024 (Approximate), Expires: 04/10/2025 Scheduled Procedures Name Priority Associated Diagnoses Date/Ti me COLONOSCOPY FLEXIBLE PROXIMA L DIAGNOSTIC Recall History of colonic polyps Health Maintenance Due Date Last Done Comments HPV/Co-Test 1991 Cologuard 2006 Fecal Occult Blood Test 2006 Sigmoidoscopy 2006 COVID-19 Vaccine ( season) 2023 01/21/2021, 12/31/2020 GFR 10/04/2023 04/04/2023, 08/, 04/10/2022, Additional history exists CKD HGB USE SMARTSET 66076 04/04/202404/04, 04/04/2023, 07/03/2022, Additional history exists CKD PHOS USE SMARTSET 59583 04/04/2024 06/0 11/2022, 04/10/2022, 09/20/2020, Additional history [...] as of this encounter Visit Diagnoses Diagnosis Recurrent UTI- Primary Urinary tract infection, site not specified documented in this encounter Care Teams Police Matron Relationship Specialty Start Date End Date Allyson Vickers DO [address] [place] [address] PCP - General Family Medicine 04/02/19 documented as of this encounter
--- OUTSIDE RECORDS SUMMARY | 2024-09-15 08:58 | External Medical Summary ---
Author Name Unknown Address Unknown Organization K01:LABORATORY [facility] [place] - [address] [facility] [address] Laboratory Report Ordering Provider Test Date Status HARDIK YOUNG 04/10/2024 12:06:59 Final Observation Date Value Abnormality Reference (Units ) Status Color of Urine by Auto 04/10/2024 12:06:59 Yellow Colorless, Light Yellow, Yellow, Dark Yellow Final Clarity, Urine 04/10/2024 12:06:59 Slightly Cloudy Abnormal Clear Final Glucose [Mass/volume] in Urine by Automated test strip 04/10/2024 12:06:59 Negative Negative (mg/dL) Final Bilirubin.total [Presence] in Urine by Automated test strip 04/10/2024 12:06:59 Negative Negative Final Ketones [Mass/volume] in Urine by Automated test strip 04/10/2024 12:06:59 Negative Negative (mg/dL) Final Specific gravity, Urine 04/10/2024 12:06:59 1.023 1.003-1.030 Final Hemoglobin [Presence] in Urine by Automated test strip 04/10/2024 12:06:59 Trace Abnormal Negative Final pH, Urine 04/10/2024 12:06:59 6.0 5.0-7.5 (Units) Final Protein [Mass/volume] in Urine by Automated test strip 04/10/2024 12:06:59 Trace Abnormal Negative (mg/dL) Final Urobilinogen [Mass/volume] in Urine by Automated test strip 04/10/2024 12:06:59 Normal Normal (mg/dL) Final Nitrite [Presence] in Urine by Automated test strip 04/10/2024 12:06:59 Negative Negative Final Leukocyte esterase [Presence] in Urine by Automated test strip 04/10/2024 12:06:59 Small Abnormal Negative Final RBC, Urine 04/10/2024 12:06:59 3-5 Abnormal 0-2 (/HPF) Final WBC, Urine 04/10/2024 12:06:59 3-5 Abnormal 0-2 (/HPF) Final Bacteria [#/area] in Urine sediment by Microscopy high power field 04/10/2024 12:06:59 0-25 0-25 (/HPF) Final Hyaline casts, Urine 04/10/2024 12:06:59 5-9 Abnormal None (/LPF) Final Performing Location LABORATORY [facility] [place] - [address] [facility] [address]
--- OUTSIDE RECORDS SUMMARY | 2024-09-15 08:58 | External Medical Summary | Summary of Care ---
Author Name Unknown Organization [facility] Address [address] [facility] [address] Phone [phone] Care Team Providers Care Remote Sensing Engineer Name Role Phone Kirill Vickers DO Primary Care Provider [phone] Reason for Referral * Evaluate & Treat - Unlimited Visits (Within 30 days (routine)) - Authorized Specialty Diagnoses / Procedures Referred By Contac t Referred To Contact Obstetrics/Gynecology / Gynecology Obstetrics Diagnoses Post-menopausal bleeding Thickened endometrium Kirill Vickers DO [address] [facility] [place] [address] Referral ID Status Reason Start Date Expiration Date Visits Requested Visits Authorized [id number] Authorized Specialty Services Required 04/10/2024 999 999 [...] - WO ORAL CONTRAST Kirill Vickers DO [address] [facility] [place] [address] Referral ID Status Reason Start Date Expiration Date V isits Requested Visits Authorized [id number] Pending Review 04/10/2024 999 999 Reason for Visit * Reason Onset Date Comments Test Results 04/10/2024 Unexpected or In determinate Result Encounter Details Date Type Department Care Team (Late st Contact Info) Description 04/10/2024 Telephone Laboratory, [facility] [address] [facility] [place] [address] Kirill Vickers DO [address] [facility] [place] [address] Test Results (Unexpected [...] encounter Miscellaneous Notes * Addendum Note - Kirill Vickers DO [...] labs before this - ordered Also needs rn correctional appt for thickened endometrium, possible biopsy Please schedule CT and rn correctional referral * Telephone Encounter - Mohinder Vidal OSA - 04/10/2024 5:33 AM EDT Keith- The radiologist discovered an unexpected or indeterminate finding on Marium Tobar ([id number]) and asks that you review the following [...] reviewed. Thank you, HAM Pennington Client Service [facility] documented in this encounter Plan of Treatment Upcoming Encounters Date Type Department Care Team (Late st Contact Info) Description 05/11/2024 1:30 PM EDT Imaging Radiology [address] [place] [address] 06/05/2024 8:45 AM EDT Office Visit Urogynecology Gely Saenz [address] [place] [address] Stefania Polanco PA-C [address] [place] [address] Nurse Alonzo Saenz [address] [place] [address] 10/07/2024 5:40 PM EST [facility] [address] [place] [address] Kirill Vickers DO [address] [place] [address] 12/18/2024 11:20 AM EST Office Visit Nephrology, [facility] [place] [address] Delonte Kirby MD 200 [facility] [place] [address] Scheduled Orders Name Type Priority Associated Diagnoses Orde r Schedule CT ABD/PELVIS W IV CONTRAST - WO ORAL CONTRAST Medical Imaging Routine Post-menopausal bleeding Thickened endometrium Abnormal ultrasound of bladder Ordered: 04/10/2024 BASIC METABOLIC PANEL Lab Routine Post-menopausal bleeding Thickened endometrium Abnormal ultrasound of bladder Expected: 04/10/2024 (Approximate), Expires: 04/10/2025 CBC WITH WBC DIFFERENTIAL Lab Routine Post-menopausal bleeding Thickened endometrium Abnormal ultrasound of bladder Expected: 04/10/2024 (Approximate), Expires: 04/10/2025 Scheduled Procedures Name Priority Associated Diagnoses Date/Ti me COLONOSCOPY FLEXIBLE PROXIMA L DIAGNOSTIC Recall History of colonic polyps Scheduled Referrals Name Type Priority Associated Diagnoses Orde r Schedule NEGOTIATIONS DIRECTOR REFERRAL OP Referral Within 30 days (routine) Post-menopausal bleeding Thickened endometrium Ordered: 04/10/2024 Health Maintenance Due Date Last Done Comments HPV/Co-Test 1991 Cologuard 2006 Fecal Occult Blood Test 2006 Sigmoidoscopy 2006 COVID-19 Vaccine ( season) 2023 01/21/2021, 12/31/2020 GFR 10/04/2023 04/04/2023, 06/06, 04/10/2022, Additional history exists CKD HGB USE SMARTSET 40028 04/04/202404/04, 04/04/2023, 07/03/2022, Additional history exists CKD PHOS USE SMARTSET 84924 04/04/2024 06/0 11/2022, 04/10/2022, 09/20/2020, Additional history [...] organs documented in this encounter Care Teams Remote Sensing Engineer Relationship Specialty Start Date End Date Kirill Vickers DO [address] [place] [address] PCP - General Family Medicine 04/02/19 documented as of this encounter
--- OUTSIDE RECORDS SUMMARY | 2024-09-15 08:59 | External Medical Summary | Summary of Care ---
Author Name Unknown Organization [facility] [address] [place] [address] Phone [phone] Care Team Providers Care Experimental Box Tester Name Role Phone Allyson Vickers DO Primary Care Provider [phone] Reason for Visit * Reason Onset Date Comments Test Results 04/10/2024 Unexpected or In determinate Result Encounter Details Date Type Department Care Team ([facility] st Contact Info) Description 04/10/2024 Telephone Laboratory, [address] [address] Allyson Vickers DO [address] [place] [address] Test Results (Unexpected or Indeterminate ... Allergies [...] discovered an unexpected or indeterminate finding on [facility] ([id number]) and asks that you review the following [...] Thank you, HAM Pennington Client Service Rep [facility] Medicine [place] documented in this encounter Plan of Treatment Upcoming Encounters Date Type Department Care Team (Late st Contact Info) Description 05/11/2024 1:30 PM EDT Imaging Radiology [address] [place] [address] 06/05/2024 8:45 AM EDT Office Visit Urogynecology Gely Saenz [address] [place] [address] Stefania Polanco PA-C [address] [place] [address] Nurse Alonzo Saenz [address] [place] [address] 10/07/2024 5:40 PM EST Office Visit Family Practice Gely Saenz [place] [address] [place] [address] Allyson Vickers DO [address] [place] [address] 12/18/2024 11:20 AM EST Office Visit Nephrology, [facility] 200 [facility] [place] [address] Delonte Kirby MD [address] [place] [address] Scheduled Procedures Name Priority Associated Diagnoses Date/Ti me COLONOSCOPY FLEXIBLE PROXIMA L DIAGNOSTIC Recall History of colonic polyps Health Maintenance Due Date Last Done Comments HPV/Co-Test 1991 Cologuard 2006 Fecal Occult Blood Test 2006 Sigmoidoscopy 2006 COVID-19 Vaccine ( season) 2023 01/21/2021, 12/31/2020 GFR 10/04/2023 04/04/2023, 06/06, 04/10/2022, Additional history exists CKD HGB USE SMARTSET 61175 04/04/202404/04, 04/04/2023, 07/03/2022, Additional history exists CKD PHOS USE SMARTSET 88154 04/04/2024 06/0 11/2022, 04/10/2022, 09/20/2020, Additional history [...] filedocumented as of this encounter Care Teams Experimental Box Tester Relationship Specialty Start Date End Date Allysno Vickers DO [address] [place] [address] PCP - General Family Medicine 04/02/19 documented as of this encounter
--- OUTSIDE RECORDS SUMMARY | 2024-09-15 08:59 | External Medical Summary | Summary of Care ---
Author Name Unknown Organization [facility] [address] [facility] [address] Phone [phone] Care Team Providers Care Consumer Marketing Manager Name Role Phone [place] Allyson Kit JULIO Primary Care Provider [phone] Reason for Referral * Evaluate & Treat - Unlimited Visits (Within 10 days (routine)) - Authorized Specialty Diagnoses / Procedures Referred By Home t Referred To Contact DUTY ENGINEER - Urogynecology / Gynecology Urology Diagnoses Dysuria Recurrent UTI Delonte Kirby MD [address] [place] [address] Referral ID Status Reason Start Date Expiration Date Visits Requested Visits Authorized [id number] Authorized Specialty Services Required 04/08/[phone] Question Answer Referral Priority Within 10 days (routine) Where should this appointment be scheduled? [facility] What condition is the patient being referred for? Chronic Bladder Pain/Interstitial Cystitis/Dysuria Comments Recurrent UTI Reason for Visit * Reason Comments Return Visit Chronic Kidney Disease (CKD) Hypertension Encounter Details Date Type Department Care Team (Late st Contact Info) Description 04/08/2024 3:20 PM EDT Office Visit NephrologyAdri [address] [place] [address] Delonte Kirby MD [address] [place] [address] Chronic kidney disease, stage 3a (HCC)*; Dysuria; Recurrent UTI Allergies Active Allergy Reactions Criticality Noted Date Comments Latex Hives,Rash Medium 05/20/2014 documented as of this encounter (statuses as of 04/08/2024) Medications Medication Sig Dispensed Refills Start Date [...] as of this encounter (statuses as of 04/08/2024) Active Problems Problem Noted Date Diagnosed Date Depression with anxiety 12/21/2022 Chronic kidney disease, stage 3a 03/14/2021 Overview: Per CKD protocol History of thyroid cancer 03/02/2018 History of cervical cancer 03/02/2018 Acquired hypothyroidism 06/04/2017 Dyslipidemia 08/14/2007 Overview: Per Lipid Taxonomy. HTN, goal below 130/80 documented as of this encounter (statuses as of 04/08/2024) Resolved Problems Problem Noted Date Diagnosed Date [...] as of this encounter (statuses as of 04/08/2024) Immunizations Name Administration Dates Next Due COVID-19 [...] Sign Reading Time Taken Comments Blood Pressure 128/73 04/08/2024 3:11 PM EDT Pulse 60 04/08/2024 3:11 PM EDT Temperature 37.4 C (99.4 F) 04/08/2024 3:10 PM ED T Respiratory Rate 18 04/08/2024 3:10 PM EDT Oxygen Saturation 97% 04/08/2024 3:10 PM EDT Inhaled Oxygen Concentration - - Weight 80.6 kg (177 lb 9.6 oz) 04/08/2024 3:10 P M EDT Height - - Body Mass Index 29.1 01/14/2024 1:20 PM EDT documented in this encounter Progress Notes * Delonte Kirby MD - 04/08/2024 4:20 PM EDT Chief Complaint Patient presents with Return Visit Chronic Kidney Disease (CKD) Hypertension HPI: 63/F with ckd stage 3 with no proteinuria from advanced age and hypertension and nsaids with signs of medical renal disease on renal us. History of taking nsaids in the past with the restless leg syndrome. Was taking it nightly for a month about 6 months and no longer takes it. Pt with hypertension for many years. Pt with htn at the age of 16. Started taking bp medications since age 19. Per patient, had a secondary workup done at that time. Checking bp at home and usually in the 120s/70s. No lightheadedness. Pt with history of breast cancer in 2012, left side and had lumpectomy with radiation treatments. No chemo. Developed a dvt postoperatively and on coumadin for a couple months with the dvt and now nolonger on blood thinners. Currently on baby aspirin. Pt has noticed more easier bruising. Hx of one kidney stone many years ago. Had lithotripsy and then she passed it and has not had one since then. Since last visit ---No recent , hospitilizations or procedures. Recent renal Labs done. BP isnot running low anymore after losartan reduction. She has been getting urinary tract infection frequently for the last few months and has completed 3different course of antibiotics. Even now she is complaining of blood-tinged urine versus vaginal discharge as well as dysuria PHM: Patient Active Problem List Diagnosis Dyslipidemia HTN, goal below 130/80 Acquired hypothyroidism History of thyroid cancer History of cervical cancer Chronic kidney disease, stage 3a (HCC) Depression with anxiety Current Outpatient Medications Medication Sig Dispense Refill [...] 5 mL by mouth in the morning. Turmeric 500 MG Oral Tablet Take by [...] 2 TABLETS ON SUNDAYS 96 Tablet 1 Albuterol Sulfate HFA 108 (90 Base) MCG/ACT Inhalation Aerosol Solution Inhale 2 Puffs by mouth every 6 hours as needed for Shortness of Breath or Wheezing. (Patient not taking: Reported on 01/14/2024) 18 g 2 No current facility-administered medications for this visit. Past Medical History: Diagnosis Date BMI 31.0-31.9,adult [...] Hyperthyroidism treated with radioactive iodine Past Surgical History: Procedure Laterality Date ARTHROCENT ASP &/OR INJ MAJOR JX/BURSA W/O US Left 05/20/2014 ARTHROCENTESIS OR INJECTION MAJOR JOINT performed by Zach Valdovinos DO at OR [facility] COLONOSCOPY, DIAGNOSTIC (RECTUM) 02/18/2013 COLONOSCOPY FLEXIBLE PROXIMAL DIAGNOSTIC performed by Kristina Bynum DO at ENDOSCOPY [facility] COLONOSCOPY, DIAGNOSTIC (RECTUM) 02/12/2018 normal, repeat 5 yrs/COLONOSCOPY FLEXIBLE PROXIMAL DIAGNOSTIC performed by India Marcial MD at ENDOSCOPY [facility] COLONOSCOPY, DIAGNOSTIC (RECTUM) N/A 08/16/2023 diverticulosis/biopsies show adenomatous polyps/recall 5 years/Colonoscopy COLONOSCOPY, DIAGNOSTIC (RECTUM) 08/16/2023 COLONOSCOPY FLEXIBLE PROXIMAL DIAGNOSTIC performed by India Marcial MD at ENDOSCOPY [facility] INFORMATION wisdom teeth extraction INJECT DX/THER SUBSTANCE INTERLAMINAR LUMBAR/SACRAL W IMAGE GUIDE 09/28/2019 INJECTION SPINE LUMBAR OR SACRAL performed by Juan Su, at OR [facility] MASTECTOMY, PARTIAL Left 11/04/2012 SACROILIAC JOINT INJECT W/GUIDANCE Left 05/20/2014 INJECTION SACROILIAC JOINT performed by Zach Valdovinos DO at OR [facility] SENTINEL LYMPH NODE BIOPSY PERFORMED 06/08/2013 Left Lumpectomy,left sentinel lymph node biopsy,injection of lymphazurin blue dye for sentinel nodeidentification Dr [place] [facility] 06/08/13 STRESS ECHO (EXERCISE) 10/2011 negative for inducible ischemia, LVEF 60% VASC DUPLEX VENOUS LE BILAT 06/17/2013 acute thrombus right posterior tibial vein Review of patient's allergies indicates: Allergen Reactions Latex Hives and Rash Family History Problem Relation Name Age of Onset Diabetes Mother Heart Disorder Mother CAD age 58 Hypertension Mother Heart Disorder Father CAD age 62 Other (Other) Father hyperlipidemia Neurological Disorder Father Alzheimer's dementia No family status information on file. Social History Socioeconomic History Marital status: Spouse name: Not on file Number of children: Not on file Years of education: Not on file Highest education level: Not on file Occupational History Not on file Social Needs Financial resource strain: Not on file Food insecurity: Worry: Not on file Inability: Not on file Transportation needs: Medical: Not on file Non-medical: Not on file Tobacco Use Smoking status: Never Smoker Smokeless tobacco: Never Used Substance and Sexual Activity Alcohol use: Yes Comment: once or twice a year Drug use: No Sexual activity: Not on file Lifestyle Physical activity: Days per week: Not on file Minutes per session: Not on file Stress: Not on file Relationships Social connections: Talks on phone: Not on file Gets together: Not on file Attends orthodoxy service: Not on file Active member of club or organization: Not on file Attends meetings of clubs or organizations: Not on file Relationship status: Not on file Intimate partner violence: Fear of current or ex partner: Not on file Emotionally abused: Not on file Physically abused: Not on file Forced sexual activity: Not on file Other Topics Concern Not on file Social History Narrative Not on file Review of Systems: General: No change in weight and no fatigue Head: migraines under control Neck: No complaint of lumps in neck and No recent swelling in thyroid area Respiratory: No cough, sputum, or hemoptysis and No shortness of breath-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 at that time Cardiac: No chest pain and No edema Gastrointestinal: No dysphagia, No nausea, vomiting, diarrhea, or constipation and No abdominal pain Urinary: No dysuria, No hematuria, No nocturia and +stress incontinence chronic Musculoskeletal: No arthritis, No joint swelling and + joint pain, location: shoulders and knees-got injections in shoulder and doing better Neurologic: No fainting or blackouts, No seizures and No tremors Skin: No edema, No rash and No itching Objective: BP 128/73 (BP Site: Right Arm, BP Position: Sitting, BP Cuff Size: Regular) | Pulse 60 | Temp 37.4 C (99.4 F) (Tympanic) | Resp 18 | Wt 80.6 kg (177 lb 9.6 oz) | LMP 02/18/2013 | SpO2 97% | BMI 29.10 kg/m | BSA 1.93 m BP Readings from Last 4 Encounters: 04/08/24 128/73 03/11/24 102/73 01/14/24 142/80 08/16/23 113/73 Wt Readings from Last 3 Encounters: 04/08/24 80.6 kg (177 lb 9.6 oz) 03/11/24 80.3 kg (177 lb) 01/14/24 81.6 kg (180 lb) Physical Exam: BP 128/73 (BP Site: Right Arm, BP Position: Sitting, BP Cuff Size: Regular) | Pulse 60 | Temp 37.4 C (99.4 F) (Tympanic) | Resp 18 | Wt 80.6 kg (177 lb 9.6 oz) | LMP 02/18/2013 | SpO2 97% | BMI 29.10 kg/m | BSA 1.93 m General: alert, healthy, no distress, well nourished and well developed Head: Normocephalic, No masses, lesions, tenderness or abnormalities Neck: supple, no adenopathy, no bruits Heart: rrr Lungs: cta Abdomen: abdomen soft, non-tender and normal bowel sounds Extremities: no joint deformities, effusion, or inflammation, no edema, no clubbing Neuro Exam: alert & oriented x 3 with fluent speech, no focal motor/sensory deficits, gait normal NEPH-FLOW Latest Ref Rng 09/14/2014 02/24/2015 07/12/2015 Bun 6 - 20 mg/dL 16 23 (H) 19 Cr 0.5 - 1.0 mg/dL 1.2 (H) 1.2 (H) 1.3 (H) eGFR >60 mL/min eGFR >60 50.4 (L) 50.5 (L) 47.2 (L) K 3.5 - 5.1 mmol/L 4.4 5.0 4.5 Hb 12.0 - 15.3 g/dL 15.3 13.9 Pro/Cr ratio 0.00 - 0.14 Microalb/cr ratio <30 mg/g creat <2 NEPH-FLOW Latest Ref Rng 08/15/2015 06/01/2016 Bun 6 - 20 mg/dL 19 Cr 0.5 - 1.0 mg/dL 1.2 (H) eGFR >60 mL/min eGFR >60 53.9 (L) K 3.5 - 5.1 mmol/L 4.3 Hb 12.0 - 15.3 g/dL 14.2 Pro/Cr ratio 0.00 - 0.14 Microalb/cr ratio <30 mg/g creat <9 NEPH-FLOW Latest Ref Rng & Units 05/22/2018 04/02/2019 08/13/2019 Bun 6 - 20 mg/dL 22 (H) 20 27 (H) Cr 0.5 - 1.0 mg/dL 1.2 (H) 1.2 (H) 1.2 (H) eGFR >60 mL/min eGFR >60 48.5 (L) 48.2 (L) 50.1 (L) K 3.5 - 5.1 mmol/L 5.6 (H) 4.9 4.6 Hb 12.0 - 15.3 g/dL 14.8 Pro/Cr ratio 0.00 - 0.14 Microalb/cr ratio <30 mg/g creat NEPH-FLOW Latest Ref Rng & Units 04/02/2019 08/13/2019 07/22/2020 Bun 6 - 20 mg/dL 20 27 (H) 19 Cr 0.5 - 1.0 mg/dL 1.2 (H) 1.2 (H) 1.2 (H) eGFR >60 mL/min eGFR >60 48.2 (L) 50.1 (L) 50.8 (L) K 3.5 - 5.1 mmol/L 4.9 4.6 4.8 Hb 12.0 - 15.3 g/dL 14.8 Pro/Cr ratio 0.00 - 0.14 Microalb/cr ratio <30 mg/g creat NEPH-FLOW Latest Ref Rng & Units 09/20/2020 04/14/2021 04/10/2022 Bun 6 - 20 mg/dL 18 18 21 (H) Cr 0.5 - 1.0 mg/dL 1.2 (H) 1.3 (H) 1.3 (H) eGFR >=60 mL/min 44.2 (L) 48 (L) eGFR >60 49.3 (L) K 3.5 - 5.1 mmol/L 4.5 5.2 (H) 4.4 Hb 12.0 - 15.3 g/dL 14.9 14.7 Pro/Cr ratio <150 mg/g 43 ASSESSMENT/PLAN: Stage 3a chronic kidney disease (Primary) CKD 3 likely from HTN and or effects of various chemo drugs/NSAIDs she had in the past. Normal examand no symptoms. No longer feels lightheaded and blood pressure is good current regimen of losartan 50. She has recovered fully from the COVID infection she had in October 2021. Will do labs as below today as well as renal ultrasound She did have renal panel done few days ago and showed a creatinine of 1.2 GFR of 50. This is 1 of the best GFR reading she has had for the last few years. No need of renal panel today - US RENAL; Future; Expected date: 04/09/2024 - POST VOID RESIDUAL BLADDER US (PHYSICIAN ONLY); Future; Expected date: 04/08/2024 - URINALYSIS WITH MICROSCOPIC EXAM; Future; Expected date: 04/08/2024 - PROTEIN/ CREATININE RATIO, URINE; Future; Expected date: 04/08/2024 Dysuria - CULTURE, URINE, QUANTITATIVE; Future; Expected date: 04/08/2024 - UROGYNECOLOGY CLINIC REFERRAL OP (FEMALE ONLY) Recurrent UTI She has had UTI 3 times in 2023 alone. Even now she is complaining of dysuria as well as gross hematuria versus bloody vaginal discharge. Given all this I do want to do urine culture as well as referral to urogynecology - UROGYNECOLOGY CLINIC REFERRAL OP (FEMALE ONLY) HTN, goal below 140/90 Blood pressure is at goal. She is not having low blood pressure anymore and with that she feels better. Follow Up: Return in about 6 months (around 10/08/2024) for Clinic Visit. | For: Clinic Visit Delonte Kirby MD documented in this encounter Nursing Notes * Amanda Watts LPN - 04/08/2024 3:07 PM EDT Patient identified by verbal name and date of . Return visit No inpatient hospital stays or EDvisit Finished Keflex 03/21/24 for UTI with previous courses X 3 since January for same last labs 03/21/24 without Renal panel documented in this encounter Plan of Treatment Upcoming Encounters Date Type Department Care Team (Late st Contact Info) Description 04/09/2024 12:30 PM EDT Imaging Radiology [address] [place] [address] 04/09/2024 1:15 PM EDT Imaging Radiology [address] [place] [address] 05/11/2024 1:30 PM EDT Imaging Radiology [address] [place] [address] 06/05/2024 8:45 AM EDT Office Visit Urogynecology [address] [place] [address] Stefania Polanco PA-C [address] [place] [address] Nurse Alonzo Saenz Kevin [address] [place] [address] 10/07/2024 5:40 PM EST Office Visit Family Practice [facility] [address] [place] [address] Allyson Vickers DO [address] [place] [address] 12/18/2024 11:20 AM EST Office Visit Nephrology, [facility] [place] [address] Delonte Kirby MD 200 [facility] [place], [place] [address] Scheduled Orders Name Type Priority Associated Diagnoses Orde r Schedule US RENAL Medical Imaging Routine Chronic kidney disease, stage 3a (HCC) Expected: 04/09/2024 (Approximate), Expires: 10/05/2024 POST VOID RESIDUAL BLADDER US (PHYSICIAN ONLY) Procedures Routine Chronic kidney disease, stage 3a (HCC) Expected: 04/08/2024 (Approximate), Expires: 10/05/2024 URINALYSIS WITH MICROSCOPIC EXAM Lab Routine Chronic kidney disease, stage 3a (HCC) Expected: 04/08/2024 (Approximate), Expires: 10/05/2024 PROTEIN/ CREATININE RATIO, URINE Lab Routine Chronic kidney disease, stage 3a (HCC) Expected: 04/08/2024 (Approximate), Expires: 10/05/2024 CULTURE, URINE, QUANTITATIVE Lab Routine Dysuria Expected: 04/08/2024, Expires: 04/08/2025 Scheduled Procedures Name Priority Associated Diagnoses Date/Ti me COLONOSCOPY FLEXIBLE PROXIMA L DIAGNOSTIC Recall History of colonic polyps Scheduled Referrals Name Type Priority Associated Diagnoses Order Schedule UROGYNECOLOGY CLINIC REFERRAL OP (FEMALE ONLY) Referral Within 10 days (routine) Dysuria Recurrent UTI Ordered: 04/08/2024 Health Maintenance Due Date Last Done Comments HPV/Co-Test 1991 Cologuard 2006 Fecal Occult Blood Test 2006 Sigmoidoscopy 2006 COVID-19 Vaccine ( season) 2023 01/21/2021, 12/31/2020 GFR 10/04/2023 04/04/2023, 06/06, 04/10/2022, Additional history exists CKD HGB USE SMARTSET 51917 04/04/202404/04, 04/04/2023, 07/03/2022, Additional history exists CKD PHOS USE SMARTSET 02924 04/04/2024 06/0 11/2022, 04/10/2022, 09/20/2020, Additional history [...] Diagnoses Diagnosis Chronic kidney disease, stage 3a (HCC)- Primary Dysuria Recurrent UTI Urinary tract infection, site not specified documented in this encounter Care Teams Consumer Marketing Manager Relationship Specialty Start Date End Date Allyson Vickers DO [address] [place] [address] PCP - General Family Medicine 04/02/19 documented as of this encounter"
--- OUTSIDE RECORDS SUMMARY | 2024-09-15 08:59 | External Medical Summary | Summary of Care ---
Author Name Unknown Organization [facility] [address] [place] [address] Phone [phone] Care Team Providers Care Parboiler Name Role Phone Allyson Vickers DO Primary Care Provider [phone] Reason for Visit * Reason Onset Date Comments Test Results 04/10/2024 Unexpected or In determinate Result Encounter Details Date Type Department Care Team ([facility] st Contact Info) Description 04/10/2024 Telephone Laboratory, [address] [address] Allyson Vickers DO [address] [place] [address] Test Results (Unexpected or Indeterminate ... Allergies [...] discovered an unexpected or indeterminate finding on [facility] ([id number]) and asks that you review the following [...] Thank you, HAM Pen[place] Client Service Rep [facility] Medicine [place] documented in this encounter Plan of Treatment Upcoming Encounters Date Type Department Care Team (Late st Contact Info) Description 05/11/2024 1:30 PM EDT Imaging Radiology [address] [place] [address] 06/05/2024 8:45 AM EDT Office Visit Urogynecology Gely Saenz [address] [place] [address] Stefania Polanco PA-C [address] [place] [address] Nurse Alonzo Saenz [address] [place] [address] 10/07/2024 5:40 PM EST Office Visit Family Practice Gely Saenz [place] [address] [place] [address] Allyson Vickers DO [address] [place] [address] 12/18/2024 11:20 AM EST Office Visit Nephrology, [facility] 200 [facility] [place] [address] Delonte Kirby MD [address] [place] [address] Scheduled Procedures Name Priority Associated Diagnoses Date/Ti me COLONOSCOPY FLEXIBLE PROXIMA L DIAGNOSTIC Recall History of colonic polyps Health Maintenance Due Date Last Done Comments HPV/Co-Test 1991 Cologuard 2006 Fecal Occult Blood Test 2006 Sigmoidoscopy 2006 COVID-19 Vaccine ( season) 2023 01/21/2021, 12/31/2020 GFR 10/04/2023 04/04/2023, 06/06, 04/10/2022, Additional history exists CKD HGB USE SMARTSET 49656 04/04/202404/04, 04/04/2023, 07/03/2022, Additional history exists CKD PHOS USE SMARTSET 81863 04/04/2024 06/0 11/2022, 04/10/2022, 09/20/2020, Additional history [...] filedocumented as of this encounter Care Teams Parboiler Relationship Specialty Start Date End Date Allyson Vickers DO [address] [place] [address] PCP - General Family Medicine 04/02/19 documented as of this encounter
--- OUTSIDE RECORDS SUMMARY | 2024-09-15 09:00 | External Medical Summary | Summary of Care ---
Author Name Unknown Organization [facility] Address [address] [place] [address] Phone [phone] Care Team Providers Care Computer Systems Software Architect Name Role Phone Allyson Vickers DO Primary Care Provider [phone] Reason for Visit * Reason Onset Date Comments Appointment 04/03/2024 Encounter Details Date Type Department Care Team (Late st Contact Info) Description 04/03/2024 Telephone NephrologyAdri [address] [place] [address] Delonte Kirby MD [address] [place] [address] Appointment Allergies Active Allergy Reactions Criticality Noted Date Comments Latex Hives,Rash Medium 05/20/2014 documented as of this encounter (statuses as of 04/03/2024) Medications Medication Sig Dispensed Refills Start Date End Date Status ASPIRIN EC 81 MG PO TBECIndications:TIA (transient ischemic attack) Take one pill daily 04/03/2012 Active CYANOCOBALAMIN 1000 MCG PO TABS one daily Active Acetaminophen 500 MG Oral Tablet Take 1 Tablet by mouth every 6 hours as needed for Pain. Active Melatonin 3 MG Capsule Take 1 Capsule by mouth at bedtime. Active multivitamin w/ minerals (CENTRUM, CERTA-BREANN,) liquid Take 5 mL by mouth in the morning. Active Albuterol Sulfate HFA 108 (90 Base) MCG/ACT Inhalation Aerosol Solution Inhale 2 Puffs by mouth every 6 hours as needed for Shortness of Breath or Wheezing. 18 g 2 04/13/2021 Active Additional Information Patient not taking.Reported on 01/14/2024 Turmeric 500 MG Oral Tablet Take by mouth . Active Zinc 220 (50 Zn) MG Oral [...] as of this encounter (statuses as of 04/03/2024) Active Problems Problem Noted Date Diagnosed Date Depression with anxiety 12/21/2022 Chronic kidney disease, stage 3a 03/14/2021 Overview: Per CKD protocol History of thyroid cancer 03/02/2018 History of cervical cancer 03/02/2018 Acquired hypothyroidism 06/04/2017 Dyslipidemia 08/14/2007 Overview: Per Lipid Taxonomy. HTN, goal below 130/80 documented as of this encounter (statuses as of 04/03/2024) Resolved Problems Problem Noted Date Diagnosed Date [...] as of this encounter (statuses as of 04/03/2024) Immunizations Name Administration Dates Next Due COVID-19 mRNA, LNP-s, No Pre serve, 2-Dose Series (SumoSkinny) 01/21/2021,12/31/2020 Pneumococcal Polysaccharide PPV23 (Pneumovax) 02/14/2017 Seasonal [...] encounter Miscellaneous Notes * Telephone Encounter - Sena Wood OSA - 04/03/2024 8:49 AM EDT 04/03/24 Called patient, left message. Trying to get patient re-scheduled with Nephrology for appointment. Due to change in providers schedule again, please offer 04/08 at 3:[address] Kirby at [facility] to patient. My G message being sent out as well. documented in this encounter Plan of Treatment Upcoming Encounters Date Type Department Care Team (Late st Contact Info) Description 04/09/2024 12:30 PM EDT Imaging Radiology [facility] [address] [place] [address] 04/09/2024 3:20 PM EDT Office Visit Nephrology, [facility] [address] [place] [address] Delonte Kirby MD [address] [place] [address] 05/11/2024 1:30 PM EDT Imaging Radiology [address] [place] [address] 10/07/2024 5:40 PM EST Office Visit Family [facility] [address] [place] [address] Allyson Vickers DO [address] [place] [address] Scheduled Procedures Name Priority Associated Diagnoses Date/Ti me COLONOSCOPY FLEXIBLE PROXIMA L DIAGNOSTIC Recall History of colonic polyps Health Maintenance Due Date Last Done Comments HPV/Co-Test 1991 Cologuard 2006 Fecal Occult Blood Test 2006 Sigmoidoscopy 2006 COVID-19 Vaccine ( season) 2023 01/21/2021, 12/31/2020 GFR 10/04/2023 04/04/2023, 06/06, 04/10/2022, Additional history exists CKD HGB USE SMARTSET 46369 04/04/202404/04, 04/04/2023, 07/03/2022, Additional history exists CKD PHOS USE SMARTSET 43669 04/04/2024 06/0 11/2022, 04/10/2022, 09/20/2020, Additional history exists Cervical Cancer Screening 04/12/2024 Pap Smear 04/12/2024 04/12/2021, 05/04, 03/04/2014 (Done elsewhere), Additional history exists Mammogram 04/30/2024 04/30/2023, 04/05, 04/21/2021, Additional history exists Influenza Vaccine (FLU shot) (Season Ended) 2024 07/13/2020, 08/13/2019, 08/20/2018, Additional history exists TSH 12/31/2024 12/31/2023, 06/05, 04/10/2022, Additional history exists Albumin/Creatinine Ratio 03/11/20252 024, 12/11/2016, 08/15/2015, Additional history exists Diabetes [...] filedocumented as of this encounter Care Teams Computer Systems Software Architect Relationship Specialty Start Date End Date Allyson Vickers DO [address] [place] [address] PCP - General Family Medicine 04/02/19 documented as of this encounter
--- OUTSIDE RECORDS SUMMARY | 2024-09-15 09:00 | External Medical Summary | Summary of Care ---
Author Name Unknown Organization [facility] Address [address] [facility] [address] Phone [phone] Care Team Providers Care Relief Man Name Role Phone Allyson Vickers DO Primary Care Provider [phone] Reason for Visit * Reason Onset Date Comments Medication Pre-auth 03/16/2024 Encounter Details Date Type Department Care Team (Late st Contact Info) Description 03/16/2024 Telephone Family Practice [facility] [address] [place] [address] Allyson Vickers DO [address] [place] [address] Medication Pre-auth Allergies Active Allergy Reactions Criticality Noted Date Comments Latex Hives,Rash Medium 05/20/2014 documented as of this encounter (statuses as of 03/19/2024) Medications Medication Sig Dispensed Refills Start Date End Date Status ASPIRIN EC 81 MG PO TBECIndications:TIA (transient ischemic attack) Take one pill daily 0 04/03/2012 Active CYANOCOBALAMIN 1000 MCG PO TABS one daily 0 Active Acetaminophen 500 MG Oral Tablet Take 1 Tablet by mouth every 6 hours as needed for Pain. 0 Active Melatonin 3 MG Capsule Take 1 Capsule by mouth at bedtime. 0 Active multivitamin w/ minerals (CENTRUM, CERTA-BREANN,) liquid Take 5 mL by mouth in the morning. 0 Active Albuterol Sulfate HFA 108 (90 Base) MCG/ACT Inhalation Aerosol Solution Inhale 2 Puffs by mouth every 6 hours as needed for Shortness of Breath or Wheezing. 18 g 2 04/13/2021 Active Additional Information Patient not taking.Reported on 01/14/2024 Turmeric 500 MG Oral Tablet Take by mouth . 0 Active Zinc 220 (50 Zn) MG Oral Capsule Take by mouth . 0 Active Vitamin D (Cholecalciferol) 25 MCG (1000 UT) Oral Tablet Take by mouth . 0 Active Biotin 1000 MCG Oral Tablet Take 1 Tablet by mouth in the morning and 1 Tablet at noon and 1 Tablet before bedtime. Pt takes biotin 3000mcg once daily . 0 Active Sertraline HCl 50 MG Oral Tablet (Zoloft)Indications: Recurrent major depressive disorder, in remission (HCC) Take 1 Tablet by mouth in the morning. 90 Tablet 3 06/18/2023 Active Losartan Potassium 50 MG Oral Tablet (Cozaar)Indications: HTN, goal below 140/90 Take 1 Tablet by mouth in the morning. 90 Tablet 3 06/18/2023 Active Synthroid 200 MCG Oral TabletIndications:Ac quired hypothyroidism TAKE 1 TABLET BY MOUTH DAILY IN THE MORNING AT LEAST 30 MINS PRIOR TO BREAKFAST OR OTHER MEDS. TAKE 2 TABLETS ON SUNDAYS 96 Tablet 1 12/06/2023 Active Cephalexin 500 MG Oral CapsuleIndications:U rinary tract infection with hematuria, site unspecified Take 1 Capsule by mouth in the morning and 1 Capsule before bedtime. Do all this for 10 days. 20 Capsule 0 03/11/2024 Active documented as of this encounter (statuses as of 03/19/2024) Active Problems Problem Noted Date Diagnosed Date Depression with anxiety 12/21/2022 Chronic kidney disease, stage 3a 03/14/2021 Overview: Per CKD protocol History of thyroid cancer 03/02/2018 History of cervical cancer 03/02/2018 Acquired hypothyroidism 06/04/2017 Dyslipidemia 08/14/2007 Overview: Per Lipid Taxonomy. HTN, goal below 130/80 documented as of this encounter (statuses as of 03/19/2024) Resolved Problems Problem Noted Date Diagnosed Date [...] as of this encounter (statuses as of 03/19/2024) Immunizations Name Administration Dates Next Due COVID-19 mRNA, LNP-s, No Pre serve, 2-Dose Series (Pfizer) 01/21/2021,12/31/2020 Pneumococcal Polysaccharide PPV23 (Pneumovax) 02/14/2017 Seasonal Influenza, PF, 6 M & above, IM , (FluLaval or Fluzone) 07/13/2020,08/13/2019,08/22/2017 Seasonal Influenza, Quadriva lent, No Preserve, IM 08/20/2018,08/16/2016,08/15/2015 Seasonal Influenza, Split, I IV3, With Preserve, Inj 08/04/2013,08/13/2012,07/30/2011,08/04,07/20/2009,08/17/2008,08/14/2007 ,08/08/2006 TD - Tetanus/Diptheria (ADULT) 07/05/2005 TDAP (age 10 and older)(Boostrix) 05/17/2021 TDAP (age 11 and older)(Adacel) 06/27/2011 Zoster Vaccine Recombinant (Shingrix) 07/03/2022 ,04/17/2022 [...] encounter Miscellaneous Notes * Telephone Encounter - Milo Craft CPhT - 03/19/2024 9:58 AM EDT Checked status of prior authorization for Synthroid 200MCG tablets through [facility]. Awaiting response from insurance. Sprinkling System Irrigator will review again. Reminder: Pharmacist requests prior auth be sent back if no response by 03/20. Thank you, Jorge Craft ([facility]) Product Assurance Engineer III [facility] Pharmacy Services (CCPS) (formerly Telepharmacy) 03/19/2024, 9:58 AM * Telephone Encounter - Evanoski, Jeniffer A, stock cutter - 03/18/2024 3:00 PM EDT Submitted information in previous note via [facility] ([place]: [id number]).. Awaiting payer response. We will follow-up with insurance starting 03/19. Per [facility] request, if no decision is received from insurance by 03/20, we will route back to the [facility] after clarifying with the pharmacy that the claim is still not processing. Thanks, Jeniffer Dos Santos Product Assurance Engineer III Centralized Clinical Pharmacy Services (CCPS) 03/18/2024,3:00 PM * [facility]/16/2024 1:44 PM EDT Please submit PA. Include the following documentation: OV Note 07/03/22 TSH 12/31/23 TE 01/22/2018 Please copy and paste the following information into PA form: Request is for continuation of therapy What other drugs is there medical record documentation of therapeutic failure on, intolerance to, or contraindication to for this condition? Levothyroxine Brian as urgent: No Diagnosis/ICD-10 Code(s): E03.9 If instantaneous decision is not received after submitting prior auth, please continue to follow upon this and route back to the [facility] pool if no decision is made by the insurance by 03/20, after clarifying with the pharmacy that the claim is still not processing. If PA is denied, please also route back to [facility] pool. Thank you, Tiki Hernández PharmD Clinical Pharmacist Centralized Clinical Pharmacy Services (CCPS) (formerly Telepharmacy) 03/16/24 1:44 PM [phone] * Telephone Encounter - Jennifer Castro PHARM Tech - 03/16/2024 1:42 PM EDT Images from the original note were not included. This is a new PA request. Upon review of this prior authorization request, I verified this request is appropriate. This is prescribed by a department for which [facility] is authorized to review prior authorizations This is not a duplicate encounter regarding the same prior authorization The patient is planning to use insurance The insurance information listed in previous note is correct and the plan that is requiring prior authorization The insurance does not cover either brand or generic forms of this script as written without prior authorization The insurance does not cover any NDCs of this script without prior authorization RX Estimate tool confirms this script needs prior authorization PA approved last year but Of note, there is nothing currently pending in [facility] for this request. Please advise how to proceed. Thank you, Jennifer Castro [facility] Instructor Industrial Design Emerging Solutions Executive Centralized Clinical Pharmacy Services (CCPS)(formerly Telepharmacy) 03/16/2024,1:42 PM * Telephone Encounter - Jaskaran Daniels PHARM Tech - 03/16/2024 11:11 AM EDT BS calling to inform doctor that the patient's insurance will not pay for this medication withouta completed prior authorization. Did confirm this information with the pharmacy. [facility] is asking for this to be completed high priority and if willing to please call [phone] tocomplete over the phone. Pt only has 6 tablets left. Please leave providers name ph#, fax#, address, pts name,member id#, medication name dosage, diagnosis. Pt's current insurance information is as follows: Patient name: Marium Tobar ID number: [id number] BIN number: [id number] PCN number: [id number] Group number: [id number] Subscriber name: Marium Tobar Primary or Secondary Insurance:Primary Medication: Synthroid 200 MCG Oral Tablet Reason for Request: needed - [place] Pharmacy and phone number: [facility] [facility] [place] [phone] Rx plan and phone number: [facility] [phone] Is this a new medication for the patient? No. How did the patient obtain the medication on the lastfill? It was covered last time on this same insurance. What alternative medications does the pharmacy have in stock?: Jaskaran Benavides CPht Product Assurance Engineer Centralized Clinical Pharmacy Services (CCPS) (formerly Telepharmacy). 03/16/2024,11:12 AM documented in this encounter Plan of Treatment Upcoming Encounters Date Type Department Care Team (Late st Contact Info) Description 04/09/2024 11:00 AM EDT Office Visit Nephrology, [facility] [address] [place] [address] Delonte Kirby MD [address] [place] [address] 04/09/2024 12:30 PM EDT Imaging Radiology [facility] [place] [address] 05/11/2024 1:30 PM EDT Imaging Radiology [address] [place] [address] 10/07/2024 5:40 PM EST Office Visit Family Practice [facility] [place] [address] Allyson Vickers DO [address] [facility] [place] [address] Scheduled Procedures Name Priority Associated Diagnoses Date/Ti me COLONOSCOPY FLEXIBLE PROXIMA L DIAGNOSTIC Recall History of colonic polyps Health Maintenance Due Date Last Done Comments HPV/Co-Test 1991 Cologuard 2006 Fecal Occult Blood Test 2006 Sigmoidoscopy 2006 COVID-19 Vaccine ( season) 2023 01/21/2021, 12/31/2020 GFR 10/04/2023 04/04/2023, 06/06, 04/10/2022, Additional history exists CKD HGB USE SMARTSET 07444 04/04/202404/04, 04/04/2023, 07/03/2022, Additional history exists CKD PHOS USE SMARTSET 85896 04/04/2024 06/0 11/2022, 04/10/2022, 09/20/2020, Additional history [...] Visit Diagnoses Diagnosis Acquired hypothyroidism Unspecified hypothyroidism documented in this encounter Care Teams Relief Man Relationship Specialty Start Date End Date Allyson Vickers DO [address] [place] [address] PCP - General Family Medicine 04/02/19 documented as of this encounter
--- OUTSIDE RECORDS SUMMARY | 2024-09-15 09:00 | External Medical Summary | Summary of Care ---
Author Name Unknown Organization [facility] Address [address] [facility] [address] Phone [phone] Care Team Providers Care Citrix Engineer Name Role Phone Allyson Vickers DO Primary Care Provider [phone] Reason for Visit * Reason Onset Date Comments Medication Pre-auth 03/16/2024 Encounter Details Date Type Department Care Team (Late st Contact Info) Description 03/16/2024 Telephone Family Practice [facility] [address] [place] [address] Allyson Vickers DO [address] [place] [address] Medication Pre-auth Allergies Active Allergy Reactions Criticality Noted Date Comments Latex Hives,Rash Medium 05/20/2014 documented as of this encounter (statuses as of 03/20/2024) Medications Medication Sig Dispensed Refills Start Date [...] as of this encounter (statuses as of 03/20/2024) Active Problems Problem Noted Date Diagnosed Date Depression with anxiety 12/21/2022 Chronic kidney disease, stage 3a 03/14/2021 Overview: Per CKD protocol History of thyroid cancer 03/02/2018 History of cervical cancer 03/02/2018 Acquired hypothyroidism 06/04/2017 Dyslipidemia 08/14/2007 Overview: Per Lipid Taxonomy. HTN, goal below 130/80 documented as of this encounter (statuses as of 03/20/2024) Resolved Problems Problem Noted Date Diagnosed Date [...] as of this encounter (statuses as of 03/20/2024) Immunizations Name Administration Dates Next Due COVID-19 [...] encounter Miscellaneous Notes * Telephone Encounter - Kat Garcia RPh - 03/20/2024 9:13 AM EDT Checked status of prior authorization for SYNTHROID through [facility]. Patient and pharmacy notified of approval. Approved until(if applicable): 03/17/25 Thank you, Kat Garcia, PharmD Clinical Pharmacist Centralized Clinical Pharmacy Services (CCPS) 03/20/24 9:13 AM [phone] Electronically signed by Kat Garcia [facility] at 03/20/2024 9:14 AM EDT * Telephone Encounter - Milo Craft CPhT - 03/19/2024 9:58 AM EDT Checked status of prior authorization for Synthroid 200MCG tablets through [facility]. Awaiting response from insurance. Jacquard Loom Card Changer will review again. Reminder: Pharmacist requests prior auth be sent back if no response by 03/20. Thank you, Jorge Craft ([facility]) Supervisor Pastry III Centralized Clincal Pharmacy Services (CCPS) (formerly Telepharmacy) 03/19/2024, 9:58 AM * Telephone Encounter - Jeniffer Dos Santos supervisor public health nursing - 03/18/2024 3:00 PM EDT Submitted information in previous note via [facility] ([place]: [id number]).. Awaiting payer response. We will follow-up with insurance starting 03/19. Per [facility] request, if no decision is received from insurance by 03/20, we will route back to the [facility] after clarifying with the pharmacy that the claim is still not processing. Thanks, Jeniffer Dos Santos Supervisor Pastry III [facility] Clinical Pharmacy Services (CCPS) 03/18/2024,3:00 PM * Telephone Encounter - Tiki Hernández [facility] - 03/16/2024 1:44 PM EDT Please [...] upon this and route back to the [facility] pool if no decision is made by the insurance by 03/20, after clarifying with the pharmacy that the claim is still not processing. If PA is denied, please also route back to [facility]. Thank you, Tiki Hernández PharmD Clinical Pharmacist Centralized Clinical Pharmacy Services (CCPS) (formerly Telepharmacy) 03/16/24 1:44 PM [phone] Electronically signed by Tiki Hernández [facility] at 03/16/2024 1:47 PM EDT * Telephone Encounter - Jennifer Castro PHARM Tech - 03/16/2024 1:42 PM EDT Images from the original note were not included. This is a new PA request. Upon review of this prior authorization request, I verified this request is appropriate. This is prescribed by a department for which [facility] is authorized to review prior authorizations This [...] note, there is nothing currently pending in [facility] for this request. Please advise how to proceed. Thank you, Jennifer Castro [facility] Multimedia Project Manager Teacher Visually Impaired Centralized Clinical Pharmacy Services (CCPS)(formerly Telepharmacy) 03/16/2024,1:42 PM * Telephone Encounter - Jaskaran Daniels PHARM Tech - 03/16/2024 11:11 AM EDT BC[employer] calling to inform doctor that the patient's insurance will not pay for this medication withouta completed prior authorization. Did confirm this information with the pharmacy. [facility] is asking for this to be completed high priority and if willing to please call [phone] tocomplete over the phone. Pt only has 6 tablets left. Please leave providers name ph#, fax#, address, pts name,member id#, medication name dosage, diagnosis. Pt's current insurance information is as follows: Patient name: Marium Tobar ID number: [id number] BIN number: [id number] PCN number: [id number] Group number: [id number] Subscriber name: Marium Tobar Primary or Secondary Insurance:Primary Medication: Synthroid 200 MCG Oral Tablet Reason for Request: needed - [place] Pharmacy and phone number: [facility] [address] [place] [address] [facility] [place] [phone] Rx plan and phone number: [facility] [phone] Is this a new medication for the patient? No. How did the patient obtain the medication on the lastfill? It was covered last time on this same insurance. What alternative medications does the pharmacy have in stock?: Jaskaran Benavides CPht Supervisor Pastry Central[facility] Pharmacy Services (CCPS) (formerly Telepharmacy). 03/16/2024,11:12 AM documented in this encounter Plan of Treatment Upcoming Encounters Date Type Department Care Team (Late st Contact Info) Description 04/09/2024 11:00 AM EDT Office Visit Nephrology, [facility] [address] [place] [address] Delonte Kirby MD [address] [facility] [place] [address] 04/09/2024 12:30 PM EDT Imaging Radiology [facility] [address] [place] [address] 05/11/2024 1:30 PM EDT Imaging Radiology [address] [place] [address] 10/07/2024 5:40 PM EST [facility] [address] [place] [address] Allyson Vickers DO [address] [place] [address] Scheduled Procedures Name Priority Associated Diagnoses Date/Ti me COLONOSCOPY FLEXIBLE PROXIMA L DIAGNOSTIC Recall History of colonic polyps Health Maintenance Due Date Last Done Comments HPV/Co-Test 1991 Cologuard 2006 Fecal Occult Blood Test 2006 Sigmoidoscopy 2006 COVID-19 Vaccine ( season) 2023 01/21/2021, 12/31/2020 GFR 10/04/2023 04/04/2023, 06/06, 04/10/2022, Additional history exists CKD HGB USE SMARTSET 05032 04/04/202404/04, 04/04/2023, 07/03/2022, Additional history exists CKD PHOS USE SMARTSET 88645 04/04/2024 06/0 11/2022, 04/10/2022, 09/20/2020, Additional history [...] hypothyroidism documented in this encounter Care Teams Citrix Engineer Relationship Specialty Start Date End Date Allyson Vickers DO [address] [place] [address] PCP - General Family Medicine 04/02/19 documented as of this encounter
--- OUTSIDE RECORDS SUMMARY | 2024-09-15 09:00 | External Medical Summary | Summary of Care ---
Author Name Unknown Organization [facility] [address] [facility] [facility] [address] Phone [phone] Care Team Providers Care Heavy Equipment Sales Associate Name Role Phone Allyson Vickers DO Primary Care Provider [phone] Reason for Visit * Reason Onset Date Comments FYI 04/03/2024 Encounter Details Date Type Department Care Team (Late st Contact Info) Description 04/03/2024 Telephone Family Practice [facility] [address] [place] [address] Allyson Vickers DO [address] [place] [address] FYI Allergies Active Allergy Reactions Criticality Noted Date [...] encounter Miscellaneous Notes * Telephone Encounter - Molly Singh CPhT - 04/03/2024 12:10 PM EDT Patient calling to request nephrology appt change . Transferred pt to scheduling for further assistance. Thank you, Molly Singh Reinforcing Steel Worker [employer] [facility] (formerly Telepharmacy) 04/03/2024 12:11 PM documented in this encounter Plan of Treatment Upcoming Encounters Date Type Department Care Team (Late st Contact Info) Description 04/08/2024 3:20 PM EDT Office Visit NephAdri cabrera [address] [place] [address] Delonte Kirby MD [address] [place] [address] 04/09/2024 12:30 PM EDT Imaging Radiology [facility] [address] [place] [address] 04/09/2024 3:20 PM EDT Office Visit Nephrology, [facility] [address] [place] [address] Delonte Kirby MD [address] [place] [address] 05/11/2024 1:30 PM EDT Imaging Radiology [address] [place] [address] 10/07/2024 5:40 PM EST Office Visit Family Practice [facility] [address] [place] [address] Allyson Vickers DO [address] [place] [address] Scheduled Procedures Name Priority Associated Diagnoses Date/Ti me COLONOSCOPY FLEXIBLE PROXIMA L DIAGNOSTIC Recall History of colonic polyps Health Maintenance Due Date Last Done Comments HPV/Co-Test 1991 Cologuard 2006 Fecal Occult Blood Test 2006 Sigmoidoscopy 2006 COVID-19 Vaccine ( season) 2023 01/21/2021, 12/31/2020 GFR 10/04/2023 04/04/2023, 06/06, 04/10/2022, Additional history exists CKD HGB USE SMARTSET 38171 04/04/202404/04, 04/04/2023, 07/03/2022, Additional history exists CKD PHOS USE SMARTSET 18461 04/04/2024 06/0 11/2022, 04/10/2022, 09/20/2020, Additional history [...] filedocumented as of this encounter Care Teams Heavy Equipment Sales Associate Relationship Specialty Start Date End Date Allyson Vickers DO [address] [place] [address] PCP - General Family Medicine 04/02/19 documented as of this encounter
--- OUTSIDE RECORDS SUMMARY | 2024-09-15 09:00 | External Medical Summary | Summary of Care ---
Author Name Unknown Organization [facility] Address [address] [place] [address] Phone [phone] Care Team Providers Care Semiautomatic Taper Operator Name Role Phone Allyson Vickers DO Primary Care Provider [phone] Reason for Visit * Reason Onset Date Comments Appointment 03/23/2024 Encounter Details Date Type Department Care Team (Late st Contact Info) Description 03/23/2024 Telephone NephrologyAdri [address] [place] [address] Delonte Kirby MD [address] [facility] [place] [address] Appointment Allergies Active Allergy Reactions Criticality Noted Date Comments Latex Hives,Rash Medium 05/20/2014 documented as of this encounter (statuses as of 03/23/2024) Medications Medication Sig Dispensed Refills Start Date [...] as of this encounter (statuses as of 03/23/2024) Active Problems Problem Noted Date Diagnosed Date Depression with anxiety 12/21/2022 Chronic kidney disease, stage 3a 03/14/2021 Overview: Per CKD protocol History of thyroid cancer 03/02/2018 History of cervical cancer 03/02/2018 Acquired hypothyroidism 06/04/2017 Dyslipidemia 08/14/2007 Overview: Per Lipid Taxonomy. HTN, goal below 130/80 documented as of this encounter (statuses as of 03/23/2024) Resolved Problems Problem Noted Date Diagnosed Date [...] as of this encounter (statuses as of 03/23/2024) Immunizations Name Administration Dates Next Due COVID-19 mRNA, LNP-s, No Pre serve, 2-Dose Series ([employer]) 01/21/2021,12/31/2020 Pneumococcal Polysaccharide PPV23 (Pneumovax) 02/14/2017 Seasonal [...] Telephone Encounter - Sena Wood OSA - 03/23/2024 1:08 PM EDT 03/23/24 Called patient, left message. Trying to change the patient's appointment time on 04/[address] Kirby due to switching schedules around. Please offer 2:20 pm, 3:00, or 3:20 pm on 04/09 at [facility] documented in this encounter Plan of Treatment Upcoming Encounters Date Type Department Care Team (Late st Contact Info) Description 04/09/2024 11:00 AM EDT Office Visit Nephrology, [facility] [address] [place] [address] Delonte Kirby MD [address] [place] [address] 04/09/2024 12:30 PM EDT Imaging Radiology [facility] [address] [place] [address] 05/11/2024 1:30 PM EDT Imaging Radiology [address] [place] [address] 10/07/2024 5:40 PM EST Office Visit Family Practice [facility] [address] [place] [address] Allyson Vickers, [address] [place] [address] Scheduled Procedures Name Priority Associated Diagnoses Date/Ti me COLONOSCOPY FLEXIBLE PROXIMA L DIAGNOSTIC Recall History of colonic polyps Health Maintenance Due Date Last Done Comments HPV/Co-Test 1991 Cologuard 2006 Fecal Occult Blood Test 2006 Sigmoidoscopy 2006 COVID-19 Vaccine ( season) 2023 01/21/2021, 12/31/2020 GFR 10/04/2023 04/04/2023, 06/06, 04/10/2022, Additional history exists CKD HGB USE SMARTSET 27094 04/04/202404/04, 04/04/2023, 07/03/2022, Additional history exists CKD PHOS USE SMARTSET 30526 04/04/2024 06/0 11/2022, 04/10/2022, 09/20/2020, Additional history [...] filedocumented as of this encounter Care Teams Semiautomatic Taper Operator Relationship Specialty Start Date End Date Allyson Vickers DO [address] [place] [address] PCP - General Family Medicine 04/02/19 documented as of this encounter
[2024-09-15 18:52] LABS: ANTI-Xa, UFH(UnfractionatedHep 0.51 IU/ml (0.3-0.7)
[2024-09-16 05:38] LABS: Hematocrit (blood only) 41.4 % (37.0-47.0); Hemoglobin 13.8 g/dl (12.0-16.0); Mean Corpuscular Hemoglobin 29.3 pg (25.0-34.0); Mean Corpuscular Hgb Conc 33.3 g/dL (32.0-36.0); Mean Corpuscular Volume 87.9 fL (80.0-100.0); Mean Platelet Volume 9.5 fL (9.4-12.4); Platelet Count 192 K/uL (130-400); RDW Coefficient of Variation 12.2 % (11.5-14.5); RDW Standard Deviation 39.6 fL (36.4-46.3); Red Blood Count 4.71 M/uL (4.20-5.40); White Blood Count 4.98 K/ul (4.8-10.8)
[2024-09-16 05:56] LABS: BUN Creatinine Ratio 15.4 (10-20); Calcium 9.2 mg/dl (8.6-10.3); Creatinine Clr Calc Pharmacy 50.8 ml/min; Magnesium 2.1 mg/dl (1.7-2.4); Phosphorus 3.7 mg/dl (2.5-4.9); Potassium 4.2 mmol/L (3.5-5.1)
[2024-09-16] MEDS: SODIUM CHLORIDE 0.9% 1,000 ML IV SCH (08:38)
[2024-09-16 11:26] VITALS: RESP 18; TEMP 97.7; O2SAT 96
--- NOTE | 2024-09-16 13:20 | Discharge Summary ---
Discharge Summary Date of Service September 16, 2024 Principal Dx & Hospital Course #1 = Principal Diagnosis (1) Pulmonary embolism: Ms. Tobar is a 64 year old woman with medical history significant for hypertension, hyperlipidemia, TIA, CRI (baseline creatinine 1.4), bladder cancer, left breast cancer status post surgery/radiation, status post tamoxifen Rx, cervical cancer status post surgery/chemoradiation, thyroid cancer status post ablation, postop DVT status post anticoagulation, hypothyroidism, anxiety/mood disorder, past tobacco abuse who was admitted for acute pulmonary emboli noted on CTA as an OP. Repeat CT chest revealed large amount of pulmonary emboli ECHO without right heart strain. Patient on room air and asymptomatic Pulmonary Embolism, likely provoked Pt presents with asymptomatic and hemodynamically stable PE without biomarker or imaging findings of right ventricular strain. Patient with bladder cancer pending removal as likely precipitant - Anticoagulation: heparin drip for now, will maintain for 48 hours - continue to monitor on tele - Trop negative - ECHO 60-65%, no PHTN no strain noted Plan to send eliquis to pharmacy for co pay Ur[place] malignancy, mucinous adenocarcinoma History of gross hematuria scheduled robot assisted laparoscopic partial cystectomy, possible pelvic lymph node dissection planned for 09/16, now cancelled 2/[address] Guerrero--patient will keep original post op appt 09/21 to discuss next steps No hematuria at this time, though significant risk for return Patient with rojas initially for upcoming procedure; however, Dr. Guerrero notes can be removed given no sign of hematuria at this time Low threshold to replace if hematuria returns hypertension, stable continue home losartan monitor hemodynamics hyperlipidemia, continue on statin Rx Chronic Kidney Disease creatinine at baseline will continue IVF iso multiple contrast loads left breast cancer status post surgery/radiation status post tamoxifen Rx cervical cancer status post surgery/chemoradiation seemingly followed Dr Ferrer and will need to reestablish iso above hypothyroidism thyroid cancer status post ablation continue Synthroid anxiety/mood disorder patient slightly anxious and tearful during exam due to possible cancellation of contemplated elective cancer surgery at [facility] on 09/16 with discovery of blood clot Ativan prn sertraline qam Full code DVT heparin ggt Notes For Next Care Provider Please repeat BMP in 2-3 days and ensure improvement of kidney function. Cr 1.23 on discharge, pt given 1L NSS. Medication Changes From Visit Eliquis starter pack Admission HPI Per Admitting Provider History obtained from patient and records. Medical history significant for hypertension, hyperlipidemia, TIA, CRI (baseline creatinine 1.4), bladder cancer, left breast cancer status post surgery/radiation, status post tamoxifen Rx, cervical cancer status post surgery/chemoradiation, thyroid cancer status post ablation, postop DVT status post anticoagulation, hypothyroidism, anxiety/mood disorder, past tobacco abuse. Last confinement 2010 for TIA symptoms. Patient diagnosed to have bladder cancer last month presenting as hematuria symptoms. Robot-assisted laparoscopic partial cystectomy with possible pelvic lymph node dissection contemplated by urologist at [facility] contemplated September 16, 2024. Outpatient PET scan and CT chest abdomen pelvis to rule out occult mets requested by specialist following office visit last week. Outpatient CT chest abdomen pelvis done at [facility] facility done today with results noted below. A 1.8 x 1.2 cm hypoattenuating collection/structure at the urachal remanent near the anterior bladder dome, grossly unchanged from prior CT. Findings suspicious for residual tumor rather than a postoperative collection. Recent PET-CT would be limited to detect uptake given mucinous subtype. No evidence of metastatic disease. Please note that this study was not optimized to evaluate for pulmonary embolism. However, multiple filling defects are visualized in the right upper, middle and lower lobar/segmental branches, consistent with acute pulmonary embolism. Small PE in the left lower lobe segmental branch. No evidence of right heart strain. Patient denies chest pain, SOB, leg swelling, hematuria symptoms. History RLE DVT in 2012 during confinement for breast surgery. Patient directed to ER by urologist office for further evaluation. 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 No acute distress Psych: tearful mood and affect at times Neuro: No gross deficits while sitting in bed HEENT: NC/AT CV: RRR Resp: Breath sounds clear bilaterally, no increased effort of breathing Abdomen: Soft, nontender, nondistended Extremities: No edema in lower extremities bilaterally. Updated Medication List Medication Instructions Recorded Confirmed Type MULTIPLE VITAMINS W/ MINERALS 1 tab PO DAILY ##0 06/08/13 09/14/24 History (WOMENS MULTI) LOSARTAN POTASSIUM (COZAAR) 100 mg PO DAILY #0 tabs 06/17/13 09/14/24 History ACETAMINOPHEN (TYLENOL) 500 mg PO prn PRN Pain #0 tabs 06/30/13 09/14/24 History levothyroxine 200 mcg tablet 200 mcg PO QAM 09/14/24 09/14/24 History (Synthroid) sertraline 50 mg tablet 50 mg PO QAM 09/14/24 09/14/24 History apixaban 5 mg tablet (Eliquis) See Rx Instructions .Route 09/15/24 Rx .COMPLEX #74 tabs Hospital Stay Data Consultations 09/14/24 21:48 ED Decision to Admit Stat Diagnostic Imagining Performed 09/15/24 US venous doppler LE BI Routine 09/15/24 07:59 CT for pulmonary embolism PE [CT angio chest PE protocol] Routine Chest X-Ray 09/14/24 19:01 Exam(s): XR CXR 2 VIEWS EXAM: XR Chest, 2 Views CLINICAL HISTORY: Reason for exam: Chest pain, nonspecific. TECHNIQUE: Frontal and lateral views of the chest. COMPARISON: No relevant prior studies available. FINDINGS: Lungs: Unremarkable. No consolidation. Pleural space: Unremarkable. No pleural effusion or pneumothorax. Heart: Unremarkable. No cardiomegaly or pulmonary vascular congestion. Bones/joints: No acute fracture. No dislocation. IMPRESSION: No evidence of acute cardiopulmonary disease. Electronically signed by: Mike Boone M.D. 09/14/24 19:39 PM Venous Doppler Study 09/15/24 00:00 EXAM: US venous doppler LE BI CLINICAL HISTORY: PE, R/o DVT RLE: 1 of 2 fouzia v noncompressible w/no flow. all other vessels appear patent LLE: no definite DVT detected TECHNIQUE: Bilateral lower extremity venous Doppler was performed. One or more of the following were performed- spectral analysis, resistive index, waveform analysis, and pulsed Doppler. COMPARISON: None. FINDINGS: The bilateral lower limb venous system was examined. Right lower extremity: The veins scanned included the following: Common femoral, superficial femoral, popliteal, peroneal, and tibial veins. Right peroneal vein is noncompressible and shows no flow, raising the possibility of thrombosis. On the B mode examination, the rest of the veins are compressible. On the color and spectral Doppler mode, there is phasic and spontaneous flow in the remaining vessels. Left lower extremity: The veins scanned included the following: Common femoral, superficial femoral, popliteal, peroneal, and tibial veins. On the B mode examination, the veins are compressible. No evidence of an intraluminal thrombus. On the color and spectral Doppler mode, there is phasic and spontaneous flow in the vessels. IMPRESSION: 1. Right peroneal vein is noncompressible and shows no flow, consistent with thrombosis. Follow up is recommended. 2. No evidence of deep vein thrombosis in left lower extremity. RECOMMENDATIONS: Clinical correlation with symptoms and further evaluation as indicated. Follow-up imaging may be recommended based on clinical scenario or if significant abnormalities are identified. DISCLAIMER:DVT could be missed early in the disease when clot burden is minimal. For patients with moderate and high pretest probability of DVT and negative ultrasound, the [employer] clinical guidelines recommend testing with a D-dimer assay or repeat ultrasound in 5-7 days. If symptoms worsen, the Society of radiologists in ultrasound recommends repeating ultrasound even earlier. Electronically signed by Sav Pulido 09-15-2024 03:55 AM Chest CTA 09/15/24 07:59 CT angio chest PE protocol CT DOSE: 772.67 mGy.cm HISTORY: 63 years-old Female with imaging not optimized for PE as OP, confirm. Acute shortness of breath TECHNIQUE: Multiple CTA images of the chest were obtained after the intravenous administration of 112 ml Optiray. Coronal and sagittal MIPS were obtained from the axial data set and were submitted for review. All measurements were obtained according to NASCET criteria. A dose lowering technique was utilized adhering to the principles of ALARA. COMPARISON: Chest radiograph September 14, 2024 FINDINGS: CTA: Heart is mildly enlarged. No pericardial effusion. No thoracic aortic aneurysm. There is a large amount of pulmonary emboli noted within the distal right main pulmonary artery extending into the lobar, segmental and subsegmental branches of the right lung. Segmental and subsegmental pulmonary emboli also noted within the lingula and left lower lobe. There is mild straightening of the intraventricular septum. No saddle pulmonary emboli identified. CT CHEST: No thyroid nodule or pathologically enlarged lymph nodes. No pleural effusion, pneumothorax or large pulmonary infarct. Subsegmental bibasilar opacities suggest atelectasis. There are no suspicious pulmonary nodules or masses identified. Mild bronchial wall thickening with areas of bibasilar mucous plugging. Small hiatal hernia. No acute upper abdominal abnormality. Hyperdense material within the gallbladder suggests vicarious excretion of contrast. Enteric contrast noted within the large bowel. No acute fracture. IMPRESSION: 1. Large amount of pulmonary emboli as above with evidence of right heart strain. No saddle pulmonary embolus identified. 2. No pleural effusion or airspace consolidation to suggest pneumonia or pulmonary infarct. 3. Mild subsegmental bibasilar atelectasis. 4. No lymphadenopathy. ACT 112: Negative or not required by law. The above report was generated using voice recognition software. It may contain grammatical, syntax or spelling errors. Electronically signed by: Rigoberto Carias M.D. 09/15/2024 8:45 AM Pending Results Patient Have Any Pending Studies at Discharge: No Discharge Instructions Given to Patient (Per Discharging Provider) Marium, You are admitted and treated for blood clots in your legs and your lungs. We are starting you on the medication Eliquis to help with keeping your blood thin. Please start by taking a dose of the 10 mg (2 pills) tonight and continue with that for an additional 12 doses taking 10 mg twice a day for the next 6 days starting tomorrow. Then after that start taking 5 mg (1 pill) twice a day every day. He will also need follow-up with your PCP so that your kidney function can be monitored. You will need to have lab work completed in 2 to 3 days Please keep close follow-up with your urologist after discharge. An appointment has been set up for you already. Please also keep close follow-up with your senior attorney/oncologist Dr. Ferrer. An appointment will be set up for use while with his office. Please also keep close follow up with your primary care provider after discharge. Please do not hesitate to come back to the emergency room if your symptoms worsen or return. It was a pleasure taking care of you while you were here. Total Time Total Time Spent Total Time Spent (In Minutes): 65
[2024-09-16 13:47] VITALS: BP 123/82; PULSE 55
[2024-09-16] MEDS: APIXABAN 5 MG TABLET PO SCH (13:55)
--- NOTE | 2024-09-17 15:30 | Electrocardiogram Report ---
Test Reason : Blood Pressure : */* mmHG Vent. Rate : 67 BPM Atrial Rate : 67 BPM P-R Int : 154 ms QRS Dur : 76 ms QT Int : 394 ms P-R-T Axes : 49 -1 69 degrees QTcB Int : 416 ms Normal sinus rhythm Normal ECG When compared with ECG of 14-Jun-2011 06:27, No significant change Confirmed by Jared Portillo ([id number]) on 09/17/2024 3:30:06 PM Referred By: Poncho Guerrero Confirmed By: Jared Portillo
== END 2024-09-16 14:09 | disposition home or self-care (01) | DRG 299 ==
LOC: ED 18:49 → EDINP 22:55 → SUATTDRO 22:55 → 2N 09-15 00:54